=== PATIENT | male | born 1935 | race Caucasian/White ===

== ENCOUNTER → 2018-06-02 12:47 | Outpatient (CLI) | payer MEDICARE, OTHER, SELFPAY ==
[2018-06-02 17:42] LABS: Blood Urea Nitrogen 18 mg/dL (9-20); Calcium 9.1 mg/dL (8.4-10.2); Carbon Dioxide 24 mmol/L (22-32); Chloride 103 mmol/L (98-107); Estimated Glomerular Filt Rate > 60.0 mL/min (>60); Glucose 247 mg/dL (80-110); HEMOLYSIS 16 (0-50); Potassium 4.3 mmol/L (3.4-5.1); Sodium 139 mmol/L (137-145)
== END ==
PROVIDERS: Family Provider Family Medicine; PCP Family Medicine; Visit Provider Internal Medicine Cardiovascular Disease
DX: Z51.81 Encounter for therapeutic drug level monitoring (principal); Z79.899 Other long term (current) drug therapy
CPT/HCPCS: 36415; 80048

== ENCOUNTER → 2018-09-01 12:51 | Outpatient (CLI) | payer MEDICARE, OTHER, SELFPAY ==
[2018-09-01 15:45] LABS: Blood Urea Nitrogen 18 mg/dL (9-20); Calcium 8.8 mg/dL (8.4-10.2); Carbon Dioxide 28 mmol/L (22-32); Chloride 104 mmol/L (98-107); Estimated Glomerular Filt Rate > 60.0 mL/min (>60); Glucose 126 mg/dL (80-110); HEMOLYSIS < 15 (0-50); Potassium 3.9 mmol/L (3.4-5.1); Sodium 145 mmol/L (137-145)
== END ==
PROVIDERS: PCP Family Medicine; Visit Provider Internal Medicine Cardiovascular Disease
DX: Z51.81 Encounter for therapeutic drug level monitoring (principal); Z79.899 Other long term (current) drug therapy; R97.20 Elevated prostate specific antigen [PSA]
CPT/HCPCS: 36415; 80048; 84153

== ENCOUNTER 2018-09-24 12:54 | Observation (INO) | payer MEDICARE, OTHER, SELFPAY ==
[2018-09-24] VITALS (8 sets, daily range): BP systolic 113–137; BP diastolic 64–81; PULSE 57–67; RESP 15–20; TEMP 36.6–36.8; O2SAT 93–99; BMI 29.8
--- NOTE | 2018-09-24 13:10 | DI.RAD.S_ITS ---
PROCEDURE: XR CHEST 1V INDICATIONS: chest pain TECHNIQUE: One view of the chest was acquired. COMPARISON: [facility], CHEST 1 VIEW, 09/24/2014, 17:40. [facility], CHEST 1 VIEW, 09/24/2014, 18:46. FINDINGS: Surgical changes and devices: None. Lungs and pleura: Prominent perihilar lung markings are identified which are similar to the prior exam. No lobar consolidation is identified. However, there may be developing airspace disease within the bilateral lung bases (right greater than left). No effusion or pneumothorax is identified. Mediastinum: Mediastinal contours appear normal. Heart size is normal. Bones and chest wall: No suspicious bony lesions. There are degenerative changes of the spine and shoulders. Overlying soft tissues appear unremarkable. IMPRESSION: Prominent perihilar lung markings are slightly more pronounced within the infrahilar regions. This likely represents vascular crowding from shallow inspiration. Please correlate clinically to exclude atypical pneumonia. Dictated by: Robe Koch M.D. on 09/24/2018 at 12:25 Approved by: Robe Koch M.D. on 09/24/2018 at 12:26
[2018-09-24 13:17] LABS: Add Manual Diff / Slide Review NO; Basophils Percent Auto 0.7 % (0-2); Eosinophils Percent Auto 2.1 % (2-4); Hematocrit 40.1 % (41-53); Hemoglobin 13.2 g/dL (13.5-17.5); Lymphocytes Percent Auto 34.1 % (25-40); Mean Corpuscular Hemoglobin 27.7 PG (26-34); Mean Corpuscular Volume 83.9 fL (80-100); Monocytes Percent Auto 8.2 % (3-14); Neutrophils Absolute Auto 3500 /uL (3000-5900); Neutrophils Percent Auto 54.9 % (50-75); Platelet Count 169 X10^3/uL (150-400); Red Blood Cell Count 4.78 X10^6/uL (4.5-5.9); White Blood Cell Count 6.4 X10^3/uL (4.5-11.0)
[2018-09-24 13:18] LABS: INR 1.1 (0.9-1.3); Prothrombin Time 12.4 SECONDS (10.1-12.7)
[2018-09-24 13:21] LABS: PTT Partial Thromboplastin Tim 44 SECONDS (26.4-36.2)
[2018-09-24 13:27] LABS: Alanine Aminotransferase 27 IU/L (21-72); Albumin 4.3 g/dL (3.5-5.0); Albumin Globulin Ratio 1.5 (1.0-2.8); Alkaline Phosphatase 54 U/L (38-126); Aspartate Aminotransferase 23 IU/L (17-59); Bilirubin Total 0.5 mg/dL (0.2-1.3); Blood Urea Nitrogen 17 mg/dL (9-20); Calcium 9.2 mg/dL (8.4-10.2); Carbon Dioxide 28 mmol/L (22-32); Chloride 102 mmol/L (98-107); Creatine Kinase 61 U/L (55-170); Estimated Glomerular Filt Rate > 60.0 mL/min (>60); Globulin 2.8 g/dL (1.7-4.1); Glucose 178 mg/dL (80-110); HEMOLYSIS < 15 (0-50); Lipase 65 U/L (23-300); Potassium 4.7 mmol/L (3.4-5.1); Sodium 142 mmol/L (137-145); Total Protein 7.1 g/dL (6.3-8.2)
[2018-09-24 13:41] LABS: Troponin I < 0.012 ng/mL (0.01-0.034)
--- NOTE | 2018-09-24 13:44 | ED.CHESTPAIN ---
HPI - Chest Pain General Chief Complaint: Chest Pain Stated Complaint: Chest pain Time Seen by Provider: 09/24/18 13:02 Source: patient and EMS Mode of arrival: EMS Limitations: no limitations History of Present Illness HPI narrative: 82-year-old male, nonsmoker with a history of diabetes, hypertension and hyperlipidemia presents with sudden onset retrosternal chest pressure that feels squeezing in nature that started about 45 min prior to his arrival while at rest. He denies any radiation or provocation of his pain but does state that the nitro given by EMS made his pain go from a 7/10 to a 0/10. He denies associated symptoms such as dizziness, weakness or lightheadedness. He has had no nausea, vomiting or diaphoresis. Been quite sometime since his last stress test and he denies any history of myocardial infarction. He does have a history of paroxysmal atrial fibrillation for which he takes Pradaxa. His neuropsychology director is Dr. Becerra from [facility] MD complaint: chest pain Onset (ago): minute(s) Duration: improved Onset: during rest Pain location: substernal Severity: moderate Severity scale (1-10): 7 Quality: tightness Pain radiation: none Relieving factors: nitroglycerin Exacerbating factors: nothing Treatments prior to arrival chest pain: aspirin and nitroglycerin Related Data Home Medications Medication Instructions Recorded Confirmed metformin [Glucophage XR] 500 mg PO BID #0 10/14/12 09/24/18 cholecalciferol (vitamin D3) 5,000 unit PO DAILY #0 08/18/16 09/24/18 [Vitamin D3] dabigatran etexilate [Pradaxa] 150 mg PO BID 09/24/18 09/24/18 dofetilide 250 mg PO BID 09/24/18 09/24/18 glipizide 10 mg PO QAM 09/24/18 09/24/18 ibuprofen [Advil] 200 mg PO PRN PRN 09/24/18 09/24/18 loperamide 2 mg PO PRN PRN 09/24/18 09/24/18 metoprolol succinate [Toprol XL] 50 mg PO DAILY 09/24/18 09/24/18 omega-3 acid ethyl esters [Lovaza] 2 g PO BID 09/24/18 09/24/18 omeprazole 20 mg PO BID 09/24/18 09/24/18 ranitidine HCl 150 mg PO DAILY 09/24/18 09/24/18 saxagliptin-metformin [Kombiglyze 1 tab PO QPM 09/24/18 09/24/18 XR] simethicone [Gas-X Extra Strength] 1 cap PO PRN PRN 09/24/18 09/24/18 Allergies Allergy/AdvReac Type Severity Reaction Status Date / Time No Known Allergies Allergy Uncoded 02/24/18 11:50 Review of Systems Review of Systems All systems reviewed & are unremarkable except as noted in HPI and below Constitutional Denies chills, Denies fever(s), Denies lethargy and Denies weakness Eyes Denies change in vision, Denies eye discharge, Denies irritation and Denies loss of vision ENT Ears, Nose, Mouth, and Throat: Denies change in voice, Denies neck pain and Denies sore throat Cardiovascular Reports chest pain, Reports chest pain at rest, Denies irregular heart rhythm, Denies lightheadedness, Denies palpitations, Denies dyspnea, Denies dyspnea on exertion and Denies orthopnea Respiratory Denies cough, Denies dyspnea, Denies dyspnea on exertion and Denies wheezing Gastrointestinal Gastrointestinal: Denies abdominal pain, Denies change in bowel habits, Denies diarrhea, Denies nausea and Denies vomiting Genitourinary Denies hematuria, Denies flank pain, Denies urinary incontinence and Denies urinary urgency Musculoskeletal Denies neck pain Integumentary/Breasts Denies pruritus, Denies erythema, Denies rash and Denies wounds Neurologic Denies confusion, Denies loss of vision and Denies weakness Psychiatric Denies anxiety, Denies confusion, Denies depression, Denies homicidal ideation and Denies suicidal ideation Endocrine Denies palpitations Hematologic/Lymphatic Denies easy bruising Allergic/Immunologic Denies wheezing Exam Narrative Exam Narrative: GENERAL: Pleasant 82-year-old male resting comfortably, no obvious distress HEAD: Atraumatic. Normocephalic. No temporal or scalp tenderness. EYES: Pupils equal round and reactive. Extraocular motions intact. No scleral icterus. No injection or drainage. ENT: Nose without bleeding, purulent drainage or septal hematoma. Throat without erythema, tonsillar hypertrophy or exudate. Uvula midline. Airway patent. NECK: Trachea midline. No JVD or lymphadenopathy. Supple, nontender, no meningeal signs. CARDIOVASCULAR: Regular rate and rhythm without murmurs, gallops, or rubs. RESPIRATORY: Clear to auscultation. Breath sounds equal bilaterally. No wheezes, rales, or rhonchi. GASTROINTESTINAL: Abdomen soft, non-tender, nondistended. No hepato-splenomegaly, or palpable masses. No guarding. EXTREMITIES: No clubbing, cyanosis, or edema. No joint tenderness, effusion, or edema noted. BACK: Nontender without deformity or crepitance. No flank tenderness. NEURO: AOx3. SKIN: No rash or erythema. Initial Vital Signs Initial Vital Signs: Vital Signs Temperature 98.0 F 09/24/18 13:02 Pulse Rate 67 09/24/18 13:02 Respiratory Rate 15 09/24/18 13:02 Blood Pressure 113/81 09/24/18 13:02 Pulse Oximetry 93 09/24/18 13:02 Course Orders Ordered: ED Orders 09/24/18 13:01 EKG-12 Lead Stat 09/24/18 13:04 Complete Blood Count AUTO DIFF Stat Comprehensive Metabolic Panel Stat Lipase Stat Partial Thromboplastin Time Stat Prothrombin Time INR Stat Troponin & CK Cardiac Panel Stat 09/24/18 13:10 XR chest 1V Stat 09/24/18 13:49 EKG-12 Lead Stat 09/24/18 15:13 Education, smoking cessation ONGOING 09/24/18 20:00 Troponin I Routine Acetaminophen (Tylenol) 650 mg PO Q6HR PRN PRN Reason: As Needed for Fever/Mild Pain Glipizide (Glucotrol Xl) 10 mg PO DAILY [facility] Metformin HCl (Glucophage Xr) 500 mg PO BID [facility] Metoprolol Succinate (Toprol Xl) 50 mg PO DAILY [facility] Non-Formulary Medication (Dabigatran Etexilate [Dabigatran Etexilate]) 150 mg PO BID [facility] Non-Formulary Medication (Saxagliptin-Metformin [Saxagliptin-Metformin]) 1 tab PO QPM [facility] Non-Formulary Medication (Dofetilide [Dofetilide]) 250 mg PO BID [facility] Ondansetron HCl (Zofran) 4 mg IV Q8HR PRN PRN Reason: Nausea And Vomiting Ranitidine HCl (Zantac) 150 mg PO DAILY [facility] Reevaluation(s) Reevaluation #1: patient remains pain free Consultations Consultation #1: call to Dr. John ([facility]) whom is in agreement with observation for chest pain rule out. We do NOT have radionucleotide for stress test until thursday but he is comfortable with trending enzymes/echo and stress test within 1 week Time: 14:41 Consultation #2: Dr. Maldonado happy to place patient in OBS Time: 14:41 Vital Signs - 8 hr 09/24/18 13:02 09/24/18 13:30 Temperature 98.0 F Pulse Rate 67 60 Respiratory Rate 15 15 Blood Pressure 113/81 Blood Pressure [Left Arm] 120/64 Pulse Oximetry 93 97 MDM - Chest Pain Differential Diagnosis Likely stable angina, unstable angina pectoris, atypical chest pain, st elevation myocardial infarction, costochondritis, chest pain and biliary colic Medical Records Data Attestation: I reviewed the patient's medical records. Lab Data Attestation: I reviewed the patient's lab results. Result diagrams: 09/24/18 13:04 09/24/18 13:04 Lab Results 09/24/18 09/24/18 09/24/18 Range/Units 13:04 13:04 13:04 WBC 6.4 (4.5-11.0) X10^3/uL RBC 4.78 (4.5-5.9) X10^6/uL Hgb 13.2 L (13.5-17.5) g/dL Hct 40.1 L (41-53) % MCV 83.9 (80-100) fL MCH 27.7 (26-34) PG MCHC 33.0 (30-36) % RDW 16.0 H (11.6-14.8) % Plt Count 169 (150-400) X10^3/uL Neut % (Auto) 54.9 (50-75) % Lymph % (Auto) 34.1 (25-40) % [place] % (Auto) 8.2 (3-14) % Eos % (Auto) 2.1 (2-4) % Baso % (Auto) 0.7 (0-2) % Neut # (Auto) 3500 (9509-1734) /uL PT 12.4 (10.1-12.7) SECONDS INR 1.1 (0.9-1.3) APTT 44 H (26.4-36.2) SECONDS Sodium 142 (137-145) mmol/L Potassium 4.7 (3.4-5.1) mmol/L Chloride 102 (98-107) mmol/L Carbon Dioxide 28 (22-32) mmol/L BUN 17 (9-20) mg/dL Creatinine 1.00 (0.66-1.25) mg/dL Estimated GFR > 60.0 (>60) mL/min BUN/Creatinine Ratio 17.0 (6-22) Glucose 178 H (80-110) mg/dL Calcium 9.2 (8.4-10.2) mg/dL Total Bilirubin 0.5 (0.2-1.3) mg/dL AST 23 (17-59) IU/L ALT 27 (21-72) IU/L Alkaline Phosphatase 54 (38-126) U/L Total Creatine Kinase 61 (55-170) U/L CK-MB (CK-2) TNP CK-MB (CK-2) Rel Index TNP Troponin I < 0.012 (0.01-0.034) ng/mL Total Protein 7.1 (6.3-8.2) g/dL Albumin 4.3 (3.5-5.0) g/dL Globulin 2.8 (1.7-4.1) g/dL Albumin/Globulin Ratio 1.5 (1.0-2.8) Lipase 65 (23-300) U/L Imaging Data Chest x-ray: Radiologist's impression: [address] [address] XRay Report Signed Patient: Oscar Schwab CMR#: [id number] : [id number]:[id number] Age/Sex: 82 / MDate of Service: 09/24/18 Loc: ED Accession Number: [id number] Procedure: XR chest 1V Ordering Provider: Raymundo Blake D.O. PROCEDURE: XR CHEST 1V INDICATIONS: chest pain TECHNIQUE: One view of the chest was acquired. COMPARISON: [facility], CHEST 1 VIEW, 09/24/2014, 17:40. [facility], CHEST 1 VIEW, 09/24/2014, 18:46. FINDINGS: Surgical changes and devices: None. Lungs and pleura: Prominent perihilar lung markings are identified which are similar to the prior exam. No lobar consolidation is identified. However, there may be developing airspace disease within the bilateral lung bases (right greater than left). No effusion or pneumothorax is identified. Mediastinum: Mediastinal contours appear normal. Heart size is normal. Bones and chest wall: No suspicious bony lesions. There are degenerative changes of the spine and shoulders. Overlying soft tissues appear unremarkable. IMPRESSION: Prominent perihilar lung markings are slightly more pronounced within the infrahilar regions. This likely represents vascular crowding from shallow inspiration. Please correlate clinically to exclude atypical pneumonia. Dictated by: Robe Koch M.D. on 09/24/2018 at 12:25 Approved by: Robe Koch M.D. on 09/24/2018 at 12:26 ECG Data Attestation: I personally reviewed and interpreted this ECG as follows: Prior ECG tracings: available for review Interpretation: Normal sinus rhythm, [address] elevation or depression. EKG 2: unchanged Discharge Plan Departure Patient Disposition: Admitted as Observation Clinical Impression: Chest pain Discharge Date/Time: 09/24/18 14:57 Admit Date/Time: 09/24/18 14:56 Admit Provider: Joshua Maldonado
--- NOTE | 2018-09-24 14:09 | ED_ITS ---
HPI - Chest Pain General Chief Complaint: Chest Pain Stated Complaint: Chest pain Time Seen by Provider: 09/24/18 13:02 Source: patient and EMS Mode of arrival: EMS Limitations: no limitations History of Present Illness HPI narrative: 82-year-old male, nonsmoker with a history of diabetes, hypertension and hyperlipidemia presents with sudden onset retrosternal chest pressure that feels squeezing in nature that started about 45 min prior to his arrival while at rest. He denies any radiation or provocation of his pain but does state that the nitro given by EMS made his pain go from a 7/10 to a 0/10. He denies associated symptoms such as dizziness, weakness or lightheadedness. He has had no nausea, vomiting or diaphoresis. Been quite sometime since his last stress test and he denies any history of myocardial infarction. He does have a history of paroxysmal atrial fibrillation for which he takes Pradaxa. His hardboard panel printer is Dr. Becerra from [facility] MD complaint: chest pain Onset (ago): minute(s) Duration: improved Onset: during rest Pain location: substernal Severity: moderate Severity scale (1-10): 7 Quality: tightness Pain radiation: none Relieving factors: nitroglycerin Exacerbating factors: nothing Treatments prior to arrival chest pain: aspirin and nitroglycerin Related Data Home Medications Medication Instructions Recorded Confirmed metformin [Glucophage XR] 500 mg PO BID #0 10/14/12 09/24/18 cholecalciferol (vitamin D3) 5,000 unit PO DAILY #0 08/18/16 09/24/18 [Vitamin D3] dabigatran etexilate [Pradaxa] 150 mg PO BID 09/24/18 09/24/18 dofetilide 250 mg PO BID 09/24/18 09/24/18 glipizide 10 mg PO QAM 09/24/18 09/24/18 ibuprofen [Advil] 200 mg PO PRN PRN 09/24/18 09/24/18 loperamide 2 mg PO PRN PRN 09/24/18 09/24/18 metoprolol succinate [Toprol XL] 50 mg PO DAILY 09/24/18 09/24/18 omega-3 acid ethyl esters [Lovaza] 2 g PO BID 09/24/18 09/24/18 omeprazole 20 mg PO BID 09/24/18 09/24/18 ranitidine HCl 150 mg PO DAILY 09/24/18 09/24/18 saxagliptin-metformin [Kombiglyze 1 tab PO QPM 09/24/18 09/24/18 XR] simethicone [Gas-X Extra Strength] 1 cap PO PRN PRN 09/24/18 09/24/18 Allergies Allergy/AdvReac Type Severity Reaction Status Date / Time No Known Allergies Allergy Uncoded 02/24/18 11:50 Review of Systems Review of Systems All systems reviewed & are unremarkable except as noted in HPI and below Constitutional Denies chills, Denies fever(s), Denies lethargy and Denies weakness Eyes Denies change in vision, Denies eye discharge, Denies irritation and Denies loss of vision ENT Ears, Nose, Mouth, and Throat: Denies change in voice, Denies neck pain and Denies sore throat Cardiovascular Reports chest pain, Reports chest pain at rest, Denies irregular heart rhythm, Denies lightheadedness, Denies palpitations, Denies dyspnea, Denies dyspnea on exertion and Denies orthopnea Respiratory Denies cough, Denies dyspnea, Denies dyspnea on exertion and Denies wheezing Gastrointestinal Gastrointestinal: Denies abdominal pain, Denies change in bowel habits, Denies diarrhea, Denies nausea and Denies vomiting Genitourinary Denies hematuria, Denies flank pain, Denies urinary incontinence and Denies urinary urgency Musculoskeletal Denies neck pain Integumentary/Breasts Denies pruritus, Denies erythema, Denies rash and Denies wounds Neurologic Denies confusion, Denies loss of vision and Denies weakness Psychiatric Denies anxiety, Denies confusion, Denies depression, Denies homicidal ideation and Denies suicidal ideation Endocrine Denies palpitations Hematologic/Lymphatic Denies easy bruising Allergic/Immunologic Denies wheezing Exam Narrative Exam Narrative: GENERAL: Pleasant 82-year-old male resting comfortably, no obvious distress HEAD: Atraumatic. Normocephalic. No temporal or scalp tenderness. EYES: Pupils equal round and reactive. Extraocular motions intact. No scleral icterus. No injection or drainage. ENT: Nose without bleeding, purulent drainage or septal hematoma. Throat without erythema, tonsillar hypertrophy or exudate. Uvula midline. Airway patent. NECK: Trachea midline. No JVD or lymphadenopathy. Supple, nontender, no meningeal signs. CARDIOVASCULAR: Regular rate and rhythm without murmurs, gallops, or rubs. RESPIRATORY: Clear to auscultation. Breath sounds equal bilaterally. No wheezes , rales, or rhonchi. GASTROINTESTINAL: Abdomen soft, non-tender, nondistended. No hepato-splenomegaly , or palpable masses. No guarding. EXTREMITIES: No clubbing, cyanosis, or edema. No joint tenderness, effusion, or edema noted. BACK: Nontender without deformity or crepitance. No flank tenderness. NEURO: AOx3. SKIN: No rash or erythema. Initial Vital Signs Initial Vital Signs: Vital Signs Temperature 98.0 F 09/24/18 13:02 Pulse Rate 67 09/24/18 13:02 Respiratory Rate 15 09/24/18 13:02 Blood Pressure 113/81 09/24/18 13:02 Pulse Oximetry 93 09/24/18 13:02 Course Orders Ordered: ED Orders 09/24/18 13:01 EKG-12 Lead Stat 09/24/18 13:04 Complete Blood Count AUTO DIFF Stat Comprehensive Metabolic Panel Stat Lipase Stat Partial Thromboplastin Time Stat Prothrombin Time INR Stat Troponin & CK Cardiac Panel Stat 09/24/18 13:10 XR chest 1V Stat 09/24/18 13:49 EKG-12 Lead Stat 09/24/18 15:13 Education, smoking cessation ONGOING 09/24/18 20:00 Troponin I Routine Acetaminophen (Tylenol) 650 mg PO Q6HR PRN PRN Reason: As Needed for Fever/Mild Pain Glipizide (Glucotrol Xl) 10 mg PO DAILY [facility] Metformin HCl (Glucophage Xr) 500 mg PO BID [facility] Metoprolol Succinate (Toprol Xl) 50 mg PO DAILY [facility] Non-Formulary Medication (Dabigatran Etexilate [Dabigatran Etexilate]) 150 mg PO BID [facility] Non-Formulary Medication (Saxagliptin-Metformin [Saxagliptin-Metformin]) 1 tab PO QPM [facility] Non-Formulary Medication (Dofetilide [Dofetilide]) 250 mg PO BID [facility] Ondansetron HCl (Zofran) 4 mg IV Q8HR PRN PRN Reason: Nausea And Vomiting Ranitidine HCl (Zantac) 150 mg PO DAILY [facility] Reevaluation(s) Reevaluation #1: patient remains pain free Consultations Consultation #1: call to Dr. John ([facility]) whom is in agreement with observation for chest pain rule out. We do NOT have radionucleotide for stress test until thursday but he is comfortable with trending enzymes/echo and stress test within 1 week Time: 14:41 Consultation #2: Dr. Maldonado happy to place patient in OBS Time: 14:41 Vital Signs - 8 hr 09/24/18 13:02 09/24/18 13:30 Temperature 98.0 F Pulse Rate 67 60 Respiratory Rate 15 15 Blood Pressure 113/81 Blood Pressure [Left Arm] 120/64 Pulse Oximetry 93 97 MDM - Chest Pain Differential Diagnosis Likely stable angina, unstable angina pectoris, atypical chest pain, st elevation myocardial infarction, costochondritis, chest pain and biliary colic Medical Records Data Attestation: I reviewed the patient's medical records. Lab Data Attestation: I reviewed the patient's lab results. Result diagrams: 09/24/18 13:04 09/24/18 13:04 Lab Results 09/24/18 09/24/18 09/24/18 Range/Units 13:04 13:04 13:04 WBC 6.4 (4.5-11.0) X10^3/uL RBC 4.78 (4.5-5.9) X10^6/uL Hgb 13.2 L (13.5-17.5) g/dL Hct 40.1 L (41-53) % MCV 83.9 (80-100) fL MCH 27.7 (26-34) PG MCHC 33.0 (30-36) % RDW 16.0 H (11.6-14.8) % Plt Count 169 (150-400) X10^3/uL Neut % (Auto) 54.9 (50-75) % Lymph % (Auto) 34.1 (25-40) % [place] % (Auto) 8.2 (3-14) % Eos % (Auto) 2.1 (2-4) % Baso % (Auto) 0.7 (0-2) % Neut # (Auto) 3500 (8746-8689) /uL PT 12.4 (10.1-12.7) SECONDS INR 1.1 (0.9-1.3) APTT 44 H (26.4-36.2) SECONDS Sodium 142 (137-145) mmol/L Potassium 4.7 (3.4-5.1) mmol/L Chloride 102 (98-107) mmol/L Carbon Dioxide 28 (22-32) mmol/L BUN 17 (9-20) mg/dL Creatinine 1.00 (0.66-1.25) mg/dL Estimated GFR > 60.0 (>60) mL/min BUN/Creatinine Ratio 17.0 (6-22) Glucose 178 H (80-110) mg/dL Calcium 9.2 (8.4-10.2) mg/dL Total Bilirubin 0.5 (0.2-1.3) mg/dL AST 23 (17-59) IU/L ALT 27 (21-72) IU/L Alkaline Phosphatase 54 (38-126) U/L Total Creatine Kinase 61 (55-170) U/L CK-MB (CK-2) TNP CK-MB (CK-2) Rel Index TNP Troponin I < 0.012 (0.01-0.034) ng/mL Total Protein 7.1 (6.3-8.2) g/dL Albumin 4.3 (3.5-5.0) g/dL Globulin 2.8 (1.7-4.1) g/dL Albumin/Globulin Ratio 1.5 (1.0-2.8) Lipase 65 (23-300) U/L Imaging Data Chest x-ray: Radiologist's impression: [address] [address] XRay Report Signed Patient: Oscar Schwab CMR#: [id number] : [id number]:[id number] Age/Sex: 82 / MDate of Service: 09/24/18 Loc: ED Accession Number: [id number] Procedure: XR chest 1V Ordering Provider: Raymundo Blake D.O. PROCEDURE: XR CHEST 1V INDICATIONS: chest pain TECHNIQUE: One view of the chest was acquired. COMPARISON: [facility], CHEST 1 VIEW, 09/24/2014, 17:40. [facility], CHEST 1 VIEW, 09/24/2014, 18:46. FINDINGS: Surgical changes and devices: None. Lungs and pleura: Prominent perihilar lung markings are identified which are similar to the prior exam. No lobar consolidation is identified. However, there may be developing airspace disease within the bilateral lung bases (right greater than left). No effusion or pneumothorax is identified. Mediastinum: Mediastinal contours appear normal. Heart size is normal. Bones and chest wall: No suspicious bony lesions. There are degenerative changes of the spine and shoulders. Overlying soft tissues appear unremarkable. IMPRESSION: Prominent perihilar lung markings are slightly more pronounced within the infrahilar regions. This likely represents vascular crowding from shallow inspiration. Please correlate clinically to exclude atypical pneumonia. Dictated by: Robe Koch M.D. on 09/24/2018 at 12:25 Approved by: Robe Koch M.D. on 09/24/2018 at 12:26 ECG Data Attestation: I personally reviewed and interpreted this ECG as follows: Prior ECG tracings: available for review Interpretation: Normal sinus rhythm, [address] elevation or depression. EKG 2: unchanged Discharge Plan Departure Patient Disposition: Admitted as Observation Clinical Impression: Chest pain Discharge Date/Time: 09/24/18 14:57 Admit Date/Time: 09/24/18 14:56 Admit Provider: Joshua Maldonado
--- NOTE | 2018-09-24 18:33 | PC.ADMIT ---
Admission Note: Pt arrived to floor at 1825 vis stretcher and [employer] COORDINATOR from ED. Pt ambulated to bed. voided in BR. ambulates steady gait. blood sugar checked and pt ate dinner. vss. denies chest pain. SOB, dizziness/[id number]/diaphoresis. Pt good historian. compliant with hospital procedures. pt updated. will continue to monitor pt for safety.
--- NOTE | 2018-09-24 19:14 | PM.HP.1 ---
History of Present Illness Date Patient Seen: 09/24/18 Time Patient Seen: 19:14 Chief complaint: Chest pain Narrative: 82-year-old male with history of AFib presents with acute onset chest pain. He was sitting doing a jigsaw puzzle home when he had this severe acute pressure pain in the midchest and lasted for about an hour came to the ER was pretty much gone by the time he got here but then totally gone when he got some nitroglycerin. No prior history of [place] or stents. Patient History Medical History Atrial fibrillation, transient (Acute) GERD (gastroesophageal reflux disease) (Acute) Hyperlipidemia (Acute) Hypertension (Acute) Osteoarthritis (arthritis due to wear and tear of joints) (Acute) Type 2 diabetes mellitus with diabetic neuropathy (Acute) Family & Social History Family History: Reviewed 09/24/18 by Joshua Maldonado MD Social History: household members spouse Prior Living Arrangements House Safety & Behavioral: Feels Safe in Current Yes Environment Been Physically Hurt or No Threatened By a Person Suicidal Ideation Description None Suicide Plan Description No Plan Tobacco & Substance use: Smoking Status Never smoker alcohol intake former Substance Use Type does not use Meds Home Medications Medication Instructions Recorded Confirmed Type metformin [Glucophage XR] 500 mg PO BID #0 10/14/12 09/24/18 History cholecalciferol (vitamin D3) 5,000 unit PO DAILY #0 08/18/16 09/24/18 History [Vitamin D3] dabigatran etexilate [Pradaxa] 150 mg PO BID 09/24/18 09/24/18 History dofetilide 250 mg PO BID 09/24/18 09/24/18 History glipizide 10 mg PO QAM 09/24/18 09/24/18 History ibuprofen [Advil] 200 mg PO PRN PRN 09/24/18 09/24/18 History loperamide 2 mg PO PRN PRN 09/24/18 09/24/18 History metoprolol succinate [Toprol XL] 50 mg PO DAILY 09/24/18 09/24/18 History omega-3 acid ethyl esters [Lovaza] 2 g PO BID 09/24/18 09/24/18 History omeprazole 20 mg PO BID 09/24/18 09/24/18 History ranitidine HCl 150 mg PO DAILY 09/24/18 09/24/18 History saxagliptin-metformin [Kombiglyze 1 tab PO QPM 09/24/18 09/24/18 History XR] simethicone [Gas-X Extra Strength] 1 cap PO PRN PRN 09/24/18 09/24/18 History Allergies Allergy/AdvReac Type Severity Reaction Status Date / Time No Known Allergies Allergy Uncoded 02/24/18 11:50 Review of Systems Constitutional Constitutional: Reports system reviewed and no additional complaints, except as documented Eyes Eyes: Reports system reviewed; no additional complaints, except as documented ENT Ears, Nose, Mouth, and Throat: Yes system reviewed; no additional complaints, except as documented Cardiovascular Cardiovascular: Reports chest pain and Denies shortness of breath with activity Respiratory Respiratory: Denies pain on inspiration, Denies pain with cough, Denies dyspnea on exertion and Denies wheezing Gastrointestinal Gastrointestinal: Denies abdominal pain and Denies heartburn Musculoskeletal Musculoskeletal: Reports system reviewed; no additional complaints, except as documented Neurologic Neurologic: Reports system reviewed and no additional complaints, except as documented Psychiatric Psychiatric: Reports system reviewed and no additional complaints, except as documented Endocrine Endocrine: Reports system reviewed and no additional complaints, except as documented Hematologic/Lymphatic Hematologic/Lymphatic: Reports system reviewed and no additional complaints, except as documented Allergic/Immunologic Allergic/Immunologic: Reports system reviewed and no additional complaints, except as documented and Denies wheezing Exam Vital Signs (past 8 hours): - 09/24/18 13:02 09/24/18 13:30 09/24/18 15:31 Temperature 98.0 F Pulse Rate 67 60 63 Respiratory Rate 15 15 18 Blood Pressure 113/81 Blood Pressure [Left Arm] 120/64 128/68 Pulse Oximetry 93 97 97 09/24/18 16:12 09/24/18 16:20 09/24/18 16:25 Temperature 98.2 F 97.8 F Pulse Rate 64 64 Respiratory Rate 16 18 Blood Pressure 128/68 137/69 Blood Pressure [Left Arm] Pulse Oximetry 99 99 99 Oxygen Delivery Method Room Air Narrative Exam Narrative: Pleasant elderly male no acute distress sitting up in a chair HEENT exam oropharynx clear wearing hearing aids Neck is supple no bruits no JVD Lungs clear Heart irregular Abdomen soft nontender Lower extremities no edema Skin warm and dry Neuro exam awake alert oriented no focal deficits speech is normal Objective Labs Result Diagrams: 09/24/18 13:04 09/24/18 13:04 Labs: Laboratory Results - last 24 hr 09/24/18 09/24/18 09/24/18 13:04 13:04 13:04 WBC 6.4 RBC 4.78 Hgb 13.2 L Hct 40.1 L MCV 83.9 MCH 27.7 MCHC 33.0 RDW 16.0 H Plt Count 169 Neut % (Auto) 54.9 Lymph % (Auto) 34.1 [place] % (Auto) 8.2 Eos % (Auto) 2.1 Baso % (Auto) 0.7 Neut # (Auto) 3500 PT 12.4 INR 1.1 APTT 44 H Sodium 142 Potassium 4.7 Chloride 102 Carbon Dioxide 28 BUN 17 Creatinine 1.00 Estimated GFR > 60.0 BUN/Creatinine Ratio 17.0 Glucose 178 H Calcium 9.2 Total Bilirubin 0.5 AST 23 ALT 27 Alkaline Phosphatase 54 Total Creatine Kinase 61 CK-MB (CK-2) TNP CK-MB (CK-2) Rel Index TNP Troponin I < 0.012 Total Protein 7.1 Albumin 4.3 Globulin 2.8 Albumin/Globulin Ratio 1.5 Lipase 65 Assessment & Plan Plan: Assessment/Plan Narrative: One. Chest pain initial troponin was normal and EKG nor she initially without any acute ST T wave changes. Telemetry to be monitored on nitro as needed aspirin once a day continue beta-elizabeth as at home 2. Persistent AFib plan to continue current medications rate controlled on anticoagulation 3. Hypertensions plan to continue current medications well controlled 4. Diabetes type 2 continue with the oral medications this has been well controlled 5. GERD continue with ranitidine 6. Code status full code per patient's wishes 7. Disposition observation status Quality VTE Deep Vein Thrombosis/Pulmonary Embolism Present on Admission: No
[2018-09-24] MEDS: DOFETILIDE 0.25 EACH PO (20:30)
[2018-09-24] MEDS: METFORMIN XR 500 MG TABLET PO (20:31)
[2018-09-24] MEDS: SODIUM CHLORIDE 0.9% FLUSH 10 ML IV (20:31)
[2018-09-24] MEDS: DABIGATRAN 75 MG CAPSULE 150 MG PO (20:31)
[2018-09-24 20:55] LABS: Troponin I < 0.012 ng/mL (0.01-0.034)
[2018-09-24] MEDS: ACETAMINOPHEN 325 MG TABLET 650 MG PO (23:34)
[2018-09-25 00:11] VITALS: O2SAT 97
--- NOTE | 2018-09-25 04:41 | PC.NURSE ---
Pt is A and O x 4, VSS, princess high 50's most of this shift. S1, S2. Denies pain and nausea, denies chest pain. + BTs, voiding clear yellow, qs. CBG at 2330 09/24/18 was 59, given an ice cream and recheck was 120. Pt able to sleep.
[2018-09-25 05:45] VITALS: BP 116/67; PULSE 54; RESP 18; TEMP 36.6; O2SAT 96
[2018-09-25 07:50] VITALS: BP 126/74; PULSE 61; RESP 16; TEMP 36.4; O2SAT 94
[2018-09-25 08:30] VITALS: O2SAT 96
[2018-09-25] MEDS: DOFETILIDE 0.25 EACH PO (09:00)
[2018-09-25] MEDS: glipiZIDE XL 5 MG TAB 10 MG PO (09:01)
[2018-09-25] MEDS: DABIGATRAN 75 MG CAPSULE 150 MG PO (09:01)
[2018-09-25] MEDS: METFORMIN XR 500 MG TABLET PO (09:01)
[2018-09-25] MEDS: SODIUM CHLORIDE 0.9% FLUSH 10 ML IV (09:02)
[2018-09-25] MEDS: METOPROLOL ER 50 MG TABLET PO (09:31)
--- NOTE | 2018-09-25 10:19 | CM.DANOTE ---
DCP: Case received, EMR reviewed and met with patient. Introduced self and role. DCP template completed with information currently available. Patient is an 82 year old male who admitted yesterday afternoon to the care of the hospitalist team. PCP: Dr. Agosto. Payer: confirmed: Medicare/[employer]. Patient came to hospital via ambulance secondary to chest pain. Has history of a-fib as well. Met with patient in room. Alert and oriented. Patient lives in [place] with his spouse. Stated that he does have a cane and walker at home, but does not always use. P: Home when stable and tests are concluded. Luz Maria Cruz RN/[employer]
--- NOTE | 2018-09-25 11:27 | PC.NURSE ---
Addendum entered by Judy Hodge R.N. 09/25/18 13:32: dc - pt own medication returned from pharmacy and given to spouse. Original Note: Addendum entered by Judy Hodge R.N. 09/25/18 13:30: DC - Dr. Maldonado in and pt discharged home, hep lock and tele dc'd, reviewed dc instructions, no new scripts, pt has belongings, clothing, watch, jim hearing aids, tsf to and escorted to family car. Original Note: AM NOTE - alert, sitting chair this am, jim hearing aids in, no complaint chest pain, reports subsided after nitro, no sob or nausea, cbg this am 99 and pt states he usually runs in 90's in am, hr reg 60, 02 96% ra.
[2018-09-25 11:32] VITALS: BP 123/75; PULSE 55; RESP 16; TEMP 36.4; O2SAT 95
--- NOTE | 2018-09-25 12:10 | P.DS_ITS ---
History of Present Illness Date Patient Seen: 09/25/18 Time Patient Seen: 12:08 Chief complaint: Chest pain Narrative: 82-year-old male with history of AFib presents with acute onset chest pain. He was sitting doing a jigsaw puzzle home when he had this severe acute pressure pain in the midchest and lasted for about an hour came to the ER was pretty much gone by the time he got here but then totally gone when he got some nitroglycerin. No prior history of [place] or stents. Discharge Providers Date of admission: 09/24/18 14:56 Primary care physician: aTn Agosto MD Discharge provider: Joshua Maldonado MD Discharge Date: 09/25/18 Summary Discharge Diagnosis: One. Chest pain myocardial infarction ruled out 2. Persistent atrial fibrillation 3. Diabetes type 2 4. Hypertension 5. GERD Hospital Course: Patient mid to the hospital with chest pains nonspecific EKG changes. Pain is resolved and troponins negative x2. Patient is scheduled to see Cardiology this week he will follow up with them. He is on medication for AFib anticoagulation and rate control. Also diabetes and hypertension which are relatively well controlled. Status at Discharge Cognitive/behavioral status at discharge: Baseline Functional status at discharge: independent ambulation Overall status at discharge: patient is back to baseline Time Spent with Patient Greater than 30 minutes Exam Vital Signs (past 8 hours): - 09/25/18 05:45 09/25/18 07:50 09/25/18 08:30 Temperature 97.8 F 97.6 F Pulse Rate 54 L 61 Respiratory Rate 18 16 Blood Pressure 116/67 126/74 Pulse Oximetry 96 94 96 Oxygen Delivery Method Room Air Oxygen Flow Rate 0 Narrative Exam Narrative: Sitting up in a chair conversant no acute distress Lungs clear Heart regular rhythm Objective Labs Result Diagrams: 09/24/18 13:04 09/24/18 13:04 Labs: Laboratory Results - last 24 hr 09/24/18 09/24/18 09/24/18 13:04 13:04 13:04 WBC 6.4 RBC 4.78 Hgb 13.2 L Hct 40.1 L MCV 83.9 MCH 27.7 MCHC 33.0 RDW 16.0 H Plt Count 169 Neut % (Auto) 54.9 Lymph % (Auto) 34.1 [place] % (Auto) 8.2 Eos % (Auto) 2.1 Baso % (Auto) 0.7 Neut # (Auto) 3500 PT 12.4 INR 1.1 APTT 44 H Sodium 142 Potassium 4.7 Chloride 102 Carbon Dioxide 28 BUN 17 Creatinine 1.00 Estimated GFR > 60.0 BUN/Creatinine Ratio 17.0 Glucose 178 H Calcium 9.2 Total Bilirubin 0.5 AST 23 ALT 27 Alkaline Phosphatase 54 Total Creatine Kinase 61 CK-MB (CK-2) TNP CK-MB (CK-2) Rel Index TNP Troponin I < 0.012 Total Protein 7.1 Albumin 4.3 Globulin 2.8 Albumin/Globulin Ratio 1.5 Lipase 65 09/24/18 20:01 WBC RBC Hgb Hct MCV MCH MCHC RDW Plt Count Neut % (Auto) Lymph % (Auto) [place] % (Auto) Eos % (Auto) Baso % (Auto) Neut # (Auto) PT INR APTT Sodium Potassium Chloride Carbon Dioxide BUN Creatinine Estimated GFR BUN/Creatinine Ratio Glucose Calcium Total Bilirubin AST ALT Alkaline Phosphatase Total Creatine Kinase CK-MB (CK-2) CK-MB (CK-2) Rel Index Troponin I < 0.012 Total Protein Albumin Globulin Albumin/Globulin Ratio Lipase Discharge Plan Discharge Plan Patient Disposition: Home Discharge comment: Follow-up with Cardiology as scheduled on Thursday Discharge Med Rec/Prescriptions Prescriptions: Continue metformin [Glucophage XR] 500 MG tablet extended release 24 hr 500 mg PO BID Qty: 0 RF: 0 cholecalciferol (vitamin D3) [Vitamin D3] 5,000 unit Tablet 5,000 unit PO DAILY Qty: 0 RF: 0 metoprolol succinate 50 mg tablet extended release 24 hr 50 mg PO DAILY RF: 0 glipizide 10 mg tablet extended release 24hr 10 mg PO QAM RF: 0 loperamide 2 mg Tablet 2 mg PO PRN PRN (Reason: Diarrhea) RF: 0 dofetilide 250 mcg capsule 250 mg PO BID RF: 0 simethicone [Gas-X Extra Strength] 125 mg Capsule 1 cap PO PRN PRN (Reason: gas) RF: 0 ranitidine HCl 150 mg tablet 150 mg PO DAILY RF: 0 ibuprofen [Advil] 200 mg Tablet 200 mg PO PRN PRN (Reason: pain) RF: 0 omeprazole 20 mg capsule,delayed release(DR/EC) 20 mg PO BID RF: 0 omega-3 acid ethyl esters [Lovaza] 1 gram Capsule 2 g PO BID RF: 0 dabigatran etexilate 150 mg capsule 150 mg PO BID RF: 0 saxagliptin-metformin 5-1,000 mg tablet, ER multiphase 24 hr 1 tab PO QPM RF: 0 Follow up/Referrals: Tan Agosto MD [Primary Care Provider] - 3-5 Days (Follow-up on chest pain) Discharge Data Primary Care Provider: Tan Agosto Attending Provider: Joshua Maldonado Admit Date/Time: 09/24/18 14:56 Quality VTE Deep Vein Thrombosis/Pulmonary Embolism Present on Admission: No
== END 2018-09-25 13:35 | disposition home or self-care (01) ==
LOC: ED 14:39 → AC 14:56
PROVIDERS: Admitting Provider Internal Medicine; Emergency Provider Emergency Medicine; Family Provider Family Medicine; PCP Family Medicine; Visit Provider Internal Medicine
DX: R07.9 Chest pain, unspecified (principal); I48.0 Paroxysmal atrial fibrillation; E11.9 Type 2 diabetes mellitus without complications; I10 Essential (primary) hypertension; K21.9 Gastro-esophageal reflux disease without esophagitis; E78.5 Hyperlipidemia, unspecified; Z79.84 Long term (current) use of oral hypoglycemic drugs
CPT/HCPCS: 36415; 71045; 80053; 82550; 82962; 83690; 84484; 85025; 85610; 85730; 93005; 99283; 99285; G0378

== ENCOUNTER → 2019-01-18 10:34 | Outpatient (CLI) | payer MEDICARE, OTHER, SELFPAY ==
[2018-09-24 16:31] VITALS: BMI 29.8
[2019-01-18 12:08] LABS: Blood Urea Nitrogen 22 mg/dL (9-20); Calcium 9.2 mg/dL (8.4-10.2); Carbon Dioxide 26 mmol/L (22-32); Chloride 99 mmol/L (98-107); Estimated Glomerular Filt Rate > 60.0 mL/min (>60); Glucose 199 mg/dL (80-110); HEMOLYSIS < 15 (0-50); Potassium 4.5 mmol/L (3.4-5.1); Sodium 137 mmol/L (137-145)
== END ==
PROVIDERS: Family Provider Family Medicine; PCP Family Medicine; Visit Provider Internal Medicine Cardiovascular Disease
DX: Z51.81 Encounter for therapeutic drug level monitoring (principal); Z79.899 Other long term (current) drug therapy
CPT/HCPCS: 36415; 80048

== ENCOUNTER → 2019-03-11 11:34 | Outpatient (CLI) | payer MEDICARE, OTHER, SELFPAY ==
[2018-09-24 16:31] VITALS: BMI 29.8
--- NOTE | 2019-03-11 | DI.MRI.S_ITS ---
PROCEDURE: MR HEAD/BRAIN WO CON INDICATIONS: Syncope and collapse TECHNIQUE: Non-contrast axial T1 spin echo, axial T2 fast spin echo, sagittal and axial FLAIR, coronal T2 fast spin echo, axial gradient echo, axial diffusion and ADC through the brain. COMPARISON: [facility], , STROKE PROTOCOL, 01/28/2016, 8:03. FINDINGS: Image quality: Excellent. CSF spaces: Ventricles appear symmetric in size and shape. Basal cisterns are patent. No extra-axial fluid collections. Brain: No intracranial bleeds or mass effects. There is cerebral volume loss for age. There are periventricular and deep white matter chronic small vessel ischemic changes. Brainstem appears normal. Diffusion-weighted images show no acute ischemic insults. No chronic ischemic insults. Normal intravascular flow voids are present. Skull and face: Calvarial bone marrow is normal in signal. Orbits are normal. Sinuses: Extensive left maxillary sinus disease. Remaining paranasal sinuses and mastoid air cells clear except for trace left mastoid air cell fluid. IMPRESSION: No evidence of acute ischemia. Severe left maxillary sinus disease. Dictated by: Chang Jim M.D. on 03/11/2019 at 12:34 Approved by: Chang Jim M.D. on 03/11/2019 at 12:37
--- NOTE | 2019-03-11 | DI.US.S_ITS ---
PROCEDURE: US CAROTID DOPPLER BI INDICATIONS: SYNCOPE AND COLLAPSE TECHNIQUE: Color and pulse Doppler interrogation was performed of both carotid systems, with image documentation and velocity measurements. COMPARISON: [facility], , CAROTID ARTERY DOPPLER BILAT, 08/13/2009, 13:54. FINDINGS: Stenosis calculations are based on SRU (Society of Radiologists in Ultrasound) criteria. Right side: Brachial blood pressure: 115/66 mm Hg. Common carotid artery peak systolic velocity: 45 cm/sec. Internal carotid artery peak systolic velocity: 49 cm/sec. Internal carotid artery end diastolic velocity: 20 cm/sec. External carotid artery peak systolic velocity: 81 cm/sec. ICA/CCA peak systolic ratio: 1.09. Rosenthal scale imaging description: No significant atherosclerotic plaques are noted in right carotid artery. Percent internal carotid artery stenosis: No hemodynamically significant stenosis.. Vertebral artery: Flow direction is antegrade. Left side: Brachial blood pressure: 105/68 mm Hg. Common carotid artery peak systolic velocity: 50 cm/sec. Internal carotid artery peak systolic velocity: 64 cm/sec. Internal carotid artery end diastolic velocity: 28 cm/sec. External carotid artery peak systolic velocity: 74 cm/sec. ICA/CCA peak systolic ratio: 1.3. Rosenthal scale imaging description: Focal hypoechoic plaque is noted in distal left common carotid artery extending into proximal left internal carotid artery. Percent internal carotid artery stenosis: No hemodynamically significant stenosis. Vertebral artery: Flow direction is antegrade. IMPRESSION: No hemodynamically significant stenosis is seen in bilateral carotid arteries. Dictated by: Tito Mayen M.D. on 03/11/2019 at 15:15 Approved by: Tito Mayen M.D. on 03/11/2019 at 15:20
== END ==
PROVIDERS: Family Provider Family Medicine; PCP Family Medicine; Visit Provider Family Medicine
DX: R55 Syncope and collapse (principal); J32.0 Chronic maxillary sinusitis; E03.9 Hypothyroidism, unspecified; R42 Dizziness and giddiness
CPT/HCPCS: 70551; 93880

== ENCOUNTER → 2019-04-26 13:11 | Outpatient (CLI) | payer MEDICARE, OTHER, SELFPAY ==
[2018-09-24 16:31] VITALS: BMI 29.8
[2019-04-26 14:19] LABS: BUN Creatinine Ratio 19.2 (6-22); Blood Urea Nitrogen 23 mg/dL (9-20); Calcium 9.4 mg/dL (8.4-10.2); Carbon Dioxide 24 mmol/L (22-32); Chloride 104 mmol/L (98-107); Estimated Glomerular Filt Rate 58.1 mL/min (>60); Glucose 179 mg/dL (80-110); HEMOLYSIS < 15 (0-50); Potassium 4.5 mmol/L (3.4-5.1); Sodium 139 mmol/L (137-145)
== END ==
PROVIDERS: PCP Family Medicine; Visit Provider Internal Medicine Cardiovascular Disease
DX: Z51.81 Encounter for therapeutic drug level monitoring (principal); Z79.899 Other long term (current) drug therapy
CPT/HCPCS: 36415; 80048

== ENCOUNTER → 2019-05-31 13:33 | Outpatient (CLI) | payer MEDICARE, OTHER, SELFPAY ==
[2018-09-24 16:31] VITALS: BMI 29.8
== END ==
PROVIDERS: PCP Family Medicine; Visit Provider Family Medicine
DX: S31.829A Unspecified open wound of left buttock, initial encounter (principal); L08.1 Erythrasma; E11.622 Type 2 diabetes mellitus with other skin ulcer
CPT/HCPCS: 11042; 99212; 99214

== ENCOUNTER → 2019-06-07 13:16 | Outpatient (CLI) | payer MEDICARE, OTHER, SELFPAY ==
[2018-09-24 16:31] VITALS: BMI 29.8
== END ==
PROVIDERS: PCP Family Medicine; Visit Provider Family Medicine
DX: S31.829A Unspecified open wound of left buttock, initial encounter (principal); L08.1 Erythrasma; E11.622 Type 2 diabetes mellitus with other skin ulcer
CPT/HCPCS: 97597

== ENCOUNTER → 2019-06-14 13:09 | Outpatient (CLI) | payer MEDICARE, OTHER, SELFPAY ==
[2018-09-24 16:31] VITALS: BMI 29.8
== END ==
PROVIDERS: PCP Family Medicine; Visit Provider Family Medicine
DX: S31.829A Unspecified open wound of left buttock, initial encounter (principal); L08.1 Erythrasma; E11.622 Type 2 diabetes mellitus with other skin ulcer
CPT/HCPCS: 97597

== ENCOUNTER → 2019-06-14 14:19 | Outpatient (CLI) | payer MEDICARE, OTHER, SELFPAY ==
[2018-09-24 16:31] VITALS: BMI 29.8
[2019-06-14 16:45] LABS: Prostate Specific Antigen 12.9 ng/mL (0.10-4.00)
== END ==
PROVIDERS: Family Provider Family Medicine; PCP Family Medicine; Visit Provider Urology
DX: R97.20 Elevated prostate specific antigen [PSA] (principal)
CPT/HCPCS: 36415; 84153

== ENCOUNTER → 2019-06-21 13:18 | Outpatient (CLI) | payer MEDICARE, OTHER, SELFPAY ==
[2018-09-24 16:31] VITALS: BMI 29.8
== END ==
PROVIDERS: Family Provider Family Medicine; PCP Family Medicine; Visit Provider Family Medicine
DX: S31.829A Unspecified open wound of left buttock, initial encounter (principal); L08.1 Erythrasma; E11.622 Type 2 diabetes mellitus with other skin ulcer
CPT/HCPCS: 99212; 99213

== ENCOUNTER → 2019-07-20 10:55 | Outpatient (CLI) | payer MEDICARE, OTHER, SELFPAY ==
[2018-09-24 16:31] VITALS: BMI 29.8
[2019-07-20 12:21] LABS: HEMOLYSIS 20 (0-50); Potassium 4.2 mmol/L (3.4-5.1)
[2019-07-20 12:23] LABS: BUN Creatinine Ratio 17.8 (6-22); Blood Urea Nitrogen 16 mg/dL (9-20); Carbon Dioxide 26 mmol/L (22-32); Chloride 100 mmol/L (98-107); Estimated Glomerular Filt Rate > 60.0 mL/min (>60); Glucose 223 mg/dL (80-110); Sodium 139 mmol/L (137-145)
== END ==
PROVIDERS: Family Provider Family Medicine; PCP Family Medicine; Visit Provider Internal Medicine Cardiovascular Disease
DX: I48.91 Unspecified atrial fibrillation (principal)
CPT/HCPCS: 36415; 80048

== ENCOUNTER → 2019-09-13 12:04 | Outpatient (CLI) | payer MEDICARE, OTHER, SELFPAY ==
[2018-09-24 16:31] VITALS: BMI 29.8
[2019-09-13 13:37] LABS: Prostate Specific Antigen 11.8 ng/mL (0.10-4.00)
== END ==
PROVIDERS: Family Provider Family Medicine; PCP Family Medicine; Visit Provider Urology
DX: R97.20 Elevated prostate specific antigen [PSA] (principal)
CPT/HCPCS: 36415; 84153

== ENCOUNTER → 2019-12-14 09:08 | Outpatient (CLI) | payer MEDICARE, OTHER, SELFPAY ==
[2018-09-24 16:31] VITALS: BMI 29.8
[2019-12-14 10:42] LABS: BUN Creatinine Ratio 24.6 (6-22); Blood Urea Nitrogen 32 mg/dL (9-20); Calcium 9.2 mg/dL (8.4-10.2); Carbon Dioxide 22 mmol/L (22-32); Chloride 101 mmol/L (98-107); Estimated Glomerular Filt Rate 52.9 mL/min (>60); Glucose 231 mg/dL (80-110); HEMOLYSIS < 15 (0-50); Potassium 4.2 mmol/L (3.4-5.1); Sodium 138 mmol/L (137-145)
[2019-12-14 11:13] LABS: Prostate Specific Antigen 13.7 ng/mL (0.10-4.00)
== END ==
PROVIDERS: Family Provider Internal Medicine Cardiovascular Disease; PCP Family Medicine; Visit Provider Urology
DX: I48.91 Unspecified atrial fibrillation (principal); R97.20 Elevated prostate specific antigen [PSA]
CPT/HCPCS: 36415; 80048; 84153

== ENCOUNTER → 2020-03-15 10:07 | Outpatient (CLI) | payer MEDICARE, OTHER, SELFPAY ==
[2018-09-24 16:31] VITALS: BMI 29.8
[2020-03-15 11:35] LABS: BUN Creatinine Ratio 17.4 (6-22); Blood Urea Nitrogen 19 mg/dL (9-20); Calcium 9.7 mg/dL (8.4-10.2); Carbon Dioxide 21 mmol/L (22-32); Chloride 103 mmol/L (98-107); Estimated Glomerular Filt Rate > 60.0 mL/min (>60); Glucose 310 mg/dL (80-110); HEMOLYSIS < 15 (0-50); Potassium 4.5 mmol/L (3.4-5.1); Sodium 137 mmol/L (137-145)
[2020-03-15 12:05] LABS: Prostate Specific Antigen 14.4 ng/mL (0.10-4.00)
== END ==
PROVIDERS: Family Provider Internal Medicine Cardiovascular Disease; PCP Family Medicine; Referring Provider Nurse Practitioner Family; Visit Provider Urology
DX: Z51.81 Encounter for therapeutic drug level monitoring (principal); R97.20 Elevated prostate specific antigen [PSA]; Z79.899 Other long term (current) drug therapy
CPT/HCPCS: 36415; 80048; 84153

== ENCOUNTER → 2020-06-14 09:54 | Outpatient (CLI) | payer MEDICARE, OTHER, SELFPAY ==
[2018-09-24 16:31] VITALS: BMI 29.8
[2020-06-14 11:50] LABS: Blood Urea Nitrogen 19 mg/dL (9-20); Calcium 9.1 mg/dL (8.4-10.2); Carbon Dioxide 23 mmol/L (22-32); Chloride 103 mmol/L (98-107); Estimated Glomerular Filt Rate > 60.0 mL/min (>60); Glucose 163 mg/dL (80-110); HEMOLYSIS < 15 (0-50); Potassium 4.3 mmol/L (3.4-5.1); Sodium 138 mmol/L (137-145)
== END ==
PROVIDERS: Family Provider Internal Medicine Cardiovascular Disease; PCP Family Medicine; Referring Provider Nurse Practitioner Family; Visit Provider Nurse Practitioner Family
DX: Z51.81 Encounter for therapeutic drug level monitoring (principal); Z79.899 Other long term (current) drug therapy
CPT/HCPCS: 36415; 80048

== ENCOUNTER 2020-07-18 15:36 | Observation (INO) | payer MEDICARE, OTHER, SELFPAY ==
[2018-09-24 16:31] VITALS: BMI 29.8
[2020-07-18] VITALS (13 sets, daily range): BP systolic 86–130; BP diastolic 60–79; PULSE 68–118; RESP 17–21; TEMP 36.2–36.9; O2SAT 94–98; BMI 30.9
--- NOTE | 2020-07-18 15:41 | DI.RAD.S_ITS ---
PROCEDURE: XR CHEST 1V INDICATIONS: Possible stroke TECHNIQUE: One view of the chest was acquired. COMPARISON: [facility], , XR CHEST 1V, 09/24/2018, 13:14. FINDINGS: Surgical changes and devices: Left chest wall pacemaker leads are seen in the region of right atrium and right ventricle. Lungs and pleura: Lungs are clear. No pleural effusions or pneumothorax. Mediastinum: Mediastinal contours appear normal. Heart size is normal. Bones and chest wall: No suspicious bony lesions. Overlying soft tissues appear unremarkable. IMPRESSION: No acute cardiopulmonary pathology. Dictated by: Tito Mayen M.D. on 07/18/2020 at 16:25 Approved by: Tito Mayen M.D. on 07/18/2020 at 16:30
--- NOTE | 2020-07-18 15:41 | DI.CT.S_ITS ---
PROCEDURE: CT STROKE INDICATIONS: stroke symptoms TECHNIQUE: Noncontrast 4.5 mm thick angled axial sections acquired from the foramen magnum to the vertex, with coronal reformats. For radiation dose reduction, the following was used: automated exposure control, adjustment of mA and/or kV according to patient size. COMPARISON: None. FINDINGS: Image quality: Excellent. CSF spaces: Basal cisterns are patent. No extra-axial fluid collections. The ventricles are symmetric in size and shape. Brain: No intracranial bleeds or masses. There is cerebral volume loss for age, with resultant ventricular and sulcal prominence. There are periventricular and deep white matter chronic small vessel ischemic changes. There is intracranial internal carotid artery atherosclerosis. Skull and face: Calvarium and visualized facial bones appear intact, without suspicious lesions. Sinuses: Visualized sinuses and mastoids are clear. IMPRESSION: No evidence of acute stroke, hemorrhage, or mass. Comment: Findings were discussed with Dr. Marks at the time of study dictation on 07/18/20 at 1554 hours. This study fulfills neurological imaging criteria for inclusion or exclusion of acute stroke therapies based on available published neurological guidelines. Dictated by: Shwan Dejesus M.D. on 07/18/2020 at 15:53 Approved by: Shawn Dejesus M.D. on 07/18/2020 at 15:55
[2020-07-18 15:56] LABS: Add Manual Diff / Slide Review NO; Basophils Absolute Auto 0 /uL (0-100); Basophils Percent Auto 0.5 % (0-2); Eosinophils Absolute Auto 100 /uL (0-450); Eosinophils Percent Auto 1.2 % (2-4); Hematocrit 43.4 % (41-53); Hemoglobin 14.2 g/dL (13.5-17.5); Lymphocytes Absolute Auto 3900 /uL (1100-4500); Lymphocytes Percent Auto 42.3 % (25-40); Mean Corpuscular HGB Conc 32.7 % (30-36); Mean Corpuscular Hemoglobin 27.6 PG (26-34); Mean Corpuscular Volume 84.6 fL (80-100); Monocytes Absolute Auto 800 /uL (0-900); Monocytes Percent Auto 8.9 % (3-14); Neutrophils Absolute Auto 4300 /uL (1500-7000); Neutrophils Percent Auto 47.1 % (50-75); Platelet Count 177 X10^3/uL (150-400); Red Blood Cell Count 5.13 X10^6/uL (4.5-5.9); Red Cell Distribution Width 15.5 % (11.6-14.8); White Blood Cell Count 9.1 X10^3/uL (4.5-11.0)
--- NOTE | 2020-07-18 16:00 | ED.NEUROSD ---
HPI - Neuro Symptoms/Deficit General Chief Complaint: Neuro Symptoms/Deficit Stated Complaint: Stroke Time Seen by Provider: 07/18/20 15:41 Source: EMS Mode of arrival: EMS Limitations: no limitations History of Present Illness HPI Narrative: Patient is a 84-year-old male with history of atrial fibrillation on Pradaxa and TIAs presenting as a code stroke with left arm weakness. He says it started 10 minutes ago he had sharp is sudden lightening bolt pain down his left arm and it became weak and he was unable to lift it. His symptoms lasted for approximately 10 minutes and have now resolved in the emergency department. Previous TIAs have been related to vision. His he denies any chest pain or heart palpitations. On Anticoagulants: Yes (Pradaxa) Related Data Home Medications Medication Instructions Recorded Confirmed metformin [Glucophage XR] 500 mg PO BID #0 10/14/12 09/24/18 cholecalciferol (vitamin D3) 1,000 unit PO DAILY #0 08/18/16 07/18/20 [Vitamin D3] dofetilide 0.25 mg PO BID 09/24/18 07/18/20 glipizide 10 mg PO QAM 09/24/18 09/24/18 ibuprofen [Advil] 200 mg PO PRN PRN 09/24/18 09/24/18 loperamide 2 mg PO PRN PRN 09/24/18 09/24/18 metoprolol succinate 100 mg PO BID 09/24/18 07/18/20 omega-3 acid ethyl esters [Lovaza] 2 g PO BID 09/24/18 09/24/18 omeprazole 20 mg PO BID 09/24/18 09/24/18 ranitidine HCl 150 mg PO DAILY 09/24/18 09/24/18 simethicone [Gas-X Extra Strength] 1 cap PO PRN PRN 09/24/18 09/24/18 dabigatran etexilate [Pradaxa] 150 mg PO DAILY 07/18/20 07/18/20 Allergies Allergy/AdvReac Type Severity Reaction Status Date / Time No Known Drug Allergies Allergy Verified 07/18/20 18:28 Review of Systems Review of Systems ROS Unobtainable: All systems reviewed & are unremarkable except as noted in HPI and below Constitutional Constitutional: Denies chills, Denies fever(s), Denies lethargy and Denies weakness Cardiovascular Cardiovascular: Denies chest pain, Reports irregular heart rhythm, Denies lightheadedness, Denies palpitations, Denies dyspnea, Denies dyspnea on exertion and Denies orthopnea Respiratory Respiratory: Denies cough, Denies dyspnea, Denies dyspnea on exertion and Denies wheezing Gastrointestinal Gastrointestinal: Denies abdominal pain, Denies change in bowel habits, Denies diarrhea, Denies nausea and Denies vomiting Integumentary/Breasts Skin/Breast: Denies pruritus, Denies erythema, Denies rash and Denies wounds Neurologic Neurologic: Reports as per HPI and Denies weakness Endocrine Endocrine: Denies palpitations Allergic/Immunologic Allergic/Immunologic: Denies wheezing Patient History Medical History (Updated 07/18/20 @ 16:54 by Radha Marks DO) Atrial fibrillation, transient (Acute) GERD (gastroesophageal reflux disease) (Acute) Hyperlipidemia (Acute) Hypertension (Acute) Osteoarthritis (arthritis due to wear and tear of joints) (Acute) TIA (transient ischemic attack) (Acute) 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 HEENT: Head atraumatic,EOMI, pupils reactive, face symmetric, moist mucous membranes CARDIOVASCULAR: Regular rate and rhythm without murmurs, rubs or gallops. RESPIRATORY: Breath sounds equal bilaterally, no wheezes rales or rhonchi. ABDOMEN: Soft, nontender. Normoactive bowel sounds all 4 quadrants. No guarding or rebound. EXTREMITIES: Normal range of motion, no clubbing or edema. Neurovascularly intact NEUROLOGICAL: Alert and oriented x4.Normal gait and speech. Cranial nerves II through XII grossly intact. Good [id number], good [id number], strength equal bilaterally, no dysarthria or aphasia, sensation in tact to soft touch bilaterally, no visual changes, no facial droop SKIN: Warm, dry, no laceration, no petechiae, no rashes or lesions. Scores NIH Stroke Scale Level of Conciousness: Alert, keenly responsive Ask month/age: Answers both questions correctly. Open/close eyes, close hand: Performs both tasks correctly Best gaze horizontal: Normal Visual parks: No visual loss Facial palsy: Normal symetrical movement Left arm drift: No drift for full 10 sec Right arm drift: No drift for full 10 sec Left leg drift: No drift for full 10 sec Right leg drift: No drift for full 10 sec Limb ataxia: Absent Sensory on face/arms/legs: Normal, no sensory loss Best language: No aphasia, normal Dysarthria: Normal Extinction or inattention: No abnormality Total NIH Stroke scale score: 0 Course Orders Ordered: ED Orders 07/18/20 15:38 Complete Blood Count AUTO DIFF Stat Comprehensive Metabolic Panel Stat Partial Thromboplastin Time Stat Prothrombin Time INR Stat Troponin & CK Cardiac Panel Stat 07/18/20 15:41 CT Stroke Stat XR chest 1V Stat EKG-12 Lead Stat 07/18/20 15:43 Urine Drug Screen, Rapid Stat Acetaminophen (Tylenol) 650 mg PO Q6HR PRN PRN Reason: Fever/Mild Pain (1-3) Dabigatran (Pradaxa) 150 mg PO BID [facility] Dextrose (D50w) 25 gm IV PRN PRN PRN Reason: Hypoglycemia Dofetilide (Dofetilide) 250 mcg PO BID [facility] Insulin Aspart (Novolog Flexpen) 0 unit SUBCUT ACHS [facility]; Protocol Metoprolol Succinate (Toprol Xl) 100 mg PO BID [facility] Ondansetron HCl (Zofran) 4 mg IV Q8HR PRN PRN Reason: Nausea And Vomiting Discontinued Medications Sodium Chloride (Normal Saline 0.9%) 1,000 mls @ 150 mls/hr IV CONT ILEANA Stop: 07/18/20 18:24 Last Admin: 07/18/20 16:06 Dose: 150 mls/hr Documented by: NITHIN Vital Signs Vital signs: Vital Signs - 8 hr 07/18/20 15:46 07/18/20 15:51 07/18/20 16:00 Temperature 98.4 F Pulse Rate 110 H 115 H 116 H Respiratory Rate 18 17 19 Blood Pressure 95/63 Pulse Oximetry 96 96 96 07/18/20 16:30 07/18/20 16:50 07/18/20 16:53 Temperature 98.0 F Pulse Rate 118 H 115 H 118 H Respiratory Rate 18 19 21 Blood Pressure 86/60 L 127/79 Pulse Oximetry 95 94 96 07/18/20 16:57 07/18/20 16:58 07/18/20 17:02 Temperature Pulse Rate 77 68 99 H Respiratory Rate Blood Pressure 130/65 109/71 Pulse Oximetry 97 96 96 MDM - Neuro Symptoms/Deficit Lab Data Attestation: I reviewed the patient's lab results. Result diagrams: 07/18/20 15:38 07/18/20 15:38 Labs: Lab Results 07/18/20 07/18/20 07/18/20 Range/Units 15:38 15:38 15:38 WBC 9.1 (4.5-11.0) X10^3/uL RBC 5.13 (4.5-5.9) X10^6/uL Hgb 14.2 (13.5-17.5) g/dL Hct 43.4 (41-53) % MCV 84.6 (80-100) fL MCH 27.6 (26-34) PG MCHC 32.7 (30-36) % RDW 15.5 H (11.6-14.8) % Plt Count 177 (150-400) X10^3/uL Neut % (Auto) 47.1 L (50-75) % Lymph % (Auto) 42.3 H (25-40) % [place] % (Auto) 8.9 (3-14) % Eos % (Auto) 1.2 L (2-4) % Baso % (Auto) 0.5 (0-2) % Neut # (Auto) 4300 (5186-7366) /uL Lymph # (Auto) 3900 (1785-4568) /uL [place] # (Auto) 800 (0-900) /uL Eos # (Auto) 100 (0-450) /uL Baso # (Auto) 0 (0-100) /uL PT 13.7 H (10.1-12.7) SECONDS INR 1.2 (0.9-1.3) APTT 41 H D (26.4-36.2) SECONDS Sodium 139 (137-145) mmol/L Potassium 4.3 (3.4-5.1) mmol/L Chloride 106 (98-107) mmol/L Carbon Dioxide 21 L (22-32) mmol/L BUN 21 H (9-20) mg/dL Creatinine 1.34 H (0.66-1.25) mg/dL Estimated GFR 51.0 L (>60) mL/min BUN/Creatinine Ratio 15.7 (6-22) Glucose 157 H (80-110) mg/dL Calcium 8.8 (8.4-10.2) mg/dL Total Bilirubin 0.6 (0.2-1.3) mg/dL AST 19 (17-59) IU/L ALT 14 (<50) IU/L Alkaline Phosphatase 58 (38-126) U/L Total Creatine Kinase 103 (55-170) U/L CK-MB (CK-2) 1.68 (<2.37) ng/mL CK-MB (CK-2) Rel Index 1.6 (1.5-5.0) % Troponin I < 0.012 (0.01-0.034) ng/mL Total Protein 7.7 (6.3-8.2) g/dL Albumin 4.5 (3.5-5.0) g/dL Globulin 3.2 (1.7-4.1) g/dL Albumin/Globulin Ratio 1.4 (1.0-2.8) Point of Care Testing Glucose POC [address] scan - head: Radiologist's Impression: PROCEDURE: CT STROKE INDICATIONS: stroke symptoms TECHNIQUE: Noncontrast 4.5 mm thick angled axial sections acquired from the foramen magnum to the vertex, with coronal reformats. For radiation dose reduction, the following was used: automated exposure control, adjustment of mA and/or kV according to patient size. COMPARISON: None. FINDINGS: Image quality: Excellent. CSF spaces: Basal cisterns are patent. No extra-axial fluid collections. The ventricles are symmetric in size and shape. Brain: No intracranial bleeds or masses. There is cerebral volume loss for age, with resultant ventricular and sulcal prominence. There are periventricular and deep white matter chronic small vessel ischemic changes. There is intracranial internal carotid artery atherosclerosis. Skull and face: Calvarium and visualized facial bones appear intact, without suspicious lesions. Sinuses: Visualized sinuses and mastoids are clear. IMPRESSION: No evidence of acute stroke, hemorrhage, or mass. Comment: Findings were discussed with Dr. Marks at the time of study dictation on 07/18/20 at 1554 hours. This study fulfills neurological imaging criteria for inclusion or exclusion of acute stroke therapies based on available published neurological guidelines. Dictated by: Shawn Dejesus M.D. on 07/18/2020 at 15:53 Approved by: Shawn Dejesus M.D. on 07/18/2020 at 15:55 ECG Data Attestation: I personally reviewed and interpreted this ECG as follows: Prior ECG tracings: available for review Interpretation: Atrial fibrillation rate [address] changes MDM Narrative Medical decision making narrative: Patient has previous TIA currently in atrial fibrillation on Pradaxa. Signs and symptoms consistent with TIA. Patient is admitted to Dr. rosas Discharge Plan Departure Patient Disposition: Admitted as Observation Clinical Impression: Brain TIA Discharge Date/Time: 07/18/20 17:33 Referrals: Tan Agosto MD [Primary Care Provider] - Admit Date/Time: 07/18/20 17:19 Admit Provider: Mihai Rosas
[2020-07-18 16:03] LABS: INR 1.2 (0.9-1.3); Prothrombin Time 13.7 SECONDS (10.1-12.7)
[2020-07-18 16:06] LABS: PTT Partial Thromboplastin Tim 41 SECONDS (26.4-36.2)
[2020-07-18] MEDS: SODIUM CHLORIDE 0.9% 1,000 ML 150 ML IV (16:06)
[2020-07-18 16:07] LABS: Alanine Aminotransferase 14 IU/L (<50); Albumin 4.5 g/dL (3.5-5.0); Albumin Globulin Ratio 1.4 (1.0-2.8); Alkaline Phosphatase 58 U/L (38-126); Aspartate Aminotransferase 19 IU/L (17-59); BUN Creatinine Ratio 15.7 (6-22); Bilirubin Total 0.6 mg/dL (0.2-1.3); Blood Urea Nitrogen 21 mg/dL (9-20); Calcium 8.8 mg/dL (8.4-10.2); Carbon Dioxide 21 mmol/L (22-32); Chloride 106 mmol/L (98-107); Creatine Kinase 103 U/L (55-170); Globulin 3.2 g/dL (1.7-4.1); Glucose 157 mg/dL (80-110); HEMOLYSIS < 15 (0-50); Potassium 4.3 mmol/L (3.4-5.1); Sodium 139 mmol/L (137-145); Total Protein 7.7 g/dL (6.3-8.2)
[2020-07-18 16:19] LABS: Troponin I < 0.012 ng/mL (0.01-0.034)
[2020-07-18 16:23] LABS: CKMB % Relative Index 1.6 % (1.5-5.0); Creatine Kinase MB 1.68 ng/mL (<2.37)
--- NOTE | 2020-07-18 18:16 | PC.NURSE ---
DANIEL shift. pt arrived to room from ER at 1735. AO, receptive to care, and [place]. ER report NIH 0. pt has a history of Afib and on Pradaxa so no Aspirin administered in ER. pt currently on ISO for COVID rule out. Specimen currently being collected. Skin intact other than small abrasion to right forearm. pt asking nurse to call for home medications list. 1PA with transfer from stretcher to bed. Wallet and loose change requested to remain in patient's pants which were placed in patient belonging bag and in room's closet. RA at 96%, denying pain and reporting improvement from left arm weakness. Speech clear and intact. No upper extremity drifting and smile symmetrical.
--- NOTE | 2020-07-18 18:21 | PM.HP.1 ---
History of Present Illness History of Present Illness Date Patient Seen: 07/18/20 Time Patient Seen: 18:21 Chief complaint: Stroke Narrative: Oscar Schwab is an 84 year old male with PMH of afib s/p PPM placement, HTN, HLD, DM with peripheral neuropathy, prior TIA who was brought to the emergency room via EMS for left arm weakness. Patient [place], and when driving back home he was pulling out of the parking lot when he felt slightly lightheaded and had a sharp shooting sensation travel down his left arm, and subsequently he was hardly able to move it at all. He was able to sample puller to the side of the road and notify some police officers that he saw near the road who called EMS. He was then transported to the emergency room. He denies any trouble speaking, slurred speech, word-finding difficulty, back pain. He denied any palpitations, shortness of breath, chest pain, fever, chills, lower extremity edema, diaphoresis, nausea, vomiting, abdominal pain. In the emergency room, his symptoms had resolved. He was mildly hypotensive, mildly tachycardic in atrial fibrillation. He was not hypoxic on room air. Initial CBC was unremarkable. Chemistries revealed a creatinine of 1.34, up slightly from 1.1 earlier this year. His glucose was 157. Troponin was negative. COVID-19 testing is pending. He had a negative head CT in the emergency room. Chest x-ray did not show any acute pathology. EKG was performed which showed atrial fibrillation with a rate of 107. There was no evidence of active ischemia. Patient History Medical History (Updated 07/18/20 @ 16:54 by Radha Marks DO) Atrial fibrillation, transient (Acute) GERD (gastroesophageal reflux disease) (Acute) Hyperlipidemia (Acute) Hypertension (Acute) Osteoarthritis (arthritis due to wear and tear of joints) (Acute) TIA (transient ischemic attack) (Acute) Type 2 diabetes mellitus with diabetic neuropathy (Acute) Family & Social History Social History: household members spouse Prior Living Arrangements Mobile home Safety & Behavioral: Feels Safe in Current Yes Environment Been Physically Hurt or No Threatened By a Person Suicidal Ideation Description None Suicide Plan Description No Plan Tobacco & Substance use: Smoking Status Never smoker alcohol intake former Substance Use Type does not use Meds Home Medications and Allergies Home Medications Medication Instructions Recorded Confirmed Type metformin [Glucophage XR] 500 mg PO BID #0 10/14/12 09/24/18 History cholecalciferol (vitamin D3) 5,000 unit PO DAILY #0 08/18/16 09/24/18 History [Vitamin D3] dofetilide 250 mg PO BID 09/24/18 09/24/18 History glipizide 10 mg PO QAM 09/24/18 09/24/18 History ibuprofen [Advil] 200 mg PO PRN PRN 09/24/18 09/24/18 History loperamide 2 mg PO PRN PRN 09/24/18 09/24/18 History metoprolol succinate 100 mg PO BID 09/24/18 07/18/20 History omega-3 acid ethyl esters [Lovaza] 2 g PO BID 09/24/18 09/24/18 History omeprazole 20 mg PO BID 09/24/18 09/24/18 History ranitidine HCl 150 mg PO DAILY 09/24/18 09/24/18 History simethicone [Gas-X Extra Strength] 1 cap PO PRN PRN 09/24/18 09/24/18 History dabigatran etexilate [Pradaxa] mg PO 07/18/20 History Allergies Allergy/AdvReac Type Severity Reaction Status Date / Time No Known Drug Allergies Allergy Verified 07/18/20 18:28 Review of Systems Review of Systems Narrative: All other systems reviewed with the patient and are negative unless otherwise stated. Exam Vital Signs (past 8 hours): - 07/18/20 15:46 07/18/20 15:51 07/18/20 16:00 Temperature 98.4 F Pulse Rate 110 H 115 H 116 H Respiratory Rate 18 17 19 Blood Pressure 95/63 Pulse Oximetry 96 96 96 07/18/20 16:30 07/18/20 16:50 07/18/20 16:53 Temperature 98.0 F Pulse Rate 118 H 115 H 118 H Respiratory Rate 18 19 21 Blood Pressure 86/60 L 127/79 Pulse Oximetry 95 94 96 07/18/20 16:57 07/18/20 16:58 07/18/20 17:02 Temperature Pulse Rate 77 68 99 H Respiratory Rate Blood Pressure 130/65 109/71 Pulse Oximetry 97 96 96 Oxygen Delivery Method Room Air Narrative Exam Narrative: GENERAL APPEARANCE: Well developed, well nourished, elderly male in no acute distress. SKIN: Inspection of the skin reveals no rashes, ulcerations or petechiae. HEENT: Normocephalic atraumatic, extraocular muscles are intact, oropharynx is clear and mucous membranes are moist, neck is supple without adenopathy NECK: Supple and symmetric. There was no thyroid enlargement, and no tenderness, or masses were felt. CHEST: Normal AP diameter and normal contour without any kyphoscoliosis. LUNGS: Auscultation of the lungs revealed no wheezes, rhonchi, or rales. CARDIOVASCULAR: There was a regular rate and rhythm without any murmurs, gallops, rubs. Peripheral pulses were 2+ and symmetric. ABDOMEN: Soft and nontender with normal bowel sounds. No ascites was noted. MUSCULOSKELETAL: There was no tenderness or effusions noted. Bilateral knee well-healed surgical scars. Muscle strength and tone were normal. EXTREMITIES: No cyanosis, clubbing or edema. NEUROLOGIC: Alert and oriented x 3. Normal affect. Hearing aids in place bilaterally. Stroke Scales documented below. He has chronic bilateral decreased sensation in his lower extremity due to neuropathy to the level of the ankles. Objective Labs Result Diagrams: 07/18/20 15:38 07/18/20 15:38 Labs: Laboratory Results - last 24 hr 07/18/20 07/18/20 07/18/20 15:38 15:38 15:38 WBC 9.1 RBC 5.13 Hgb 14.2 Hct 43.4 MCV 84.6 MCH 27.6 MCHC 32.7 RDW 15.5 H Plt Count 177 Neut % (Auto) 47.1 L Lymph % (Auto) 42.3 H [place] % (Auto) 8.9 Eos % (Auto) 1.2 L Baso % (Auto) 0.5 Neut # (Auto) 4300 Lymph # (Auto) 3900 [place] # (Auto) 800 Eos # (Auto) 100 Baso # (Auto) 0 PT 13.7 H INR 1.2 APTT 41 H D Sodium 139 Potassium 4.3 Chloride 106 Carbon Dioxide 21 L BUN 21 H Creatinine 1.34 H Estimated GFR 51.0 L BUN/Creatinine Ratio 15.7 Glucose 157 H Calcium 8.8 Total Bilirubin 0.6 AST 19 ALT 14 Alkaline Phosphatase 58 Total Creatine Kinase 103 CK-MB (CK-2) 1.68 CK-MB (CK-2) Rel Index 1.6 Troponin I < 0.012 Total Protein 7.7 Albumin 4.5 Globulin 3.2 Albumin/Globulin Ratio 1.4 Assessment & Plan Assessment & Plan narrative: Oscar Schwab is an 84 year old male with PMH of afib s/p PPM placement, HTN, DM with peripheral neuropathy, prior TIA who was brought to the emergency room via EMS for left arm weakness which resolved after about 10 minutes. He also complained of left arm numbness that lasted a little bit longer but resolved before he came to the emergency room. He has a pacemaker and we are currently unable to perform an MRI. 1. TIA, resolved on admission -patient presented with approximately 10 minutes of left arm weakness and left arm numbness that lasted for a bit longer. Differential does include cervical or other musculoskeletal pathology, however there is no evidence of this on exam and his symptoms have now resolved. He will be monitored overnight for possible progression of his symptoms. Given his history of atrial fibrillation and presentation in AFib this is the most likely etiology. He is already on anticoagulation with Pradaxa. -continue Pradaxa -check a TSH, A1c, and fasting lipid panel. Consider initiating statin medication based on lipid profile. -CT head was negative on admission. unable to perform MRI given pacemaker placement. -patient reports 1 prior TIA. He had a negative carotid doppler and MRI in february of 2019. 2. Chronic Afib s/p PPM palcement - continue telemetry, continue home medications - rate is borderline, will monitor after resumption of home medications. He may need additional rate control. - PPM placement just under a year ago. Follows with [facility] cardiology. - continue pradaxa, dofetilide and metoprolol at home doses. 3. type 2 DM with neuropathy - check A1c as noted above. Continue FS ACHS and sliding scale coverage. Glucose of 157 on admission labs. 4. HTN, chronic - continue home medications Code: [place] as discussed with the patient. Surrogate decision maker is the patient's DVT: on pradaxa Dispo: admitted under observation status as his stay is not expected to exceed two midnights COVID-19 COVID-19 status: Result pending Scores NIHSS Level of Conciousness: Alert, keenly responsive Ask month/age: Answers both questions correctly. Open/close eyes, close hand: Performs both tasks correctly Best gaze horizontal: Normal Visual parks: No visual loss Facial palsy: Normal symetrical movement Left arm drift: No drift for full 10 sec Right arm drift: No drift for full 10 sec Left leg drift: No drift for full 5 sec Right leg drift: No drift for full 5 sec Limb ataxia: Absent Sensory on face/arms/legs: Normal, no sensory loss Best language: No aphasia, normal Dysarthria: Normal Extinction or inattention: No abnormality Total NIH Stroke scale score: 0
[2020-07-18 19:23] LABS: COVID19 -Nasal RAPID Negative (Negative)
[2020-07-18 20:41] LABS: Ur Creatinine Normal (Normal); Ur Specific Gravity Normal (Normal); Urine pH Normal (Normal)
[2020-07-18 20:42] LABS: UR Morphine/Opiate cutoff 300 Negative (Negative); Urine Amphetamines Negative (Negative); Urine Barbiturates Negative (Negative); Urine Benzodiazepines Negative (Negative); Urine Cocaine Negative (Negative); Urine MDMA Negative (Negative); Urine Methadone Negative (Negative); Urine Methamphetamines Negative (Negative); Urine Oxycodone Negative (Negative); Urine Phencyclidine Negative (Negative); Urine Tetrahydrocannabinol Negative (Negative); Urine Tricyclic Antidepressant Negative (Negative)
[2020-07-18] MEDS: DOFETILIDE 1 EACH PO (21:42)
[2020-07-18] MEDS: DABIGATRAN 75 MG CAPSULE 150 MG PO (21:42)
[2020-07-18] MEDS: METOPROLOL ER 50 MG TABLET 100 MG PO (21:42)
[2020-07-19 00:05] VITALS: O2SAT 97
--- NOTE | 2020-07-19 02:51 | PC.NURSE ---
SPINNERET PERSON reported HR up to 120 A-fib RVR. Checked pt. he was sound asleep, but roused easily. Denies any Dyspnea, no SOB noted & no C/O chest pain. Rechecked B/P 116/70 & HR 110, SPO2 in RA 97%. SYD Jim notified, will monitor.
[2020-07-19 02:55] VITALS: BP 116/70; PULSE 110; O2SAT 97
[2020-07-19 05:36] VITALS: BP 117/71; PULSE 88; RESP 18; TEMP 36.2; O2SAT 99
[2020-07-19 05:45] VITALS: O2SAT 99
[2020-07-19 06:28] LABS: Hematocrit 42.2 % (41-53); Mean Corpuscular HGB Conc 33.1 % (30-36); Mean Corpuscular Hemoglobin 28.1 PG (26-34); Mean Corpuscular Volume 84.8 fL (80-100); Platelet Count 146 X10^3/uL (150-400); Red Blood Cell Count 4.98 X10^6/uL (4.5-5.9); Red Cell Distribution Width 16.3 % (11.6-14.8); White Blood Cell Count 8.5 X10^3/uL (4.5-11.0)
[2020-07-19 06:30] LABS: Alanine Aminotransferase 11 IU/L (<50); Albumin 4.1 g/dL (3.5-5.0); Albumin Globulin Ratio 1.4 (1.0-2.8); Alkaline Phosphatase 56 U/L (38-126); Aspartate Aminotransferase 17 IU/L (17-59); BUN Creatinine Ratio 17.4 (6-22); Bilirubin Total 0.7 mg/dL (0.2-1.3); Bilirubin Unconjugated 0.6 mg/dL (0.0-1.1); Blood Urea Nitrogen 21 mg/dL (9-20); Carbon Dioxide 26 mmol/L (22-32); Chloride 105 mmol/L (98-107); Estimated Glomerular Filt Rate 57.4 mL/min (>60); Glucose 139 mg/dL (80-110); HEMOLYSIS < 15 (0-50); Magnesium 1.2 mg/dL (1.6-2.3); Potassium 4.6 mmol/L (3.4-5.1); Sodium 140 mmol/L (137-145); Total Protein 7.1 g/dL (6.3-8.2)
[2020-07-19 06:33] LABS: Hemoglobin A1C% w Est Avg Glu 7.6 % (4.0-6.0)
[2020-07-19 06:34] LABS: Add Manual Diff / Slide Review YES
[2020-07-19 06:54] LABS: Anisocytosis 1+; Neutrophils Absolute Manual 3400 /uL (3000-5900); Total Cells Counted 100
[2020-07-19 06:57] LABS: TSH w/ Reflex to FT4 3.68 uIU/mL (0.47-4.68)
[2020-07-19] MEDS: MAGNESIUM SULFATE 2 GM/50 ML PIGGYBACK IV (06:57)
[2020-07-19] MEDS: SODIUM CHLORIDE 0.9% FLUSH 10 ML IV (06:58)
[2020-07-19 08:00] VITALS: BP 110/76; PULSE 87; RESP 15; TEMP 36.3; O2SAT 98
[2020-07-19 09:02] VITALS: BP 100/76
[2020-07-19] MEDS: METOPROLOL ER 50 MG TABLET 100 MG PO (09:02)
[2020-07-19] MEDS: DABIGATRAN 75 MG CAPSULE 150 MG PO (09:02)
--- NOTE | 2020-07-19 09:45 | P.DS_ITS ---
History of Present Illness History of Present Illness Date Patient Seen: 07/19/20 Time Patient Seen: 09:45 Chief complaint: Stroke Narrative: Oscar Schwab is an 84 year old male with PMH of afib s/p PPM placement, HTN, HLD, DM with peripheral neuropathy, prior TIA who was brought to the emergency room via EMS for left arm weakness. Patient [place], and when driving back home he was pulling out of the parking lot when he felt slightly lightheaded and had a sharp shooting sensation travel down his left arm, and subsequently he was hardly able to move it at all. He was able to machine puller and laster to the side of the road and notify some police officers that he saw near the road who called EMS. He was then transported to the emergency room. He denies any trouble speaking, slurred speech, word- finding difficulty, back pain. He denied any palpitations, shortness of breath, chest pain, fever, chills, lower extremity edema, diaphoresis, nausea, vomiting, abdominal pain. In the emergency room, his symptoms had resolved. He was mildly hypotensive, mildly tachycardic in atrial fibrillation. He was not hypoxic on room air. Initial CBC was unremarkable. Chemistries revealed a creatinine of 1.34, up slightly from 1.1 earlier this year. His glucose was 157. Troponin was negative. COVID-19 testing is pending. He had a negative head CT in the emergency room. Chest x-ray did not show any acute pathology. EKG was perfo rmed which showed atrial fibrillation with a rate of 107. There was no evidence of active ischemia. Discharge Providers Provider Date of admission: 07/18/20 17:19 Primary care physician: Tan Agosto MD Consults: 07/18/20 18:26 Consult to Physical Therapy Evaluate & Treat Comment: Physician Instructions: Evaluate and Treat Discharge provider: Mihai Rosas, Exam Vital Signs (past 8 hours): - 07/19/20 02:55 07/19/20 05:36 07/19/20 05:45 Temperature 97.2 F L Pulse Rate 110 H 88 Respiratory Rate 18 Blood Pressure 116/70 117/71 Pulse Oximetry 97 99 99 07/19/20 08:00 07/19/20 09:02 Temperature 97.3 F L Pulse Rate 87 Respiratory Rate 15 Blood Pressure 110/76 100/76 Pulse Oximetry 98 Oxygen Delivery Method Room Air Oxygen Flow Rate 0 Objective Labs Result Diagrams: 07/19/20 04:45 07/19/20 04:45 Labs: Laboratory Results - last 24 hr 07/18/20 07/18/20 07/18/20 15:38 15:38 15:38 WBC 9.1 RBC 5.13 Hgb 14.2 Hct 43.4 MCV 84.6 MCH 27.6 MCHC 32.7 RDW 15.5 H Plt Count 177 Neut % (Auto) 47.1 L Lymph % (Auto) 42.3 H [place] % (Auto) 8.9 Eos % (Auto) 1.2 L Baso % (Auto) 0.5 Neut # (Auto) 4300 Lymph # (Auto) 3900 [place] # (Auto) 800 Eos # (Auto) 100 Baso # (Auto) 0 Total Counted Seg Neutrophils % Band Neutrophils % Lymphocytes % (Manual) Atypical Lymphs % Monocytes % (Manual) Eosinophils % (Manual) Neutrophils # (Manual) RBC Morphology Anisocytosis PT 13.7 H INR 1.2 APTT 41 H D Sodium 139 Potassium 4.3 Chloride 106 Carbon Dioxide 21 L BUN 21 H Creatinine 1.34 H Estimated GFR 51.0 L BUN/Creatinine Ratio 15.7 Glucose 157 H Hemoglobin A1c Calcium 8.8 Magnesium Total Bilirubin 0.6 Conjugated Bilirubin Unconjugated Bilirubin AST 19 ALT 14 Alkaline Phosphatase 58 Total Creatine Kinase 103 CK-MB (CK-2) 1.68 CK-MB (CK-2) Rel Index 1.6 Troponin I < 0.012 Total Protein 7.7 Albumin 4.5 Globulin 3.2 Albumin/Globulin Ratio 1.4 TSH U Opiates 300ng/mL cut Ur Oxycodone Screen Urine Methadone Screen Ur Barbiturates Screen U Tricyclic Antidepress Ur Phencyclidine Scrn Ur Amphetamines Screen U Methamphetamines Scrn Ur MDMA Scrn (Ecstasy) U Benzodiazepines Scrn Urine Cocaine Screen U Marijuana (THC) Screen COVID-19 PCR 07/18/20 07/18/20 07/19/20 18:26 20:25 04:45 WBC 8.5 RBC 4.98 Hgb 14.0 Hct 42.2 MCV 84.8 MCH 28.1 MCHC 33.1 RDW 16.3 H Plt Count 146 L Neut % (Auto) Not Reportable Lymph % (Auto) Not Reportable [place] % (Auto) Not Reportable Eos % (Auto) Not Reportable Baso % (Auto) Not Reportable Neut # (Auto) Lymph # (Auto) Not Reportable [place] # (Auto) Not Reportable Eos # (Auto) Baso # (Auto) Not Reportable Total Counted 100 Seg Neutrophils % 39.0 Band Neutrophils % 1.0 L Lymphocytes % (Manual) 46.0 H Atypical Lymphs % 4.0 H Monocytes % (Manual) 8.0 Eosinophils % (Manual) 2.0 Neutrophils # (Manual) 3400 RBC Morphology Not Reportable Anisocytosis 1+ H PT INR APTT Sodium Potassium Chloride Carbon Dioxide BUN Creatinine Estimated GFR BUN/Creatinine Ratio Glucose Hemoglobin A1c Calcium Magnesium Total Bilirubin Conjugated Bilirubin Unconjugated Bilirubin AST ALT Alkaline Phosphatase Total Creatine Kinase CK-MB (CK-2) CK-MB (CK-2) Rel Index Troponin I Total Protein Albumin Globulin Albumin/Globulin Ratio TSH U Opiates 300ng/mL cut Negative Ur Oxycodone Screen Negative Urine Methadone Screen Negative Ur Barbiturates Screen Negative U Tricyclic Antidepress Negative Ur Phencyclidine Scrn Negative Ur Amphetamines Screen Negative U Methamphetamines Scrn Negative Ur MDMA Scrn (Ecstasy) Negative U Benzodiazepines Scrn Negative Urine Cocaine Screen Negative U Marijuana (THC) Screen Negative COVID-19 PCR Negative 07/19/20 07/19/20 07/19/20 04:45 04:45 04:45 WBC RBC Hgb Hct MCV MCH MCHC RDW Plt Count Neut % (Auto) Lymph % (Auto) [place] % (Auto) Eos % (Auto) Baso % (Auto) Neut # (Auto) Lymph # (Auto) [place] # (Auto) Eos # (Auto) Baso # (Auto) Total Counted Seg Neutrophils % Band Neutrophils % Lymphocytes % (Manual) Atypical Lymphs % Monocytes % (Manual) Eosinophils % (Manual) Neutrophils # (Manual) RBC Morphology Anisocytosis PT INR APTT Sodium 140 Potassium 4.6 Chloride 105 Carbon Dioxide 26 BUN 21 H Creatinine 1.21 Estimated GFR 57.4 L BUN/Creatinine Ratio 17.4 Glucose 139 H Hemoglobin A1c 7.6 H Calcium 9.0 Magnesium 1.2 L Total Bilirubin 0.7 Conjugated Bilirubin 0.0 Unconjugated Bilirubin 0.6 AST 17 ALT 11 Alkaline Phosphatase 56 Total Creatine Kinase CK-MB (CK-2) CK-MB (CK-2) Rel Index Troponin I Total Protein 7.1 Albumin 4.1 Globulin 3.0 Albumin/Globulin Ratio 1.4 TSH 3.68 U Opiates 300ng/mL cut Ur Oxycodone Screen Urine Methadone Screen Ur Barbiturates Screen U Tricyclic Antidepress Ur Phencyclidine Scrn Ur Amphetamines Screen U Methamphetamines Scrn Ur MDMA Scrn (Ecstasy) U Benzodiazepines Scrn Urine Cocaine Screen U Marijuana (THC) Screen COVID-19 PCR Discharge Plan Discharge Plan Patient Disposition: Home Discharge comment: You were admitted to the hospital with a TIA. You are unable to get an MRI due to your pacemaker. Please follow up with your primary care provider in the next one to two weeks for a check up. Discharge orders & Medications Prescriptions: Continued metformin [Glucophage XR] 500 MG tablet extended release 24 hr 1,000 mg PO BID Qty: 0 RF: 0 cholecalciferol (vitamin D3) [Vitamin D3] 5,000 unit Tablet 1,000 unit PO DAILY Qty: 0 RF: 0 Pradaxa 75 mg Capsule 150 mg PO BID RF: 0 B12 1,000 mcg PO DAILY RF: 0 metoprolol succinate 100 mg Tablet Extended Release 24 Hr 100 mg PO BID RF: 0 glipizide 10 mg tablet extended release 24hr 5 mg PO QAM RF: 0 loperamide 2 mg Tablet 2 mg PO PRN PRN (Reason: Diarrhea) RF: 0 dofetilide 250 mcg capsule 0.25 mg PO BID RF: 0 ibuprofen [Advil] 200 mg Tablet 200 mg PO PRN PRN (Reason: pain) RF: 0 omeprazole 20 mg capsule,delayed release(DR/EC) 20 mg PO BID RF: 0 Follow up/Referrals: Tan Agosto MD [Primary Care Provider] - Diet/Activity/Treatments Diet: Diet as Tolerated Activity: As tolerated Discharge Data Primary Care Provider: Tan Agosto Attending Provider: Mihai Rosas Admit Date/Time: 07/18/20 17:19 Quality VTE Deep Vein Thrombosis/Pulmonary Embolism Present on Admission: No
--- NOTE | 2020-07-19 11:20 | PC.NURSE ---
Pt is dressed and ready for discharge home with Spouse. Tele and IV removed. Went over d/c instruction with Pt, discussed d/c meds, time of last dose, reviewed stroke education and follow up. Pt denies further questions and was taken out to POV with Spouse and all belongings.
--- NOTE | 2020-07-19 11:24 | PT.IIE ---
Medical History (Last Updated 07/18/20 @ 16:05 by Radha Marks DO) Atrial fibrillation, transient (Acute) GERD (gastroesophageal reflux disease) (Acute) Hyperlipidemia (Acute) Hypertension (Acute) Osteoarthritis (arthritis due to wear and tear of joints) (Acute) TIA (transient ischemic attack) (Acute) Type 2 diabetes mellitus with diabetic neuropathy (Acute) Physical Therapy Inpatient Evaluation/Re-Eval M1 PT/OT-IP Prior Functional Status Start: 07/19/20 08:50 Freq: NEEDED Status: Active Protocol: Document 07/19/20 11:15 AW (Rec: 07/19/20 11:24 AW [id number]) Medical Review Prior Functional Status Medical History Reviewed Yes Communication WNL. Pt is an effective verbal communicator. He is [place] and uses bilateral hearing aids. He has history of prior TIA with symptoms of slurred speech but that fully resolved within 24 hours. Mobility and Gait Pt sometimes uses a SPC when out in public for distances greater than 1 block. He does not use an AD at home. He states he used to fall with some frequency but has had no falls since pacemaker placement 3-4 years ago. Activities of Daily Living and IADL's Independent with all ADL's. 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 Social History Household Members spouse Living Arrangements Mobile home Number of Floors (Floors) One Floor Number of Stairs To Enter/Railing? Home entry has ramp. Home Environment High Toilet,Tub/Shower,Ramp Home Equipment Four Wheel Walker,Straight Cane,Grab Bars In Shower Employment Status Retired Additional Social History Comment Pt is retired from the [employer] . He lives with his , Ele. His grandson and granddaughter both live within one block of the pt's home in [place]. M2 PT-IP Current Condition Start: 07/19/20 08:50 Freq: NEEDED Status: Active Protocol: Document 07/19/20 11:15 AW (Rec: 07/19/20 11:24 AW [id number]) Physical Therapy Current Condition Current Condition Evaluation Date 07/19/20 Treatment Diagnosis possible TIA; difficulty in walking Onset Date 07/18/20 M3 PT-IP Subjective Start: 07/19/20 08:50 Freq: NEEDED Status: Active Protocol: Document 07/19/20 11:15 AW (Rec: 07/19/20 11:24 AW [id number]) Subjective Physical Therapy Visit Type Type Initial Evaluation Visit Start Time 09:45 Visit Stop Time 10:09 Total Visit Minutes 24 Physical Therapy Visit Comments Patient Comments Pt is willing to participate with PT Therapy Pain Assessment Pain When Pain Assessed At Rest Pain Present Pain Present Denied Pain M4 PT-IP Mobility and Gait Start: 07/19/20 08:50 Freq: NEEDED Status: Active Protocol: Document 07/19/20 11:15 AW (Rec: 07/19/20 11:24 AW [id number]) PT-Bed Mobility Assessment Supine to Sit Supine to Sit Independent Scooting Scooting to Edge of Bed Independent PT-Transfer Assessment Sit to and From Stand Sit to and from Stand Independent Equipment Transfer Assistive Device Gait Belt Orthotic/Prosthetic Devices or Brace: No Transfers Transfer Destination Chair Transfer Technique pt ambulated without AD Transfer Ability Level of Assist Independent Comments Mobility Comments Pt was lying in the bed when PT arrived. With HOB flat, he was able to complete all bed mobility independently. He sat EOB with and without UE support during strength and coordination assessment before standing at EOB. He stepped away from the bed for static balance assessment and then ambulated in the halls 120 feet without AD SBA without any observed LOB. He returned to the room and transferred safely to the chair. He was positioned on the chair with call light and all needs in reach. Pt agreed to use the call light for all mobility needs. Gait Assessment Gait Gait Assistance Required: Standby Assistance Distance (Feet) 120 Assistive Devices Assistive Device Gait Belt Gait Deviations General Gait Pattern Decreased Stride Length, Decreased Feet Clearance, Flexed Trunk,Wide Based Gait Factors Limiting Gait Function Factors Limiting Gait Function Decreased Sensation,Poor Balance Comments Gait Comments See mobility comments for details. Stair Climbing Assessment Comments Stair Climbing Comments Not assessed. Pt has ramped home entry. PT-Balance Assessment Sitting Balance and Reactions Static Sitting Balance Ability Normal Dynamic Sitting Balance Ability Normal Standing Balance and Reactions Static Standing Balance Ability Good Dynamic Standing Balance Ability Good Device Used none Balance Tests Romberg WNL EO and EC Tandem Standing assist required for positioning M5 PT-IP Objective Assessments Start: 07/19/20 08:50 Freq: NEEDED Status: Active Protocol: Document 07/19/20 11:15 AW (Rec: 07/19/20 11:24 AW [id number]) Orientation Orientation/Cognition Level of Alertness Alert Orientation Name,Day of Week,Place, Situation Language Function Ability Hard of Hearing Safety Awareness Understands Safety Issues Memory Description No Deficits Noted Gross Range of Motion Upper Extremity ROM Assessment Within Functional Limits Lower Extremity ROM Assessment Within Functional Limits Strength Upper Extremity Strength Assessment Within Functional Limits Lower Extremity Strength Assessment Within Functional Limits Comments Strength Comments No unilateral strength deficits on exam. Coordination Assessment Gross Coordination Gross Coordination WNL Assessment Finger to Nose Test Normal Performance Pronation/Supination Test Normal Performance Sensation Assessment Sensation Gross Sensation Right LE Impaired,Left LE Impaired Light Touch Impaired Proprioception (Position) Impaired Sensation Description Numbness Comments Sensation Comments Dull sensation in bilateral feet up to supramalleolar region which is consistent with pt's baseline peripheral neuropathy. Muscle Tone Muscle Tone WNL Yes Comments Muscle Tone Comments Negative clonus at bilateral ankles. Other Assessments Other Other Assessments Occulomotor exam is grossly normal. No resting or gaze- evoked nystagmus. M6 PT-IP Treatment Start: 07/19/20 08:50 Freq: NEEDED Status: Active Protocol: Document 07/19/20 11:15 AW (Rec: 07/19/20 11:24 AW [id number]) Physical Therapy Treatment Education Education Provided Safety Other Treatments Other Treatment Performed Reviewed signs and symptoms of stroke with pt verbalizing understanding and need for immediate treatmement. M7 PT-IP Assessment and Plan Start: 07/19/20 08:50 Freq: NEEDED Status: Active Protocol: Document 07/19/20 11:15 AW (Rec: 07/19/20 11:24 AW [id number]) PT Summary Assessment and Plan Potential Status of Condition at Evaluation Stable Summary Assessment Summary Harrison is an 84 yo man seen for PT evaluation after being admitted with TIA-like symptoms. He has a pacemaker so will not undergo MRI. Left arm weakness and numbness are resolved on evaluation and speech is clear. At baseline, pt is modified indpedent for community ambulation with SPC; he does not use an AD at home . Pt required only SBA for ambulation without SPC and was otherwise independent on exam . No acute PT needs are identified. Pt will be safe to discharge home with family assist as needed once medically cleared. Frequency of Treatment Frequency Of Treatment Discharge Recommendations To Nursing Amount of Assist Needed Standby Assistance Discharge Recommendations PT Discharge Recommendations Home with Assistance Transportation Needs at Discharge Private Vehicle
--- NOTE | 2020-07-19 13:40 | CM.DPNOTE ---
DCP Note Patient is an 84 yo male, resident of [place]. Patient here w/TIA PCP: Tan Agosto Payer: [employer] Met w/patient this morning during multidisciplinary rounds and he felt confident about return home w/spouse, no needs identified for this [place] [employer], both by patient or by staff. Cleared by PT for home DC JW
--- NOTE | 2020-07-25 19:04 | PC.NURSE ---
Late Entry; Magnesium infusion initiated 07/19 at 06:57, complete 08:58.
== END 2020-07-19 11:22 | disposition home or self-care (01) ==
LOC: ED 17:11 → AC 17:20
PROVIDERS: Admitting Provider Internal Medicine; Emergency Provider Emergency Medicine; Family Provider Internal Medicine Cardiovascular Disease; PCP Family Medicine; Referring Provider Emergency Medicine; Visit Provider Internal Medicine
DX: G45.9 Transient cerebral ischemic attack, unspecified (principal); K21.9 Gastro-esophageal reflux disease without esophagitis; E78.5 Hyperlipidemia, unspecified; I10 Essential (primary) hypertension; E11.40 Type 2 diabetes mellitus with diabetic neuropathy, unspecified; I48.20 Chronic atrial fibrillation, unspecified; Z95.0 Presence of cardiac pacemaker; Z11.59 Encounter for screening for other viral diseases
CPT/HCPCS: 36415; 70450; 71045; 80048; 80053; 80076; 80305; 82550; 82553; 82962; 83036; 83735; 84443; 84484; 85025; 85610; 85730; 87635; 93005; 96360; 96361; 97161; 99285; G0378

== ENCOUNTER → 2020-07-31 09:36 | Outpatient (CLI) | payer MEDICARE, OTHER, SELFPAY ==
[2020-07-18 17:40] VITALS: BMI 30.9
--- NOTE | 2020-07-31 | DI.US.S_ITS ---
PROCEDURE: US CAROTID DOPPLER BI INDICATIONS: TIA TECHNIQUE: Color and pulse Doppler interrogation was performed of both carotid systems, with image documentation and velocity measurements. COMPARISON: [facility], , STROKE PROTOCOL, 01/28/2016, 8:03. [facility], US CAROTID DOPPLER BI, 03/11/2019, 12:28. [facility], CAROTID ARTERY DOPPLER BILAT, 08/13/2009, 13:54. FINDINGS: Stenosis calculations are based on SRU (Society of Radiologists in Ultrasound) criteria. The flow velocities and the arterial waveforms are normal within both carotid arterial systems. Atherosclerotic plaque is seen on both sides. The estimated degree of internal carotid artery stenosis is less than 50%. Antegrade flow is confirmed within both vertebral arteries. The right brachial blood pressure is 93/60. The left brachial blood pressure is 92/61. IMPRESSION: No hemodynamically significant stenosis is seen. No significant change from the prior. Atherosclerotic plaque is noted bilaterally. Low brachial blood pressures measured at the time of this study. Dictated by: Torsten De Guzman M.D. on 07/31/2020 at 13:54 Approved by: Torsten De Guzman M.D. on 07/31/2020 at 13:56
== END ==
PROVIDERS: Family Provider Internal Medicine Cardiovascular Disease; PCP Family Medicine; Referring Provider Family Medicine; Visit Provider Family Medicine
DX: G45.9 Transient cerebral ischemic attack, unspecified (principal)
CPT/HCPCS: 93880

== ENCOUNTER → 2020-09-06 10:04 | Outpatient (CLI) | payer MEDICARE, OTHER, SELFPAY ==
[2020-07-18 17:40] VITALS: BMI 30.9
[2020-09-06 11:18] LABS: BUN Creatinine Ratio 16.8 (6-22); Blood Urea Nitrogen 20 mg/dL (9-20); Calcium 8.5 mg/dL (8.4-10.2); Carbon Dioxide 27 mmol/L (22-32); Chloride 104 mmol/L (98-107); Estimated Glomerular Filt Rate 58.5 mL/min (>60); Glucose 196 mg/dL (80-110); HEMOLYSIS < 15 (0-50); Potassium 4.5 mmol/L (3.4-5.1); Sodium 137 mmol/L (137-145)
== END ==
PROVIDERS: Family Provider Internal Medicine Cardiovascular Disease; PCP Family Medicine; Referring Provider Family Medicine; Visit Provider Nurse Practitioner Family
DX: Z51.81 Encounter for therapeutic drug level monitoring (principal); Z79.899 Other long term (current) drug therapy
CPT/HCPCS: 36415; 80048

== ENCOUNTER → 2020-09-28 08:53 | Outpatient (CLI) | payer MEDICARE, OTHER, SELFPAY ==
[2020-07-18 17:40] VITALS: BMI 30.9
[2020-09-28 10:56] LABS: COVID19 -Nasal RAPID Negative (Negative)
== END ==
PROVIDERS: Family Provider Internal Medicine Cardiovascular Disease; PCP Family Medicine; Referring Provider Internal Medicine; Visit Provider Internal Medicine
DX: Z11.59 Encounter for screening for other viral diseases (principal)
CPT/HCPCS: 87635; C9803

== ENCOUNTER → 2020-09-28 08:57 | Outpatient (CLI) | payer MEDICARE, OTHER, SELFPAY ==
[2020-07-18 17:40] VITALS: BMI 30.9
--- NOTE | 2020-10-02 08:18 | PM.PFT.1 ---
Pulmonary Function Test Referral & Results Date Patient Seen: 09/28/20 Requesting provider: Damon Goel Results: The spirometry demonstrates an FVC of 3.52 L which is 82% of predicted. The FEV1 was measured at 2.66 L which is 87% of predicted. The FEV1/FVC ratio was 76 which is 106% of predicted. Following the administration of bronchodilator there was a 49% improvement in FEF 25-75%. Lung volumes show an SVC of 3.40 L which is 72% of predicted. The diffusing capacity was measured at 27.08 which is 77% of predicted. No hemoglobin value was provided, so no correction for potential anemia could be made, if appropriate. The maximum voluntary ventilation was normal Interpretation: Minimal reduction FEV1 with evidence of some change and improvement following bronchodilator. This combined with shape a flow volume loop which is somewhat concave suggest very mild obstructive lung disease There is also reduction SVC suggesting mild restrictive lung disease There is also mild reduction in diffusing capacity, suggesting element of disease at the capillary alveolar level Clinical correlation suggested
== END ==
PROVIDERS: Family Provider Internal Medicine Cardiovascular Disease; PCP Family Medicine; Referring Provider Nurse Practitioner; Visit Provider Nurse Practitioner
DX: R06.00 Dyspnea, unspecified (principal); Z51.81 Encounter for therapeutic drug level monitoring; Z79.899 Other long term (current) drug therapy; J98.8 Other specified respiratory disorders; Z11.59 Encounter for screening for other viral diseases
CPT/HCPCS: 87635; 94060; 94726; 94729; C9803

== ENCOUNTER → 2020-10-10 11:25 | Outpatient (CLI) | payer MEDICARE, OTHER, SELFPAY ==
[2020-07-18 17:40] VITALS: BMI 30.9
[2020-10-10 13:37] LABS: Prostate Specific Antigen 19.2 ng/mL (0.10-4.00)
== END ==
PROVIDERS: Family Provider Internal Medicine Cardiovascular Disease; PCP Family Medicine; Referring Provider Urology; Visit Provider Urology
DX: R97.20 Elevated prostate specific antigen [PSA] (principal)
CPT/HCPCS: 36415; 84153

== ENCOUNTER → 2020-11-21 09:32 | Outpatient (CLI) | payer MEDICARE, OTHER, SELFPAY ==
[2020-07-18 17:40] VITALS: BMI 30.9
--- NOTE | 2020-11-21 09:35 | DI.CT.S_ITS ---
PROCEDURE: CT CHEST ABD PEL W CON INDICATIONS: Malignant neoplasm of prostate TECHNIQUE: After the administration of oral and intravenous contrast, 5 mm thick sections acquired from the lung apices to the symphysis. 5 mm coronal and sagittal reformats were performed, with additional 7 mm coronal MIP reformats through the lungs. For radiation dose reduction, the following was used: automated exposure control, adjustment of mA and/or kV according to patient size. COMPARISON: [facility], CT, CT ABD PELVIS W CON, 04/07/2017, 12:27. FINDINGS: Image quality: Excellent. CHEST: Lungs and pleura: A small nodular density in the extreme dark scar left lung base on image 209/7 was present previously, and is a benign nodular density. There is a fissural nodule in the minor fissure of the right lung on image on image 63 measuring approximately 3 mm, likely representing a benign a lymph node. A 2 mm fissural nodule is present on image 212/7 in the major fissure of the right lung likely representing a benign lymph node is well. No suspicious pulmonary nodules. No acute airspace opacities. No pleural effusions or pneumothorax. Central and peripheral airways appear patent and normal in caliber. Mediastinum: Heart size is normal. No pericardial effusion. Pacemaker. Advanced coronary artery calcifications. No mediastinal or hilar adenopathy by size criteria. Thoracic aorta and central pulmonary arteries are normal in size. Esophagus is normal in caliber. No hiatal hernia. Chest wall: No axillary or supraclavicular adenopathy by size criteria. Thyroid gland is unremarkable as visualized. ABDOMEN: Solid organs: Liver is normal in size and enhancement. Gallbladder is surgically absent. Biliary system is non dilated. Pancreas enhances normally. Spleen is normal in size and enhancement. Unchanged 2.3 cm left adrenal nodule, consistent with a benign adenoma. Kidneys demonstrate normal size and enhancement, without hydronephrosis. Peritoneum and bowel: Bowel loops demonstrate normal wall thickness and caliber. No free fluid or air. Nodes and vessels: No retroperitoneal or mesenteric adenopathy by size criteria. Aorta and inferior vena cava are normal in size. Miscellaneous: No ventral hernias. PELVIS: Genitourinary: Mild bladder wall thickening. Tiny bladder calcifications. Prostate is enlarged. Miscellaneous: Bilateral fat containing inguinal hernias. No inguinal adenopathy. Bones: No suspicious bony lesions. No vertebral body compression fractures. IMPRESSION: 1. No evidence of metastatic disease in the chest, abdomen, and pelvis. 2. Benign-appearing small pulmonary nodules. 3. Coronary artery disease. 4. Stable left adrenal adenoma. 5. Tiny bladder stones. 6. Enlarged prostate. 7. Fat containing inguinal hernias. Dictated by: Shawn Dejesus M.D. on 11/21/2020 at 12:15 Approved by: Shawn Dejesus M.D. on 11/21/2020 at 12:24
--- NOTE | 2020-11-21 09:35 | DI.NM.S_ITS ---
PROCEDURE: NM BONE SCAN WHOLE BODY RADIOPHARMACEUTICAL: 21.9 mCi Tc-99m MDP IV. INDICATIONS: Malignant neoplasm of prostate TECHNIQUE: Delayed whole-body scintigrams were obtained approximately 3-4 hours after intravenous injection of radiotracer. Anterior and posterior views were acquired from vertex to feet. Additional left and right oblique views of the thoracic cage and pelvis were obtained. COMPARISON: [facility], MR, L-SPINE WITHOUT CONTRAST, 07/23/2016, 15:01. [facility], CT, CT CHEST ABD PEL W CON, 11/21/2020, 10:31. FINDINGS: There are foci of increased activity in lower thoracic spine (T8-T9) and lower lumbar spine (L3-L4), correlating with CT finding of severe degenerative disc and facet disease. Increased uptake in the left C7-T1 facet joint area is also likely degenerative in nature. No lesions are identified in skull, sternum, clavicles, scapulae, ribs, bony pelvis, and visualized shafts of the long bones. There are foci of increased periarticular activity involving shoulders, sternoclavicular joints, wrists, hands, hips and feet, compatible with degenerative/arthritic changes. Note is made of bilateral knee arthroplasties. IMPRESSION: 1. Foci of increased activity in lower thoracic and lumbar spine correlate with degenerative changes seen on the comparison CT. Early metastatic disease could be obscured by degenerative changes. Please correlate with serum PSA. 2. Degenerative and arthritic changes in multiple peripheral joints. Dictated by: Haylee Ortega M.D. on 11/21/2020 at 17:13 Approved by: Haylee Ortega M.D. on 11/21/2020 at 17:57
== END ==
PROVIDERS: Family Provider Internal Medicine Cardiovascular Disease; PCP Family Medicine; Referring Provider Urology; Visit Provider Urology
DX: C61 Malignant neoplasm of prostate (principal); D35.02 Benign neoplasm of left adrenal gland; R91.8 Other nonspecific abnormal finding of lung field; N40.0 Benign prostatic hyperplasia without lower urinary tract symptoms; I25.10 Atherosclerotic heart disease of native coronary artery without angina pectoris; K40.20 Bilateral inguinal hernia, without obstruction or gangrene, not specified as recurrent; M47.816 Spondylosis without myelopathy or radiculopathy, lumbar region; M47.815 Spondylosis without myelopathy or radiculopathy, thoracolumbar region; Z90.49 Acquired absence of other specified parts of digestive tract; Z95.0 Presence of cardiac pacemaker
CPT/HCPCS: 71260; 74177; 78306; A9503

== ENCOUNTER → 2020-12-12 11:17 | Outpatient (CLI) | payer MEDICARE, OTHER, SELFPAY ==
[2020-07-18 17:40] VITALS: BMI 30.9
[2020-12-12 13:17] LABS: Thyroid Stimulating Hormone 6.99 uIU/mL (0.47-4.68)
[2020-12-12 13:20] LABS: Alanine Aminotransferase 24 IU/L (<50); Albumin 4.1 g/dL (3.5-5.0); Albumin Globulin Ratio 1.6 (1.0-2.8); Alkaline Phosphatase 59 U/L (38-126); Aspartate Aminotransferase 22 IU/L (17-59); BUN Creatinine Ratio 16.7 (6-22); Bilirubin Total 0.4 mg/dL (0.2-1.3); Blood Urea Nitrogen 19 mg/dL (9-20); Calcium 8.7 mg/dL (8.4-10.2); Carbon Dioxide 26 mmol/L (22-32); Chloride 103 mmol/L (98-107); Estimated Glomerular Filt Rate > 60.0 mL/min (>60); Globulin 2.6 g/dL (1.7-4.1); Glucose 202 mg/dL (80-110); HEMOLYSIS < 15 (0-50); Potassium 4.4 mmol/L (3.4-5.1); Sodium 137 mmol/L (137-145); Total Protein 6.7 g/dL (6.3-8.2)
== END ==
PROVIDERS: Family Provider Internal Medicine Cardiovascular Disease; PCP Family Medicine; Referring Provider Nurse Practitioner Family; Visit Provider Nurse Practitioner Family
DX: Z79.899 Other long term (current) drug therapy (principal); Z51.81 Encounter for therapeutic drug level monitoring
CPT/HCPCS: 36415; 80053; 84443

== ENCOUNTER → 2021-03-06 12:50 | Outpatient (CLI) | payer MEDICARE, OTHER, SELFPAY ==
[2020-07-18 17:40] VITALS: BMI 30.9
--- NOTE | 2021-03-06 | DI.RAD.S_ITS ---
PROCEDURE: XR CHEST 2V INDICATIONS: Other forms of acute ischemic heart disease TECHNIQUE: 2 views of the chest were acquired. COMPARISON: [facility], CR, XR CHEST 1V, 07/18/2020, 16:10. [facility], CR, XR CHEST 1V, 09/24/2018, 13:14. FINDINGS: Surgical changes and devices: Pacemaking device and dual chamber leads normal, previously present Lungs and pleura: Lungs are mildly abnormal, with only a slight degree of interstitial prominence. CHF is not suspected. This may reflect prior smoking history.. No pleural effusions or pneumothorax. Mediastinum: Mediastinal contours are normal. Heart size is normal. Bones and chest wall: No suspicious bony abnormalities. Soft tissues appear unremarkable. IMPRESSION: Cardiomegaly or CHF. Pacemaking device and dual chamber leads normal. Dictated by: Rick Dobbs M.D. on 03/06/2021 at 15:55 Approved by: Rick Dobbs M.D. on 03/06/2021 at 15:56
== END ==
PROVIDERS: Family Provider Internal Medicine Cardiovascular Disease; PCP Family Medicine; Referring Provider Family Medicine; Visit Provider Family Medicine
DX: I24.8 Other forms of acute ischemic heart disease (principal); Z95.0 Presence of cardiac pacemaker
CPT/HCPCS: 71046

== ENCOUNTER 2021-03-11 11:40 | Emergency (ER) | payer MEDICARE, OTHER, SELFPAY ==
[2020-07-18 17:40] VITALS: BMI 30.9
[2021-03-11] VITALS (9 sets, daily range): BP systolic 104–113; BP diastolic 68–78; PULSE 83–89; RESP 12–19; TEMP 36.4; O2SAT 97–100; BMI 31.8
--- NOTE | 2021-03-11 12:16 | DI.RAD.S_ITS ---
PROCEDURE: XR CHEST 1V INDICATIONS: chest pain TECHNIQUE: One view of the chest was acquired. COMPARISON: [facility], CR, XR CHEST 2V, 03/06/2021, 12:54. FINDINGS: Surgical changes and devices: Pacemaker. Lungs and pleura: Persistent appearance right basilar opacity, questionably minimally progressive. In addition, slightly more prominent appearance of streaky retrocardiac opacities. Mediastinum: Mediastinal contours appear normal. Heart size is enlarged. Bones and chest wall: No suspicious bony lesions. Overlying soft tissues appear unremarkable. IMPRESSION: Bibasilar/retrocardiac opacities, slightly more prominent when compared to prior exam. While this could represent dependent edema, developing areas of pneumonia and/or atelectasis should be considered. Dictated by: Debbie Garcia M.D. on 03/11/2021 at 11:58 Approved by: Debbie Garcia M.D. on 03/11/2021 at 12:00
--- NOTE | 2021-03-11 12:27 | PC.NURSE ---
blood in urine on pradaxa, short of breathe for two weeks, has pace maker says works sometimes, history of afib and cath procedure two weeks ago and has worsening shortness of breathe after that. Also has tenderness in right upper quadrant.
[2021-03-11 12:48] LABS: Add Manual Diff / Slide Review NO; Basophils Absolute Auto 100 /uL (0-100); Basophils Percent Auto 0.8 % (0-2); Eosinophils Absolute Auto 100 /uL (0-450); Eosinophils Percent Auto 1.2 % (2-4); Hematocrit 38.3 % (41-53); Hemoglobin 12.1 g/dL (13.5-17.5); Lymphocytes Absolute Auto 1500 /uL (1100-4500); Lymphocytes Percent Auto 20.2 % (25-40); Mean Corpuscular HGB Conc 31.6 % (30-36); Mean Corpuscular Hemoglobin 28.2 PG (26-34); Mean Corpuscular Volume 89.1 fL (80-100); Monocytes Absolute Auto 600 /uL (0-900); Monocytes Percent Auto 8.3 % (3-14); Neutrophils Absolute Auto 5100 /uL (1500-7000); Neutrophils Percent Auto 69.5 % (50-75); Platelet Count 177 X10^3/uL (150-400); Red Blood Cell Count 4.29 X10^6/uL (4.5-5.9); White Blood Cell Count 7.3 X10^3/uL (4.5-11.0)
[2021-03-11 12:51] LABS: INR 1.3 (0.9-1.3); Prothrombin Time 15.1 SECONDS (10.1-12.7)
[2021-03-11 12:53] LABS: PTT Partial Thromboplastin Tim 41 SECONDS (26.4-36.2)
[2021-03-11 12:54] LABS: Alanine Aminotransferase 22 IU/L (<50); Albumin 4.2 g/dL (3.5-5.0); Albumin Globulin Ratio 1.4 (1.0-2.8); Alkaline Phosphatase 64 U/L (38-126); Aspartate Aminotransferase 27 IU/L (17-59); BUN Creatinine Ratio 16.2 (6-22); Bilirubin Total 0.7 mg/dL (0.2-1.3); Blood Urea Nitrogen 19 mg/dL (9-20); Calcium 8.8 mg/dL (8.4-10.2); Carbon Dioxide 22 mmol/L (22-32); Chloride 105 mmol/L (98-107); Creatine Kinase 62 U/L (55-170); Estimated Glomerular Filt Rate 59.5 mL/min (>60); Globulin 3.1 g/dL (1.7-4.1); Glucose 161 mg/dL (80-110); HEMOLYSIS < 15 (0-50); Lipase 43 U/L (23-300); Magnesium 1.3 mg/dL (1.6-2.3); Potassium 4.9 mmol/L (3.4-5.1); Sodium 138 mmol/L (137-145); Total Protein 7.3 g/dL (6.3-8.2)
[2021-03-11 13:05] LABS: Troponin I < 0.012 ng/mL (0.01-0.034)
[2021-03-11 13:26] LABS: Bacteria Urine Few (2-10); RBC Urine 30-100/HPF (0-5/HPF); Squamous Epithelial Cell Urine 1-5 /HPF (0-5/HPF); WBC Urine 1-5/HPF (0-5/HPF)
[2021-03-11 13:27] LABS: Culture Indicated Urine Specimen Cultured; Hyaline Casts Urine 5-10/LPF
--- NOTE | 2021-03-11 13:34 | ED_ITS ---
HPI - General Adult General Chief complaint: Urogenital-Male Stated complaint: kidney stone Time Seen by Provider: 03/11/21 12:55 Source: patient Mode of arrival: Ambulatory Limitations: no limitations History of Present Illness HPI narrative: 85-year-old male who is sent from his primary doctor's office for concerns of a kidney stone. He states that this morning after breakfast he started having pain in his abdomen specifically on the right side. He went to his primary doctor's office. Had a urinalysis performed which showed blood in his urine so he was sent to the emergency department. He has never had a kidney stone before he states that at the time of my evaluation is symptoms have improved immensely from the onset. He is not having any fevers. No shortness of breath. Related Data Home Medications Medication Instructions Recorded Confirmed metformin [Glucophage XR] 1,000 mg PO BID #0 10/14/12 07/18/20 cholecalciferol (vitamin D3) 1,000 unit PO DAILY #0 08/18/16 07/18/20 [Vitamin D3] dofetilide 0.25 mg PO BID 09/24/18 07/18/20 glipizide 5 mg PO QAM 09/24/18 07/18/20 ibuprofen [Advil] 200 mg PO PRN PRN 09/24/18 07/18/20 loperamide 2 mg PO PRN PRN 09/24/18 07/18/20 omeprazole 20 mg PO BID 09/24/18 07/18/20 B12 1,000 mcg PO DAILY 07/18/20 07/18/20 Pradaxa 150 mg PO BID 07/18/20 07/18/20 metoprolol succinate 100 mg PO BID 07/18/20 07/18/20 Allergies Allergy/AdvReac Type Severity Reaction Status Date / Time No Known Drug Allergies Allergy Verified 07/18/20 18:28 Review of Systems Constitutional Constitutional: Denies fatigue, Denies fever(s) and Denies headache(s) Eyes Eyes: Denies change in vision ENT Ears, Nose, Mouth, and Throat: Denies vertigo, Denies headache(s) and Denies sore throat Cardiovascular Cardiovascular: Denies chest pain and Reports dyspnea (Not new for him) Respiratory Respiratory: Reports dyspnea (Not new for him) Gastrointestinal Gastrointestinal: Reports abdominal pain, Denies nausea and Denies vomiting Genitourinary Genitourinary: Denies dysuria Genitourinary: Denies dysuria Musculoskeletal Musculoskeletal: Denies arthralgias and Denies myalgias Integumentary/Breasts Skin/Breast: Denies lesions and Denies rash Neurologic Neurologic: Denies behavioral changes, Denies confusion, Denies vertigo and Denies headache(s) Psychiatric Psychiatric: Denies behavioral changes and Denies confusion Endocrine Endocrine: Denies fatigue Hematologic/Lymphatic On Anticoagulants: Yes Allergic/Immunologic Allergic/Immunologic: Denies urticaria Patient History Medical History Atrial fibrillation, transient GERD (gastroesophageal reflux disease) Hyperlipidemia Hypertension Osteoarthritis (arthritis due to wear and tear of joints) TIA (transient ischemic attack) Type 2 diabetes mellitus with diabetic neuropathy Social History household members: spouse Smoking Status: Never smoker alcohol intake: former Smoking Status: Never smoker Substance Use Type: does not use Exam Initial Vital Signs Initial Vital Signs: Vital Signs Temperature 97.5 F L 03/11/21 12:10 Pulse Rate 89 03/11/21 12:10 Respiratory Rate 18 03/11/21 12:10 Blood Pressure 105/74 03/11/21 12:10 Pulse Oximetry 99 03/11/21 12:10 Const General: cooperative, comfortable and well developed Limitations: mental status not altered HENMT Head: normal to inspection and normocephalic Resp Effort & Inspection: normal respiratory effort Auscultation: clear to auscultation bilaterally Cardio Rate: regular rate Rhythm: regular rhythm GI Inspection: non-distended Palpation: soft, No firm and tender (Tender right flank) Back/Spine/Pelvis Back: No CVA tenderness Skin Lesions: no lesions Rashes: no rashes Neuro General: patient alert and patient awake Cognition: normal cognition Speech: speech normal Extrem General: normal to inspection and capillary refill normal Psych Appearance: grossly normal and well kempt Course Orders Ordered: ED Orders 03/11/21 12:16 XR chest 1V Stat EKG-12 Lead Stat 03/11/21 12:35 Complete Blood Count AUTO DIFF Stat Comprehensive Metabolic Panel Stat Lipase Stat Magnesium Stat Partial Thromboplastin Time Stat Prothrombin Time INR Stat Troponin & CK Cardiac Panel Stat 03/11/21 12:58 COVID19 - ADMIT (CARPENTER ASSISTANT INSTALLER swab/PCR) Stat 03/11/21 12:59 Urine Culture Stat Urine Microscopic Stat 03/11/21 13:41 CT kidney ureter bladder (KUB) Stat Vital Signs Vital signs: Vital Signs - 8 hr 03/11/21 12:10 03/11/21 12:18 03/11/21 12:30 Temperature 97.5 F L Pulse Rate 89 84 83 Respiratory Rate 18 18 19 Blood Pressure 105/74 109/78 Pulse Oximetry 99 98 97 03/11/21 12:59 03/11/21 13:00 03/11/21 13:30 Temperature Pulse Rate 83 83 83 Respiratory Rate 15 13 18 Blood Pressure 111/68 109/70 113/76 Pulse Oximetry 99 99 100 03/11/21 14:00 03/11/21 14:30 03/11/21 15:04 Temperature Pulse Rate 83 83 83 Respiratory Rate 18 12 12 Blood Pressure 104/68 Pulse Oximetry 97 98 97 Medical Decision Making Lab Data Lab results reviewed: Yes I reviewed the patient's lab results. Result diagrams: 03/11/21 12:35 03/11/21 12:35 Labs: Lab Results 03/11/21 03/11/21 03/11/21 Range/Units 12:35 12:35 12:35 WBC 7.3 (4.5-11.0) X10^3/uL RBC 4.29 L (4.5-5.9) X10^6/uL Hgb 12.1 L (13.5-17.5) g/dL Hct 38.3 L (41-53) % MCV 89.1 (80-100) fL MCH 28.2 (26-34) PG MCHC 31.6 (30-36) % RDW 16.0 H (11.6-14.8) % Plt Count 177 (150-400) X10^3/uL Neut % (Auto) 69.5 (50-75) % Lymph % (Auto) 20.2 L (25-40) % [place] % (Auto) 8.3 (3-14) % Eos % (Auto) 1.2 L (2-4) % Baso % (Auto) 0.8 (0-2) % Neut # (Auto) 5100 (0206-4112) /uL Lymph # (Auto) 1500 (6604-6180) /uL [place] # (Auto) 600 (0-900) /uL Eos # (Auto) 100 (0-450) /uL Baso # (Auto) 100 (0-100) /uL PT 15.1 H (10.1-12.7) SECONDS INR 1.3 (0.9-1.3) APTT 41 H (26.4-36.2) SECONDS Sodium 138 (137-145) mmol/L Potassium 4.9 (3.4-5.1) mmol/L Chloride 105 (98-107) mmol/L Carbon Dioxide 22 (22-32) mmol/L BUN 19 (9-20) mg/dL Creatinine 1.17 (0.66-1.25) mg/dL Estimated GFR 59.5 L (>60) mL/min BUN/Creatinine Ratio 16.2 (6-22) Glucose 161 H (80-110) mg/dL Calcium 8.8 (8.4-10.2) mg/dL Magnesium 1.3 L (1.6-2.3) mg/dL Total Bilirubin 0.7 (0.2-1.3) mg/dL AST 27 (17-59) IU/L ALT 22 (<50) IU/L Alkaline Phosphatase 64 (38-126) U/L Total Creatine Kinase 62 (55-170) U/L CK-MB (CK-2) TNP CK-MB (CK-2) Rel Index TNP Troponin I < 0.012 (0.01-0.034) ng/mL Total Protein 7.3 (6.3-8.2) g/dL Albumin 4.2 (3.5-5.0) g/dL Globulin 3.1 (1.7-4.1) g/dL Albumin/Globulin Ratio 1.4 (1.0-2.8) Lipase 43 (23-300) U/L Urine RBC (0-5/HPF) Urine WBC (0-5/HPF) Ur Squamous Epith Cells (0-5/HPF) Urine Bacteria (None) Hyaline Casts (None) Ur Culture Indicated? SARS-CoV-2 (PCR) (Negative) 03/11/21 03/11/21 Range/Units 12:58 12:59 WBC (4.5-11.0) X10^3/uL RBC (4.5-5.9) X10^6/uL Hgb (13.5-17.5) g/dL Hct (41-53) % MCV (80-100) fL MCH (26-34) PG MCHC (30-36) % RDW (11.6-14.8) % Plt Count (150-400) X10^3/uL Neut % (Auto) (50-75) % Lymph % (Auto) (25-40) % [place] % (Auto) (3-14) % Eos % (Auto) (2-4) % Baso % (Auto) (0-2) % Neut # (Auto) (3770-5976) /uL Lymph # (Auto) (5170-1315) /uL [place] # (Auto) (0-900) /uL Eos # (Auto) (0-450) /uL Baso # (Auto) (0-100) /uL PT (10.1-12.7) SECONDS INR (0.9-1.3) APTT (26.4-36.2) SECONDS Sodium (137-145) mmol/L Potassium (3.4-5.1) mmol/L Chloride (98-107) mmol/L Carbon Dioxide (22-32) mmol/L BUN (9-20) mg/dL Creatinine (0.66-1.25) mg/dL Estimated GFR (>60) mL/min BUN/Creatinine Ratio (6-22) Glucose (80-110) mg/dL Calcium (8.4-10.2) mg/dL Magnesium (1.6-2.3) mg/dL Total Bilirubin (0.2-1.3) mg/dL AST (17-59) IU/L ALT (<50) IU/L Alkaline Phosphatase (38-126) U/L Total Creatine Kinase (55-170) U/L CK-MB (CK-2) CK-MB (CK-2) Rel Index Troponin I (0.01-0.034) ng/mL Total Protein (6.3-8.2) g/dL Albumin (3.5-5.0) g/dL Globulin (1.7-4.1) g/dL Albumin/Globulin Ratio (1.0-2.8) Lipase (23-300) U/L Urine RBC 30-100/hpf H (0-5/HPF) Urine WBC 1-5/hpf (0-5/HPF) Ur Squamous Epith Cells 1-5 /hpf (0-5/HPF) Urine Bacteria Few (2-10) H (None) Hyaline Casts 5-10/lpf (None) Ur Culture Indicated? Specimen cultured SARS-CoV-2 (PCR) Negative (Negative) Urine Dip Bedside Urine Glucose Negative Bedside Urine Bilirubin + 1 Bedside Urine Ketone - Negative Urine Specific [place] 1.030 Bedside Urine Occult Blood +++ Bedside Urine pH 6.0 Bedside Urine Protein + 30 Bedside Urine Urobilinogen - Negative Bedside Urine Nitrite - Negative Bedside Urine Leukocytes - Negative Esterase Point of care testing: Urine Dip Bedside Urine Glucose Negative Bedside Urine Bilirubin + 1 Bedside Urine Ketone - Negative Urine Specific [place] 1.030 Bedside Urine Occult Blood +++ Bedside Urine pH 6.0 Bedside Urine Protein + 30 Bedside Urine Urobilinogen - Negative Bedside Urine Nitrite - Negative Bedside Urine Leukocytes - Negative Esterase Imaging Data Chest x-ray: Radiologist's Impression: [address] [id number] ReportSigned Patient: Oscar Schwab CMR#: [id number]: [id number]:[id number]/Sex: 85 / MDate of Service: 03/11/21Loc: EDAccession Number: [id number] Procedure: XR chest 1V Ordering Provider: Camilo Bolanos D.O. PROCEDURE: XR CHEST 1V INDICATIONS: chest pain TECHNIQUE: One view of the chest was acquired. COMPARISON: [facility], , XR CHEST 2V, 03/06/2021, 12:54. FINDINGS: Surgical changes and devices: Pacemaker. Lungs and pleura: Persistent appearance right basilar opacity, questionably minimally progressive. In addition, slightly more prominent appearance of streaky retrocardiac opacities. Mediastinum: Mediastinal contours appear normal. Heart size is enlarged. Bones and chest wall: No suspicious bony lesions. Overlying soft tissues appear unremarkable. IMPRESSION: Bibasilar/retrocardiac opacities, slightly more prominent when compared to prior exam. While this could represent dependent edema, developing areas of pneumonia and/or atelectasis should be considered. Dictated by: Debbie Garcia M.D. on 03/11/2021 at 11:58 Approved by: Debbie Garcia M.D. on 03/11/2021 at 12:00 CT scan - abdomen/pelvis: Radiologist's Impression: [address] [id number] Scan ReportSigned Patient: Oscar Schwab CMR#: [id number]: 7Acct:[id number]/Sex: 85 / MDate of Service: 03/11/21Loc: EDAccession Number: [id number] Procedure: CT kidney ureter bladder (KUB) Ordering Provider: Camilo Bolanos D.O. PROCEDURE: CT KIDNEY URETER BLADDER (KUB) INDICATIONS: Eval for right-sided stone TECHNIQUE: Noncontrast 5 mm thick sections acquired from the diaphragms to the symphysis. 5 mm thick coronal and sagittal reformats were then performed. For radiation dose reduction, the following was used: automated exposure control, adjustment of mA and/or kV according to patient size. COMPARISON: [facility], CT, CT ABD PELVIS W CON, 04/07/2017, 12:27. [facility], CT, CT CHEST ABD PEL W CON, 11/21/2020, 10:31. FINDINGS: Image quality: Excellent. Lung bases: There is dependent atelectasis and scarring in the lung bases. There is mild septal thickening with indistinct ground glass opacities in the lungs suggestive of pulmonary edema. Heart size is enlarged. A pacemaker lead is partially visualized in the right ventricle. There is a small hiatal hernia. Urinary system: No kidney stones or hydronephrosis. There is nonspecific perinephric stranding bilaterally. Both ureters appear non-dilated throughout their expected courses. The bladder is partially distended with mild concentric wall thickening. Numerous dependent calcified stones are present in the bladder measuring up to 0.6 cm. Other solid organs: Noncontrast evaluation of the liver demonstrates no focal hepatic lesions. Gallbladder is surgically absent. Pancreas demonstrates peripancreatic fat stranding or fluid collections. No pancreatic duct dilatation. There is moderate fatty atrophy of the pancreas. Spleen is normal in size. There are bilateral adrenal nodules measuring up to 2.4 cm on the left and 1.3 cm on the right which appear similar in size to the prior studies. These demonstrate attenuation values compatible with lipid rich adenomas. Peritoneum and bowel: Unenhanced bowel loops demonstrate normal wall thickness and caliber. There is colonic diverticulosis. No free fluid or air. Nodes and vessels: No retroperitoneal or mesenteric adenopathy by size criteria. Aorta and inferior vena cava are normal in caliber. Abdominal wall: No ventral hernias. Pelvis: No free pelvic fluid. There are small bilateral fat-containing inguinal hernias. No inguinal adenopathy. Bones: No suspicious bony lesions. No vertebral body compression fractures. IMPRESSION: 1. No hydronephrosis. 2. Multiple dependent calcified stones in the urinary bladder. 3. Colonic diverticulosis. 4. Septal thickening in the lung bases with ground-glass opacities suggestive of pulmonary edema. Dictated by: Raghav Love M.D. on 03/11/2021 at 13:53 Approved by: Raghav Love M.D. on 03/11/2021 at 14:38 ECG Data Attestation: I personally reviewed and interpreted this ECG as follows: Prior ECG tracings: not available for review Interpretation: Ventricularly paced Rate 84 MDM Narrative Medical decision making narrative: Patient does have stones in his bladder on the CT scan and I do suspect that this is the cause of his right-sided flank mayra n in the blood in his urine. There is no other signs of infection. He denies any chest pain. Upon arriving to the room nursing thought that he was significantly short of breath that is why the chest x-ray another cardiac workup was done however upon further talking with the patient he denies any chest pain. Denies any changes in his respiratory status. He states that he has been coming somewhat short of breath over the past several weeks. He has talk with his primary doctor about this. He is currently under the workup for. I feel that we can hold on further workup. We did discuss kidney stones and blood in his urine. Was instructed to contact his primary provider for follow-up. He will return to the emergency department for any new or worsening symptoms. Discharge Plan Departure Patient Disposition: Home Clinical Impression: Bladder calculi, Hematuria Instructions: DI for Kidney Stones, DI for Hematuria Activity Restrictions/Additional Instructions: Recommend you continue all of your medications as directed. Contact your primary provider for a follow-up. Return to the emergency department for any new or worsening symptoms Prescriptions: No Action metformin [Glucophage XR] 500 MG tablet extended release 24 hr 1,000 mg PO BID Qty: 0 RF: 0 cholecalciferol (vitamin D3) [Vitamin D3] 5,000 unit Tablet 1,000 unit PO DAILY Qty: 0 RF: 0 Pradaxa 75 mg Capsule 150 mg PO BID RF: 0 B12 1,000 mcg PO DAILY RF: 0 metoprolol succinate 100 mg Tablet Extended Release 24 Hr 100 mg PO BID RF: 0 glipizide 10 mg tablet extended release 24hr 5 mg PO QAM RF: 0 loperamide 2 mg Tablet 2 mg PO PRN PRN (Reason: Diarrhea) RF: 0 dofetilide 250 mcg capsule 0.25 mg PO BID RF: 0 ibuprofen [Advil] 200 mg Tablet 200 mg PO PRN PRN (Reason: pain) RF: 0 omeprazole 20 mg capsule,delayed release(DR/EC) 20 mg PO BID RF: 0 Referrals: Tan Agosto MD [Primary Care Provider] -
--- NOTE | 2021-03-11 13:41 | DI.CT.S_ITS ---
PROCEDURE: CT KIDNEY URETER BLADDER (KUB) INDICATIONS: Eval for right-sided stone TECHNIQUE: Noncontrast 5 mm thick sections acquired from the diaphragms to the symphysis. 5 mm thick coronal and sagittal reformats were then performed. For radiation dose reduction, the following was used: automated exposure control, adjustment of mA and/or kV according to patient size. COMPARISON: [facility], CT, CT ABD PELVIS W CON, 04/07/2017, 12:27. [facility], CT, CT CHEST ABD PEL W CON, 11/21/2020, 10:31. FINDINGS: Image quality: Excellent. Lung bases: There is dependent atelectasis and scarring in the lung bases. There is mild septal thickening with indistinct ground glass opacities in the lungs suggestive of pulmonary edema. Heart size is enlarged. A pacemaker lead is partially visualized in the right ventricle. There is a small hiatal hernia. Urinary system: No kidney stones or hydronephrosis. There is nonspecific perinephric stranding bilaterally. Both ureters appear non-dilated throughout their expected courses. The bladder is partially distended with mild concentric wall thickening. Numerous dependent calcified stones are present in the bladder measuring up to 0.6 cm. Other solid organs: Noncontrast evaluation of the liver demonstrates no focal hepatic lesions. Gallbladder is surgically absent. Pancreas demonstrates peripancreatic fat stranding or fluid collections. No pancreatic duct dilatation. There is moderate fatty atrophy of the pancreas. Spleen is normal in size. There are bilateral adrenal nodules measuring up to 2.4 cm on the left and 1.3 cm on the right which appear similar in size to the prior studies. These demonstrate attenuation values compatible with lipid rich adenomas. Peritoneum and bowel: Unenhanced bowel loops demonstrate normal wall thickness and caliber. There is colonic diverticulosis. No free fluid or air. Nodes and vessels: No retroperitoneal or mesenteric adenopathy by size criteria. Aorta and inferior vena cava are normal in caliber. Abdominal wall: No ventral hernias. Pelvis: No free pelvic fluid. There are small bilateral fat-containing inguinal hernias. No inguinal adenopathy. Bones: No suspicious bony lesions. No vertebral body compression fractures. IMPRESSION: 1. No hydronephrosis. 2. Multiple dependent calcified stones in the urinary bladder. 3. Colonic diverticulosis. 4. Septal thickening in the lung bases with ground-glass opacities suggestive of pulmonary edema. Dictated by: Raghav Love M.D. on 03/11/2021 at 13:53 Approved by: Raghav Love M.D. on 03/11/2021 at 14:38
--- NOTE | 2021-03-11 13:43 | PC.NURSE ---
says patient currently has prostate cancer that they aren't doing anything about
[2021-03-11 13:49] LABS: COVID19 - ADMIT (NP swab/PCR) Negative (Negative)
== END 2021-03-11 15:08 | disposition home or self-care (01) ==
PROVIDERS: Emergency Provider Emergency Medicine; Family Provider Internal Medicine Cardiovascular Disease; PCP Family Medicine
DX: N21.0 Calculus in bladder (principal); R31.9 Hematuria, unspecified; R07.9 Chest pain, unspecified
CPT/HCPCS: 36415; 71045; 74176; 80053; 81003; 81015; 82550; 83690; 83735; 84484; 85025; 85610; 85730; 87086; 87635; 93005; 99284; C9803

== ENCOUNTER → 2021-04-03 13:46 | Outpatient (CLI) | payer MEDICARE, OTHER, SELFPAY ==
[2020-07-18 17:40] VITALS: BMI 30.9
[2021-04-03 15:25] LABS: Add Manual Diff / Slide Review NO; Basophils Absolute Auto 0 /uL (0-100); Basophils Percent Auto 0.5 % (0-2); Eosinophils Absolute Auto 100 /uL (0-450); Eosinophils Percent Auto 1.8 % (2-4); Hematocrit 38.4 % (41-53); Hemoglobin 11.9 g/dL (13.5-17.5); Lymphocytes Absolute Auto 1600 /uL (1100-4500); Lymphocytes Percent Auto 26.3 % (25-40); Mean Corpuscular Hemoglobin 26.8 PG (26-34); Mean Corpuscular Volume 86.7 fL (80-100); Monocytes Absolute Auto 600 /uL (0-900); Monocytes Percent Auto 9.3 % (3-14); Neutrophils Absolute Auto 3800 /uL (1500-7000); Neutrophils Percent Auto 62.1 % (50-75); Platelet Count 150 X10^3/uL (150-400); Red Blood Cell Count 4.43 X10^6/uL (4.5-5.9); Red Cell Distribution Width 15.9 % (11.6-14.8); White Blood Cell Count 6.2 X10^3/uL (4.5-11.0)
[2021-04-03 15:44] LABS: Alanine Aminotransferase 15 IU/L (<50); Albumin 4.1 g/dL (3.5-5.0); Albumin Globulin Ratio 1.4 (1.0-2.8); Alkaline Phosphatase 53 U/L (38-126); Aspartate Aminotransferase 21 IU/L (17-59); BUN Creatinine Ratio 15.5 (6-22); Bilirubin Total 0.7 mg/dL (0.2-1.3); Blood Urea Nitrogen 18 mg/dL (9-20); Calcium 8.6 mg/dL (8.4-10.2); Carbon Dioxide 21 mmol/L (22-32); Chloride 105 mmol/L (98-107); Estimated Glomerular Filt Rate > 60.0 mL/min (>60); Globulin 2.9 g/dL (1.7-4.1); Glucose 190 mg/dL (80-110); HEMOLYSIS < 15 (0-50); Potassium 5.1 mmol/L (3.4-5.1); Sodium 137 mmol/L (137-145)
[2021-04-03 15:57] LABS: Free T4, Direct Thyroxine 1.33 ng/dL (0.78-2.19)
[2021-04-03 16:11] LABS: Thyroid Stimulating Hormone 5.59 uIU/mL (0.47-4.68)
== END ==
PROVIDERS: Family Provider Internal Medicine Cardiovascular Disease; PCP Family Medicine; Referring Provider Family Medicine; Visit Provider Family Medicine
DX: I10 Essential (primary) hypertension (principal); E11.65 Type 2 diabetes mellitus with hyperglycemia; Z79.899 Other long term (current) drug therapy; E03.9 Hypothyroidism, unspecified; I50.9 Heart failure, unspecified; D50.9 Iron deficiency anemia, unspecified
CPT/HCPCS: 36415; 80053; 84439; 84443; 85025

== ENCOUNTER 2021-05-13 22:05 | Emergency (ER) | payer MEDICARE, OTHER, SELFPAY ==
[2020-07-18 17:40] VITALS: BMI 30.9
[2021-05-13 22:13] VITALS: BP 107/55; PULSE 61; RESP 16; O2SAT 93
--- NOTE | 2021-05-13 22:17 | DI.RAD.S_ITS ---
PROCEDURE: XR RIBS LT MIN 3V W CXR1V INDICATIONS: fall Left sided rib pain TECHNIQUE: 2 views of the left ribs were acquired, along with a single view chest. COMPARISON: [facility], CR, XR CHEST 1V, 03/11/2021, 12:32. [facility], CR, XR CHEST 2V, 03/06/2021, 12:54. FINDINGS: Surgical changes and devices: There is a cardiac pacemaker with leads in stable position. Bones and chest wall: Possible nondisplaced left anterior 6th, rib fracture. No suspicious bony lesions. Overlying soft tissues appear unremarkable. Lungs and pleura: Increased pulmonary vascularity but no confluent pulmonary edema. No pleural effusions or pneumothorax. Lungs appear clear. Mediastinum: Heart size is moderately increased. Mediastinal contours appear normal. IMPRESSION: 1. Possible nondisplaced left anterior 6thrib fracture. 2. Mild cardiomegaly. Increased pulmonary vascularity but no confluent pulmonary edema. No significant discrepancy with the cradle placer radiology preliminary report. Please note possible nondisplaced right rib fracture was not mentioned in the preliminary interpretation. Dictated by: Haylee Ortega M.D. on 05/14/2021 at 9:12 Approved by: Haylee Ortega M.D. on 05/14/2021 at 9:19
--- NOTE | 2021-05-13 22:17 | DI.CT.S_ITS ---
PROCEDURE: CT CERVICAL SPINE WO CON INDICATIONS: fall on thinners TECHNIQUE: Noncontrast 3 mm thick sections acquired from the skull base to the T4 level. Sagittal and coronal reformats were then constructed. For radiation dose reduction, the following was used: automated exposure control, adjustment of mA and/or kV according to patient size. COMPARISON: None. FINDINGS: Image quality: Excellent. Bones: No fractures or dislocations. 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 There is moderate central canal stenosis at C5 and C5-C6 secondary to longitudinal ligament calcification. Bilateral facet arthropathy, most pronounced at C2-C3, C3-C4 and C4-C5 on the right. Severe atlantoaxial joint degeneration. Visualized superior ribs are intact. Soft tissues: Prevertebral soft tissues are normal in thickness. No paravertebral hematomas. No apical pneumothoraces. IMPRESSION: 1. No cervical spine fracture. 2. Degenerative changes as described. No significant discrepancy with the security shift supervisor radiology preliminary report. Dictated by: Haylee Ortega M.D. on 05/14/2021 at 7:30 Approved by: Haylee Ortega M.D. on 05/14/2021 at 7:32
--- NOTE | 2021-05-13 22:17 | DI.CT.S_ITS ---
PROCEDURE: CT HEAD/BRAIN WO CON INDICATIONS: fall on thinners TECHNIQUE: Noncontrast 4.5 mm thick angled axial sections acquired from the foramen magnum to the vertex, with coronal and sagittal reformats. For radiation dose reduction, the following was used: automated exposure control, adjustment of mA and/or kV according to patient size. COMPARISON: MR, STROKE PROTOCOL, 01/28/2016, 8:03. [facility], CT, HEAD WITHOUT CONTRAST, 10/27/2017, 18:16. FINDINGS: Image quality: Excellent. CSF spaces: Basal cisterns are patent. No extra-axial fluid collections. The ventricles are symmetric in size and shape. Brain: No intracranial bleeds or masses. There is cerebral volume loss for age, with resultant ventricular and sulcal prominence. There are periventricular and deep white matter chronic small vessel ischemic changes. There is intracranial internal carotid artery atherosclerosis. Skull and face: Calvarium and visualized facial bones appear intact, without suspicious lesions. Sinuses: Visualized sinuses and mastoids are clear. IMPRESSION: 1. No acute intracranial abnormalities. 2. Cerebral volume loss and chronic microvascular ischemic changes. No significant discrepancy with the shift mechanic radiology preliminary report. Dictated by: Haylee Ortega M.D. on 05/14/2021 at 7:26 Approved by: Haylee Ortega M.D. on 05/14/2021 at 7:27
--- NOTE | 2021-05-13 22:17 | DI.CT.S_ITS ---
PROCEDURE: CT FACIAL BONES WO CON INDICATIONS: fall on thinners TECHNIQUE: Noncontrast 2.5 mm thick axial images acquired from the mandible through the frontal sinuses, with coronal and sagittal reformatting. For radiation dose reduction, the following was used: automated exposure control, adjustment of mA and/or kV according to patient size. COMPARISON: [facility], CT, CT HEAD/BRAIN WO CON, 05/13/2021, 22:28. [facility], CT, CT CERVICAL SPINE WO CON, 05/13/2021, 22:28. FINDINGS: Image quality: Excellent. Bones and teeth: Orbital cartagena are intact. Sinus cartagena show no fracture or deformity. Nasal bones and septum are intact. Visualized portions of the mandible demonstrate no fractures or subluxation. Zygomatic arches are intact. Pterygoid plates are intact. Visualized portions of the skull base and auditory canals are intact. Sinuses: There is mucosal thickening in ethmoid sinuses bilaterally. Mastoid air cells are aerated. Soft tissues: No edema, masses, or fluid collections. No enlarged lymph nodes. No soft tissue lacerations or debris. Vascular: Visualized vascular structures appear normal in the absence of contrast. Bony vascular foramina and canals are intact. IMPRESSION: 1. No facial bone fractures. 2. Mucosal thickening in ethmoid sinuses bilaterally. No significant discrepancy with the police shift commander radiology preliminary report. Dictated by: Haylee Ortega M.D. on 05/14/2021 at 7:46 Approved by: Haylee Ortega M.D. on 05/14/2021 at 7:49
--- NOTE | 2021-05-13 22:17 | ED.GENADULT ---
HPI - General Adult General Chief complaint: Trauma Stated complaint: Syncope/ Hit face Time Seen by Provider: 05/13/21 22:13 History of Present Illness HPI narrative: Patient is a 85-year-old male who is brought in by EMS for evaluation of was reported as a syncopal episode and falling forward hitting his face. He is on anticoagulation. Patient states that he was at his normal state health and he was outside looking at a flower pot when he states that although sign he was falling over. He states that he does remember seeing the ground coming up at him just prior to hitting his face. He states he was not trying to brace himself. He states that afterwards he was somewhat confused but there was no real loss of consciousness. A neighbor came over to check on him and he was brought in by EMS in a cervical collar and on a backboard. He reports no other injuries from the event other than nose pain. Related Data Home Medications Medication Instructions Recorded Confirmed metformin 500 mg tablet,extended 1,000 mg PO BID #0 10/14/12 07/18/20 release 24 hr (Glucophage XR) cholecalciferol (vitamin D3) 125 1,000 unit PO DAILY #0 08/18/16 07/18/20 mcg (5,000 unit) tablet (Vitamin D3) dofetilide 250 mcg capsule 0.25 mg PO BID 09/24/18 07/18/20 glipizide 10 mg tablet, extended 5 mg PO QAM 09/24/18 07/18/20 release 24 hr ibuprofen 200 mg tablet (Advil) 200 mg PO PRN PRN 09/24/18 07/18/20 loperamide 2 mg tablet 2 mg PO PRN PRN 09/24/18 07/18/20 omeprazole 20 mg capsule,delayed 20 mg PO BID 09/24/18 07/18/20 release B12 1,000 mcg PO DAILY 07/18/20 07/18/20 dabigatran etexilate 75 mg capsule 150 mg PO BID 07/18/20 07/18/20 (Pradaxa) metoprolol succinate 100 mg 100 mg PO BID 07/18/20 07/18/20 tablet,extended release 24 hr Allergies Allergy/AdvReac Type Severity Reaction Status Date / Time No Known Drug Allergies Allergy Verified 07/18/20 18:28 Review of Systems Constitutional Constitutional: Denies headache(s) Eyes Eyes: Denies change in vision ENT Ears, Nose, Mouth, and Throat: Denies headache(s) Comments: No loose teeth, missing teeth, does have nose pain, has trouble breathing out of his right nostril Cardiovascular Cardiovascular: Denies chest pain, Denies rapid heart rate and Denies dyspnea Respiratory Respiratory: Denies dyspnea Gastrointestinal Gastrointestinal: Denies abdominal pain Genitourinary Genitourinary: Reports system reviewed and no additional complaints, except as documented Musculoskeletal Musculoskeletal: Reports system reviewed and no additional complaints, except as documented Integumentary/Breasts Comments: Cut over his nose Neurologic Neurologic: Denies headache(s) Psychiatric Psychiatric: Reports system reviewed and no additional complaints, except as documented Endocrine Endocrine: Reports system reviewed and no additional complaints, except as documented Hematologic/Lymphatic On Anticoagulants: Yes Allergic/Immunologic Allergic/Immunologic: Reports system reviewed and no additional complaints, except as documented Patient History Medical History Atrial fibrillation, transient GERD (gastroesophageal reflux disease) Hyperlipidemia Hypertension Osteoarthritis (arthritis due to wear and tear of joints) TIA (transient ischemic attack) Type 2 diabetes mellitus with diabetic neuropathy Social History household members: spouse Smoking Status: Never smoker alcohol intake: former Smoking Status: Never smoker Substance Use Type: does not use Exam Initial Vital Signs Initial Vital Signs: Vital Signs Pulse Rate 61 05/13/21 22:13 Respiratory Rate 16 05/13/21 22:13 Blood Pressure 107/55 L 05/13/21 22:13 Pulse Oximetry 93 05/13/21 22:13 Const General: cooperative, healthy appearing, comfortable and well developed [facility] Head: normal to inspection and normocephalic Ears: hearing grossly normal bilaterally Nose: No epistaxis and other (Small abrasion over bridge of nose) Face and sinus: normal facial exam Mouth: oral mucosae normal Teeth and gingiva: dentition normal Eyes General: appearance normal, both eyes and all related structures Pupils: PERRL Chest Chest: No crepitus and tenderness (Does have tenderness along the left lateral ribs) Resp Effort & Inspection: normal respiratory effort Auscultation: clear to auscultation bilaterally Cardio Rate: regular rate Rhythm: regular rhythm GI Inspection: normal to inspection Palpation: soft and No tender Back/Spine/Pelvis Cervical Spine: collar present Thoracic/Lumbar Spine: thoracic and lumbar spine normal to inspection and No thoracic spinal tenderness Skin Other: Small abrasion over bridge of nose, small abrasion over left elbow Neuro General: patient alert, patient awake and patient oriented x3 Extrem General: normal to inspection and capillary refill normal Other: Moves all 4 extremities, pelvis is stable, hips knees ankles elbows shoulders wrists all unremarkable. Psych Appearance: grossly normal and well kempt Scores [facility] [place] coma scale eye opening: Spontaneous [place] coma scale verbal response: Orientated [place] coma scale motor response: Obey commands [place] coma scale total score: 15 Course Orders Ordered: ED Orders 05/13/21 22:17 CT cervical spine wo con Stat CT facial bones wo con Stat CT head/brain wo con Stat XR ribs LT min 3V w CXR1V Stat 05/13/21 22:20 Basic Metabolic Panel Stat Complete Blood Count AUTO DIFF Stat Magnesium Stat Vital Signs Vital signs: Vital Signs - 8 hr 05/13/21 22:13 05/13/21 22:21 05/13/21 22:45 Pulse Rate 61 64 Respiratory Rate 16 17 Blood Pressure 107/55 L Pulse Oximetry 93 92 82 L 05/13/21 23:00 05/13/21 23:30 05/13/21 23:55 Pulse Rate 60 60 60 Respiratory Rate 14 16 19 Blood Pressure 106/55 L Pulse Oximetry 97 96 96 05/14/21 00:00 05/14/21 00:30 Pulse Rate 60 60 Respiratory Rate 13 17 Blood Pressure 100/54 L 105/59 L Pulse Oximetry 97 97 Medical Decision Making Medical Records Medical records reviewed: Yes I reviewed the patient's medical records. Lab Data Lab results reviewed: Yes I reviewed the patient's lab results. Result diagrams: 05/13/21 22:20 05/13/21 22:20 Labs: Lab Results 05/13/21 05/13/21 Range/Units 22:20 22:20 WBC 5.6 (4.5-11.0) X10^3/uL RBC 4.23 L (4.5-5.9) X10^6/uL Hgb 10.8 L (13.5-17.5) g/dL Hct 34.7 L (41-53) % MCV 82.1 (80-100) fL MCH 25.6 L (26-34) PG MCHC 31.2 (30-36) % RDW 16.6 H (11.6-14.8) % Plt Count 136 L (150-400) X10^3/uL Neut % (Auto) 56.4 (50-75) % Lymph % (Auto) 32.9 (25-40) % [place] % (Auto) 8.6 (3-14) % Eos % (Auto) 1.7 L (2-4) % Baso % (Auto) 0.4 (0-2) % Neut # (Auto) 3200 (6522-0743) /uL Lymph # (Auto) 1800 (4077-1625) /uL [place] # (Auto) 500 (0-900) /uL Eos # (Auto) 100 (0-450) /uL Baso # (Auto) 0 (0-100) /uL Sodium 138 (137-145) mmol/L Potassium 3.9 (3.4-5.1) mmol/L Chloride 106 (98-107) mmol/L Carbon Dioxide 21 L (22-32) mmol/L BUN 18 (9-20) mg/dL Creatinine 1.17 (0.66-1.25) mg/dL Estimated GFR 59.5 L (>60) mL/min BUN/Creatinine Ratio 15.4 (6-22) Glucose 227 H (80-110) mg/dL Calcium 8.0 L (8.4-10.2) mg/dL Magnesium 1.2 L (1.6-2.3) mg/dL Imaging Data CT scan - head: Radiologist's Impression: No acute intracranial findings CT maxillofacial: Radiologist's Impression: No acute fracture dislocation CT - cervical spine: Radiologist's Impression: No acute findings X-ray ribs: Radiologist's Impression: Cardiomegaly without acute findings ECG Data Interpretation: Ventricular paced Rate is 64 No other acute findings MDM Narrative Medical decision making narrative: Patient's CT scans are unremarkable. His exam is relatively unremarkable. We were able to interrogate his pacemaker and there were no cardiac events at the time of his syncopal episode. His blood pressure here is unremarkable. Labs are unremarkable. Low suspicion for seizure. Low suspicion for CVA. He could potentially have tripped but again not 100% say this for certain. Patient was not hypoglycemic. The abrasion over his nose needs no intervention here in the ER. Informed her that he should continue to take all of his medications. The rest of his musculoskeletal exam is unremarkable I feel that we can hold on further radiologic studies for now. I did have discussion with him and his family at bedside. He was given strict return precautions and instructed to contact his primary doctor for follow-up. He expressed understanding and agreement. Critical Care Time Critical Care Time Critical Care Time: Yes Total Critical Care Time: 35 Attestation: The high probability of a clinically significant, sudden or life threatening deterioration of the neurologic, cardiovascular system(s) required my full and direct attention, intervention and personal management. The aggregate critical care time was 40 minutes. This time is in addition to time spent performing reported procedures but includes the following: [X] Data Review and interpretation [X] Patient assessment and monitoring of vital signs [X] Documentation [X] Medication orders and management Discharge Plan Departure Patient Disposition: Home Clinical Impression: Syncope, Abrasion of nose Instructions: Fainting Activity Restrictions/Additional Instructions: Recommend you continue all of your medications as directed. Contact your primary provider for a follow-up. Return to the emergency department for any new or worsening symptoms Prescriptions: No Action metformin [Glucophage XR] 500 MG tablet extended release 24 hr 1,000 mg PO BID Qty: 0 RF: 0 cholecalciferol (vitamin D3) [Vitamin D3] 5,000 unit Tablet 1,000 unit PO DAILY Qty: 0 RF: 0 Pradaxa 75 mg Capsule 150 mg PO BID RF: 0 B12 1,000 mcg PO DAILY RF: 0 metoprolol succinate 100 mg Tablet Extended Release 24 Hr 100 mg PO BID RF: 0 glipizide 10 mg tablet extended release 24hr 5 mg PO QAM RF: 0 loperamide 2 mg Tablet 2 mg PO PRN PRN (Reason: Diarrhea) RF: 0 dofetilide 250 mcg capsule 0.25 mg PO BID RF: 0 ibuprofen [Advil] 200 mg Tablet 200 mg PO PRN PRN (Reason: pain) RF: 0 omeprazole 20 mg capsule,delayed release(DR/EC) 20 mg PO BID RF: 0 Referrals: Tan Agosto MD [Primary Care Provider] -
[2021-05-13 22:21] VITALS: PULSE 64; RESP 17; O2SAT 92
[2021-05-13 22:45] VITALS: O2SAT 82
[2021-05-13 23:00] VITALS: PULSE 60; RESP 14; O2SAT 97
[2021-05-13 23:30] VITALS: PULSE 60; RESP 16; O2SAT 96
[2021-05-13 23:49] LABS: Add Manual Diff / Slide Review NO; Basophils Absolute Auto 0 /uL (0-100); Basophils Percent Auto 0.4 % (0-2); Eosinophils Absolute Auto 100 /uL (0-450); Eosinophils Percent Auto 1.7 % (2-4); Hematocrit 34.7 % (41-53); Hemoglobin 10.8 g/dL (13.5-17.5); Lymphocytes Absolute Auto 1800 /uL (1100-4500); Lymphocytes Percent Auto 32.9 % (25-40); Mean Corpuscular HGB Conc 31.2 % (30-36); Mean Corpuscular Hemoglobin 25.6 PG (26-34); Mean Corpuscular Volume 82.1 fL (80-100); Monocytes Absolute Auto 500 /uL (0-900); Monocytes Percent Auto 8.6 % (3-14); Neutrophils Absolute Auto 3200 /uL (1500-7000); Neutrophils Percent Auto 56.4 % (50-75); Platelet Count 136 X10^3/uL (150-400); Red Blood Cell Count 4.23 X10^6/uL (4.5-5.9); Red Cell Distribution Width 16.6 % (11.6-14.8); White Blood Cell Count 5.6 X10^3/uL (4.5-11.0)
[2021-05-13 23:53] LABS: BUN Creatinine Ratio 15.4 (6-22); Blood Urea Nitrogen 18 mg/dL (9-20); Carbon Dioxide 21 mmol/L (22-32); Chloride 106 mmol/L (98-107); Estimated Glomerular Filt Rate 59.5 mL/min (>60); Glucose 227 mg/dL (80-110); HEMOLYSIS < 15 (0-50); Magnesium 1.2 mg/dL (1.6-2.3); Potassium 3.9 mmol/L (3.4-5.1); Sodium 138 mmol/L (137-145)
[2021-05-13 23:55] VITALS: BP 106/55; PULSE 60; RESP 19; O2SAT 96
[2021-05-14] VITALS: BP 100/54; PULSE 60; RESP 13; O2SAT 97
--- NOTE | 2021-05-14 | PC.NURSE ---
patient pacemaker interrogated with [employer] device. provider aware.
[2021-05-14 00:30] VITALS: BP 105/59; PULSE 60; RESP 17; O2SAT 97
== END 2021-05-14 01:00 | disposition home or self-care (01) ==
PROVIDERS: Emergency Provider Emergency Medicine; Family Provider Internal Medicine Cardiovascular Disease; PCP Family Medicine
DX: R55 Syncope and collapse (principal); S00.31XA Abrasion of nose, initial encounter; R41.0 Disorientation, unspecified; R07.81 Pleurodynia; W19.XXXA Unspecified fall, initial encounter; Z79.01 Long term (current) use of anticoagulants
CPT/HCPCS: 36415; 70450; 70486; 71101; 72125; 80048; 83735; 85025; 93005; 99285; 99291; G0390

== ENCOUNTER → 2021-05-22 12:36 | Outpatient (CLI) | payer MEDICARE, OTHER, SELFPAY ==
[2020-07-18 17:40] VITALS: BMI 30.9
[2021-05-22 14:46] LABS: Prostate Specific Antigen 17.8 ng/mL (0.10-4.00)
== END ==
PROVIDERS: Family Provider Internal Medicine Cardiovascular Disease; PCP Family Medicine; Referring Provider Urology; Visit Provider Urology
DX: R97.20 Elevated prostate specific antigen [PSA] (principal)
CPT/HCPCS: 36415; 84153

== ENCOUNTER → 2021-05-29 13:04 | Outpatient (CLI) | payer MEDICARE, OTHER, SELFPAY ==
[2020-07-18 17:40] VITALS: BMI 30.9
--- NOTE | 2021-05-29 | DI.RAD.S_ITS ---
PROCEDURE: XR CHEST 2V INDICATIONS: Chest pain on breathing TECHNIQUE: 2 views of the chest were acquired. COMPARISON: [facility], CR, XR CHEST 1V, 03/11/2021, 12:32. FINDINGS: Surgical changes and devices: Left -sided cardiac pacer device is in place. Surgical clips in right upper quadrant compatible with prior cholecystectomy. Lungs and pleura: Minimal linear opacity near the left costophrenic angle likely representing subsegmental atelectasis or scarring. No focal consolidation. No pleural effusions or pneumothorax. Mediastinum: Mediastinal contours are normal. Heart size is normal. Bones and chest wall: No suspicious bony abnormalities. Soft tissues appear unremarkable. IMPRESSION: Cardiomegaly without evidence for pulmonary edema or acute cardiopulmonary abnormalities. Minimal left costophrenic angle atelectasis and/or scarring. Dictated by: B[place]zy [place] M.D. on 05/29/2021 at 15:56 Approved by: Breezy [place] M.D. on 05/29/2021 at 15:59
== END ==
PROVIDERS: Family Provider Internal Medicine Cardiovascular Disease; PCP Family Medicine; Referring Provider Family Medicine; Visit Provider Family Medicine
DX: R07.1 Chest pain on breathing (principal); I51.7 Cardiomegaly
CPT/HCPCS: 71046

== ENCOUNTER → 2021-12-17 09:04 | Outpatient (CLI) | payer MEDICARE, OTHER, SELFPAY ==
[2021-12-11 10:13] VITALS: BMI 30.9
--- NOTE | 2021-12-17 09:05 | DI.NM.S_ITS ---
PROCEDURE: OR BONE SCAN WHOLE BODY RADIOPHARMACEUTICAL: 19.9 mCi Tc-99m MDP IV. INDICATIONS: Prostate Cancer TECHNIQUE: Delayed whole-body scintigrams were obtained approximately 3-4 hours after intravenous injection of radiotracer. Anterior and posterior views were acquired from vertex to feet. Additional left and right oblique views of the pelvis were obtained. COMPARISON: Merged With [facility], CT, CT KIDNEY URETER BLADDER (KUB), 03/11/2021, 13:41. Merged With [facility], CT, CT CERVICAL SPINE WO CON, 05/13/2021, 22:28. Merged With [facility], NM, NM BONE SCAN WHOLE BODY, 11/21/2020, 13:03. FINDINGS: No lesions are identified in skull, sternum, clavicles, scapulae, ribs, bony pelvis, and visualized shafts of the long bones. Again noted are foci of increased uptake in cervical, thoracic and lumbar spine. Differential diagnoses include degenerative disc and facet disease versus metastasis to spine. There are foci of increased periarticular activity involving shoulders, sternoclavicular joints, elbows, wrists, hands, hips, SI joints, ankles and feet, compatible with degenerative/arthritic changes. Bilateral knee arthroplasties. IMPRESSION: 1. Stable bone scan. Increased uptake in spine may be degenerative but metastatic disease could have a similar scintigraphic appearance. Please correlate with tumor markers. Dictated by: Haylee Ortega M.D. on 12/17/2021 at 15:27 Approved by: Haylee Ortega M.D. on 12/17/2021 at 15:32
== END ==
PROVIDERS: Family Provider Internal Medicine Cardiovascular Disease; PCP Family Medicine; Referring Provider Specialist; Visit Provider Specialist
DX: C61 Malignant neoplasm of prostate (principal); R97.20 Elevated prostate specific antigen [PSA]
CPT/HCPCS: 36415; 78306; 84153; A9503

== ENCOUNTER → 2022-01-09 11:04 | Outpatient (CLI) | payer MEDICARE, OTHER, SELFPAY ==
[2021-12-31 14:01] VITALS: BMI 30.9
[2022-01-09 12:30] LABS: BUN Creatinine Ratio 17.2 (6-22); Blood Urea Nitrogen 20 mg/dL (9-20); Calcium 8.5 mg/dL (8.4-10.2); Carbon Dioxide 29 mmol/L (22-32); Chloride 103 mmol/L (98-107); Glucose 206 mg/dL (80-110); HEMOLYSIS < 15 (0-50); Sodium 141 mmol/L (137-145)
== END ==
PROVIDERS: Family Provider Internal Medicine Cardiovascular Disease; PCP Family Medicine; Referring Provider Nurse Practitioner; Visit Provider Nurse Practitioner
DX: I48.19 Other persistent atrial fibrillation (principal); I34.0 Nonrheumatic mitral (valve) insufficiency
CPT/HCPCS: 36415; 80048

== ENCOUNTER 2022-02-24 20:04 | Emergency (ER) | payer MEDICARE, OTHER, SELFPAY ==
[2021-12-31 14:01] VITALS: BMI 30.9
[2022-02-24] VITALS (11 sets, daily range): BP systolic 108–140; BP diastolic 58–80; PULSE 60–75; RESP 15–26; TEMP 36.6; O2SAT 99–100; BMI 30.4
--- NOTE | 2022-02-24 20:15 | DI.RAD.S_ITS ---
PROCEDURE: XR CHEST 1V INDICATIONS: chest pain TECHNIQUE: One view of the chest was acquired. COMPARISON: [facility], CR, XR RIBS LT MIN 3V W CXR1V, 05/13/2021, 22:28. [facility], CR, XR CHEST 2V, 05/29/2021, 13:12. FINDINGS: Surgical changes and devices: Left-sided cardiac pacer device is in place. Lungs and pleura: Lungs are clear. No pleural effusions or pneumothorax. Mediastinum: Mediastinal contours appear normal. Heart size is normal. Bones and chest wall: No suspicious bony lesions. Overlying soft tissues appear unremarkable. IMPRESSION: Chest without acute cardiopulmonary abnormalities. Dictated by: Breezy Bay M.D. on 02/24/2022 at 21:16 Approved by: B[place]zy [place] M.D. on 02/24/2022 at 21:17
[2022-02-24 20:39] LABS: Add Manual Diff / Slide Review NO; Basophils Absolute Auto 0 /uL (0-100); Basophils Percent Auto 0.7 % (0-2); Eosinophils Absolute Auto 100 /uL (0-450); Eosinophils Percent Auto 2.1 % (2-4); Hematocrit 34.4 % (41-53); Hemoglobin 11.3 g/dL (13.5-17.5); Lymphocytes Absolute Auto 2500 /uL (1100-4500); Lymphocytes Percent Auto 42.4 % (25-40); Mean Corpuscular HGB Conc 32.8 % (30-36); Mean Corpuscular Volume 82.2 fL (80-100); Monocytes Absolute Auto 500 /uL (0-900); Neutrophils Absolute Auto 2800 /uL (1500-7000); Neutrophils Percent Auto 46.8 % (50-75); Platelet Count 142 X10^3/uL (150-400); Red Blood Cell Count 4.18 X10^6/uL (4.5-5.9); Red Cell Distribution Width 22.4 % (11.6-14.8)
[2022-02-24 20:54] LABS: Alanine Aminotransferase 13 IU/L (<50); Albumin Globulin Ratio 1.3 (1.0-2.8); Alkaline Phosphatase 53 U/L (38-126); Aspartate Aminotransferase 21 IU/L (17-59); BUN Creatinine Ratio 20.4 (6-22); Bilirubin Total 0.5 mg/dL (0.2-1.3); Blood Urea Nitrogen 20 mg/dL (9-20); Calcium 7.9 mg/dL (8.4-10.2); Carbon Dioxide 24 mmol/L (22-32); Chloride 105 mmol/L (98-107); Creatine Kinase 55 U/L (55-170); Estimated Glomerular Filt Rate > 60.0 mL/min (>60); Globulin 3.2 g/dL (1.7-4.1); Glucose 208 mg/dL (80-110); HEMOLYSIS < 15 (0-50); Lipase 73 U/L (23-300); Magnesium 1.5 mg/dL (1.6-2.3); Potassium 4.1 mmol/L (3.4-5.1); Sodium 139 mmol/L (137-145); Total Protein 7.2 g/dL (6.3-8.2)
--- NOTE | 2022-02-24 20:54 | PC.NURSE ---
[employer] pacemaker evaluated, per [employer] report looks normal and no events to note.
[2022-02-24 21:03] LABS: Anisocytosis 2+
[2022-02-24 21:05] LABS: Troponin I < 0.012 ng/mL (0.01-0.034)
[2022-02-24 22:15] LABS: COVID19 -Nasal RAPID Negative (Negative)
--- NOTE | 2022-02-24 22:45 | ED.GENADULT ---
HPI - General Adult General Chief complaint: Syncope Stated complaint: syncope Time Seen by Provider: 02/24/22 21:28 Source: patient and EMS Mode of arrival: EMS History of Present Illness HPI narrative: 86-year-old gentleman with a history of atrial fibrillation with pacemaker, hypertension, hyperlipidemia, diabetes with peripheral neuropathy and prior TIA presents with a syncopal episode today. He describes sitting working on the computer in 1 room standing up taking a couple steps toward another room feeling lightheaded then slid toward the floor and passed out. He stated he was quite weak all over while he was lying on the ground and this past in 20-30 minutes and then he and his were able to get him back up. He does not complain of headache. It was not any focal or localizing weakness. Not associated with fever, cough, urinary symptoms, abdominal pain, headache. He describes no dyspnea, orthopnea, chest pain or palpitations associated with this. He describes no injury or trauma related to the fall. He states he has had multiple episodes similar to this many of which remained unexplained. Initially had been due to rhythm abnormalities and he currently has a pacemaker. Pacemaker has been interrogated and shows no abnormalities with today's of that. Related Data Home Medications Medication Instructions Recorded Confirmed metformin 500 mg tablet,extended 1,000 mg PO BID #0 10/14/12 12/31/21 release 24 hr (Glucophage XR) cholecalciferol (vitamin D3) 125 1,000 unit PO DAILY #0 08/18/16 12/31/21 mcg (5,000 unit) tablet (Vitamin D3) dofetilide 250 mcg capsule 0.25 mg PO BID 09/24/18 12/31/21 glipizide 10 mg tablet, extended 5 mg PO QAM 09/24/18 12/31/21 release 24 hr ibuprofen 200 mg tablet (Advil) 200 mg PO PRN PRN 09/24/18 12/31/21 loperamide 2 mg tablet 2 mg PO PRN PRN 09/24/18 12/31/21 omeprazole 20 mg capsule,delayed 20 mg PO BID 09/24/18 12/31/21 release B12 1,000 mcg PO DAILY 07/18/20 12/31/21 dabigatran etexilate 75 mg capsule 150 mg PO BID 07/18/20 12/31/21 (Pradaxa) metoprolol succinate 100 mg 100 mg PO BID 07/18/20 12/31/21 tablet,extended release 24 hr furosemide 20 mg tablet (Lasix) 20 mg PO DAILY 12/11/21 12/31/21 levothyroxine 25 mcg tablet 25 mcg PO DAILY 12/11/21 12/31/21 (Synthroid) magnesium 400 mg PO 12/11/21 12/31/21 Previous Rx's Medication Instructions Recorded alfuzosin 10 mg tablet,extended 10 mg PO DAILY #90 tab 12/31/21 release 24 hr (Uroxatral) bicalutamide 50 mg tablet (Casodex) 50 mg PO DAILY #30 tab 01/01/22 Allergies Allergy/AdvReac Type Severity Reaction Status Date / Time No Known Drug Allergies Allergy Verified 12/31/21 13:06 Review of Systems Review of Systems Narrative: General: Chronically ill-appearing but in no acute distress. Able to give a complete and coherent history. HEENT: Moist mucous membranes, normal sclera with reactive pupils, Neck: No JVD, supple Respiratory: Lungs are clear to auscultation, no wheezing no rales no rhonchi. Full and symmetrical air movement Cardiac: Regular rate and rhythm no murmurs no bruits. He is not orthostatic by blood pressures Abdomen: Soft, nontender, good bowel tones, no flank pain Skin: Warm and dry, no rashes Neurologic: Globally slowed but Grossly neurologically intact with no obvious asymmetries or abnormalities Extremities: No trauma, well perfused, mild chronic venous stasis changes with 1+ bilateral lower extremity edema. Psych: Cooperative, appropriate insight and affect Patient History Medical History (Updated 02/24/22 @ 23:20 by Alma Roman MD) Asthma Atrial fibrillation, transient Bladder calculi Cancer Diabetes GERD (gastroesophageal reflux disease) Hyperlipidemia Hypertension Incomplete bladder emptying Lower urinary tract symptoms (LUTS) Osteoarthritis (arthritis due to wear and tear of joints) Pacemaker Prostate cancer TIA (transient ischemic attack) Type 2 diabetes mellitus with diabetic neuropathy Surgical History H/O vasectomy History of appendectomy Previous back surgery Total knee replacement status Family History Family/Other Blood disease BPH (benign prostatic hyperplasia) Cancer Diabetes mellitus Hearing loss Hyperlipidemia Hypertension Social History marital status: number of children: 3 household members: spouse Smoking Status: Never smoker alcohol intake: former Type(s) of exercise: walking frequency: daily Smoking Status: Never smoker alcohol intake frequency: 0-2 drinks per day Substance Use Type: does not use Exam Initial Vital Signs Initial Vital Signs: Vital Signs Temperature 97.8 F 02/24/22 20:11 Pulse Rate 75 02/24/22 20:11 Respiratory Rate 18 02/24/22 20:11 Blood Pressure 138/80 02/24/22 20:11 Pulse Oximetry 100 02/24/22 20:11 Course Orders Ordered: ED Orders 02/24/22 20:15 XR chest 1V Stat EKG-12 Lead Stat 02/24/22 20:30 Complete Blood Count AUTO DIFF Stat Comprehensive Metabolic Panel Stat Lipase Stat Magnesium Stat Troponin & CK Cardiac Panel Stat 02/24/22 20:45 COVID19 -Nasal RAPID/Pre-Proc Stat Vital Signs Vital signs: Vital Signs - 8 hr 02/24/22 20:11 02/24/22 20:15 02/24/22 20:30 Temperature 97.8 F Pulse Rate 75 67 60 Respiratory Rate 18 15 16 Blood Pressure 138/80 Pulse Oximetry 100 100 100 02/24/22 20:48 02/24/22 21:00 02/24/22 21:30 Temperature Pulse Rate 60 60 60 Respiratory Rate 15 15 15 Blood Pressure 114/62 108/58 L 117/62 Pulse Oximetry 100 99 100 02/24/22 22:00 02/24/22 22:30 02/24/22 22:53 Temperature Pulse Rate 60 60 60 Respiratory Rate 15 15 19 Blood Pressure 123/61 140/66 131/71 Pulse Oximetry 100 100 100 02/24/22 22:55 02/24/22 23:00 Temperature Pulse Rate 62 65 Respiratory Rate 19 26 H Blood Pressure 130/63 138/64 Pulse Oximetry 100 100 Medical Decision Making Lab Data Result diagrams: 02/24/22 20:30 02/24/22 20:30 Labs: Lab Results 02/24/22 02/24/22 02/24/22 Range/Units 20:30 20:30 20:45 WBC 6.0 (4.5-11.0) X10^3/uL RBC 4.18 L (4.5-5.9) X10^6/uL Hgb 11.3 L (13.5-17.5) g/dL Hct 34.4 L (41-53) % MCV 82.2 (80-100) fL MCH 27.0 (26-34) PG MCHC 32.8 (30-36) % RDW 22.4 H (11.6-14.8) % Plt Count 142 L (150-400) X10^3/uL Neut % (Auto) 46.8 L (50-75) % Lymph % (Auto) 42.4 H (25-40) % [place] % (Auto) 8.0 (3-14) % Eos % (Auto) 2.1 (2-4) % Baso % (Auto) 0.7 (0-2) % Neut # (Auto) 2800 (2556-0064) /uL Lymph # (Auto) 2500 (5311-2237) /uL [place] # (Auto) 500 (0-900) /uL Eos # (Auto) 100 (0-450) /uL Baso # (Auto) 0 (0-100) /uL RBC Morphology See below Anisocytosis 2+ H Sodium 139 (137-145) mmol/L Potassium 4.1 (3.4-5.1) mmol/L Chloride 105 (98-107) mmol/L Carbon Dioxide 24 (22-32) mmol/L BUN 20 (9-20) mg/dL Creatinine 0.98 (0.66-1.25) mg/dL Estimated GFR > 60.0 (>60) mL/min BUN/Creatinine Ratio 20.4 (6-22) Glucose 208 H (80-110) mg/dL Calcium 7.9 L (8.4-10.2) mg/dL Magnesium 1.5 L (1.6-2.3) mg/dL Total Bilirubin 0.5 (0.2-1.3) mg/dL AST 21 (17-59) IU/L ALT 13 (<50) IU/L Alkaline Phosphatase 53 (38-126) U/L Total Creatine Kinase 55 (55-170) U/L CK-MB (CK-2) TNP CK-MB (CK-2) Rel Index TNP Troponin I < 0.012 (0.01-0.034) ng/mL Total Protein 7.2 (6.3-8.2) g/dL Albumin 4.0 (3.5-5.0) g/dL Globulin 3.2 (1.7-4.1) g/dL Albumin/Globulin Ratio 1.3 (1.0-2.8) Lipase 73 (23-300) U/L SARS-CoV-2 (PCR) Negative (Negative) Imaging Data Chest x-ray: Radiologist's Impression: FINDINGS:? ? Surgical changes and devices:? Left-sided cardiac pacer device is in place.? ? Lungs and pleura:? Lungs are clear.? No pleural effusions or pneumothorax.? ? Mediastinum:? Mediastinal contours appear normal.? Heart size is normal.? ? Bones and chest wall:? No suspicious bony lesions.? Overlying soft tissues appear unremarkable.? ? IMPRESSION:? Chest without acute cardiopulmonary abnormalities. ? ? Dictated by: [place] M.D. on 02/24/2022 at 21:16? ?? ECG Data Interpretation: Ventricular paced at 69 Pacemaker function: normal pacer function (No rhythm abnormalities) MDM Narrative Medical decision making narrative: 86-year-old gentleman with a syncopal episode today with no obvious explanation. No signs of stroke or TIA, cardiac abnormality, rhythm abnormality as indicated by pacemaker interrogation, no infection, sepsis no evidence of dehydration he is not orthostatic. With shared decision making, between the patient myself in his we opted to not do a CT scan of his head. He does have a history of prostate cancer but did have a CT scan 10 months ago that showed no significant abnormalities. At this time he is completely asymptomatic, is back to his baseline and would prefer to be discharged home. 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 Encouraged him to keep this. Suggested that he continue all his medications as he currently is taking them and should he have new or worsening symptoms needs to return to the emergency department. He is safe for home discharge Discharge Plan Departure Patient Disposition: Home Clinical Impression: Syncope Instructions: DI for Syncope in Adults (Fainting) Activity Restrictions/Additional Instructions: Thank you for coming in today I did not find an explanation for why you had this episode of passing out today. I am glad that you did not hurt yourself with the episode. Specifically, there is no evidence of stroke, heart attack or heart attack like syndrome, overwhelming infection, dehydration, kidney or liver dysfunction, electrolyte abnormalities or other life threatening diagnoses that would require further workup for hospitalization. If you have new or worsening symptoms you do need to return to the emergency department and I am happy to relook and rethink. Please do keep your scheduled cardiology follow-up in the next couple of days. Prescriptions: No Action metformin [Glucophage XR] 500 MG tablet extended release 24 hr 1,000 mg PO BID Qty: 0 0RF Label Comments: am and noon cholecalciferol (vitamin D3) [Vitamin D3] 5,000 unit Tablet 1,000 unit PO DAILY Qty: 0 0RF bicalutamide [Casodex] 50 mg tablet 50 mg PO DAILY Qty: 30 0RF Pradaxa 75 mg Capsule 150 mg PO BID 0RF Rx Instructions: Unknown dose B12 1,000 mcg PO DAILY 0RF metoprolol succinate 100 mg Tablet Extended Release 24 Hr 100 mg PO BID 0RF glipizide 10 mg tablet extended release 24hr 5 mg PO QAM 0RF loperamide 2 mg Tablet 2 mg PO PRN PRN (Reason: Diarrhea) 0RF Label Comments: spouse states takes often dofetilide 250 mcg capsule 0.25 mg PO BID 0RF ibuprofen [Advil] 200 mg Tablet 200 mg PO PRN PRN (Reason: pain) 0RF omeprazole 20 mg capsule,delayed release(DR/EC) 20 mg PO BID 0RF alfuzosin [Uroxatral] 10 mg tablet extended release 24 hr 10 mg PO DAILY Qty: 90 3RF Rx Instructions: administer after the same meal each day levothyroxine [Synthroid] 25 mcg tablet 25 mcg PO DAILY 0RF furosemide [Lasix] 20 mg tablet 20 mg PO DAILY 0RF magnesium 400 mg PO 0RF Referrals: Tan Agosto MD [Primary Care Provider] -
== END 2022-02-24 23:30 | disposition home or self-care (01) ==
PROVIDERS: Emergency Provider Emergency Medicine; Family Provider Internal Medicine Cardiovascular Disease; PCP Family Medicine
DX: R55 Syncope and collapse (principal); Z95.0 Presence of cardiac pacemaker; Z20.822 Contact with and (suspected) exposure to COVID-19
CPT/HCPCS: 71045; 80053; 82550; 83690; 83735; 84484; 85025; 87635; 93005; 93010; 99282; 99284; C9803

== ENCOUNTER → 2022-03-12 09:27 | Outpatient (CLI) | payer MEDICARE, OTHER, SELFPAY ==
[2021-12-31 14:01] VITALS: BMI 30.9
== END ==
PROVIDERS: Family Provider Internal Medicine Cardiovascular Disease; PCP Family Medicine; Referring Provider Specialist; Visit Provider Specialist
DX: M81.8 Other osteoporosis without current pathological fracture (principal)
CPT/HCPCS: 77080

== ENCOUNTER → 2022-03-25 10:10 | Outpatient (CLI) | payer MEDICARE, OTHER, SELFPAY ==
[2021-12-31 14:01] VITALS: BMI 30.9
[2022-03-25 13:46] LABS: Prostate Specific Antigen 0.595 ng/mL (0.10-4.00)
== END ==
PROVIDERS: Family Provider Internal Medicine Cardiovascular Disease; PCP Family Medicine; Referring Provider Specialist; Visit Provider Specialist
DX: C61 Malignant neoplasm of prostate (principal)
CPT/HCPCS: 84153

== ENCOUNTER → 2022-07-01 10:54 | Outpatient (CLI) | payer MEDICARE, OTHER, SELFPAY ==
[2021-12-31 14:01] VITALS: BMI 30.9
[2022-07-01 13:22] LABS: Prostate Specific Antigen 0.432 ng/mL (0.10-4.00)
== END ==
PROVIDERS: Family Provider Internal Medicine Cardiovascular Disease; PCP Family Medicine; Referring Provider Specialist; Visit Provider Specialist
DX: N40.0 Benign prostatic hyperplasia without lower urinary tract symptoms (principal)
CPT/HCPCS: 36415; 84153

== ENCOUNTER 2022-10-27 16:50 | Emergency (ER) | payer MEDICARE, OTHER, SELFPAY ==
[2021-12-31 14:01] VITALS: BMI 30.9
[2022-10-27] VITALS (15 sets, daily range): BP systolic 122–156; BP diastolic 58–70; PULSE 59–78; RESP 12–22; TEMP 36.7; O2SAT 95–99; BMI 33.3
--- NOTE | 2022-10-27 17:01 | DI.RAD.S_ITS ---
PROCEDURE: XR CHEST 1V INDICATIONS: chest pain TECHNIQUE: One view of the chest was acquired. COMPARISON: [facility], CR, XR CHEST 1V, 02/24/2022, 20:27. FINDINGS: Surgical changes and devices: Left-sided pacer. Lungs and pleura: Lungs are clear. No pleural effusions or pneumothorax. Mediastinum: Mediastinal contours appear normal. Heart size is normal. Bones and chest wall: No suspicious bony lesions. Overlying soft tissues appear unremarkable. IMPRESSION: No acute process. Dictated by: Vel Taylor M.D. on 10/27/2022 at 16:36 Approved by: Vel Taylor M.D. on 10/27/2022 at 16:36
--- NOTE | 2022-10-27 19:09 | DI.CT.S_ITS ---
PROCEDURE: CT ANGIO CHEST PE PROTOCOL INDICATIONS: Left side pain TECHNIQUE: After the administration of intravenous contrast, 2 mm thick sections acquired from the pulmonary apices to the posterior costophrenic angles. 3-dimensional maximum intensity projection (MIP) coronal and sagittal reformats were then acquired through the thorax. For radiation dose reduction, the following was used: automated exposure control, adjustment of mA and/or kV according to patient size. COMPARISON: [facility], CT, CT ABD PELVIS W CON, 04/07/2017, 12:27. CT, CT CHEST ABD PEL W CON, 11/21/2020, 10:31. [facility], CR, XR CHEST 1V, 10/27/2022, 17:13. FINDINGS: Image quality: There is mild motion artifact. Pulmonary arteries: Pulmonary arteries demonstrate no intraluminal filling defects to suggest central pulmonary embolism. There is enlargement of the pulmonary arteries, with the main pulmonary artery measuring up to 4.3 cm suggestive of pulmonary arterial hypertension. Lower Neck: No lymphadenopathy by size criteria. Thyroid: Visualized thyroid demonstrates no discrete nodules. Axillae: No lymphadenopathy by size criteria. Chest Wall: Unremarkable. Bones: Visualized osseous structures demonstrate no suspicious lesions. Lungs and Airways: There is confluent consolidation in the left lower lobe with adjacent ground-glass opacities likely secondary to pneumonia. The trachea and central airways are patent. Pleura: No pneumothorax. There is a small left pleural effusion. Heart: Heart size is enlarged. No pericardial effusion. There is a left chest wall pacemaker with leads extending into the right atrium and right ventricle. Thoracic Vessels: The thoracic aorta is normal in size. Mediastinum and [place]: No lymphadenopathy by size criteria. Esophagus: No wall thickening. There is a small hiatal hernia. Abdomen: Visualized upper abdomen demonstrates moderate fatty atrophy of the visualized pancreas. No pancreatic duct dilatation or discrete mass visualized. There is a left adrenal nodule measuring up to 2.5 cm which appears similar in size compared to the prior studies dating back to 04/07/2017. IMPRESSION: 1. No evidence of pulmonary embolism. 2. Enlargement of the pulmonary arteries suggestive of pulmonary arterial hypertension. 3. Left lower lobe consolidation most likely secondary to pneumonia. 4. Small left pleural effusion. 5. Left adrenal nodule measuring up to 2.5 cm is indeterminate but appears similar in size compared to prior studies dating back to 04/07/2017. Dictated by: Raghav Love M.D. on 10/27/2022 at 20:04 Approved by: Raghav Love M.D. on 10/27/2022 at 20:15
--- NOTE | 2022-10-27 19:10 | ED_ITS ---
HPI - Chest Pain General Chief Complaint: Chest Pain Stated Complaint: scapular pain. + cardiac history Time Seen by Provider: 10/27/22 17:11 Source: patient and EMS Mode of arrival: EMS Limitations: no limitations History of Present Illness HPI narrative: Patient brought in by ambulance from home. and granddaughter are at bedside. Patient complains of reproducible left scapular area pain since 1:00 p.m. this afternoon. Denies any injury. No new stressors. Denies denies any chest pain or dyspnea. No abdominal pain. No numbness tingling or weakness. No syncope. Patient denies any blood clots in legs or lungs in the past. Patient does have history of atrial fibrillation and a pacemaker and has medication/Pradaxa. Dr. Becerra is his electroplater. Patient just saw his family doctor this morning before the pain started and was a regular routine wellness check. No new issues. Patient was driving his car when he felt his pain. He went home and ate lunch and it was still there. Working on the computer was still there. Patient received nitro and aspirin by EMS. Did not really change his discomfort. Never had chest pain. Denies any history stents or bypass surgery. Denies any recent illness cough cold crutches fever or chills. Related Data Home Medications Medication Instructions Recorded Confirmed metformin 500 mg tablet,extended 1,000 mg PO BID ##0 10/14/12 04/01/22 release 24 hr (Glucophage XR) cholecalciferol (vitamin D3) 125 1,000 unit PO DAILY ##0 08/18/16 04/01/22 mcg (5,000 unit) tablet (Vitamin D3) dofetilide 250 mcg capsule 0.25 mg PO BID 09/24/18 04/01/22 glipizide 10 mg tablet, extended 5 mg PO QAM 09/24/18 04/01/22 release 24 hr ibuprofen 200 mg tablet (Advil) 200 mg PO PRN PRN pain 09/24/18 04/01/22 loperamide 2 mg tablet 2 mg PO PRN PRN Diarrhea 09/24/18 04/01/22 omeprazole 20 mg capsule,delayed 20 mg PO BID 09/24/18 04/01/22 release B12 1,000 mcg PO DAILY 07/18/20 04/01/22 dabigatran etexilate 75 mg capsule 150 mg PO BID 07/18/20 04/01/22 (Pradaxa) furosemide 20 mg tablet (Lasix) 20 mg PO DAILY 12/11/21 04/01/22 levothyroxine 25 mcg tablet 25 mcg PO DAILY 12/11/21 04/01/22 (Synthroid) magnesium 400 mg PO 12/11/21 04/01/22 metoprolol succinate 100 mg 50 mg PO BID 04/01/22 04/01/22 tablet,extended release 24 hr Previous Rx's Medication Instructions Recorded alfuzosin 10 mg tablet,extended 10 mg PO DAILY #90 tabs 12/31/21 release 24 hr (Uroxatral) bicalutamide 50 mg tablet (Casodex) 50 mg PO DAILY #30 tabs 01/01/22 amoxicillin 875 mg-potassium 1 tab PO BID #14 tabs 10/27/22 clavulanate 125 mg tablet doxycycline monohydrate 100 mg 100 mg PO BID #14 caps 10/27/22 capsule Allergies Allergy/AdvReac Type Severity Reaction Status Date / Time No Known Drug Allergies Allergy Verified 04/01/22 10:28 Review of Systems Review of Systems Narrative: GENERAL: negative chills, fatigue, malaise, fever, sweats. HEENT: negative sinus pain, ear pain, sore throat RESPIRATORY: negative dyspnea, cough CARDIOVASCULAR: negative chest pain, palpitations GASTROINTESTINAL: negative nausea, vomiting, abdominal pain : negative dysuria, frequency, hematuria MUSCULOSKELETAL: negative muscle or bony pain, positive back pain SKIN: negative rash, skin lesions NEUROLOGIC: negative weakness, numbness ROS Unobtainable: All systems reviewed & are unremarkable except as noted in HPI and below Patient History Medical History Asthma Atrial fibrillation, transient Bladder calculi Cancer Diabetes GERD (gastroesophageal reflux disease) Hyperlipidemia Hypertension Incomplete bladder emptying Lower urinary tract symptoms (LUTS) Osteoarthritis (arthritis due to wear and tear of joints) Pacemaker Prostate cancer TIA (transient ischemic attack) Type 2 diabetes mellitus with diabetic neuropathy Surgical History H/O vasectomy History of appendectomy Previous back surgery Total knee replacement status Family History Family/Other Blood disease BPH (benign prostatic hyperplasia) Cancer Diabetes mellitus Hearing loss Hyperlipidemia Hypertension Social History marital status: number of children: 3 household members: spouse Smoking Status: Never smoker alcohol intake: former Type(s) of exercise: walking frequency: daily Smoking Status: Never smoker alcohol intake frequency: 0-2 drinks per day Substance Use Type: does not use Exam Narrative Exam Narrative: GENERAL: in no distress, not toxic not dyspneic HEAD: Normocephalic. EYES: Pupils equal round No scleral icterus. ENT: Mucous membranes moist. NECK: Trachea midline. CARDIOVASCULAR: Regular rate and rhythm without murmurs RESPIRATORY: Speaking full sentences. There is diminished lung sounds on the left base. Increased pain with deep breath and coughing. Slightly coarse lung sounds on the left base on auscultation posteriorly. Remaining lung exam clear lung sounds GASTROINTESTINAL: Abdomen soft, non-tender EXTREMITIES: No gross deformities. BACK: No flank tenderness. There is reproducible left infra scapular pain with deep breath. Pain with deep cough as well. Otherwise no CVA tenderness. NEURO: AOx4. SKIN: Warm and dry PSYCH: Not anxious, is cooperative Initial Vital Signs Initial Vital Signs: Vital Signs Temperature 98.1 F 10/27/22 16:51 Pulse Rate 78 10/27/22 16:51 Respiratory Rate 16 10/27/22 16:51 Blood Pressure 136/65 10/27/22 16:51 Pulse Oximetry 99 10/27/22 16:51 Oxygen Delivery Method 10/27/22 16:51 Course Course Course Narrative: No new issues during course of stay Orders Ordered: Discontinued Medications Amoxicillin/Clavulanate Potassium (Amoxicillin/Clav 875/125 Mg) 1 tab PO NOW ONE Stop: 10/27/22 21:36 Last Admin: 10/27/22 21:47 Dose: 1 tab Documented By: NICHOL Doxycycline Hyclate (Doxycycline Hyclate 100 Mg Tablet) 100 mg PO NOW ONE Stop: 10/27/22 21:36 Last Admin: 10/27/22 21:47 Dose: 100 mg Documented By: NICHOL Sodium Chloride (Normal Saline 0.9%) 500 mls @ 1,000 mls/hr IV BOLUS ONE Stop: 10/27/22 19:38 Last Infusion: 10/27/22 21:02 Dose: 0 mls/hr Documented By: Admin: 10/27/22 20:00 Dose: 1,000 mls/hr Documented By: MACO Reevaluation(s) Reevaluation #1: Reviewed results with patient and family. They do agree for treatment at home for antibiotics. Appropriate for discharge home. They do want to be discharged home. Not toxic at discharge. No dyspnea. Time: 22:00 Vital Signs Vital signs: Vital Signs - 8 hr 10/27/22 16:51 10/27/22 16:52 10/27/22 16:53 Temperature 98.1 F Pulse Rate 78 69 65 Respiratory Rate 16 19 16 Blood Pressure 136/65 Pulse Oximetry 99 98 98 Oxygen Delivery Method Room Air 10/27/22 16:53 10/27/22 17:00 10/27/22 17:00 Temperature Pulse Rate 61 Respiratory Rate 21 Blood Pressure 136/65 134/63 Pulse Oximetry 97 Oxygen Delivery Method 10/27/22 17:30 10/27/22 17:30 10/27/22 18:00 Temperature Pulse Rate 60 Respiratory Rate 20 Blood Pressure 146/66 H 138/63 Pulse Oximetry 96 Oxygen Delivery Method 10/27/22 18:00 10/27/22 18:30 10/27/22 18:30 Temperature Pulse Rate 60 60 Respiratory Rate 22 17 Blood Pressure 141/66 H Pulse Oximetry 95 95 Oxygen Delivery Method 10/27/22 19:00 10/27/22 19:00 10/27/22 19:30 Temperature Pulse Rate 60 Respiratory Rate 16 Blood Pressure 143/66 H 127/62 Pulse Oximetry 95 Oxygen Delivery Method 10/27/22 19:30 10/27/22 20:00 10/27/22 20:02 Temperature Pulse Rate 60 66 63 Respiratory Rate 17 12 19 Blood Pressure Pulse Oximetry 96 96 98 Oxygen Delivery Method 10/27/22 20:02 10/27/22 20:30 10/27/22 20:30 Temperature Pulse Rate 64 Respiratory Rate 18 Blood Pressure 147/65 H 156/70 H Pulse Oximetry 95 Oxygen Delivery Method 10/27/22 21:00 10/27/22 21:01 10/27/22 21:01 Temperature Pulse Rate 60 60 Respiratory Rate 16 20 Blood Pressure 137/62 Pulse Oximetry 96 97 Oxygen Delivery Method Room Air 10/27/22 21:30 10/27/22 21:30 Temperature Pulse Rate 59 L Respiratory Rate 16 Blood Pressure 122/58 L Pulse Oximetry 95 Oxygen Delivery Method MDM - Chest Pain Differential Diagnosis Differential diagnosis: Likely stable angina, unstable angina pectoris, atypical chest pain, st elevation myocardial infarction, costochondritis and other (Pneumonia/PE) Lab Data Result diagrams: 10/27/22 19:10 10/27/22 19:10 Labs: Lab Results 10/27/22 10/27/22 10/27/22 Range/Units 19:10 19:10 19:10 WBC 9.0 (4.5-11.0) X10^3/uL RBC 3.44 L (4.5-5.9) X10^6/uL Hgb 10.9 L (13.5-17.5) g/dL Hct 32.2 L (41-53) % MCV 93.7 (80-100) fL MCH 31.6 (26-34) PG MCHC 33.8 (30-36) % RDW 15.6 H (11.6-14.8) % Plt Count 206 (150-400) X10^3/uL Neut % (Auto) 63.4 (50-75) % Lymph % (Auto) 25.1 (25-40) % Cooke % (Auto) 9.4 (3-14) % Eos % (Auto) 1.2 L (2-4) % Baso % (Auto) 0.9 (0-2) % Neut # (Auto) 5700 (1172-8620) /uL Lymph # (Auto) 2200 (9089-1922) /uL Cooke # (Auto) 800 (0-900) /uL Eos # (Auto) 100 (0-450) /uL Baso # (Auto) 100 (0-100) /uL PT 14.7 H (10.1-12.7) SECONDS INR 1.3 (0.9-1.3) APTT 35 (26-36) SECONDS Sodium 137 (137-145) mmol/L Potassium 3.7 (3.4-5.1) mmol/L Chloride 99 (98-107) mmol/L Carbon Dioxide 26 (22-32) mmol/L BUN 12 (9-20) mg/dL Creatinine 0.87 (0.66-1.25) mg/dL Estimated GFR > 60 (>60) mL/min BUN/Creatinine Ratio 13.8 (6-22) Glucose 184 H (80-110) mg/dL Calcium 8.2 L (8.4-10.2) mg/dL Magnesium 1.2 L (1.6-2.3) mg/dL Total Bilirubin 0.5 (0.2-1.3) mg/dL AST 17 (17-59) IU/L ALT 17 (<50) IU/L Alkaline Phosphatase 63 (38-126) U/L Total Creatine Kinase 71 (55-170) U/L CK-MB (CK-2) TNP CK-MB (CK-2) Rel Index TNP Troponin I < 0.012 (0.01-0.034) ng/mL Total Protein 7.5 (6.3-8.2) g/dL Albumin 3.9 (3.5-5.0) g/dL Globulin 3.6 (1.7-4.1) g/dL Albumin/Globulin Ratio 1.1 (1.0-2.8) Lipase 29 (23-300) U/L Chlamy pneumoniae PCR (Not Detect) Adenovirus (PCR) (Not Detect) B. pertussis DNA (PCR) (Not Detecte) B.parapertussis DNA PCR (Not Detecte) Coronavirus OC43 (PCR) (Not Detect) Coronavirus HKU1 (PCR) (Not Detect) Coronavirus 229E (PCR) (Not Detect) SARS-CoV-2 (PCR) (Not Detecte) Coronavirus NL63 (PCR) (Not Detect) Human Metapneumovir PCR (Not Detect) Influenza Type A (PCR) (Not Detect) Influenza Type B (PCR) (Not Detect) M. pneumoniae (PCR) (Not Detect) Parainfluenza 1 (PCR) (Not Detect) Parainfluenza 2 (PCR) (Not Detect) Parainfluenza 3 (PCR) (Not Detect) Parainfluenza 4 (PCR) (Not Detect) RSV (PCR) (Not Detect) Entero/Rhino (PCR) (Not Detect) 10/27/22 Range/Units 20:00 WBC (4.5-11.0) X10^3/uL RBC (4.5-5.9) X10^6/uL Hgb (13.5-17.5) g/dL Hct (41-53) % MCV (80-100) fL MCH (26-34) PG MCHC (30-36) % RDW (11.6-14.8) % Plt Count (150-400) X10^3/uL Neut % (Auto) (50-75) % Lymph % (Auto) (25-40) % Cooke % (Auto) (3-14) % Eos % (Auto) (2-4) % Baso % (Auto) (0-2) % Neut # (Auto) (0961-8475) /uL Lymph # (Auto) (0223-0572) /uL Cooke # (Auto) (0-900) /uL Eos # (Auto) (0-450) /uL Baso # (Auto) (0-100) /uL PT (10.1-12.7) SECONDS INR (0.9-1.3) APTT (26-36) SECONDS Sodium (137-145) mmol/L Potassium (3.4-5.1) mmol/L Chloride (98-107) mmol/L Carbon Dioxide (22-32) mmol/L BUN (9-20) mg/dL Creatinine (0.66-1.25) mg/dL Estimated GFR (>60) mL/min BUN/Creatinine Ratio (6-22) Glucose (80-110) mg/dL Calcium (8.4-10.2) mg/dL Magnesium (1.6-2.3) mg/dL Total Bilirubin (0.2-1.3) mg/dL AST (17-59) IU/L ALT (<50) IU/L Alkaline Phosphatase (38-126) U/L Total Creatine Kinase (55-170) U/L CK-MB (CK-2) CK-MB (CK-2) Rel Index Troponin I (0.01-0.034) ng/mL Total Protein (6.3-8.2) g/dL Albumin (3.5-5.0) g/dL Globulin (1.7-4.1) g/dL Albumin/Globulin Ratio (1.0-2.8) Lipase (23-300) U/L Chlamy pneumoniae PCR Not detected (Not Detect) Adenovirus (PCR) Not detected (Not Detect) B. pertussis DNA (PCR) Not detected (Not Detecte) B.parapertussis DNA PCR Not detected (Not Detecte) Coronavirus OC43 (PCR) Not detected (Not Detect) Coronavirus HKU1 (PCR) Not detected (Not Detect) Coronavirus 229E (PCR) Not detected (Not Detect) SARS-CoV-2 (PCR) Not detected (Not Detecte) Coronavirus NL63 (PCR) Not detected (Not Detect) Human Metapneumovir PCR Not detected (Not Detect) Influenza Type A (PCR) Not detected (Not Detect) Influenza Type B (PCR) Not detected (Not Detect) M. pneumoniae (PCR) Not detected (Not Detect) Parainfluenza 1 (PCR) Not detected (Not Detect) Parainfluenza 2 (PCR) Not detected (Not Detect) Parainfluenza 3 (PCR) Not detected (Not Detect) Parainfluenza 4 (PCR) Not detected (Not Detect) RSV (PCR) Not detected (Not Detect) Entero/Rhino (PCR) Not detected (Not Detect) Imaging Data Chest x-ray: Radiologist's Impression: [address] [id number] ReportSigned Patient: Oscar Schwab CMR#: [id number]: 7Acct:[id number]/Sex: 86 / MDate of Service: 10/27/22Loc: EDAccession Number: [id number] Procedure: XR chest 1V Ordering Provider: Radha Marks D.O. PROCEDURE: XR CHEST 1V INDICATIONS: chest pain TECHNIQUE: One view of the chest was acquired. COMPARISON: [facility], XR CHEST 1V, 02/24/2022, 20:27. FINDINGS: Surgical changes and devices: Left-sided pacer. Lungs and pleura: Lungs are clear. No pleural effusions or pneumothorax. Mediastinum: Mediastinal contours appear normal. Heart size is normal. Bones and chest wall: No suspicious bony lesions. Overlying soft tissues appear unremarkable. IMPRESSION: No acute process. Dictated by: Vel Taylor M.D. on 10/27/2022 at 16:36 Approved by: Vel Taylor M.D. on 10/27/2022 at 16:36 CT scan - chest: Radiologist's Impression: No evidence of pulmonary embolism. Enlargement of pulmonary artery suggestive of pulmonary artery hypertension. Left lower lobe consolidation most likely secondary to pneumonia. Small left pleural effusion. ECG Data Interpretation: Ventricular paced rhythm rate [address] elevation or depression MDM Narrative Medical decision making narrative: Appropriate for discharge home. Patient requiring supplemental oxygen. Reviewed results with patient and return precautions. Patient at this time hemodynamically stable. No dyspnea. Likely having pleurisy left scapular area pain due to the pneumonia. Antibiotics were started here. Does have primary care to follow up with. Prescription has been sent to pharmacy as well. Patient and family desire discharge home. Discharge Plan Departure Patient Disposition: Home Clinical Impression: Community acquired pneumonia Instructions: DI for Pneumonia -- Adult Activity Restrictions/Additional Instructions: Please see your family doctor this week for re-evaluation. Return immediately if worse if any trouble breathing or short of breath. 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 They have been started tonight. They have been sent to your pharmacy to [facility]. Prescriptions: New doxycycline monohydrate 100 mg capsule 100 mg PO BID Qty: 14 0RF amoxicillin-pot clavulanate 875-125 mg tablet 1 tab PO BID Qty: 14 0RF No Action metformin [Glucophage XR] 500 MG tablet extended release 24 hr 1,000 mg PO BID Qty: 0 Label Comments: am and noon cholecalciferol (vitamin D3) [Vitamin D3] 5,000 unit Tablet 1,000 unit PO DAILY Qty: 0 bicalutamide [Casodex] 50 mg tablet 50 mg PO DAILY Qty: 30 0RF Pradaxa 75 mg Capsule 150 mg PO BID Rx Instructions: Unknown dose B12 1,000 mcg PO DAILY metoprolol succinate 100 mg tablet extended release 24 hr 50 mg PO BID glipizide 10 mg tablet extended release 24hr 5 mg PO QAM loperamide 2 mg Tablet 2 mg PO PRN PRN (Reason: Diarrhea) Label Comments: spouse states takes often dofetilide 250 mcg capsule 0.25 mg PO BID ibuprofen [Advil] 200 mg Tablet 200 mg PO PRN PRN (Reason: pain) omeprazole 20 mg capsule,delayed release(DR/EC) 20 mg PO BID alfuzosin [Uroxatral] 10 mg tablet extended release 24 hr 10 mg PO DAILY Qty: 90 3RF Rx Instructions: administer after the same meal each day levothyroxine [Synthroid] 25 mcg tablet 25 mcg PO DAILY furosemide [Lasix] 20 mg tablet 20 mg PO DAILY magnesium 400 mg PO Referrals: Tan Agosto MD [Primary Care Provider] - Visit Report Forms: Patient Portal/API
[2022-10-27 19:21] LABS: Add Manual Diff / Slide Review NO; Basophils Absolute Auto 100 /uL (0-100); Basophils Percent Auto 0.9 % (0-2); Eosinophils Absolute Auto 100 /uL (0-450); Eosinophils Percent Auto 1.2 % (2-4); Hematocrit 32.2 % (41-53); Hemoglobin 10.9 g/dL (13.5-17.5); Lymphocytes Absolute Auto 2200 /uL (1100-4500); Lymphocytes Percent Auto 25.1 % (25-40); Mean Corpuscular HGB Conc 33.8 % (30-36); Mean Corpuscular Hemoglobin 31.6 PG (26-34); Mean Corpuscular Volume 93.7 fL (80-100); Monocytes Absolute Auto 800 /uL (0-900); Monocytes Percent Auto 9.4 % (3-14); Neutrophils Absolute Auto 5700 /uL (1500-7000); Neutrophils Percent Auto 63.4 % (50-75); Platelet Count 206 X10^3/uL (150-400); Red Blood Cell Count 3.44 X10^6/uL (4.5-5.9); Red Cell Distribution Width 15.6 % (11.6-14.8)
[2022-10-27 19:28] LABS: INR 1.3 (0.9-1.3); Prothrombin Time 14.7 SECONDS (10.1-12.7)
[2022-10-27 19:30] LABS: PTT Partial Thromboplastin Tim 35 SECONDS (26-36)
[2022-10-27 19:32] LABS: Alanine Aminotransferase 17 IU/L (<50); Albumin 3.9 g/dL (3.5-5.0); Albumin Globulin Ratio 1.1 (1.0-2.8); Alkaline Phosphatase 63 U/L (38-126); Aspartate Aminotransferase 17 IU/L (17-59); BUN Creatinine Ratio 13.8 (6-22); Bilirubin Total 0.5 mg/dL (0.2-1.3); Blood Urea Nitrogen 12 mg/dL (9-20); Calcium 8.2 mg/dL (8.4-10.2); Carbon Dioxide 26 mmol/L (22-32); Chloride 99 mmol/L (98-107); Creatine Kinase 71 U/L (55-170); Estimated Glomerular Filt Rate > 60 mL/min (>60); Globulin 3.6 g/dL (1.7-4.1); Glucose 184 mg/dL (80-110); HEMOLYSIS < 15 (0-50); Lipase 29 U/L (23-300); Magnesium 1.2 mg/dL (1.6-2.3); Potassium 3.7 mmol/L (3.4-5.1); Sodium 137 mmol/L (137-145); Total Protein 7.5 g/dL (6.3-8.2)
[2022-10-27 19:43] LABS: Troponin I < 0.012 ng/mL (0.01-0.034)
[2022-10-27] MEDS: SODIUM CHLORIDE 0.9% 500 ML 1000 ML IV (20:00)
[2022-10-27 20:58] LABS: Adenovirus Not Detected (Not Detect); B. parapertussis Not Detected (Not Detecte); Bordetella pertussis Not Detected (Not Detecte); Chlamydophila pneumoniae Not Detected (Not Detect); Coronavirus 229E Not Detected (Not Detect); Coronavirus HKU1 Not Detected (Not Detect); Coronavirus NL 63 Not Detected (Not Detect); Coronavirus OC43 Not Detected (Not Detect); Human Metapneumovirus Not Detected (Not Detect); Human Rhinovirus/Enterovirus Not Detected (Not Detect); Influenza A Not Detected (Not Detect); Influenza B Not Detected (Not Detect); Mycoplasma pneumoniae Not Detected (Not Detect); Parainfluenza Virus 1 Not Detected (Not Detect); Parainfluenza Virus 2 Not Detected (Not Detect); Parainfluenza Virus 3 Not Detected (Not Detect); Parainfluenza Virus 4 Not Detected (Not Detect); Respiratory Syncytial Virus Not Detected (Not Detect); SARS- CoV-2 Not Detected (Not Detecte)
[2022-10-27] MEDS: AMOXICILLIN/CLAV 875/125 MG 1 TAB PO (21:47)
[2022-10-27] MEDS: DOXYCYCLINE HYCLATE 100 MG TABLET PO (21:47)
== END 2022-10-27 22:00 | disposition home or self-care (01) ==
PROVIDERS: Emergency Medicine; Emergency Provider Emergency Medicine; Family Provider Internal Medicine Cardiovascular Disease; PCP Family Medicine
DX: J18.9 Pneumonia, unspecified organism (principal); R07.9 Chest pain, unspecified; Z95.0 Presence of cardiac pacemaker; I48.20 Chronic atrial fibrillation, unspecified; Z79.01 Long term (current) use of anticoagulants; Z79.899 Other long term (current) drug therapy; Z20.822 Contact with and (suspected) exposure to COVID-19
CPT/HCPCS: 36415; 71045; 71275; 80053; 82550; 83690; 83735; 84484; 85025; 85610; 85730; 87633; 93005; 93010; 99284; Q9967

== ENCOUNTER 2022-11-01 14:55 | Inpatient (IN) | payer MEDICARE, OTHER, SELFPAY ==
[2021-12-31 14:01] VITALS: BMI 30.9
[2022-11-01] VITALS (25 sets, daily range): BP systolic 108–153; BP diastolic 54–86; PULSE 60–90; RESP 18–27; TEMP 36.5–37.2; O2SAT 97–100; BMI 32.1
--- NOTE | 2022-11-01 14:57 | DI.RAD.S_ITS ---
PROCEDURE: XR CHEST 1V INDICATIONS: chest pain TECHNIQUE: One view of the chest was acquired. COMPARISON: [facility], CR, XR CHEST 1V, 10/27/2022, 17:13. [facility], CR, XR CHEST 1V, 02/24/2022, 20:27. FINDINGS: Surgical changes and devices: Left chest wall pulse generator with dual-chamber electrode leads in place. Lungs and pleura: Possible small retrocardiac opacity. No pleural effusions. Low lung volumes. Mediastinum: Similar cardiomegaly. Bones and chest wall: No suspicious bony lesions. Overlying soft tissues appear unremarkable. IMPRESSION: Suspected retrocardiac opacity could represent airspace disease versus atelectasis. Consider future imaging surveillance to assess for resolution. Cardiomegaly. Low lung volumes limit evaluation. Dictated by: Pop Kyle M.D. on 11/01/2022 at 15:31 Approved by: Pop Kyle M.D. on 11/01/2022 at 15:32
--- NOTE | 2022-11-01 14:58 | ED.GENADULT ---
HPI - General Adult General Chief complaint: Shortness of Breath/Dyspnea Stated complaint: SOB Time Seen by Provider: 11/01/22 14:56 History of Present Illness HPI narrative: 87-year-old male nonsmoker with history of atrial fibrillation, pacemaker on Pradaxa, TIA, diabetes on 2 L home oxygen presents by EMS from the [facility] with a chief complaint of increasing shortness of breath and sharp and stabbing left-sided chest pain over the course of the day. He states this pain is sharp and stabbing worse with a deep breath, palpation and motion. He denies any obvious palliation. Denies any radiation of this discomfort. He is had no fever or chills and denies coughing up any sputum. He denies recent travel or injury but was recently seen here and diagnosed with community-acquired pneumonia and placed on doxycycline. Related Data Home Medications Medication Instructions Recorded Confirmed metformin 500 mg tablet,extended 1,000 mg PO BID ##0 10/14/12 11/01/22 release 24 hr (Glucophage XR) cholecalciferol (vitamin D3) 125 1,000 unit PO DAILY ##0 08/18/16 11/01/22 mcg (5,000 unit) tablet (Vitamin D3) glipizide 10 mg tablet, extended 5 mg PO QAM 09/24/18 11/01/22 release 24 hr ibuprofen 200 mg tablet (Advil) 200 mg PO PRN PRN pain 09/24/18 11/01/22 loperamide 2 mg tablet 2 mg PO PRN PRN Diarrhea 09/24/18 11/01/22 omeprazole 20 mg capsule,delayed 20 mg PO BID 09/24/18 11/01/22 release B12 1,000 mcg PO DAILY 07/18/20 11/01/22 dabigatran etexilate 75 mg capsule 150 mg PO BID 07/18/20 11/01/22 (Pradaxa) furosemide 20 mg tablet (Lasix) 80 mg PO DAILY 12/11/21 11/01/22 levothyroxine 25 mcg tablet 25 mcg PO DAILY 12/11/21 11/01/22 (Synthroid) magnesium 400 mg PO DAILY 12/11/21 11/01/22 metoprolol succinate 100 mg 50 mg PO BID 04/01/22 11/01/22 tablet,extended release 24 hr Previous Rx's Medication Instructions Recorded alfuzosin 10 mg tablet,extended 10 mg PO DAILY #90 tabs 12/31/21 release 24 hr (Uroxatral) amoxicillin 875 mg-potassium 1 tab PO BID #14 tabs 10/27/22 clavulanate 125 mg tablet doxycycline monohydrate 100 mg 100 mg PO BID #14 caps 10/27/22 capsule Allergies Allergy/AdvReac Type Severity Reaction Status Date / Time No Known Drug Allergies Allergy Verified 11/01/22 15:01 Review of Systems Review of Systems Narrative: GENERAL: See HPI HEENT: Denies sinus pain, ear pain, sore throat, difficulty swallowing, dizziness. RESPIRATORY: See HPI CARDIOVASCULAR: See HPI GASTROINTESTINAL: Denies nausea, vomiting, abdominal pain, diarrhea, constipation, melena. : Denies dysuria, frequency, incontinence, hematuria, urinary retention. MUSCULOSKELETAL: denies weakness, joint pain, or bony pain SKIN: Denies rash, skin lesions, or other NEUROLOGIC: Denies weakness, headache, numbness, change in speech, confusion, seizures, incoordination. PSYCHIATRIC: No concerning psychosocial issues. 12 point review of systems is negative except for those stated above Patient History Medical History (Updated 11/01/22 @ 20:17 by SYD Sheets) Anticoagulated Asthma Atrial fibrillation, transient Bladder calculi Cancer COPD with acute exacerbation Diabetes GERD (gastroesophageal reflux disease) Hyperlipidemia Hypertension Incomplete bladder emptying Lower urinary tract symptoms (LUTS) Osteoarthritis (arthritis due to wear and tear of joints) Pacemaker Prostate cancer TIA (transient ischemic attack) Type 2 diabetes mellitus with diabetic neuropathy Surgical History H/O vasectomy History of appendectomy Previous back surgery Total knee replacement status Family History (Updated 11/01/22 @ 22:38 by SYD Sheets) Family/Other No problems noted. Mother Brain tumor Father Medical history unknown Social History marital status: number of children: 3 household members: spouse Smoking Status: Never smoker alcohol intake: former Type(s) of exercise: walking frequency: daily Smoking Status: Never smoker alcohol intake frequency: 0-2 drinks per day Substance Use Type: does not use Exam Narrative Exam Narrative: GENERAL: [87] year old patient appears stated age. Well-developed patient, in mild distress. HEAD: Atraumatic. Normocephalic. EYES: Pupils equal round and reactive. Extraocular motions intact. No scleral icterus. No injection or drainage. ENT: Nose without bleeding, purulent drainage. Throat without erythema, tonsillar hypertrophy or exudate. Airway patent. NECK: Trachea midline. Non tender CARDIOVASCULAR: Regular rate and rhythm without murmurs, gallops, or rubs. Left anterior chest pain tender to palpation RESPIRATORY: Decreased breath sounds bilaterally with prolonged expiratory phase, crackles in left base GASTROINTESTINAL: Abdomen soft, non-tender, nondistended. EXTREMITIES: No edema or joint tenderness. BACK: Nontender without deformity or crepitance. No flank tenderness. NEURO: AOx3. SKIN: No rash or erythema of visible areas Initial Vital Signs Initial Vital Signs: Vital Signs Pulse Rate 90 11/01/22 14:57 Pulse Oximetry 97 11/01/22 14:57 Course Orders Ordered: Acetaminophen (Acetaminophen 325 Mg Tablet) 650 mg PO Q6H PRN PRN Reason: Fever/Mild Pain (1-3) Last Admin: 11/01/22 23:24 Dose: 650 mg Documented By: JERMAINE Albuterol (Albuterol 2.5 Mg/3 Ml Neb (Adult)) 2.5 mg INH [id number] PRN PRN Reason: Shortness Of Breath Albuterol/Ipratropium (Albuterol/Ipratropium 3 Ml Ampul) 3 ml INH [id number] [facility] Azithromycin (Azithromycin 250 Mg Tablet) 500 mg PO DAILY [facility] Budesonide (Budesonide 0.5 Mg/2 Ml Neb) 0.5 mg INH RTBID [facility] Dabigatran (Dabigatran 75 Mg Capsule) 150 mg PO BID [facility] Last Admin: 11/01/22 21:30 Dose: 150 mg Documented By: KALROS Dextrose (Dextrose 50 % In Water 25 Gm/50 Ml Syringe) 25 gm IV PRN PRN PRN Reason: Hypoglycemia Ceftriaxone Sodium 1,000 mg/ (Sodium Chloride) 100 mls @ 200 mls/hr IV Q24H [facility] Insulin Glargine (Insulin Glargine 100 Unit/Ml 3ml Pen) 5 unit SUBCUT BID [facility] Last Admin: 11/01/22 23:23 Dose: 5 unit Documented By: JERMAINE Co-signed By: KIMANI Insulin Human Lispro (Insulin Lispro 100 Unit/Ml 3ml Vial) 0 unit SUBCUT ACHS [facility]; Protocol Last Admin: 11/01/22 21:28 Dose: 7 unit Documented By: KARLOS Co-signed By: BORIS Levothyroxine Sodium (Levothyroxine 25 Mcg Tablet) 25 mcg PO 0600 [facility] Loperamide HCl (Loperamide 2 Mg Capsule) 2 mg PO PRN PRN PRN Reason: Diarrhea Metoprolol Succinate (Metoprolol Er 50 Mg Tablet) 50 mg PO BID [facility] Last Admin: 11/01/22 21:30 Dose: 50 mg Documented By: HOUSTONK Naloxone HCl (Naloxone 0.4 Mg/Ml Vial) 0.2 mg IV Q2MIN PRN PRN Reason: Opiate Reversal Non-Formulary Medication (Alfuzosin [Uroxatral]) 10 mg PO DAILY [facility] Tramadol HCl (Tramadol 50 Mg Tablet) 50 mg PO TID PRN PRN Reason: Pain, Moderate (4-6) Last Admin: 11/01/22 23:24 Dose: 50 mg Documented By: JERMAINE Discontinued Medications Acetaminophen (Acetaminophen 325 Mg Tablet) 650 mg PO NOW ONE Stop: 11/01/22 15:58 Last Admin: 11/01/22 16:05 Dose: 650 mg Documented By: NR Albuterol (Albuterol 2.5 Mg/3 Ml Neb (Adult)) 2.5 mg INH [id number] [facility] Furosemide (Furosemide 40 Mg/4 Ml Vial) 40 mg IV NOW ONE Stop: 11/01/22 17:25 Last Admin: 11/01/22 17:37 Dose: 40 mg Documented By: NR Sodium Chloride (Normal Saline 0.9%) 1,000 mls @ 1,000 mls/hr IV BOLUS ONE Stop: 11/01/22 18:22 Last Infusion: 11/01/22 18:56 Dose: 0 mls/hr Documented By: Admin: 11/01/22 17:37 Dose: 1,000 mls/hr Documented By: NR Ceftriaxone Sodium 2,000 mg/ (Sodium Chloride) 100 mls @ 200 mls/hr IV NOW ONE Stop: 11/01/22 19:07 Last Infusion: 11/01/22 20:25 Dose: 0 mls/hr Documented By: Admin: 11/01/22 19:42 Dose: 200 mls/hr Documented By: KRANTHI Azithromycin 500 mg/ Dextrose 250 mls @ 250 mls/hr IV NOW ONE Stop: 11/01/22 19:07 Last Admin: 11/01/22 20:27 Dose: 250 mls/hr Documented By: KRANTHI Magnesium Sulfate (Magnesium Sulfate) 2 gm in 50 mls @ 25 mls/hr IV NOW ONE Stop: 11/02/22 00:33 Last Infusion: 11/02/22 01:48 Dose: 0 mls/hr Documented By: JERMAINE Co-signed By: Admin: 11/01/22 23:23 Dose: 25 mls/hr Documented By: JERMAINE Co-signed By: KIMANI Vital Signs Vital signs: Vital Signs - 8 hr 11/01/22 15:01 11/01/22 14:57 11/01/22 14:58 Temperature 97.7 F Pulse Rate 90 Respiratory Rate Blood Pressure 153/86 H Pulse Oximetry 97 Oxygen Delivery Method Oxygen Flow Rate 11/01/22 14:58 11/01/22 15:00 11/01/22 15:00 Temperature Pulse Rate 86 77 Respiratory Rate 27 H Blood Pressure 153/83 H Pulse Oximetry 98 100 Oxygen Delivery Method Oxygen Flow Rate 11/01/22 16:24 11/01/22 15:30 11/01/22 15:31 Temperature Pulse Rate 60 Respiratory Rate 21 21 Blood Pressure 142/65 H Pulse Oximetry 98 98 Oxygen Delivery Method Nasal Cannula Nasal Cannula Oxygen Flow Rate 2 2 11/01/22 15:31 11/01/22 16:00 11/01/22 16:01 Temperature Pulse Rate 60 60 60 Respiratory Rate 22 23 23 Blood Pressure Pulse Oximetry 99 99 99 Oxygen Delivery Method Oxygen Flow Rate 11/01/22 16:01 11/01/22 16:30 11/01/22 16:30 Temperature Pulse Rate 60 Respiratory Rate 23 Blood Pressure 138/63 134/60 Pulse Oximetry 98 Oxygen Delivery Method Oxygen Flow Rate 11/01/22 16:59 11/01/22 16:59 11/01/22 17:00 Temperature Pulse Rate 60 Respiratory Rate 22 Blood Pressure 134/64 134/65 Pulse Oximetry 98 Oxygen Delivery Method Oxygen Flow Rate 11/01/22 17:00 11/01/22 17:30 11/01/22 17:31 Temperature Pulse Rate 60 60 60 Respiratory Rate 22 20 20 Blood Pressure Pulse Oximetry 98 99 99 Oxygen Delivery Method Nasal Cannula Oxygen Flow Rate 2 11/01/22 17:31 11/01/22 18:00 11/01/22 18:00 Temperature Pulse Rate 60 Respiratory Rate 20 Blood Pressure 125/60 144/65 H Pulse Oximetry 99 Oxygen Delivery Method Nasal Cannula Oxygen Flow Rate 2 11/01/22 18:30 11/01/22 18:31 11/01/22 18:31 Temperature Pulse Rate 60 60 Respiratory Rate 19 19 Blood Pressure 134/61 Pulse Oximetry 99 99 Oxygen Delivery Method Oxygen Flow Rate 11/01/22 19:00 11/01/22 19:01 11/01/22 19:01 Temperature Pulse Rate 60 60 Respiratory Rate 19 18 Blood Pressure 117/58 L Pulse Oximetry 98 98 Oxygen Delivery Method Oxygen Flow Rate Medical Decision Making Lab Data Result diagrams: 11/02/22 05:05 11/02/22 05:05 Labs: Lab Results 11/01/22 11/01/22 11/01/22 Range/Units 15:18 15:18 15:18 WBC 8.9 (4.5-11.0) X10^3/uL RBC 3.45 L (4.5-5.9) X10^6/uL Hgb 10.9 L (13.5-17.5) g/dL Hct 32.2 L (41-53) % MCV 93.4 (80-100) fL MCH 31.5 (26-34) PG MCHC 33.7 (30-36) % RDW 15.3 H (11.6-14.8) % Plt Count 235 (150-400) X10^3/uL Neut % (Auto) 73.2 (50-75) % Lymph % (Auto) 17.1 L (25-40) % Tillman % (Auto) 8.2 (3-14) % Eos % (Auto) 0.8 L (2-4) % Baso % (Auto) 0.7 (0-2) % Neut # (Auto) 6500 (3545-9304) /uL Lymph # (Auto) 1500 (9506-5936) /uL Tillman # (Auto) 700 (0-900) /uL Eos # (Auto) 100 (0-450) /uL Baso # (Auto) 100 (0-100) /uL D-Dimer 813 H (<500) ng/ml Sodium (137-145) mmol/L Potassium (3.4-5.1) mmol/L Chloride (98-107) mmol/L Carbon Dioxide (22-32) mmol/L BUN (9-20) mg/dL Creatinine (0.66-1.25) mg/dL Estimated GFR (>60) mL/min BUN/Creatinine Ratio (6-22) Glucose (80-110) mg/dL Lactate (0.7-2.1) mmol/L Calcium (8.4-10.2) mg/dL Magnesium (1.6-2.3) mg/dL Total Bilirubin (0.2-1.3) mg/dL AST (17-59) IU/L ALT (<50) IU/L Alkaline Phosphatase (38-126) U/L Total Creatine Kinase (55-170) U/L CK-MB (CK-2) CK-MB (CK-2) Rel Index Troponin I (0.01-0.034) ng/mL C-Reactive Protein (<1.0) mg/dL NT-Pro-B Natriuret Pep (<450) pg/mL Total Protein (6.3-8.2) g/dL Albumin (3.5-5.0) g/dL Globulin (1.7-4.1) g/dL Albumin/Globulin Ratio (1.0-2.8) Procalcitonin 0.06 (<0.5) ng/mL SARS-CoV-2 (PCR) (Negative) Influenza A (RT-PCR) (NEGATIVE) Influenza B (RT-PCR) (NEGATIVE) RSV (PCR) (Negative) 11/01/22 11/01/22 11/01/22 Range/Units 15:18 15:18 15:21 WBC (4.5-11.0) X10^3/uL RBC (4.5-5.9) X10^6/uL Hgb (13.5-17.5) g/dL Hct (41-53) % MCV (80-100) fL MCH (26-34) PG MCHC (30-36) % RDW (11.6-14.8) % Plt Count (150-400) X10^3/uL Neut % (Auto) (50-75) % Lymph % (Auto) (25-40) % Tillman % (Auto) (3-14) % Eos % (Auto) (2-4) % Baso % (Auto) (0-2) % Neut # (Auto) (5335-7860) /uL Lymph # (Auto) (4628-9980) /uL Tillman # (Auto) (0-900) /uL Eos # (Auto) (0-450) /uL Baso # (Auto) (0-100) /uL D-Dimer (<500) ng/ml Sodium 137 (137-145) mmol/L Potassium 3.6 (3.4-5.1) mmol/L Chloride 98 (98-107) mmol/L Carbon Dioxide 25 (22-32) mmol/L BUN 11 (9-20) mg/dL Creatinine 0.86 (0.66-1.25) mg/dL Estimated GFR > 60 (>60) mL/min BUN/Creatinine Ratio 12.8 (6-22) Glucose 192 H (80-110) mg/dL Lactate 2.9 H (0.7-2.1) mmol/L Calcium 8.0 L (8.4-10.2) mg/dL Magnesium 1.1 L (1.6-2.3) mg/dL Total Bilirubin 0.4 (0.2-1.3) mg/dL AST 24 (17-59) IU/L ALT 22 (<50) IU/L Alkaline Phosphatase 68 (38-126) U/L Total Creatine Kinase 94 (55-170) U/L CK-MB (CK-2) TNP CK-MB (CK-2) Rel Index TNP Troponin I < 0.012 (0.01-0.034) ng/mL C-Reactive Protein 2.7 H (<1.0) mg/dL NT-Pro-B Natriuret Pep 2690 H (<450) pg/mL Total Protein 7.6 (6.3-8.2) g/dL Albumin 3.9 (3.5-5.0) g/dL Globulin 3.7 (1.7-4.1) g/dL Albumin/Globulin Ratio 1.1 (1.0-2.8) Procalcitonin (<0.5) ng/mL SARS-CoV-2 (PCR) Negative (Negative) Influenza A (RT-PCR) Flu a negative (NEGATIVE) Influenza B (RT-PCR) Flu b negative (NEGATIVE) RSV (PCR) Negative (Negative) 11/01/22 Range/Units 18:24 WBC (4.5-11.0) X10^3/uL RBC (4.5-5.9) X10^6/uL Hgb (13.5-17.5) g/dL Hct (41-53) % MCV (80-100) fL MCH (26-34) PG MCHC (30-36) % RDW (11.6-14.8) % Plt Count (150-400) X10^3/uL Neut % (Auto) (50-75) % Lymph % (Auto) (25-40) % Tillman % (Auto) (3-14) % Eos % (Auto) (2-4) % Baso % (Auto) (0-2) % Neut # (Auto) (2589-9837) /uL Lymph # (Auto) (3801-9929) /uL Tillman # (Auto) (0-900) /uL Eos # (Auto) (0-450) /uL Baso # (Auto) (0-100) /uL D-Dimer (<500) ng/ml Sodium (137-145) mmol/L Potassium (3.4-5.1) mmol/L Chloride (98-107) mmol/L Carbon Dioxide (22-32) mmol/L BUN (9-20) mg/dL Creatinine (0.66-1.25) mg/dL Estimated GFR (>60) mL/min BUN/Creatinine Ratio (6-22) Glucose (80-110) mg/dL Lactate 2.4 H (0.7-2.1) mmol/L Calcium (8.4-10.2) mg/dL Magnesium (1.6-2.3) mg/dL Total Bilirubin (0.2-1.3) mg/dL AST (17-59) IU/L ALT (<50) IU/L Alkaline Phosphatase (38-126) U/L Total Creatine Kinase (55-170) U/L CK-MB (CK-2) CK-MB (CK-2) Rel Index Troponin I (0.01-0.034) ng/mL C-Reactive Protein (<1.0) mg/dL NT-Pro-B Natriuret Pep (<450) pg/mL Total Protein (6.3-8.2) g/dL Albumin (3.5-5.0) g/dL Globulin (1.7-4.1) g/dL Albumin/Globulin Ratio (1.0-2.8) Procalcitonin (<0.5) ng/mL SARS-CoV-2 (PCR) (Negative) Influenza A (RT-PCR) (NEGATIVE) Influenza B (RT-PCR) (NEGATIVE) RSV (PCR) (Negative) ECG Data Interpretation: [1522] EKG is paced rhythm at 63, QRS 162, QT 444, no ectopy, no violations of Sgarbossa's criteria MDM Narrative Medical decision making narrative: 87M with known left lower lobe pneumonia, recently seen and treated as an outpatient with doxycycline presents feeling increasingly short of breath and complaining of left-sided chest pain. He routinely uses 2 L of oxygen at home and has had on occurrence increased it but presents on 2 L. he states his pain is worse when he moves and takes a deep breath. He denies any fever but generally feels unwell, winded and weak. Imaging demonstrates persistence of left lower no pneumonia and possibly emergence of right lower lobe pneumonia despite outpatient treatment. Furthermore he has significantly elevated BNP raising the suspicion of acute CHF on top of multifocal pneumonia. Finally, his critical lactate has not cleared after IV fluids. He requires hospitalization for further treatment and stabilization Discharge Plan Departure Patient Disposition: Admitted As Inpatient Clinical Impression: Chest pain, CHF (congestive heart failure), Pneumonia Admit Date/Time: 11/01/22 19:59 Admit Provider: Florecita Jim
--- NOTE | 2022-11-01 15:30 | PC.NURSE ---
pt was here on thursday and diagnosed with pneomonia, states that the cold air makes it harder for him to breathe and today while outside pumping gas at the club he suddenly had pain in his left chest with inspiration and has been short of breath ever since.
[2022-11-01 15:40] LABS: Add Manual Diff / Slide Review NO; Basophils Absolute Auto 100 /uL (0-100); Basophils Percent Auto 0.7 % (0-2); Eosinophils Absolute Auto 100 /uL (0-450); Eosinophils Percent Auto 0.8 % (2-4); Hematocrit 32.2 % (41-53); Hemoglobin 10.9 g/dL (13.5-17.5); Lymphocytes Absolute Auto 1500 /uL (1100-4500); Lymphocytes Percent Auto 17.1 % (25-40); Mean Corpuscular HGB Conc 33.7 % (30-36); Mean Corpuscular Hemoglobin 31.5 PG (26-34); Mean Corpuscular Volume 93.4 fL (80-100); Monocytes Absolute Auto 700 /uL (0-900); Monocytes Percent Auto 8.2 % (3-14); Neutrophils Absolute Auto 6500 /uL (1500-7000); Neutrophils Percent Auto 73.2 % (50-75); Platelet Count 235 X10^3/uL (150-400); Red Blood Cell Count 3.45 X10^6/uL (4.5-5.9); Red Cell Distribution Width 15.3 % (11.6-14.8); White Blood Cell Count 8.9 X10^3/uL (4.5-11.0)
[2022-11-01 15:50] LABS: D Dimer 813 ng/ml (<500)
[2022-11-01 15:57] LABS: Lactate (Lactic Acid) 2.9 mmol/L (0.7-2.1)
[2022-11-01 15:59] LABS: Alanine Aminotransferase 22 IU/L (<50); Albumin 3.9 g/dL (3.5-5.0); Albumin Globulin Ratio 1.1 (1.0-2.8); Alkaline Phosphatase 68 U/L (38-126); Aspartate Aminotransferase 24 IU/L (17-59); BUN Creatinine Ratio 12.8 (6-22); Bilirubin Total 0.4 mg/dL (0.2-1.3); Blood Urea Nitrogen 11 mg/dL (9-20); C-Reactive Protein Quant 2.7 mg/dL (<1.0); Carbon Dioxide 25 mmol/L (22-32); Chloride 98 mmol/L (98-107); Creatine Kinase 94 U/L (55-170); Estimated Glomerular Filt Rate > 60 mL/min (>60); Globulin 3.7 g/dL (1.7-4.1); Glucose 192 mg/dL (80-110); HEMOLYSIS < 15 (0-50); Magnesium 1.1 mg/dL (1.6-2.3); Potassium 3.6 mmol/L (3.4-5.1); Sodium 137 mmol/L (137-145); Total Protein 7.6 g/dL (6.3-8.2)
[2022-11-01] MEDS: ACETAMINOPHEN 325 MG TABLET 650 MG PO ×2 (16:05→23:24)
[2022-11-01 16:07] LABS: NT-proBNP (BNP-Adult 18+) 2690 pg/mL (<450); Troponin I < 0.012 ng/mL (0.01-0.034)
[2022-11-01 16:11] LABS: Procalcitonin 0.06 ng/mL (<0.5)
[2022-11-01 16:26] LABS: Influenza A - CEPHEID Flu A NEGATIVE (NEGATIVE); Influenza B - CEPHEID Flu B NEGATIVE (NEGATIVE); Respiratory Syncytial Virus Negative (Negative)
[2022-11-01 16:28] LABS: COVID-19 CEPHEID 4-PLEX PCR Negative (Negative)
--- NOTE | 2022-11-01 16:44 | DI.CT.S_ITS ---
PROCEDURE: CT CHEST WO CON INDICATIONS: LLL pneumonia, worsening clinical picture TECHNIQUE: Noncontrast 5 mm thick sections acquired from the pulmonary apices to the posterior costophrenic angles. 1 mm lung window, 5 mm thick coronal and sagittal and 7 mm axial MIP reformats were then acquired. For radiation dose reduction, the following was used: automated exposure control, adjustment of mA and/or kV according to patient size. COMPARISON: [facility], CT, CT ANGIO CHEST PE PROTOCOL, 10/27/2022, 19:41. FINDINGS: Image quality: Good, slightly motion degraded Lungs and pleura: Left lower lobe consolidation. Underlying small pleural effusion is slightly increased. Smaller opacity also seen in the right lower lobe. Superimposed suspected scarring/atelectasis. Findings are stable to slightly decreased compared to 10/27/2022 in the left lower lobe Mediastinum, heart, and esophagus: Cardiomegaly. 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 This is not well evaluated on CT. Mildly enlarged precaval lymph node again seen measuring 1.1 cm, indeterminate, attention on follow-up. There are coronary calcifications. Cardiomegaly. Left chest wall pulse generator with electrode leads. Chest wall and thyroid: Unremarkable Upper abdomen: Mildly distended stomach partially seen Bones: No acute or suspicious osseous abnormality. IMPRESSION: Left lower lobe consolidation is stable to slightly decreased. Minimal opacity also seen in the right lower lobe. Superimposed scarring/atelectasis in both lungs. Underlying small pleural effusion is slightly increased. Consider future imaging surveillance to assess for resolution. Other findings as above. Dictated by: Pop Kyle M.D. on 11/01/2022 at 16:20 Approved by: Pop Kyle M.D. on 11/01/2022 at 16:26
[2022-11-01 17:30] LABS: Reflexed Lactate in 2 Hours Y
[2022-11-01] MEDS: FUROSEMIDE 40 MG/4 ML VIAL IV (17:37)
[2022-11-01] MEDS: SODIUM CHLORIDE 0.9% 1,000 ML 1000 ML IV (17:37)
[2022-11-01 18:48] LABS: Lactate 2HR (Lactic Acid Rflx) 2.4 mmol/L (0.7-2.1)
[2022-11-01] MEDS: cefTRIAXone 2,000 MG in SODIUM CHLORIDE 0.9% 100 ML 200 MG IV (19:42)
[2022-11-01] MEDS: AZITHROMYCIN 500 MG in DEXTROSE 5% IN WATER 250 ML 250 MG IV (20:27)
[2022-11-01 20:54] LABS: Hemoglobin A1C% w Est Avg Glu 8.8 % (4.0-6.0)
[2022-11-01] MEDS: INSULIN LISPRO 100 UNIT/ML 3ML VIAL SUBCUT (21:28)
[2022-11-01] MEDS: DABIGATRAN 75 MG CAPSULE 150 MG PO (21:30)
[2022-11-01] MEDS: METOPROLOL ER 50 MG TABLET PO (21:30)
--- NOTE | 2022-11-01 22:10 | P.HP_ITS ---
History of Present Illness History of Present Illness Date Patient Seen: 11/01/22 Time Patient Seen: 21:30 Chief complaint: SOB Narrative: Oscar Schwab is an 87-year-old male nonsmoker with history of atrial fibrillation anticoagulated on Pradaxa, pacemaker, TIA, diabetes type 2 and prostate cancer currently being treated and on 2L home oxygen presents by EMS from the [facility] with a chief complaint of increasing shortness of breath and sharp and stabbing left-sided chest pain over the course of the day.? He states this pain is sharp and stabbing worse with a deep breath, palpation and motion.? He denies fever, sweats or chills and or productive cough.? He denies recent travel or injury but was seen in the ED on 10/27, diagnosed with community- acquired pneumonia and prescibed doxycycline. He had a CTA done on October 27 which ruled out a pulmonary embolism however did identify that there was a left-sided consolidation in the left lower lobe. Repeat of the chest CT did report slight enlargement of the pleural effusion on the left lung though felt to be stable. Also noted that he had mild cardiomegaly. He is afebrile, blood pressure 108/54 heart rate 60 respiratory rate 20 oxygen saturation of 97% on 2 L he weighs 107.5 kg with a BMI of 32.1. CBC is unremarkable but he is slightly anemic with a hemoglobin and hematocrit of 10.9 and 32.2 (this appears to be his baseline0, is a mildly elevated dimer, glucose was 192 A1c is 8.8 lactate 2.4 calcium 8.0 and magnesium 1.1 brain natriuretic peptide is 2690, flu and COVID-19 PCR panel is negative. Patient History Medical History (Updated 11/01/22 @ 20:17 by SYD Sheets) Anticoagulated Asthma Atrial fibrillation, transient Bladder calculi Cancer COPD with acute exacerbation Diabetes GERD (gastroesophageal reflux disease) Hyperlipidemia Hypertension Incomplete bladder emptying Lower urinary tract symptoms (LUTS) Osteoarthritis (arthritis due to wear and tear of joints) Pacemaker Prostate cancer TIA (transient ischemic attack) Type 2 diabetes mellitus with diabetic neuropathy Surgical History H/O vasectomy History of appendectomy Previous back surgery Total knee replacement status Family & Social History Family History (Updated 11/01/22 @ 22:37 by SYD Sheets) Family/Other No problems noted. Mother Brain tumor Father Medical history unknown Social History: household members spouse Prior Living Arrangements House Safety & Behavioral: Feels Safe in Current Yes Environment Been Physically Hurt or No Threatened By a Person Tobacco & Substance use: Smoking Status Never smoker alcohol intake forme quit 1985 alcohol intake frequency Substance Use Type does not use Meds Home Medications and Allergies Home Medications Medication Instructions Recorded Confirmed Type metformin 500 mg tablet,extended 1,000 mg PO BID ##0 10/14/12 11/01/22 History release 24 hr (Glucophage XR) cholecalciferol (vitamin D3) 125 1,000 unit PO DAILY ##0 08/18/16 11/01/22 History mcg (5,000 unit) tablet (Vitamin D3) glipizide 10 mg tablet, extended 5 mg PO QAM 09/24/18 11/01/22 History release 24 hr ibuprofen 200 mg tablet (Advil) 200 mg PO PRN PRN pain 09/24/18 11/01/22 History loperamide 2 mg tablet 2 mg PO PRN PRN Diarrhea 09/24/18 11/01/22 History omeprazole 20 mg capsule,delayed 20 mg PO BID 09/24/18 11/01/22 History release B12 1,000 mcg PO DAILY 07/18/20 11/01/22 History dabigatran etexilate 75 mg capsule 150 mg PO BID 07/18/20 11/01/22 History (Pradaxa) furosemide 20 mg tablet (Lasix) 80 mg PO DAILY 12/11/21 11/01/22 History levothyroxine 25 mcg tablet 25 mcg PO DAILY 12/11/21 11/01/22 History (Synthroid) magnesium 400 mg PO DAILY 12/11/21 11/01/22 History alfuzosin 10 mg tablet,extended 10 mg PO DAILY #90 tabs 12/31/21 11/01/22 Rx release 24 hr (Uroxatral) metoprolol succinate 100 mg 50 mg PO BID 04/01/22 11/01/22 History tablet,extended release 24 hr amoxicillin 875 mg-potassium 1 tab PO BID #14 tabs 10/27/22 11/01/22 Rx clavulanate 125 mg tablet doxycycline monohydrate 100 mg 100 mg PO BID #14 caps 10/27/22 11/01/22 Rx capsule Allergies Allergy/AdvReac Type Severity Reaction Status Date / Time No Known Drug Allergies Allergy Verified 11/01/22 15:01 Review of Systems Review of Systems ROS: Yes All systems reviewed with the patient and are negative except as otherw ise documented Exam Vital Signs (past 8 hours): - 11/01/22 15:01 11/01/22 14:57 11/01/22 14:58 Temperature 97.7 F Pulse Rate 90 Respiratory Rate Blood Pressure 153/86 H Pulse Oximetry 97 Oxygen Delivery Method Oxygen Flow Rate 11/01/22 14:58 11/01/22 15:00 11/01/22 15:00 Temperature Pulse Rate 86 77 Respiratory Rate 27 H Blood Pressure 153/83 H Pulse Oximetry 98 100 Oxygen Delivery Method Oxygen Flow Rate 11/01/22 16:24 11/01/22 15:30 11/01/22 15:31 Temperature Pulse Rate 60 Respiratory Rate 21 21 Blood Pressure 142/65 H Pulse Oximetry 98 98 Oxygen Delivery Method Nasal Cannula Nasal Cannula Oxygen Flow Rate 2 2 11/01/22 15:31 11/01/22 16:00 11/01/22 16:01 Temperature Pulse Rate 60 60 60 Respiratory Rate 22 23 23 Blood Pressure Pulse Oximetry 99 99 99 Oxygen Delivery Method Oxygen Flow Rate 11/01/22 16:01 11/01/22 16:30 11/01/22 16:30 Temperature Pulse Rate 60 Respiratory Rate 23 Blood Pressure 138/63 134/60 Pulse Oximetry 98 Oxygen Delivery Method Oxygen Flow Rate 11/01/22 16:59 11/01/22 16:59 11/01/22 17:00 Temperature Pulse Rate 60 Respiratory Rate 22 Blood Pressure 134/64 134/65 Pulse Oximetry 98 Oxygen Delivery Method Oxygen Flow Rate 11/01/22 17:00 11/01/22 17:30 11/01/22 17:31 Temperature Pulse Rate 60 60 60 Respiratory Rate 22 20 20 Blood Pressure Pulse Oximetry 98 99 99 Oxygen Delivery Method Nasal Cannula Oxygen Flow Rate 2 11/01/22 17:31 11/01/22 18:00 11/01/22 18:00 Temperature Pulse Rate 60 Respiratory Rate 20 Blood Pressure 125/60 144/65 H Pulse Oximetry 99 Oxygen Delivery Method Nasal Cannula Oxygen Flow Rate 2 11/01/22 18:30 11/01/22 18:31 11/01/22 18:31 Temperature Pulse Rate 60 60 Respiratory Rate 19 19 Blood Pressure 134/61 Pulse Oximetry 99 99 Oxygen Delivery Method Oxygen Flow Rate 11/01/22 19:00 11/01/22 19:01 11/01/22 19:01 Temperature Pulse Rate 60 60 Respiratory Rate 19 18 Blood Pressure 117/58 L Pulse Oximetry 98 98 Oxygen Delivery Method Oxygen Flow Rate 11/01/22 19:30 11/01/22 19:30 11/01/22 20:00 Temperature Pulse Rate 60 60 Respiratory Rate 24 21 Blood Pressure 121/59 L Pulse Oximetry 100 98 Oxygen Delivery Method Oxygen Flow Rate 11/01/22 20:01 11/01/22 20:01 11/01/22 20:56 Temperature Pulse Rate 60 68 Respiratory Rate 20 20 Blood Pressure 113/57 L Pulse Oximetry 97 98 Oxygen Delivery Method Nasal Cannula Oxygen Flow Rate 98.4 11/01/22 21:00 Temperature 98.9 F Pulse Rate 60 Respiratory Rate 20 Blood Pressure 108/54 L Pulse Oximetry 97 Oxygen Delivery Method Oxygen Flow Rate 2 Oxygen Delivery Method Nasal Cannula Oxygen Flow Rate 2 Narrative Exam Narrative: Gen: Alert, oriented, well-developed 87 y.o. male, NAD HEENT: normocephalic, atraumatic, conjunctiva clear, sclera non-icteric, oral mucosa pink and moist Neck: supple, full ROM, no JVD, trachea is midline Resp: Lungs w/bilateral wheezes, non-labored breathing, on 2L NC CV: RRR, no murmur or rubs Abd: soft, non-tender, normoactive BTs Skin: very pale, no lesions or rashes, dry and intact Neuro: Alert and oriented X 4 w/no focal deficits. Speech clear and coherent. Extremities: moves all 4 extremities, is ambulatory, negative Caty?s sign Psyche: normal mood and affect. Objective Labs Result Diagrams: 11/01/22 15:18 11/01/22 15:18 Labs: Laboratory Results - last 24 hr 11/01/22 11/01/22 11/01/22 15:18 15:18 15:18 WBC 8.9 RBC 3.45 L Hgb 10.9 L Hct 32.2 L MCV 93.4 MCH 31.5 MCHC 33.7 RDW 15.3 H Plt Count 235 Neut % (Auto) 73.2 Lymph % (Auto) 17.1 L Bee % (Auto) 8.2 Eos % (Auto) 0.8 L Baso % (Auto) 0.7 Neut # (Auto) 6500 Lymph # (Auto) 1500 Bee # (Auto) 700 Eos # (Auto) 100 Baso # (Auto) 100 D-Dimer 813 H Sodium Potassium Chloride Carbon Dioxide BUN Creatinine Estimated GFR BUN/Creatinine Ratio Glucose Hemoglobin A1c Lactate Calcium Magnesium Total Bilirubin AST ALT Alkaline Phosphatase Total Creatine Kinase CK-MB (CK-2) CK-MB (CK-2) Rel Index Troponin I C-Reactive Protein NT-Pro-B Natriuret Pep Total Protein Albumin Globulin Albumin/Globulin Ratio Procalcitonin 0.06 SARS-CoV-2 (PCR) Influenza A (RT-PCR) Influenza B (RT-PCR) RSV (PCR) 11/01/22 11/01/22 11/01/22 15:18 15:18 15:21 WBC RBC Hgb Hct MCV MCH MCHC RDW Plt Count Neut % (Auto) Lymph % (Auto) Bee % (Auto) Eos % (Auto) Baso % (Auto) Neut # (Auto) Lymph # (Auto) Bee # (Auto) Eos # (Auto) Baso # (Auto) D-Dimer Sodium 137 Potassium 3.6 Chloride 98 Carbon Dioxide 25 BUN 11 Creatinine 0.86 Estimated GFR > 60 BUN/Creatinine Ratio 12.8 Glucose 192 H Hemoglobin A1c Lactate 2.9 H Calcium 8.0 L Magnesium 1.1 L Total Bilirubin 0.4 AST 24 ALT 22 Alkaline Phosphatase 68 Total Creatine Kinase 94 CK-MB (CK-2) TNP CK-MB (CK-2) Rel Index TNP Troponin I < 0.012 C-Reactive Protein 2.7 H NT-Pro-B Natriuret Pep 2690 H Total Protein 7.6 Albumin 3.9 Globulin 3.7 Albumin/Globulin Ratio 1.1 Procalcitonin SARS-CoV-2 (PCR) Negative Influenza A (RT-PCR) Flu a negative Influenza B (RT-PCR) Flu b negative RSV (PCR) Negative 11/01/22 11/01/22 18:24 20:20 WBC RBC Hgb Hct MCV MCH MCHC RDW Plt Count Neut % (Auto) Lymph % (Auto) Bee % (Auto) Eos % (Auto) Baso % (Auto) Neut # (Auto) Lymph # (Auto) Bee # (Auto) Eos # (Auto) Baso # (Auto) D-Dimer Sodium Potassium Chloride Carbon Dioxide BUN Creatinine Estimated GFR BUN/Creatinine Ratio Glucose Hemoglobin A1c 8.8 H Lactate 2.4 H Calcium Magnesium Total Bilirubin AST ALT Alkaline Phosphatase Total Creatine Kinase CK-MB (CK-2) CK-MB (CK-2) Rel Index Troponin I C-Reactive Protein NT-Pro-B Natriuret Pep Total Protein Albumin Globulin Albumin/Globulin Ratio Procalcitonin SARS-CoV-2 (PCR) Influenza A (RT-PCR) Influenza B (RT-PCR) RSV (PCR) Assessment & Plan Assessment & Plan narrative: Oscar Schwab is admitted to the inpatient service due to outpatient antibiotic failure for a left sided lower lobe pneumonia. Left lower lobe pneumonia, outpatient failure, present on admission * He was started on IV azithromycin and ceftriaxone and this will be continued. He is okay to start p.o. azithromycin tomorrow. * He will have alternating doses of albuterol and DuoNebs q.3 hours as needed and continue home oxygen * Pulmicort nebulizers twice daily Hypomagnesia * His magnesium was 1.1 and will receive 2 g of magnesium riders. * Daily magnesium level Chronic hypoxia * Continue supplemental oxygen as he uses at home Diabetes type 2 * Diabetes type 2 suboptimally controlled with an A1c of 8.8 * Will start patient on Lantus 5 units b.i.d. * His glucose was excessively high upon presentation to the floor Hypothyroidism * Continue home dose of levothyroxine 25 mcg p.o. daily Prostate cancer * Patient receives q.6 month Lupron treatments and is followed by his oncologist VTE Prophylaxis: Wells risk score 1 X Bilateral SCDs . Patient is currently anticoagulated on dabigatran. Patient is admitted to the inpatient service due to the severity of disease, risks of further disease progression and this stay is expected to exceed 2 midnights. FEN: IV fluids: Saline lock, diet: Carb control no added salt, labs: CBC, C/BMP, liver enzymes, Mag, PT/INR Consultants none Dispo: Admit to inpatient floor, probable discharge home in 1-2 days Code status: Full code as discussed with the patient who identifies his [place] as his vsurrogate and POA. [X] I have utilized all available immediate resources to obtain, update, or review of the patient's current medications VTE Deep Vein Thrombosis/Pulmonary Embolism Present on Admission: No MIPS - Admit I confirm the patient?s Advance Care Plan is present, Code status is documented, Surrogate decision maker is in patient?s record: Yes MIPS - DC The patient has current or prior documentation of left ventricular ejection frac tion (LVEF) less than 40%, or moderate or severely depressed left ventricular systolic function.: No COVID-19 COVID-19 status: Negative Result date/Date tested (Pos, Neg/Pending): 11/01/22 Time Spent With Patient Critical Care time: I spent a total of [] minutes of critical care time on this patient's care today; this time is exclusive of procedural time. Scores Wells' Criteria for PE Clinical signs and symptoms of DVT: No PE is #1 Dx or equally likely: No Heart rate > 100: No Immobilization at least 3 days or surg in previous 4 weeks: No History of PE or DVT: No Hemoptysis: No Malignancy w/Treatment within 6 months or palliative: Yes Wells' PE Score total: 1 Quality VTE Deep Vein Thrombosis/Pulmonary Embolism Present on Admission: No
[2022-11-01] MEDS: INSULIN GLARGINE 100 UNIT/ML 3ML PEN SUBCUT (23:23)
[2022-11-01] MEDS: MAGNESIUM SULFATE 2 GM/50 ML PIGGYBACK IV (23:23)
[2022-11-01] MEDS: TRAMADOL 50 MG TABLET PO (23:24)
[2022-11-02] VITALS (11 sets, daily range): BP systolic 99–125; BP diastolic 54–66; PULSE 56–62; RESP 16–22; TEMP 36.3–37.1; O2SAT 95–98
[2022-11-02 03:03] LABS: Appearance Urine UA CLEAR; Bilirubin Urine UA NEGATIVE (NEGATIVE); Color Urine UA YELLOW; Glucose Urine UA 1+ g/dL (Negative); Ketones Urine UA NEGATIVE (NEGATIVE); Leukocyte Esterase Urine UA NEGATIVE (NEGATIVE); Nitrite Urine UA NEGATIVE (Negative); Occult Blood Urine UA NEGATIVE (Negative); Protein Urine UA NEGATIVE (Negative); Specific Gravity Urine UA 1.015 (1.000-1.035); Urobilinogen Urine UA 0.2 E.U./dL (0.2)
[2022-11-02 03:12] LABS: RBC Urine None Seen (0-5/HPF); WBC Urine None Seen (0-5/HPF)
[2022-11-02 03:13] LABS: Culture Indicated Urine Cult Not Indicated; Hyaline Casts Urine 0-1/LPF
[2022-11-02 03:28] LABS: Bacteria Urine None Seen
[2022-11-02 05:27] LABS: Add Manual Diff / Slide Review NO; Basophils Absolute Auto 0 /uL (0-100); Basophils Percent Auto 0.3 % (0-2); Eosinophils Absolute Auto 0 /uL (0-450); Eosinophils Percent Auto 0.1 % (2-4); Hematocrit 28.6 % (41-53); Hemoglobin 9.9 g/dL (13.5-17.5); Lymphocytes Absolute Auto 1300 /uL (1100-4500); Lymphocytes Percent Auto 13.6 % (25-40); Mean Corpuscular HGB Conc 34.5 % (30-36); Mean Corpuscular Hemoglobin 31.9 PG (26-34); Mean Corpuscular Volume 92.3 fL (80-100); Monocytes Absolute Auto 800 /uL (0-900); Monocytes Percent Auto 8.9 % (3-14); Neutrophils Absolute Auto 7300 /uL (1500-7000); Neutrophils Percent Auto 77.1 % (50-75); Platelet Count 200 X10^3/uL (150-400); Red Cell Distribution Width 15.4 % (11.6-14.8); White Blood Cell Count 9.4 X10^3/uL (4.5-11.0)
[2022-11-02 05:34] LABS: Alanine Aminotransferase 19 IU/L (<50); Albumin 3.4 g/dL (3.5-5.0); Alkaline Phosphatase 58 U/L (38-126); Aspartate Aminotransferase 17 IU/L (17-59); BUN Creatinine Ratio 16.5 (6-22); Bilirubin Total 0.4 mg/dL (0.2-1.3); Blood Urea Nitrogen 16 mg/dL (9-20); Calcium 7.3 mg/dL (8.4-10.2); Carbon Dioxide 24 mmol/L (22-32); Chloride 100 mmol/L (98-107); Estimated Glomerular Filt Rate > 60 mL/min (>60); Globulin 3.4 g/dL (1.7-4.1); Glucose 248 mg/dL (80-110); HEMOLYSIS < 15 (0-50); Magnesium 1.6 mg/dL (1.6-2.3); Potassium 3.4 mmol/L (3.4-5.1); Sodium 135 mmol/L (137-145); Total Protein 6.8 g/dL (6.3-8.2)
[2022-11-02] MEDS: LEVOTHYROXINE 25 MCG TABLET PO (06:30)
[2022-11-02] MEDS: TRAMADOL 50 MG TABLET PO (06:30)
[2022-11-02] MEDS: BUDESONIDE 0.5 MG/2 ML NEB INH ×2 (07:51→20:40)
[2022-11-02] MEDS: ALBUTEROL/IPRATROPIUM 3 ML AMPUL INH (07:51)
[2022-11-02] MEDS: POTASSIUM CHLORIDE 20 MEQ TAB 40 MEQ PO (08:18)
[2022-11-02] MEDS: INSULIN LISPRO 100 UNIT/ML 3ML VIAL SUBCUT ×4 (08:18→20:17)
[2022-11-02] MEDS: MAGNESIUM CHLORIDE 64 MG TABLET 128 MG PO (08:18)
[2022-11-02] MEDS: DABIGATRAN 75 MG CAPSULE 150 MG PO ×2 (09:04→19:44)
[2022-11-02] MEDS: METOPROLOL ER 50 MG TABLET PO ×2 (09:04→19:45)
[2022-11-02] MEDS: ACETAMINOPHEN 325 MG TABLET 650 MG PO (09:04)
[2022-11-02] MEDS: INSULIN GLARGINE 100 UNIT/ML 3ML PEN SUBCUT ×2 (09:05→20:16)
--- NOTE | 2022-11-02 10:46 | DI.ECHO.S_ITS ---
[place] +---------+ [facility] +---------+ : : [address] : : : : [id number] : : : : Phone: [phone]+ Echocardiogram Report + + :Name: COLLETTE ANDUJAR Study Date: 11/03/2022 Height: 72 in : :[facility] ReadingLocation: Weight: 237 lb : : Gender: Male BSA: 2.3 m2 : :: 1935 Age: 87 yrs BP: 108/54 mmHg: :Reason For Study: SOB : : Performed By: Edil Araiza : :Referring: HOLLY GRIGSBY : + + Interpretation Summary Left ventricular systolic function is borderline reduced. The ejection fraction is estimated to be 45-50%. LVEF has mildly reduced since prior study. There is a moderate dyssynchronous contraction pattern due to the paced rhythm. The right ventricle grossly appears normal in size with probable normal systolic function. There is a pacemaker lead in the right ventricle. The right ventricular systolic pressure is estimated to be at least 44 mmHg based on an estimated right atrial pressure of 8 mm Hg. Both atria are severely dilated. There is moderate mitral regurgitation. There is mild to moderate tricuspid regurgitation. There is moderate pulmonic regurgitation. The ascending aorta is mildly enlarged. There is a moderate left-sided pleural effusion. Procedure: A two-dimensional transthoracic echocardiogram with color flow and Doppler was performed. The study quality was technically adequate. Comparison is made with the echocardiogram of 09/11/14. A contrast injection of Definity was performed to improve assessment of LV function. The patient was in normal sinus rhythm during the exam. The patient had frequent PVCs during the exam. Left Ventricle: The left ventricle is normal in size. There is normal left ventricular wall thickness. Left ventricular systolic function is borderline reduced. The ejection fraction is estimated to be 45-50%. There is a moderate dyssynchronous contraction pattern due to the paced rhythm. Right Ventricle: The right ventricle grossly appears normal in size with probable normal systolic function. There is a pacemaker lead in the right ventricle. Atria: Both atria are severely dilated. There is no Doppler evidence for an atrial septal defect. Mitral Valve: There is mild mitral annular calcification. There is moderate mitral regurgitation. Aortic Valve: The aortic valve is trileaflet. The aortic valve opens well. No aortic regurgitation is present. Tricuspid Valve: The tricuspid valve is normal in structure and function. There is mild to moderate tricuspid regurgitation. The right ventricular systolic pressure is estimated to be at least 44 mmHg based on an estimated right atrial pressure of 8 mm Hg. Pulmonic Valve: The pulmonic valve is not well seen, but is grossly normal. There is moderate pulmonic regurgitation. Great Vessels: The aortic root is normal size. The ascending aorta is mildly enlarged. The pulmonary artery is normal size. The IVC is dilated (diameter is greater than 2.1 cm) yet it collapses greater than 50% with a sniff. This suggests a right atrial pressure of 8 mm Hg. Pericardium/ Pleura There is no pericardial effusion. There is a moderate left-sided pleural effusion. MMode/2D Measurements & Calculations LVIDd: 5.1 cm LVOT diam: 2.6 cm LVIDs: 3.5 cm Ao root diam: 3.8 cm FS: 31.2 % asc Aorta Diam: 3.9 cm EPSS: 1.4 cm Ao Arch Diam (Prox Trans): 3.5 cm IVSd: 1.0 cm LVPWd: 1.0 cm LV . diameter/BSA (cm/m^2): 2.2 LV sys. diameter/BSA (cm/m^2): 1.5 LA A2 area: 34.1 cm2 RA long axis: 7.7 cm LA A4 area: 34.4 cm2 RA area: 36.4 cm2 LA length (vol): 7.5 cm RA vol: 146.3 ml LA vol: 133.2 ml RA : 63.9 ml/m2 LA vol index: 58.2 ml/m2 IVC diam: 2.8 cm TAPSE: 1.8 cm Doppler Measurements & Calculations Ao V2 max: 114.4 cm/sec LVOT Max Magdy: 72.5 cm/sec Ao V2 mean: 87.1 cm/sec LV V1 max P.1 mmHg Ao max P.2 mmHg LV V1 VTI: 15.0 cm Ao mean P.2 mmHg NATY(I,D): 3.4 cm2 Ao V2 VTI: 23.2 cm NATY(V,D): 3.3 cm2 sev ratio: 0.65 NATY indexed to BSA (cm^2/m^2): 1.5 MV E max magdy: 100.6 cm/sec TR max magdy: 301.8 cm/sec MV A max magdy: 2.1 cm/sec TR max P.4 mmHg MV E/A: 49.0 PA V2 max: 86.6 cm/sec Med Peak E' Magdy: 6.6 cm/sec PA V2 mean: 65.5 cm/sec E/E' med: 15.3 PA mean P.8 mmHg Lat Peak E' Magdy: 10.3 cm/sec PA pr(Accel): 39.6 mmHg E/E' lat: 9.8 E/e' average: 12.6 MV dec time: 0.15 sec SV(LVOT): 78.1 ml Reading Physician:04:40 PM
--- NOTE | 2022-11-02 12:28 | P.PN_ITS ---
Subjective Subjective Date Patient Seen: 11/02/22 Interval history: 87 year old male, admitted for shortness of breath, pleural effusion and chest pain. All improved today but he remains weak, has not ambulated Exam Vital Signs (past 8 hours): - 11/02/22 07:59 11/02/22 07:51 11/02/22 07:58 Temperature 97.7 F Pulse Rate 60 60 62 Respiratory Rate 16 18 18 Blood Pressure 121/66 Pulse Oximetry 97 95 98 Oxygen Delivery Method Nasal Cannula Oxygen Flow Rate 1 0.5 11/02/22 09:04 Temperature Pulse Rate 60 Respiratory Rate Blood Pressure 121/66 Pulse Oximetry Oxygen Delivery Method Oxygen Flow Rate Fraction of Inspired Oxygen 28 SaO2/FiO2 Ratio 350 Oxygen Delivery Method Nasal Cannula Oxygen Flow Rate 1 Narrative Exam Narrative: Gen: Alert, oriented, well-developed 87 y.o. male, NAD HEENT: normocephalic, atraumatic, conjunctiva clear, sclera non-icteric, oral mucosa pink and moist Neck: supple, full ROM, no JVD, trachea is midline Resp: CTA b/l no wheezes rhonchi or rales, slightly diminished breath sounds LLL. CV: RRR, no murmur or rubs Abd: soft, non-tender, normoactive BTs Skin: very pale, no lesions or rashes, dry and intact Neuro: Alert and oriented X 4 w/no focal deficits. Speech clear and coherent. Extremities: R > L peripheral edema, pitting 1+. No joint effusions. Psyche: normal mood and affect. Objective Labs Result Diagrams: 11/02/22 05:05 11/02/22 05:05 Labs: Laboratory Results - last 24 hr 11/01/22 11/01/22 11/01/22 15:18 15:18 15:18 WBC 8.9 RBC 3.45 L Hgb 10.9 L Hct 32.2 L MCV 93.4 MCH 31.5 MCHC 33.7 RDW 15.3 H Plt Count 235 Neut % (Auto) 73.2 Lymph % (Auto) 17.1 L [place] % (Auto) 8.2 Eos % (Auto) 0.8 L Baso % (Auto) 0.7 Neut # (Auto) 6500 Lymph # (Auto) 1500 [place] # (Auto) 700 Eos # (Auto) 100 Baso # (Auto) 100 D-Dimer 813 H Sodium Potassium Chloride Carbon Dioxide BUN Creatinine Estimated GFR BUN/Creatinine Ratio Glucose Hemoglobin A1c Lactate Calcium Magnesium Total Bilirubin AST ALT Alkaline Phosphatase Total Creatine Kinase CK-MB (CK-2) CK-MB (CK-2) Rel Index Troponin I C-Reactive Protein NT-Pro-B Natriuret Pep Total Protein Albumin Globulin Albumin/Globulin Ratio Procalcitonin 0.06 Urine Color Urine Appearance Urine pH Ur Specific [place] Urine Protein Urine Glucose (UA) Urine Ketones Urine Occult Blood Urine Nitrate Urine Bilirubin Urine Urobilinogen Ur Leukocyte Esterase Urine RBC Urine WBC Urine Bacteria Hyaline Casts Ur Culture Indicated? SARS-CoV-2 (PCR) Influenza A (RT-PCR) Influenza B (RT-PCR) RSV (PCR) 11/01/22 11/01/22 11/01/22 15:18 15:18 15:21 WBC RBC Hgb Hct MCV MCH MCHC RDW Plt Count Neut % (Auto) Lymph % (Auto) [place] % (Auto) Eos % (Auto) Baso % (Auto) Neut # (Auto) Lymph # (Auto) [place] # (Auto) Eos # (Auto) Baso # (Auto) D-Dimer Sodium 137 Potassium 3.6 Chloride 98 Carbon Dioxide 25 BUN 11 Creatinine 0.86 Estimated GFR > 60 BUN/Creatinine Ratio 12.8 Glucose 192 H Hemoglobin A1c Lactate 2.9 H Calcium 8.0 L Magnesium 1.1 L Total Bilirubin 0.4 AST 24 ALT 22 Alkaline Phosphatase 68 Total Creatine Kinase 94 CK-MB (CK-2) TNP CK-MB (CK-2) Rel Index TNP Troponin I < 0.012 C-Reactive Protein 2.7 H NT-Pro-B Natriuret Pep 2690 H Total Protein 7.6 Albumin 3.9 Globulin 3.7 Albumin/Globulin Ratio 1.1 Procalcitonin Urine Color Urine Appearance Urine pH Ur Specific [place] Urine Protein Urine Glucose (UA) Urine Ketones Urine Occult Blood Urine Nitrate Urine Bilirubin Urine Urobilinogen Ur Leukocyte Esterase Urine RBC Urine WBC Urine Bacteria Hyaline Casts Ur Culture Indicated? SARS-CoV-2 (PCR) Negative Influenza A (RT-PCR) Flu a negative Influenza B (RT-PCR) Flu b negative RSV (PCR) Negative 11/01/22 11/01/22 11/02/22 18:24 20:20 03:00 WBC RBC Hgb Hct MCV MCH MCHC RDW Plt Count Neut % (Auto) Lymph % (Auto) [place] % (Auto) Eos % (Auto) Baso % (Auto) Neut # (Auto) Lymph # (Auto) [place] # (Auto) Eos # (Auto) Baso # (Auto) D-Dimer Sodium Potassium Chloride Carbon Dioxide BUN Creatinine Estimated GFR BUN/Creatinine Ratio Glucose Hemoglobin A1c 8.8 H Lactate 2.4 H Calcium Magnesium Total Bilirubin AST ALT Alkaline Phosphatase Total Creatine Kinase CK-MB (CK-2) CK-MB (CK-2) Rel Index Troponin I C-Reactive Protein NT-Pro-B Natriuret Pep Total Protein Albumin Globulin Albumin/Globulin Ratio Procalcitonin Urine Color Yellow Urine Appearance Clear Urine pH 5.0 Ur Specific [place] 1.015 Urine Protein Negative Urine Glucose (UA) 1+ H Urine Ketones Negative Urine Occult Blood Negative Urine Nitrate Negative Urine Bilirubin Negative Urine Urobilinogen 0.2 Ur Leukocyte Esterase Negative Urine RBC None seen Urine WBC None seen Urine Bacteria None seen Hyaline Casts 0-1/lpf Ur Culture Indicated? Cult not indicated SARS-CoV-2 (PCR) Influenza A (RT-PCR) Influenza B (RT-PCR) RSV (PCR) 11/02/22 11/02/22 05:05 05:05 WBC 9.4 RBC 3.10 L Hgb 9.9 L Hct 28.6 L MCV 92.3 MCH 31.9 MCHC 34.5 RDW 15.4 H Plt Count 200 Neut % (Auto) 77.1 H Lymph % (Auto) 13.6 L [place] % (Auto) 8.9 Eos % (Auto) 0.1 L Baso % (Auto) 0.3 Neut # (Auto) 7300 H Lymph # (Auto) 1300 [place] # (Auto) 800 Eos # (Auto) 0 Baso # (Auto) 0 D-Dimer Sodium 135 L Potassium 3.4 Chloride 100 Carbon Dioxide 24 BUN 16 Creatinine 0.97 Estimated GFR > 60 BUN/Creatinine Ratio 16.5 Glucose 248 H Hemoglobin A1c Lactate Calcium 7.3 L Magnesium 1.6 Total Bilirubin 0.4 AST 17 ALT 19 Alkaline Phosphatase 58 Total Creatine Kinase CK-MB (CK-2) CK-MB (CK-2) Rel Index Troponin I C-Reactive Protein NT-Pro-B Natriuret Pep Total Protein 6.8 Albumin 3.4 L Globulin 3.4 Albumin/Globulin Ratio 1.0 Procalcitonin Urine Color Urine Appearance Urine pH Ur Specific [place] Urine Protein Urine Glucose (UA) Urine Ketones Urine Occult Blood Urine Nitrate Urine Bilirubin Urine Urobilinogen Ur Leukocyte Esterase Urine RBC Urine WBC Urine Bacteria Hyaline Casts Ur Culture Indicated? SARS-CoV-2 (PCR) Influenza A (RT-PCR) Influenza B (RT-PCR) RSV (PCR) [facility] Medical History (Updated 11/01/22 @ 20:17 by SYD Sheets) Anticoagulated Asthma Atrial fibrillation, transient Bladder calculi Cancer COPD with acute exacerbation Diabetes GERD (gastroesophageal reflux disease) Hyperlipidemia Hypertension Incomplete bladder emptying Lower urinary tract symptoms (LUTS) Osteoarthritis (arthritis due to wear and tear of joints) Pacemaker Prostate cancer TIA (transient ischemic attack) Type 2 diabetes mellitus with diabetic neuropathy Surgical History H/O vasectomy History of appendectomy Previous back surgery Total knee replacement status Family History (Updated 11/01/22 @ 22:38 by SYD Sheets) Family/Other No problems noted. Mother Brain tumor Father Medical history unknown Social History marital status: number of children: 3 household members: spouse Smoking Status: Never smoker alcohol intake: former Type(s) of exercise: walking frequency: daily Assessment & Plan Assessment & Plan narrative: Oscar Schwab remains admitted for shortness of breath due to left pneumonia with pleural effusion, possible new diagnosis of congestive heart failure. Shortness of breath, Left lower lobe pneumonia, outpatient failure, present on admission, possible new heart failure. * He was started on IV azithromycin and ceftriaxone and this will be continued. * He will have alternating doses of albuterol and DuoNebs q.3 hours as needed and continue home oxygen * Pulmicort nebulizers twice daily * Left pleural effusion slightly increased, along with elevated proBNP may be new heart failure, TTE ordered. Pleural effusion may be related to heart failure or parapneumonic. Hypomagnesia, acute * His magnesium was 1.1 and received 2 g of magnesium riders, improved to 1.6 today. * Daily magnesium level Chronic hypoxic respiratory failure * Continue supplemental oxygen as he uses at home, goal O2 90-96% while on supplemental therapy. Diabetes type 2 * Diabetes type 2 suboptimally controlled with an A1c of 8.8 * Started patient on Lantus 5 units b.i.d. * His glucose was excessively high upon presentation to the floor Hypothyroidism * Continue home dose of levothyroxine 25 mcg p.o. daily Prostate cancer * Patient receives q.6 month Lupron treatments and is followed by his oncologist Patient is admitted to the inpatient service due to the severity of disease, risks of further disease progression and this stay is expected to exceed 2 midnights. FEN: IV fluids: Saline lock, diet: Carb control no added salt, labs: CBC, C/B MP, liver enzymes, Mag, PT/INR Consultants none Dispo: probable discharge to home in 1-2 days. Code status: Full code as discussed with the patient who identifies his Peyton as his vsurrogate and POA. COVID-19 COVID-19 status: Negative Result date/Date tested (Pos, Neg/Pending): 11/01/22 Time Spent With Patient Critical Care time: I spent a total of [] minutes of critical care time on this patient's care today; this time is exclusive of procedural time. Quality VTE Deep Vein Thrombosis/Pulmonary Embolism Present on Admission: No
--- NOTE | 2022-11-02 16:01 | CM.DANOTE ---
Addendum entered by Bhumi Davila 11/03/22 14:28: DCP/continued: Met with patient explained CM/SW role. Patient alert and oriented sitting in recliner at time of FIRST AID OFFICER visit. Patient reports that he resides with his spouse/Ele on [address] Patient uses both cane and walker for ambulation. Patient also drives on occasion. At this time there are no anticipated d/c planning needs. Patient does not anticipate that he will need to see therapy during this hospitalization. CM team to follow closely if that changes. Patient reports that spouse will provide transport when patient discharged. Patient hopeful he will be able to d/c tomorrow 12-20. Patient uses home 02 at baseline. P: Home when stable CM team to continue to follow up if needs arise. KJS Original Note: DCP/Brief: Reviewed chart. Patient is a 87yr old male admitted to .. with SOB, PE, pneumonia, with possible new dx of CHF.PCP is Dr. Agosto. Primary payor is 1)Medicare 2)[employer]. Patient currently receiving treatment for conditions listed above. Patient is currently inpatient status. FIRST AID OFFICER anticipate that provider will order therapy evaluations when patient becomes more medically stable. CM team to continue to follow closely. P: Pending. KJS Discharge Planning/Care Management CM Discharge Assessment Start: 11/02/22 15:56 Freq: Status: Active Protocol: Document 11/02/22 15:56 [facility] (Rec: 11/02/22 16:01 [place] [id number]) Discharge Planning Assessment Assigned Patient Support Assistant JOLENE Keyes Contact Information Ele Schwab # [phone] Advance Directives? Yes Advance Directives on File Yes History Provided By Medical Record Prior Living Arrangements House Household Members spouse Type of transporation used prior to Relies on Others admit Independent with ADL's Not recently ambulated. Is patient alert and oriented? Yes DME Already Rented / Owned Oxygen Barriers to Discharge No Comment Pending plan of care and recovery. Discharge Plan Home Transportation Arrangement Spouse Review Status In Process Next Review Type Continued Stay Review
[2022-11-02] MEDS: FUROSEMIDE 40 MG/4 ML VIAL IV (17:13)
[2022-11-02] MEDS: cefTRIAXone 1,000 MG in SODIUM CHLORIDE 0.9% 100 ML 200 MG IV (19:44)
[2022-11-02] MEDS: AZITHROMYCIN 250 MG TABLET 500 MG PO (19:45)
[2022-11-03] VITALS (10 sets, daily range): BP systolic 108–132; BP diastolic 57–72; PULSE 58–62; RESP 16–30; TEMP 36.5–37.3; O2SAT 92–98
[2022-11-03] MEDS: LEVOTHYROXINE 25 MCG TABLET PO (05:57)
[2022-11-03 06:02] LABS: Add Manual Diff / Slide Review NO; Basophils Absolute Auto 200 /uL (0-100); Basophils Percent Auto 1.5 % (0-2); Eosinophils Absolute Auto 0 /uL (0-450); Eosinophils Percent Auto 0.2 % (2-4); Hematocrit 32.9 % (41-53); Lymphocytes Absolute Auto 2300 /uL (1100-4500); Lymphocytes Percent Auto 19.5 % (25-40); Mean Corpuscular HGB Conc 33.3 % (30-36); Mean Corpuscular Hemoglobin 31.2 PG (26-34); Mean Corpuscular Volume 93.7 fL (80-100); Monocytes Absolute Auto 1000 /uL (0-900); Monocytes Percent Auto 8.3 % (3-14); Neutrophils Absolute Auto 8300 /uL (1500-7000); Neutrophils Percent Auto 70.5 % (50-75); Platelet Count 234 X10^3/uL (150-400); Red Blood Cell Count 3.51 X10^6/uL (4.5-5.9); Red Cell Distribution Width 15.6 % (11.6-14.8); White Blood Cell Count 11.8 X10^3/uL (4.5-11.0)
[2022-11-03 06:26] LABS: Alanine Aminotransferase 20 IU/L (<50); Albumin 3.7 g/dL (3.5-5.0); Alkaline Phosphatase 61 U/L (38-126); Aspartate Aminotransferase 19 IU/L (17-59); BUN Creatinine Ratio 16.3 (6-22); Bilirubin Total 0.7 mg/dL (0.2-1.3); Blood Urea Nitrogen 16 mg/dL (9-20); Calcium 7.5 mg/dL (8.4-10.2); Carbon Dioxide 26 mmol/L (22-32); Chloride 97 mmol/L (98-107); Estimated Glomerular Filt Rate > 60 mL/min (>60); Globulin 3.7 g/dL (1.7-4.1); Glucose 187 mg/dL (80-110); HEMOLYSIS < 15 (0-50); Magnesium 1.8 mg/dL (1.6-2.3); Potassium 4.1 mmol/L (3.4-5.1); Sodium 135 mmol/L (137-145); Total Protein 7.4 g/dL (6.3-8.2)
[2022-11-03] MEDS: INSULIN LISPRO 100 UNIT/ML 3ML VIAL SUBCUT ×4 (08:03→20:36)
[2022-11-03] MEDS: FUROSEMIDE 40 MG/4 ML VIAL IV (08:14)
[2022-11-03] MEDS: INSULIN GLARGINE 100 UNIT/ML 3ML PEN SUBCUT ×2 (08:59→20:37)
[2022-11-03] MEDS: BUDESONIDE 0.5 MG/2 ML NEB INH ×2 (08:59→19:34)
[2022-11-03] MEDS: METOPROLOL ER 50 MG TABLET PO ×2 (09:00→20:26)
[2022-11-03] MEDS: DABIGATRAN 75 MG CAPSULE 150 MG PO ×2 (09:00→20:25)
[2022-11-03] MEDS: ALFUZOSIN 10 MG 10 EACH PO (09:01)
--- NOTE | 2022-11-03 10:21 | PC.NURSE ---
Late entry Pt states, sick to stomach and stomach pain. Upon assessment abdomen is firm and distended. Bowel tones auscultated and active in all 4 abdominal quadrants. Pt states last bowel movement, maybe 4 days ago. Pt has been NPO due to nausea. Spoke to Dr. Rosas in person to notify and he states, will order abdominal CT.
[2022-11-03] MEDS: ACETAMINOPHEN 325 MG TABLET 650 MG PO (12:29)
--- NOTE | 2022-11-03 13:49 | P.PN_ITS ---
Subjective Subjective Date Patient Seen: 11/03/22 Interval history: Continues to have L sided chest pain, worse when laying on left. Not pleuritic today. Remains short of breath with minimal exertion, even just to bathroom in his hospital room. No other chest pain, his is more lateral near his PPM site, no nausea or emesis. Exam Vital Signs (past 8 hours): - 11/03/22 08:52 11/03/22 09:00 11/03/22 09:32 Temperature 99.1 F Pulse Rate 61 61 58 L Respiratory Rate 18 Blood Pressure 126/72 126/72 122/70 Pulse Oximetry 98 Oxygen Flow Rate 2 Fraction of Inspired Oxygen 28 SaO2/FiO2 Ratio 350 Oxygen Delivery Method Nasal Cannula Oxygen Flow Rate 2 Narrative Exam Narrative: Gen: Alert, oriented, well-developed 87 y.o. male, NAD HEENT: normocephalic, atraumatic, conjunctiva clear, sclera non-icteric, oral mucosa pink and moist Neck: supple, full ROM, no JVD, trachea is midline Resp: CTA b/l no wheezes rhonchi or rales, slightly diminished breath sounds LLL. CHEST: L PPM scar well healed, no erythema, induration or warmth, slightly ten ramya around area. CV: RRR, no murmur or rubs Abd: soft, non-tender, normoactive BTs Skin: very pale, no lesions or rashes, dry and intact Neuro: Alert and oriented X 4 w/no focal deficits. Speech clear and coherent. Extremities: R > L peripheral edema, pitting 1+. No joint effusions. Psyche: normal mood and affect. Objective Labs Result Diagrams: 11/03/22 05:44 11/03/22 05:44 Labs: Laboratory Results - last 24 hr 11/03/22 11/03/22 05:44 05:44 WBC 11.8 H RBC 3.51 L Hgb 11.0 L Hct 32.9 L MCV 93.7 MCH 31.2 MCHC 33.3 RDW 15.6 H Plt Count 234 Neut % (Auto) 70.5 Lymph % (Auto) 19.5 L [place] % (Auto) 8.3 Eos % (Auto) 0.2 L Baso % (Auto) 1.5 Neut # (Auto) 8300 H Lymph # (Auto) 2300 [place] # (Auto) 1000 H Eos # (Auto) 0 Baso # (Auto) 200 H Sodium 135 L Potassium 4.1 Chloride 97 L Carbon Dioxide 26 BUN 16 Creatinine 0.98 Estimated GFR > 60 BUN/Creatinine Ratio 16.3 Glucose 187 H Calcium 7.5 L Magnesium 1.8 Total Bilirubin 0.7 AST 19 ALT 20 Alkaline Phosphatase 61 Total Protein 7.4 Albumin 3.7 Globulin 3.7 Albumin/Globulin Ratio 1.0 PFSH Medical History (Updated 11/01/22 @ 20:17 by SYD Sheets) Anticoagulated Asthma Atrial fibrillation, transient Bladder calculi Cancer COPD with acute exacerbation Diabetes GERD (gastroesophageal reflux disease) Hyperlipidemia Hypertension Incomplete bladder emptying Lower urinary tract symptoms (LUTS) Osteoarthritis (arthritis due to wear and tear of joints) Pacemaker Prostate cancer TIA (transient ischemic attack) Type 2 diabetes mellitus with diabetic neuropathy Surgical History H/O vasectomy History of appendectomy Previous back surgery Total knee replacement status Family History (Updated 11/01/22 @ 22:38 by SYD Sheets) Family/Other No problems noted. Mother Brain tumor Father Medical history unknown Social History marital status: number of children: 3 household members: spouse Smoking Status: Never smoker alcohol intake: former Type(s) of exercise: walking frequency: daily Assessment & Plan Assessment & Plan narrative: Oscar Schwab remains admitted for shortness of breath due to left pneumonia with pleural effusion, possible new diagnosis of congestive heart failure. Shortness of breath, Left lower lobe bacterial pneumonia with outpatient failure, present on admission, possible new heart failure. * He was started on IV azithromycin and ceftriaxone and this will be continued for outpatient failure * He will have alternating doses of albuterol and DuoNebs q.3 hours as needed and continue home oxygen * Pulmicort nebulizers twice daily * Left pleural effusion slightly increased, along with elevated proBNP may be new heart failure, TTE pending from today. Pleural effusion may be related to heart failure or parapneumonic. * net negative only 750 today, will increase diuresis to see if any improvement from 40 to 60 mg IV BID, continues to have significant weakness and dyspnea on exertion. Hypomagnesia, acute * His magnesium was 1.1 and received 2 g of magnesium riders, improved to 1.8 today. * Daily magnesium level Chronic hypoxic respiratory failure * Continue supplemental oxygen as he uses at home, goal O2 90-96% while on supplemental therapy. Diabetes type 2 * Diabetes type 2 suboptimally controlled with an A1c of 8.8 * Started patient on Lantus BID continue to adjust as needed. Hypothyroidism * Continue home dose of levothyroxine 25 mcg p.o. daily Prostate cancer * Patient receives q.6 month Lupron treatments and is followed by his oncologist Patient is admitted to the inpatient service due to the severity of disease, risks of further disease progression and this stay is expected to exceed 2 midnights. FEN: IV fluids: Saline lock, diet: Carb control no added salt, labs: CBC, C/BMP, liver enzymes, Mag, PT/INR Consultants none Dispo: probable discharge to home in 1-2 days. Code status: Full code as discussed with the patient who identifies his Peyton as his vsurrogate and POA. COVID-19 COVID-19 status: Negative Result date/Date tested (Pos, Neg/Pending): 11/01/22 Time Spent With Patient Critical Care time: I spent a total of [] minutes of critical care time on this patient's care today ; this time is exclusive of procedural time. Quality VTE Deep Vein Thrombosis/Pulmonary Embolism Present on Admission: No
[2022-11-03] MEDS: LIDOCAINE PATCH 1 EACH ADH..PATCH TOP (13:55)
[2022-11-03] MEDS: FUROSEMIDE 60 MG in SODIUM CHLORIDE 0.9% 50 ML 112 MG IV (17:31)
[2022-11-03] MEDS: cefTRIAXone 1,000 MG in SODIUM CHLORIDE 0.9% 100 ML 200 MG IV (18:39)
[2022-11-03] MEDS: AZITHROMYCIN 250 MG TABLET 500 MG PO (20:10)
[2022-11-03] MEDS: TRAMADOL 50 MG TABLET PO (20:26)
[2022-11-04] VITALS (7 sets, daily range): BP systolic 117–141; BP diastolic 54–63; PULSE 59–62; RESP 16–17; TEMP 36.2–36.8; O2SAT 91–99
[2022-11-04 06:23] LABS: Add Manual Diff / Slide Review NO; Basophils Absolute Auto 100 /uL (0-100); Basophils Percent Auto 1.2 % (0-2); Eosinophils Absolute Auto 0 /uL (0-450); Eosinophils Percent Auto 0.2 % (2-4); Hematocrit 31.4 % (41-53); Hemoglobin 10.7 g/dL (13.5-17.5); Lymphocytes Absolute Auto 1600 /uL (1100-4500); Lymphocytes Percent Auto 15.5 % (25-40); Mean Corpuscular Hemoglobin 31.6 PG (26-34); Mean Corpuscular Volume 92.7 fL (80-100); Monocytes Absolute Auto 1000 /uL (0-900); Monocytes Percent Auto 9.7 % (3-14); Neutrophils Absolute Auto 7500 /uL (1500-7000); Neutrophils Percent Auto 73.4 % (50-75); Platelet Count 219 X10^3/uL (150-400); Red Blood Cell Count 3.39 X10^6/uL (4.5-5.9); Red Cell Distribution Width 15.9 % (11.6-14.8); White Blood Cell Count 10.2 X10^3/uL (4.5-11.0)
[2022-11-04 06:38] LABS: Alanine Aminotransferase 24 IU/L (<50); Albumin 3.3 g/dL (3.5-5.0); Albumin Globulin Ratio 0.9 (1.0-2.8); Alkaline Phosphatase 63 U/L (38-126); Aspartate Aminotransferase 28 IU/L (17-59); BUN Creatinine Ratio 21.4 (6-22); Bilirubin Total 0.7 mg/dL (0.2-1.3); Blood Urea Nitrogen 21 mg/dL (9-20); Calcium 7.3 mg/dL (8.4-10.2); Carbon Dioxide 23 mmol/L (22-32); Chloride 97 mmol/L (98-107); Estimated Glomerular Filt Rate > 60 mL/min (>60); Globulin 3.5 g/dL (1.7-4.1); Glucose 224 mg/dL (80-110); HEMOLYSIS < 15 (0-50); Magnesium 1.6 mg/dL (1.6-2.3); Potassium 3.6 mmol/L (3.4-5.1); Sodium 131 mmol/L (137-145); Total Protein 6.8 g/dL (6.3-8.2)
[2022-11-04] MEDS: LEVOTHYROXINE 25 MCG TABLET PO (06:38)
--- NOTE | 2022-11-04 07:02 | PC.NURSE ---
Patient had a large, soft/loose dark brown BM with moderate amount of bright, red blood x1. Patient's rectum with bulges, bright red blood present. SYD Wayne notified. Orders received to guaiac stool when get a better specimen. Patient states he does not have any rectal pain, just hemorrhoids that bleed sometimes.
[2022-11-04] MEDS: DABIGATRAN 75 MG CAPSULE 150 MG PO ×2 (08:28→21:03)
[2022-11-04] MEDS: LIDOCAINE PATCH 1 EACH ADH..PATCH TOP (08:28)
[2022-11-04] MEDS: METOPROLOL ER 50 MG TABLET PO ×2 (08:28→21:03)
[2022-11-04] MEDS: INSULIN GLARGINE 100 UNIT/ML 3ML PEN SUBCUT ×2 (08:30→21:13)
[2022-11-04] MEDS: INSULIN LISPRO 100 UNIT/ML 3ML VIAL SUBCUT ×4 (08:31→21:13)
[2022-11-04] MEDS: ALFUZOSIN 10 MG 10 EACH PO (08:45)
[2022-11-04] MEDS: MAGNESIUM CHLORIDE 64 MG TABLET 128 MG PO (08:45)
--- NOTE | 2022-11-04 15:38 | P.PN_ITS ---
Subjective Subjective Date Patient Seen: 11/04/22 Interval history: Remains short of breath with minimal exertion, even just to bathroom in his hospital room. no nausea or emesis. Exam Vital Signs (past 8 hours): - 11/04/22 08:28 11/04/22 07:45 11/04/22 08:00 Temperature 97.2 F L 97.2 F L Pulse Rate 60 60 Respiratory Rate 16 16 Blood Pressure 121/62 121/62 121/62 Pulse Oximetry 92 92 Oxygen Flow Rate 0 0 11/04/22 12:00 Temperature 97.7 F Pulse Rate 59 L Respiratory Rate 16 Blood Pressure 117/54 L Pulse Oximetry 91 Oxygen Flow Rate 0 Fraction of Inspired Oxygen 21 SaO2/FiO2 Ratio 442 Oxygen Delivery Method Room Air Oxygen Flow Rate 0 Narrative Exam Narrative: Gen: Alert, oriented, well-developed 87 y.o. male, NAD HEENT: normocephalic, atraumatic, conjunctiva clear, sclera non-icteric, oral mucosa pink and moist Neck: supple, full ROM, no JVD, trachea is midline Resp: CTA b/l no wheezes rhonchi or rales, slightly diminished breath sounds LLL. CHEST: L PPM scar well healed, no erythema, induration or warmth, slightly tender around area. CV: RRR, no murmur or rubs Abd: soft, non-tender, normoactive BTs Skin: very pale, no lesions or rashes, dry and intact Neuro: Alert and oriented X 4 w/no focal deficits. Speech clear and coherent. Extremities: R > L peripheral edema, pitting 1+. No joint effusions. Psyche: normal mood and affect. Objective Labs Result Diagrams: 11/04/22 06:12 11/04/22 06:12 Labs: Laboratory Results - last 24 hr 11/04/22 11/04/22 06:12 06:12 WBC 10.2 RBC 3.39 L Hgb 10.7 L Hct 31.4 L MCV 92.7 MCH 31.6 MCHC 34.0 RDW 15.9 H Plt Count 219 Neut % (Auto) 73.4 Lymph % (Auto) 15.5 L [place] % (Auto) 9.7 Eos % (Auto) 0.2 L Baso % (Auto) 1.2 Neut # (Auto) 7500 H Lymph # (Auto) 1600 [place] # (Auto) 1000 H Eos # (Auto) 0 Baso # (Auto) 100 Sodium 131 L Potassium 3.6 Chloride 97 L Carbon Dioxide 23 BUN 21 H Creatinine 0.98 Estimated GFR > 60 BUN/Creatinine Ratio 21.4 Glucose 224 H Calcium 7.3 L Magnesium 1.6 Total Bilirubin 0.7 AST 28 ALT 24 Alkaline Phosphatase 63 Total Protein 6.8 Albumin 3.3 L Globulin 3.5 Albumin/Globulin Ratio 0.9 L PFSH Medical History (Updated 11/01/22 @ 20:17 by SYD Sheets) Anticoagulated Asthma Atrial fibrillation, transient Bladder calculi Cancer COPD with acute exacerbation Diabetes GERD (gastroesophageal reflux disease) Hyperlipidemia Hypertension Incomplete bladder emptying Lower urinary tract symptoms (LUTS) Osteoarthritis (arthritis due to wear and tear of joints) Pacemaker Prostate cancer TIA (transient ischemic attack) Type 2 diabetes mellitus with diabetic neuropathy Surgical History H/O vasectomy History of appendectomy Previous back surgery Total knee replacement status Family History (Updated 11/01/22 @ 22:38 by SYD Sheets) Family/Other No problems noted. Mother Brain tumor Father Medical history unknown Social History marital status: number of children: 3 household members: spouse Smoking Status: Never smoker alcohol intake: former Type(s) of exercise: walking frequency: daily Assessment & Plan Assessment & Plan narrative: Oscar Schwab remains admitted for shortness of breath due to left pneumonia with pleural effusion, possible new diagnosis of congestive heart failure. Shortness of breath, Left lower lobe bacterial pneumonia with outpatient failur e, present on admission, possible new heart failure. * He was started on IV azithromycin and ceftriaxone and this will be continued for outpatient failure * Continue alternating doses of albuterol and DuoNebs q.3 hours as needed. * Pulmicort nebulizers twice daily * Left pleural effusion slightly increased, along with elevated proBNP may be new heart failure, TTE pending from today. Pleural effusion may be related to heart failure or parapneumonic. * increased diuresis yesterday with still minimal improvement. EF borderline at 45-50%. Will continue diuresis today. If no significant improvement repeat CXR tomorrow and consider thoracentesis depending on size of effusion if still present. Hypomagnesia, acute * His magnesium was 1.1 and received 2 g of magnesium riders, improved to 1.8 now 1.6. * Daily magnesium level Chronic hypoxic respiratory failure * Continue supplemental oxygen as he uses at home, goal O2 90-96% while on supplemental therapy. Diabetes type 2 * Diabetes type 2 suboptimally controlled with an A1c of 8.8 * Started patient on Lantus BID continue to adjust as needed. Hypothyroidism * Continue home dose of levothyroxine 25 mcg p.o. daily Prostate cancer * Patient receives q.6 month Lupron treatments and is followed by his oncologist Patient is admitted to the inpatient service due to the severity of disease, risks of further disease progression and this stay is expected to exceed 2 midnights. FEN: IV fluids: Saline lock, diet: Carb control no added salt, labs: CBC, C/BMP, liver enzymes, Mag, PT/INR Consultants none Dispo: probable discharge to home in 1-2 days. Code status: Full code as discussed with the patient who identifies his Peyton as his vsurrogate and POA. COVID-19 COVID-19 status: Negative Result date/Date tested (Pos, Neg/Pending): 11/01/22 Time Spent With Patient Critical Care time: I spent a total of [] minutes of critical care time on this patient's care today; this time is exclusive of procedural time. Quality VTE Deep Vein Thrombosis/Pulmonary Embolism Present on Admission: No
[2022-11-04] MEDS: cefTRIAXone 1,000 MG in SODIUM CHLORIDE 0.9% 100 ML 200 MG IV (18:11)
[2022-11-05 00:13] VITALS: BP 134/60; PULSE 60; RESP 18; TEMP 36.4; O2SAT 92
[2022-11-05 06:38] LABS: BUN Creatinine Ratio 22.9 (6-22); Blood Urea Nitrogen 22 mg/dL (9-20); Calcium 7.4 mg/dL (8.4-10.2); Carbon Dioxide 25 mmol/L (22-32); Chloride 95 mmol/L (98-107); Estimated Glomerular Filt Rate > 60 mL/min (>60); Glucose 299 mg/dL (80-110); HEMOLYSIS < 15 (0-50); Magnesium 1.8 mg/dL (1.6-2.3); Potassium 3.6 mmol/L (3.4-5.1); Sodium 130 mmol/L (137-145)
[2022-11-05] MEDS: LEVOTHYROXINE 25 MCG TABLET PO (06:45)
[2022-11-05 08:34] VITALS: BP 134/66; PULSE 61; RESP 16; TEMP 37.1; O2SAT 94
[2022-11-05 08:38] VITALS: BP 134/66
[2022-11-05] MEDS: METOPROLOL ER 50 MG TABLET PO (08:38)
[2022-11-05] MEDS: DABIGATRAN 75 MG CAPSULE 150 MG PO (08:38)
[2022-11-05] MEDS: INSULIN GLARGINE 100 UNIT/ML 3ML PEN SUBCUT (08:38)
[2022-11-05] MEDS: ALFUZOSIN 10 MG 10 EACH PO (08:38)
[2022-11-05] MEDS: INSULIN LISPRO 100 UNIT/ML 3ML VIAL SUBCUT ×2 (08:39→11:55)
[2022-11-05] MEDS: LIDOCAINE PATCH 1 EACH ADH..PATCH TOP (08:39)
--- NOTE | 2022-11-05 09:42 | P.DS_ITS ---
History of Present Illness History of Present Illness Date Patient Seen: 11/05/22 Time Patient Seen: 09:42 Chief complaint: SOB Narrative: Per admitting provider, Oscar Schwab is an 87-year-old male nonsmoker with history of atrial fibrillation anticoagulated on Pradaxa, pacemaker, TIA, diabetes type 2 and prostate cancer currently being treated and on 2L home oxygen presents by EMS from the [facility] with a chief complaint of increasing shortness of breath and sharp and stabbing left-sided chest pain over the course of the day.? He states this pain is sharp and stabbing worse with a deep breath, palpation and motion.? He denies fever, sweats or chills and or productive cough.? He denies recent travel or injury but was seen in the ED on 10/27, diagnosed with community- acquired pneumonia and prescibed doxycycline. He had a CTA done on October 27 which ruled out a pulmonary embolism however did identify that there was a left-sided consolidation in the left lower lobe. Repeat of the chest CT did report slight enlargement of the pleural effusion on the left lung though felt to be stable. Also noted that he had mild cardiomegaly. He is afebrile, blood pressure 108/54 heart rate 60 respiratory rate 20 oxygen saturation of 97% on 2 L he weighs 107.5 kg with a BMI of 32.1. CBC is unremarkable but he is slightly anemic with a hemoglobin and hematocrit of 10.9 and 32.2 (this appears to be his baseline0, is a mildly elevated dimer, glucose was 192 A1c is 8.8 lactate 2.4 calcium 8.0 and magnesium 1.1 brain natriuretic peptide is 2690, flu and COVID-19 PCR panel is negative. Discharge Providers Provider Date of admission: 11/01/22 19:59 Discharge Date: 11/05/22 Primary care physician: Tan Agosto MD Discharge provider: Mihai Rosas DO Summary Hospital Course Discharge Diagnosis: Left lower lobe bacterial pneumonia with outpatient failure, present on admission Acute diastolic (borderline EF 45-50%) heart failure, new diagnosis Hypomagnesia, acute Chronic hypoxic respiratory failure Diabetes type 2 Hypothyroidism Prostate cancer Hospital Course: Oscar Schwab is an 87-year-old male with a past medical history chronic hypoxic respiratory failure, admitted with shortness of breath due to left pneumonia with pleural effusion, possible new diagnosis of congestive heart failure. His oxygen requirements were at baseline at the time of admission, but his oxygen requirements did improve at the time of discharge and he was no longer requiring supplemental therapy. Initial imaging showed a left-sided pleural effusion, with recent pneumonia and outpatient failure of antibiotics he was started on ceftriaxone and azithromycin with improvement. His magnesium was also low and was repleted on admission with improvement in laboratory evaluation as well as somewhat is weakness. He was started on diuretic therapy with IV Lasix, ultimately echocardiogram showed a borderline EF at 45 to 50% and he did have much improvement with diuretic therapy as far as his symptoms. Discharged on 80 mg of oral lasix BID, and recommend PCP follow up in the next 1-2 weeks for likely adjustment to lower dosing once more euvolemic as he still has some peripheral edema and pleural effusion based on lung exam at the time of dis charge. He was continued on his augmentin for possible pneumonia at the time of discharge, with recommendation to stop in another 5 days as he had more than this remaining with his prescription. No other changes are recommended to home medications at the time of discharge. Time Spent with Patient Time spent: Greater than 30 minutes Exam Vital Signs (past 8 hours): - 11/05/22 08:34 11/05/22 08:38 Temperature 98.7 F Pulse Rate 61 Respiratory Rate 16 Blood Pressure 134/66 134/66 Pulse Oximetry 94 Oxygen Flow Rate 0 Fraction of Inspired Oxygen 21 SaO2/FiO2 Ratio 442 Oxygen Delivery Method Room Air Oxygen Flow Rate 0 Narrative Exam Narrative: Gen: Alert, oriented, well-developed 87 y.o. male, NAD HEENT: normocephalic, atraumatic, conjunctiva clear, sclera non-icteric, oral mucosa pink and moist Neck: supple, full ROM, no JVD, trachea is midline Resp: CTA b/l no wheezes rhonchi or rales, slightly diminished breath sounds LLL improved from prior. CHEST: L PPM scar well healed, no erythema, induration or warmth, slightly tender around area. CV: RRR, no murmur or rubs Abd: soft, non-tender, normoactive BTs Skin: very pale, no lesions or rashes, dry and intact Neuro: Alert and oriented X 4 w/no focal deficits. Speech clear and coherent. Extremities: R > L peripheral edema, but improved today. No joint effusions. Psyche: normal mood and affect. Objective Labs Result Diagrams: 11/04/22 06:12 11/05/22 06:03 Labs: Laboratory Results - last 24 hr 11/05/22 06:03 Sodium 130 L Potassium 3.6 Chloride 95 L Carbon Dioxide 25 BUN 22 H Creatinine 0.96 Estimated GFR > 60 BUN/Creatinine Ratio 22.9 H Glucose 299 H Calcium 7.4 L Magnesium 1.8 PFSH Medical History (Updated 11/01/22 @ 20:17 by SYD Sheets) Anticoagulated Asthma Atrial fibrillation, transient Bladder calculi Cancer COPD with acute exacerbation Diabetes GERD (gastroesophageal reflux disease) Hyperlipidemia Hypertension Incomplete bladder emptying Lower urinary tract symptoms (LUTS) Osteoarthritis (arthritis due to wear and tear of joints) Pacemaker Prostate cancer TIA (transient ischemic attack) Type 2 diabetes mellitus with diabetic neuropathy Surgical History H/O vasectomy History of appendectomy Previous back surgery Total knee replacement status Family History (Updated 11/01/22 @ 22:38 by SYD Sheets) Family/Other No problems noted. Mother Brain tumor Father Medical history unknown Social History marital status: number of children: 3 household members: spouse Smoking Status: Never smoker alcohol intake: former Type(s) of exercise: walking frequency: daily Discharge Plan Discharge Plan Patient Disposition: Home Provider Discharge Comment: You were admitted to the hospital with shortness of breath and fatigue, possibly due to pneumonia or your heart not pumping very well. Your heart function was slightly decreased from prior imaging studies, and your home lasix will be increased at discharge. You should follow up with your PCP in the next 1-2 weeks to continue to guide medication adjustments with your heart. Complete another 5 days of the antibiotics you were already taking at home to complete therapy for possible pneumonia. Discharge orders & Medications Prescriptions: New furosemide 80 mg tablet 80 mg PO BID 30 Days Qty: 60 0RF Continued metformin [Glucophage XR] 500 MG tablet extended release 24 hr 1,000 mg PO BID Qty: 0 Label Comments: am and noon cholecalciferol (vitamin D3) [Vitamin D3] 5,000 unit Tablet 1,000 unit PO DAILY Qty: 0 dabigatran etexilate [Pradaxa] 75 mg Capsule 150 mg PO BID Rx Instructions: Unknown dose B12 1,000 mcg PO DAILY metoprolol succinate 100 mg tablet extended release 24 hr 50 mg PO BID glipizide 10 mg tablet extended release 24hr 5 mg PO QAM loperamide 2 mg Tablet 2 mg PO PRN PRN (Reason: Diarrhea) Label Comments: spouse states takes often ibuprofen [Advil] 200 mg Tablet 200 mg PO PRN PRN (Reason: pain) omeprazole 20 mg capsule,delayed release(DR/EC) 20 mg PO BID amoxicillin-pot clavulanate 875-125 mg tablet 1 tab PO BID Qty: 14 0RF alfuzosin [Uroxatral] 10 mg tablet extended release 24 hr 10 mg PO DAILY Qty: 90 3RF Rx Instructions: administer after the same meal each day levothyroxine [Synthroid] 25 mcg tablet 25 mcg PO DAILY magnesium 400 mg PO DAILY Discontinued doxycycline monohydrate 100 mg capsule 100 mg PO BID Qty: 14 0RF furosemide [Lasix] 20 mg tablet 80 mg PO DAILY Follow up/Referrals: Tan Agosto MD [Primary Care Provider] - Diet/Activity/Treatments Diet: Diet as Tolerated Activity: As tolerated Visit Report/Discharge Packet Instructions: DI for Heart Failure, DI for Chronic Obstructive Pulmonary Disease, DI for Pneumonia -- Adult, Furosemide Discharge Data Primary Care Provider: Tan Agosto Quality VTE Deep Vein Thrombosis/Pulmonary Embolism Present on Admission: No MIPS - DC The patient has a history of heart transplant or Left Ventricular Assist Device (LVAD). If yes, STOP here.: No The patient has current or prior documentation of left ventricular ejection fraction (LVEF) less than or equal to 40%, or moderate or severely depressed left ventricular systolic function.: No
--- NOTE | 2022-11-05 11:13 | PC.NURSE ---
Pt home meds returned to Pt.
--- NOTE | 2022-11-05 11:29 | PC.NURSE ---
Pt is dressed and packed up ready to go home with friend Namrata. IV has been removed. She has been cleared by PT. Went over d/c instructions with Pt-discussed d/c meds, time of last dose, reviewed stroke education, s/s of infection, no driving while on narcotics, drink plenty of fluids to prevent constipation or dehydration, showering and follow up appointment. Pt denies further questions and is ready to be taken out when friend arrives to drive her.
--- NOTE | 2022-11-05 13:01 | PC.NURSE ---
Pt is dressed and ready to discharge home with Granddaughter. IV has been removed. Went over CHF guidelines sheet. reviewed stroke education. Went over d/c instructions with Pt-discussed d/c meds, time of last dose, reviewed stroke education, daily weights, low sodium diet, when to call MD and follow up appointment in 1-2 weeks with PCP. Pt and Granddaughter denied further questions and Pt was taken out via w/c by [employer] with Granddaughter and all belongings.
== END 2022-11-05 13:06 | disposition home or self-care (01) | DRG 193 ==
LOC: ED 19:49 → AC 19:59
PROVIDERS: Admitting Provider Nurse Practitioner Family; Emergency Provider Emergency Medicine; Family Provider Internal Medicine Cardiovascular Disease; PCP Family Medicine; Referring Provider Emergency Medicine; Visit Provider Nurse Practitioner Family
DX: J18.9 Pneumonia, unspecified organism (principal); I50.31 Acute diastolic (congestive) heart failure; J96.11 Chronic respiratory failure with hypoxia; E83.42 Hypomagnesemia; E03.9 Hypothyroidism, unspecified; C61 Malignant neoplasm of prostate; E11.65 Type 2 diabetes mellitus with hyperglycemia; I11.0 Hypertensive heart disease with heart failure; K21.9 Gastro-esophageal reflux disease without esophagitis; Z99.81 Dependence on supplemental oxygen; Z79.84 Long term (current) use of oral hypoglycemic drugs; Z20.822 Contact with and (suspected) exposure to COVID-19; Z95.0 Presence of cardiac pacemaker
CPT/HCPCS: 0241U; 36415; 71045; 71250; 80048; 80053; 81001; 82550; 82962; 83036; 83605; 83735; 83880; 84145; 84484; 85025; 85379; 86140; 87040; 93005; 93010; 93306; 94640; 94760; 94762; 96365; 96375; 99285; J0696; J1815; J1940; J3475

== ENCOUNTER 2022-11-20 12:10 | Inpatient (IN) | payer MEDICARE, OTHER, SELFPAY ==
[2022-11-01 21:10] VITALS: BMI 32.1
[2022-11-20] VITALS (16 sets, daily range): BP systolic 102–137; BP diastolic 56–68; PULSE 60–78; RESP 13–31; TEMP 36–36.4; O2SAT 94–96; BMI 28.8
--- NOTE | 2022-11-20 12:15 | DI.RAD.S_ITS ---
PROCEDURE: XR CHEST 1V INDICATIONS: weak, fatigued TECHNIQUE: One view of the chest was acquired. COMPARISON: [facility], CT, CT CHEST WO CON, 11/01/2022, 16:49. [facility], CR, XR CHEST 1V, 11/01/2022, 15:29. [facility], CR, XR CHEST 1V, 10/27/2022, 17:13. FINDINGS: Surgical changes and devices: Left pacemaker with right atrial and right ventricular leads. Lungs and pleura: Opacity at the left lower lobe. Left pleural effusion. No pneumothorax. Mediastinum: Mediastinal contours appear normal. Heart size is prominent. Bones and chest wall: No suspicious bony lesions. Overlying soft tissues appear unremarkable. IMPRESSION: Small to moderate left pleural effusion. Left lower lobe opacity which could represent compressive atelectasis or pneumonia. Dictated by: Kwabena Damon M.D. on 11/20/2022 at 13:54 Approved by: Kwabena Damon M.D. on 11/20/2022 at 13:55
[2022-11-20 12:35] LABS: Add Manual Diff / Slide Review NO; Basophils Absolute Auto 0 /uL (0-100); Basophils Percent Auto 0.4 % (0-2); Eosinophils Absolute Auto 0 /uL (0-450); Eosinophils Percent Auto 0.5 % (2-4); Hemoglobin 10.4 g/dL (13.5-17.5); Lymphocytes Absolute Auto 1800 /uL (1100-4500); Lymphocytes Percent Auto 22.1 % (25-40); Mean Corpuscular HGB Conc 32.4 % (30-36); Mean Corpuscular Hemoglobin 29.5 PG (26-34); Mean Corpuscular Volume 91.2 fL (80-100); Monocytes Absolute Auto 700 /uL (0-900); Monocytes Percent Auto 8.2 % (3-14); Neutrophils Absolute Auto 5700 /uL (1500-7000); Neutrophils Percent Auto 68.8 % (50-75); Platelet Count 303 X10^3/uL (150-400); Red Blood Cell Count 3.51 X10^6/uL (4.5-5.9); Red Cell Distribution Width 16.7 % (11.6-14.8); White Blood Cell Count 8.3 X10^3/uL (4.5-11.0)
[2022-11-20 12:51] LABS: INR 1.4 (0.9-1.3); Prothrombin Time 16.1 SECONDS (10.1-12.7)
[2022-11-20 12:54] LABS: PTT Partial Thromboplastin Tim 34 SECONDS (26-36)
[2022-11-20 12:55] LABS: pH VBG 7.49 (7.33-7.43)
[2022-11-20 12:56] LABS: HCO3 VBG 33 mmol/L (23-28); Oxygen Saturation VBG 79 % (70-75); PCO2 VBG 43.5 mmHg (45-50); PO2 VBG 41 mmHg (35-45); Total CO2 VBG 34 mmol/L (24-29)
[2022-11-20 13:02] LABS: Creatine Kinase 21 U/L (55-170); Lipase 78 U/L (23-300); Magnesium 1.3 mg/dL (1.6-2.3)
[2022-11-20 13:03] LABS: Lactate (Lactic Acid) 3.6 mmol/L (0.7-2.1)
[2022-11-20 13:05] LABS: Alanine Aminotransferase 40 IU/L (<50); Albumin 3.5 g/dL (3.5-5.0); Albumin Globulin Ratio 0.9 (1.0-2.8); Alkaline Phosphatase 92 U/L (38-126); Aspartate Aminotransferase 37 IU/L (17-59); BUN Creatinine Ratio 38.5 (6-22); Bilirubin Total 0.5 mg/dL (0.2-1.3); Blood Urea Nitrogen 37 mg/dL (9-20); Calcium 8.5 mg/dL (8.4-10.2); Carbon Dioxide 29 mmol/L (22-32); Chloride 88 mmol/L (98-107); Estimated Glomerular Filt Rate > 60 mL/min (>60); Globulin 3.9 g/dL (1.7-4.1); Glucose 454 mg/dL (80-110); HEMOLYSIS < 15 (0-50); Ketones (Beta-Hydroxybutyrate) 0.09 mmol/L (<0.27); Potassium 3.7 mmol/L (3.4-5.1); Sodium 133 mmol/L (137-145); Total Protein 7.4 g/dL (6.3-8.2)
[2022-11-20 13:13] LABS: NT-proBNP (BNP-Adult 18+) 1050 pg/mL (<450); Troponin I < 0.012 ng/mL (0.01-0.034)
--- NOTE | 2022-11-20 13:18 | ED_ITS ---
HPI - SOB/Dyspnea General Chief Complaint: Shortness of Breath/Dyspnea Stated Complaint: SOB/Weakness Time Seen by Provider: 11/20/22 12:10 Source: EMS Mode of arrival: EMS Limitations: language barrier History of Present Illness HPI Narrative: 87-year-old male nonsmoker with history of atrial fibrillation, pacemaker on Pradaxa, TIA, diabetes on 2 L home oxygen presents by EMS for evaluation of gradual decline over at least the past few days. He had been seen and evaluated by myself a few weeks ago was admitted for combination of respiratory failure due to CHF, COPD and pneumonia. He was admitted for 4 days and discharged home with diagnoses of left lower lobe pneumonia, outpatient failure, diastolic heart failure, type 2 diabetes. He has been increasingly weak and fatigued over at least the past few days with some confusion reported by family. He is had no falls, traumas or injuries. Related Data Home Medications Medication Instructions Recorded Confirmed metformin 500 mg tablet,extended 1,000 mg PO BID ##0 10/14/12 11/20/22 release 24 hr (Glucophage XR) cholecalciferol (vitamin D3) 125 1,000 unit PO DAILY ##0 08/18/16 11/20/22 mcg (5,000 unit) tablet (Vitamin D3) glipizide 10 mg tablet, extended 5 mg PO QAM 09/24/18 11/20/22 release 24 hr omeprazole 20 mg capsule,delayed 20 mg PO BID 09/24/18 11/20/22 release B12 1,000 mcg PO DAILY 07/18/20 11/20/22 dabigatran etexilate 75 mg capsule 150 mg PO BID 07/18/20 11/20/22 (Pradaxa) levothyroxine 25 mcg tablet 25 mcg PO DAILY 12/11/21 11/20/22 (Synthroid) magnesium 400 mg PO DAILY 12/11/21 11/20/22 metoprolol succinate 100 mg 50 mg PO BID 04/01/22 11/20/22 tablet,extended release 24 hr Previous Rx's Medication Instructions Recorded alfuzosin 10 mg tablet,extended 10 mg PO DAILY #90 tabs 12/31/21 release 24 hr (Uroxatral) furosemide 80 mg tablet 80 mg PO BID 30 days #60 tabs 11/05/22 Allergies Allergy/AdvReac Type Severity Reaction Status Date / Time No Known Drug Allergies Allergy Verified 11/20/22 12:20 Review of Systems Review of Systems Narrative: GENERAL: See HPI HEENT: Denies sinus pain, ear pain, sore throat, difficulty swallowing, dizz iness. RESPIRATORY: See HPI CARDIOVASCULAR: Denies chest pain, palpitations, orthopnea, edema, GASTROINTESTINAL: Denies nausea, vomiting, abdominal pain, diarrhea, constipation, melena. : Denies dysuria, frequency, incontinence, hematuria, urinary retention. MUSCULOSKELETAL: denies weakness, joint pain, or bony pain SKIN: Denies rash, skin lesions, or other NEUROLOGIC: Denies weakness, headache, numbness, change in speech, confusion, seizures, incoordination. PSYCHIATRIC: No concerning psychosocial issues. 12 point review of systems is negative except for those stated above Patient History Medical History Anticoagulated Asthma Atrial fibrillation, transient Bladder calculi Cancer COPD with acute exacerbation Diabetes GERD (gastroesophageal reflux disease) Hyperlipidemia Hypertension Incomplete bladder emptying Lower urinary tract symptoms (LUTS) Osteoarthritis (arthritis due to wear and tear of joints) Pacemaker Prostate cancer TIA (transient ischemic attack) Type 2 diabetes mellitus with diabetic neuropathy Surgical History H/O vasectomy History of appendectomy Previous back surgery Total knee replacement status Family History Family/Other No problems noted. Mother Brain tumor Father Medical history unknown Social History marital status: number of children: 3 household members: spouse Smoking Status: Never smoker alcohol intake: former Type(s) of exercise: walking frequency: daily Smoking Status: Never smoker alcohol intake frequency: 0-2 drinks per day Substance Use Type: does not use Exam Narrative Exam Narrative: GENERAL: [87] year old patient appears stated age. Well-developed patient, in mild distress. GCS 14 (confusion) HEAD: Atraumatic. Normocephalic. EYES: Pupils equal round and reactive. Extraocular motions intact. No scleral icterus. No injection or drainage. ENT: Nose without bleeding, purulent drainage. Throat without erythema, tonsillar hypertrophy or exudate. Airway patent. NECK: Trachea midline. Non tender CARDIOVASCULAR: Regular rate and rhythm without murmurs, gallops, or rubs. RESPIRATORY: Clear to auscultation. Breath sounds equal bilaterally. No wheezes, rales, or rhonchi. GASTROINTESTINAL: Abdomen soft, non-tender, nondistended. EXTREMITIES: No edema or joint tenderness. BACK: Nontender without deformity or crepitance. No flank tenderness. NEURO: AOx3. SKIN: No rash or erythema of visible areas Initial Vital Signs Initial Vital Signs: Vital Signs Pulse Rate 78 11/20/22 12:16 Respiratory Rate 22 11/20/22 12:16 Blood Pressure 122/68 11/20/22 12:16 Pulse Oximetry 95 11/20/22 12:16 Course Orders Ordered: Acetaminophen (Acetaminophen 325 Mg Tablet) 650 mg PO Q6H PRN PRN Reason: Fever/Mild Pain (1-3) Citalopram Hydrobromide (Citalopram 10 Mg Tablet) 10 mg PO DAILY COUNT INCLUDES THE [facility] Dabigatran (Dabigatran 75 Mg Capsule) 150 mg PO BID COUNT INCLUDES THE [facility] Last Admin: 11/21/22 09:09 Dose: 150 mg Documented By: Admin: 11/20/22 21:22 Dose: 150 mg Documented By: JÚNIOR Dextrose (Dextrose 50 % In Water 25 Gm/50 Ml Syringe) 25 gm IV PRN PRN PRN Reason: Hypoglycemia Sodium Chloride (Normal Saline 0.9%) 1,000 mls @ 75 mls/hr IV CONT COUNT INCLUDES THE [facility] Last Admin: 11/21/22 06:03 Dose: 75 mls/hr Documented By: Infusion: 11/21/22 06:03 Dose: 75 mls/hr Documented By: Admin: 11/20/22 17:39 Dose: 75 mls/hr Documented By: EDMUND Insulin Glargine (Insulin Glargine 100 Unit/Ml 3ml Pen) 10 unit SUBCUT 2100 COUNT INCLUDES THE [facility] Last Admin: 11/20/22 21:24 Dose: 10 unit Documented By: JÚNIOR Co-signed By: KIMANI Insulin Human Lispro (Insulin Lispro 100 Unit/Ml 3ml Vial) 0 unit SUBCUT ACHS COUNT INCLUDES THE [facility]; Protocol Last Admin: 11/21/22 09:02 Dose: 1 unit Documented By: KORY Co-signed By: INGRID Admin: 11/20/22 21:22 Dose: 2 unit Documented By: JÚNIOR Co-signed By: KIMANI Admin: 11/20/22 17:45 Dose: 5 unit Documented By: EDMUND Co-signed By: MALLY Metoprolol Succinate (Metoprolol Er 50 Mg Tablet) 50 mg PO BID COUNT INCLUDES THE [facility] Last Admin: 11/21/22 09:09 Dose: 50 mg Documented By: Admin: 11/20/22 21:22 Dose: 50 mg Documented By: JÚNIOR Naloxone HCl (Naloxone 0.4 Mg/Ml Vial) 0.2 mg IV Q2MIN PRN PRN Reason: Opiate Reversal Nf - Alfuzosin ( Uroxatral) 10 Mg Er Tablet 1 mg PO DAILY COUNT INCLUDES THE [facility] Last Admin: 11/21/22 09:07 Dose: 1 mg Documented By: KORY Ondansetron HCl (Ondansetron 4 Mg Odt) 4 mg PO Q8HR PRN PRN Reason: Nausea And Vomiting Potassium Chloride (Potassium Chloride 20 Meq Tab) 40 meq PO Q6H COUNT INCLUDES THE [facility] Stop: 11/21/22 14:08 Last Admin: 11/21/22 09:03 Dose: 40 meq Documented By: KORY Sennosides (Sennosides 8.6 Mg Tablet) 17.2 mg PO BEDTIME COUNT INCLUDES THE [facility] Last Admin: 11/20/22 21:22 Dose: 17.2 mg Documented By: JÚNIOR Discontinued Medications Aspirin (Aspirin 325 Mg Tablet) 325 mg PO NOW ONE Stop: 11/21/22 05:25 Last Admin: 11/21/22 05:48 Dose: 325 mg Documented By: DARRYL Dabigatran (Dabigatran 75 Mg Capsule) 150 mg PO BID COUNT INCLUDES THE [facility] Furosemide (Furosemide 40 Mg/4 Ml Vial) 40 mg IV NOW ONE Stop: 11/20/22 13:22 Last Admin: 11/20/22 14:09 Dose: 40 mg Documented By: JANI Sodium Chloride (Normal Saline 0.9%) 2,895 mls @ 965 mls/hr 30 ml/kg infuse over 3 hr (2895 ml) IV NOW ONE Stop: 11/20/22 16:20 Last Admin: 11/20/22 14:04 Dose: 965 mls/hr Documented By: JANI Piperacillin Sod/Tazobactam (Sod 4.5 gm/ Sodium Chloride) 100 mls @ 200 mls/hr IV NOW ONE Stop: 11/20/22 13:22 Last Infusion: 11/20/22 14:59 Dose: 0 mls/hr Documented By: Admin: 11/20/22 14:06 Dose: 200 mls/hr Documented By: JANI Magnesium Sulfate (Magnesium Sulfate) 2 gm in 50 mls @ 25 mls/hr IV NOW ONE Stop: 11/20/22 19:08 Last Admin: 11/20/22 17:58 Dose: 25 mls/hr Documented By: EDMUND Co-signed By: MALLY Magnesium Sulfate (Magnesium Sulfate) 2 gm in 50 mls @ 25 mls/hr IV NOW ONE Stop: 11/21/22 10:07 Last Admin: 11/21/22 09:05 Dose: 25 mls/hr Documented By: KORY Co-signed By: INGRID Insulin Human Regular (Insulin Regular 100 Unit/Ml 3 Ml Vial) 5 unit SUBCUT NOW ONE Stop: 11/20/22 13:22 Last Admin: 11/20/22 14:06 Dose: 5 unit Documented By: JANI Co-signed By: ANN Metoprolol Succinate (Metoprolol Er 50 Mg Tablet) 50 mg PO BID ILEANA Alfuzosin [Uroxatral ] 10 Mg Tablet Extended Release 24 Hr 10 mg PO DAILY ILEANA Vital Signs Vital signs: Vital Signs - 8 hr 11/20/22 12:20 11/20/22 12:16 11/20/22 12:16 Temperature 96.8 F L Pulse Rate 78 78 Respiratory Rate 22 22 Blood Pressure 122/68 122/68 Pulse Oximetry 95 95 Oxygen Delivery Method Room Air 11/20/22 12:30 11/20/22 12:30 11/20/22 12:37 Temperature Pulse Rate 63 Respiratory Rate 13 14 Blood Pressure 118/64 Pulse Oximetry 95 96 Oxygen Delivery Method Room Air MDM - SOB/Dyspnea Lab Data Result diagrams: 11/21/22 05:25 11/21/22 05:25 Labs: Lab Results 11/20/22 11/20/22 11/20/22 Range/Units 12:14 12:30 12:30 WBC 8.3 (4.5-11.0) X10^3/uL RBC 3.51 L (4.5-5.9) X10^6/uL Hgb 10.4 L (13.5-17.5) g/dL Hct 32.0 L (41-53) % MCV 91.2 (80-100) fL MCH 29.5 (26-34) PG MCHC 32.4 (30-36) % RDW 16.7 H (11.6-14.8) % Plt Count 303 (150-400) X10^3/uL Neut % (Auto) 68.8 (50-75) % Lymph % (Auto) 22.1 L (25-40) % Ness % (Auto) 8.2 (3-14) % Eos % (Auto) 0.5 L (2-4) % Baso % (Auto) 0.4 (0-2) % Neut # (Auto) 5700 (2575-3346) /uL Lymph # (Auto) 1800 (4766-4029) /uL Ness # (Auto) 700 (0-900) /uL Eos # (Auto) 0 (0-450) /uL Baso # (Auto) 0 (0-100) /uL PT (10.1-12.7) SECONDS INR (0.9-1.3) APTT (26-36) SECONDS VBG pH (7.33-7.43) VBG pCO2 (45-50) mmHg VBG pO2 (35-45) mmHg VBG HCO3 (23-28) mmol/L VBG Total CO2 (24-29) mmol/L VBG O2 Saturation (70-75) % VBG Base Excess (0-4) mmol/L Sodium 133 L (137-145) mmol/L Potassium 3.7 (3.4-5.1) mmol/L Chloride 88 L (98-107) mmol/L Carbon Dioxide 29 (22-32) mmol/L BUN 37 H (9-20) mg/dL Creatinine 0.96 (0.66-1.25) mg/dL Estimated GFR > 60 (>60) mL/min BUN/Creatinine Ratio 38.5 H (6-22) Glucose 454 H (80-110) mg/dL Lactate (0.7-2.1) mmol/L Calcium 8.5 (8.4-10.2) mg/dL Magnesium (1.6-2.3) mg/dL Total Bilirubin 0.5 (0.2-1.3) mg/dL AST 37 (17-59) IU/L ALT 40 (<50) IU/L Alkaline Phosphatase 92 (38-126) U/L Total Creatine Kinase (55-170) U/L CK-MB (CK-2) CK-MB (CK-2) Rel Index Troponin I (0.01-0.034) ng/mL C-Reactive Protein 4.0 H (<1.0) mg/dL NT-Pro-B Natriuret Pep (<450) pg/mL Total Protein 7.4 (6.3-8.2) g/dL Albumin 3.5 (3.5-5.0) g/dL Globulin 3.9 (1.7-4.1) g/dL Albumin/Globulin Ratio 0.9 L (1.0-2.8) Lipase (23-300) U/L Procalcitonin (<0.5) ng/mL Urine Color Urine Appearance Urine pH (4.5-8.0) Ur Specific [place] (1.000-1.035) Urine Protein (Negative) Urine Glucose (UA) (Negative) g/dL Urine Ketones (NEGATIVE) Urine Occult Blood (Negative) Urine Nitrate (Negative) Urine Bilirubin (NEGATIVE) Urine Urobilinogen (0.2) E.U./dL Ur Leukocyte Esterase (NEGATIVE) Urine RBC (0-5/HPF) Urine WBC (0-5/HPF) Ur Squamous Epith Cells (0-5/HPF) Urine Bacteria (None) Urine Yeast (None) Ur Culture Indicated? Ketones 0.09 (<0.27) mmol/L SARS-CoV-2 (PCR) (Negative) Influenza A (RT-PCR) (NEGATIVE) Influenza B (RT-PCR) (NEGATIVE) RSV (PCR) (Negative) 11/20/22 11/20/22 11/20/22 Range/Units 12:30 12:30 12:30 WBC (4.5-11.0) X10^3/uL RBC (4.5-5.9) X10^6/uL Hgb (13.5-17.5) g/dL Hct (41-53) % MCV (80-100) fL MCH (26-34) PG MCHC (30-36) % RDW (11.6-14.8) % Plt Count (150-400) X10^3/uL Neut % (Auto) (50-75) % Lymph % (Auto) (25-40) % Ness % (Auto) (3-14) % Eos % (Auto) (2-4) % Baso % (Auto) (0-2) % Neut # (Auto) (0132-8100) /uL Lymph # (Auto) (4918-2039) /uL Ness # (Auto) (0-900) /uL Eos # (Auto) (0-450) /uL Baso # (Auto) (0-100) /uL PT 16.1 H (10.1-12.7) SECONDS INR 1.4 H (0.9-1.3) APTT 34 (26-36) SECONDS VBG pH (7.33-7.43) VBG pCO2 (45-50) mmHg VBG pO2 (35-45) mmHg VBG HCO3 (23-28) mmol/L VBG Total CO2 (24-29) mmol/L VBG O2 Saturation (70-75) % VBG Base Excess (0-4) mmol/L Sodium (137-145) mmol/L Potassium (3.4-5.1) mmol/L Chloride (98-107) mmol/L Carbon Dioxide (22-32) mmol/L BUN (9-20) mg/dL Creatinine (0.66-1.25) mg/dL Estimated GFR (>60) mL/min BUN/Creatinine Ratio (6-22) Glucose (80-110) mg/dL Lactate 3.6 H (0.7-2.1) mmol/L Calcium (8.4-10.2) mg/dL Magnesium 1.3 L (1.6-2.3) mg/dL Total Bilirubin (0.2-1.3) mg/dL AST (17-59) IU/L ALT (<50) IU/L Alkaline Phosphatase (38-126) U/L Total Creatine Kinase 21 L (55-170) U/L CK-MB (CK-2) TNP CK-MB (CK-2) Rel Index TNP Troponin I < 0.012 (0.01-0.034) ng/mL C-Reactive Protein (<1.0) mg/dL NT-Pro-B Natriuret Pep 1050 H (<450) pg/mL Total Protein (6.3-8.2) g/dL Albumin (3.5-5.0) g/dL Globulin (1.7-4.1) g/dL Albumin/Globulin Ratio (1.0-2.8) Lipase 78 (23-300) U/L Procalcitonin (<0.5) ng/mL Urine Color Urine Appearance Urine pH (4.5-8.0) Ur Specific [place] (1.000-1.035) Urine Protein (Negative) Urine Glucose (UA) (Negative) g/dL Urine Ketones (NEGATIVE) Urine Occult Blood (Negative) Urine Nitrate (Negative) Urine Bilirubin (NEGATIVE) Urine Urobilinogen (0.2) E.U./dL Ur Leukocyte Esterase (NEGATIVE) Urine RBC (0-5/HPF) Urine WBC (0-5/HPF) Ur Squamous Epith Cells (0-5/HPF) Urine Bacteria (None) Urine Yeast (None) Ur Culture Indicated? Ketones (<0.27) mmol/L SARS-CoV-2 (PCR) (Negative) Influenza A (RT-PCR) (NEGATIVE) Influenza B (RT-PCR) (NEGATIVE) RSV (PCR) (Negative) 11/20/22 11/20/22 11/20/22 Range/Units 12:30 12:32 12:35 WBC (4.5-11.0) X10^3/uL RBC (4.5-5.9) X10^6/uL Hgb (13.5-17.5) g/dL Hct (41-53) % MCV (80-100) fL MCH (26-34) PG MCHC (30-36) % RDW (11.6-14.8) % Plt Count (150-400) X10^3/uL Neut % (Auto) (50-75) % Lymph % (Auto) (25-40) % Ness % (Auto) (3-14) % Eos % (Auto) (2-4) % Baso % (Auto) (0-2) % Neut # (Auto) (9633-5942) /uL Lymph # (Auto) (8209-1591) /uL Ness # (Auto) (0-900) /uL Eos # (Auto) (0-450) /uL Baso # (Auto) (0-100) /uL PT (10.1-12.7) SECONDS INR (0.9-1.3) APTT (26-36) SECONDS VBG pH 7.49 H (7.33-7.43) VBG pCO2 43.5 L (45-50) mmHg VBG pO2 41 (35-45) mmHg VBG HCO3 33 H (23-28) mmol/L VBG Total CO2 34 H (24-29) mmol/L VBG O2 Saturation 79 H (70-75) % VBG Base Excess 33.0 H (0-4) mmol/L Sodium (137-145) mmol/L Potassium (3.4-5.1) mmol/L Chloride (98-107) mmol/L Carbon Dioxide (22-32) mmol/L BUN (9-20) mg/dL Creatinine (0.66-1.25) mg/dL Estimated GFR (>60) mL/min BUN/Creatinine Ratio (6-22) Glucose (80-110) mg/dL Lactate (0.7-2.1) mmol/L Calcium (8.4-10.2) mg/dL Magnesium (1.6-2.3) mg/dL Total Bilirubin (0.2-1.3) mg/dL AST (17-59) IU/L ALT (<50) IU/L Alkaline Phosphatase (38-126) U/L Total Creatine Kinase (55-170) U/L CK-MB (CK-2) CK-MB (CK-2) Rel Index Troponin I (0.01-0.034) ng/mL C-Reactive Protein (<1.0) mg/dL NT-Pro-B Natriuret Pep (<450) pg/mL Total Protein (6.3-8.2) g/dL Albumin (3.5-5.0) g/dL Globulin (1.7-4.1) g/dL Albumin/Globulin Ratio (1.0-2.8) Lipase (23-300) U/L Procalcitonin 0.10 (<0.5) ng/mL Urine Color Urine Appearance Urine pH (4.5-8.0) Ur Specific [place] (1.000-1.035) Urine Protein (Negative) Urine Glucose (UA) (Negative) g/dL Urine Ketones (NEGATIVE) Urine Occult Blood (Negative) Urine Nitrate (Negative) Urine Bilirubin (NEGATIVE) Urine Urobilinogen (0.2) E.U./dL Ur Leukocyte Esterase (NEGATIVE) Urine RBC (0-5/HPF) Urine WBC (0-5/HPF) Ur Squamous Epith Cells (0-5/HPF) Urine Bacteria (None) Urine Yeast (None) Ur Culture Indicated? Ketones (<0.27) mmol/L SARS-CoV-2 (PCR) Negative (Negative) Influenza A (RT-PCR) Flu a negative (NEGATIVE) Influenza B (RT-PCR) Flu b negative (NEGATIVE) RSV (PCR) Negative (Negative) 11/20/22 11/20/22 Range/Units 13:27 15:30 WBC (4.5-11.0) X10^3/uL RBC (4.5-5.9) X10^6/uL Hgb (13.5-17.5) g/dL Hct (41-53) % MCV (80-100) fL MCH (26-34) PG MCHC (30-36) % RDW (11.6-14.8) % Plt Count (150-400) X10^3/uL Neut % (Auto) (50-75) % Lymph % (Auto) (25-40) % Ness % (Auto) (3-14) % Eos % (Auto) (2-4) % Baso % (Auto) (0-2) % Neut # (Auto) (4815-0963) /uL Lymph # (Auto) (3721-7103) /uL Ness # (Auto) (0-900) /uL Eos # (Auto) (0-450) /uL Baso # (Auto) (0-100) /uL PT (10.1-12.7) SECONDS INR (0.9-1.3) APTT (26-36) SECONDS VBG pH (7.33-7.43) VBG pCO2 (45-50) mmHg VBG pO2 (35-45) mmHg VBG HCO3 (23-28) mmol/L VBG Total CO2 (24-29) mmol/L VBG O2 Saturation (70-75) % VBG Base Excess (0-4) mmol/L Sodium (137-145) mmol/L Potassium (3.4-5.1) mmol/L Chloride (98-107) mmol/L Carbon Dioxide (22-32) mmol/L BUN (9-20) mg/dL Creatinine (0.66-1.25) mg/dL Estimated GFR (>60) mL/min BUN/Creatinine Ratio (6-22) Glucose (80-110) mg/dL Lactate 3.4 H (0.7-2.1) mmol/L Calcium (8.4-10.2) mg/dL Magnesium (1.6-2.3) mg/dL Total Bilirubin (0.2-1.3) mg/dL AST (17-59) IU/L ALT (<50) IU/L Alkaline Phosphatase (38-126) U/L Total Creatine Kinase (55-170) U/L CK-MB (CK-2) CK-MB (CK-2) Rel Index Troponin I (0.01-0.034) ng/mL C-Reactive Protein (<1.0) mg/dL NT-Pro-B Natriuret Pep (<450) pg/mL Total Protein (6.3-8.2) g/dL Albumin (3.5-5.0) g/dL Globulin (1.7-4.1) g/dL Albumin/Globulin Ratio (1.0-2.8) Lipase (23-300) U/L Procalcitonin (<0.5) ng/mL Urine Color Yellow Urine Appearance Clear Urine pH 6.0 (4.5-8.0) Ur Specific [place] <=1.005 (1.000-1.035) Urine Protein Negative (Negative) Urine Glucose (UA) 2+ H (Negative) g/dL Urine Ketones Negative (NEGATIVE) Urine Occult Blood Negative (Negative) Urine Nitrate Negative (Negative) Urine Bilirubin Negative (NEGATIVE) Urine Urobilinogen 0.2 (0.2) E.U./dL Ur Leukocyte Esterase Negative (NEGATIVE) Urine RBC 0-1/hpf (0-5/HPF) Urine WBC 1-5/hpf (0-5/HPF) Ur Squamous Epith Cells 0-1 /hpf (0-5/HPF) Urine Bacteria Occasional (0-1) (None) Urine Yeast 5-10/hpf H (None) Ur Culture Indicated? Cult not indicated Ketones (<0.27) mmol/L SARS-CoV-2 (PCR) (Negative) Influenza A (RT-PCR) (NEGATIVE) Influenza B (RT-PCR) (NEGATIVE) RSV (PCR) (Negative) Point of Care Testing Glucose POC 498 Urine Dip Bedside Urine Glucose 1000 mg/dl Bedside Urine Bilirubin - Negative Bedside Urine Ketone - Negative Urine Specific [place] 1.010 Bedside Urine Occult Blood - Negative Bedside Urine pH 6.0 Bedside Urine Protein - Negative Bedside Urine Urobilinogen - Negative Bedside Urine Nitrite - Negative Bedside Urine Leukocytes - Negative Esterase Imaging Data Chest x-ray: Radiologist's Impression: Oscar Schwab??87??M??1935 ? Allergy/Adv: No Known Drug Allergies Close Chest X-Ray (Signed) Kwabena Damon - 11/20/22 Echocardiogram Ultrasound (Signed) Wade Browning - 11/02/[address] (Signed) Pop Kyle - 11/01/22 Chest X-Ray (Signed) Pop Kyle - 11/01/22 Chest CTA (Signed) Raghav Love - 10/27/22 Chest X-Ray (Signed) Vel Taylor - 10/27/22 DEXA Result 03/12/22 DEXA Result 03/12/22 Bone Densitometry 03/12/22 Chest X-Ray (Signed) [place] - 02/24/22 Telemetry Strips 02/24/22 Bone Scan Nuclear Medicine (Signed) Mary Ortegarobertkaila - 12/17/21 Chest X-Ray (Signed) [place] - 05/29/21 Ribs X-Ray (Signed) ShannonMaryeyu - 05/13/[address] (Signed) Mary Ortegarobertu - 05/13/[address] (Signed) Shannon,Maryeyu - 05/13/[address] (Signed) Shannon,Maryeyu - 05/13/21 Abdomen/Pelvis CT (Signed) Raghav Love - 03/11/21 Chest X-Ray (Signed) Debbie Garcia - 03/11/21 Chest X-Ray (Signed) Rick Dobbs - 03/06/21 Chest/Abdomen/Pelvis CT (Signed) Shawn Dejesus - 11/21/20 Bone Scan Nuclear Medicine (Signed) Yessi Ortega - 11/21/20 PFT Result 09/28/20 Carotid Doppler Study (Signed) Torsten De Guzman - 07/31/20 Telemetry Strips 07/18/20 Chest X-Ray (Signed) Tito Mayen - 07/18/[address] (Signed) Shawn Dejesus - 07/18/20 Carotid Doppler Study (Signed) Tito Mayen - 03/11/19 Brain MRI (Signed) HernánChang - 03/11/19 Telemetry Strips 09/24/18 Chest X-Ray (Signed) Robe Koch - 09/24/18 Launch?Image [address] [address] XRay Report Signed Patient: Oscar Schwab MR#: [id number] : 1935 Acct:[id number] Age/Sex: 87 / M Date of Service: 11/20/22 Loc: ED Accession Number: [id number] ?? Procedure: XR chest 1V Ordering Provider: Raymundo Blake D.O. PROCEDURE:? XR CHEST 1V ? INDICATIONS:? weak, fatigued ? TECHNIQUE:? One view of the chest was acquired.? ? COMPARISON:? [facility], CT, CT CHEST WO CON, 11/01/2022, 16:49.? [facility], CR, XR CHEST 1V, 11/01/2022, 15:29.? [facility], CR, XR CHEST 1V, 10/27/2022, 17:13. ? FINDINGS:? ? Surgical changes and devices:? Left pacemaker with right atrial and right ventricular leads. ? Lungs and pleura:? Opacity at the left lower lobe.? Left pleural effusion.? No pneumothorax.? ? Mediastinum:? Mediastinal contours appear normal.? Heart size is prominent.? ? Bones and chest wall:? No suspicious bony lesions.? Overlying soft tissues appear unremarkable.? ? IMPRESSION:? Small to moderate left pleural effusion.? Left lower lobe opacity which could represent compressive atelectasis or pneumonia. ? ? Dictated by: Kwabena Damon M.D. on 11/20/2022 at 13:54 ? ? Approved by: Kwabena Damon M.D. on 11/20/2022 at 13:55 ? ECG Data Interpretation: Ventricular paced rhythm at 62, no significant abnormalities and ST segments, no violations of Sgarbossa's criteria MDM Narrative Medical decision making narrative: [87-year-old male with history of CHF, COPD and recent hospitalization for the above plus pneumonia] Multiple etiologies for patient's symptoms considered including, but not limited to: [Diabetic emergency, dehydration, UTI, pneumonia, CHF, COPD versus other] Prior Charts reviewed: Including recent emergency department visits and discharge notes from hospitalization Labs reviewed and interpreted by myself: No significant abnormalities on CBC, notably no elevation in white blood count or significant anemia, VBG obtained and no significant acidosis noted. Chemistries notable for slightly decreased potassium at 3.2, initial lactate at 3.4 has cleared by the time of his repeat and thought likely to be related to diabetes as opposed to significant underlying infection Imaging reviewed: Infiltrate redemonstrated raising the question of infiltrate versus compressive atelectasis versus other Consultations: Discussed with hospitalist who agree with hospitalization for stabilization of condition Findings and admission diagnosis discussed with patient/family followed by verbalization of understanding Discharge Plan Departure Patient Disposition: Admitted as Observation Clinical Impression: Acute hyperglycemia, Acute dehydration, Adult failure to thrive Admit Date/Time: 11/20/22 16:17 Admit Provider: Mihai Rosas
[2022-11-20 13:20] LABS: Influenza A - CEPHEID Flu A NEGATIVE (NEGATIVE); Influenza B - CEPHEID Flu B NEGATIVE (NEGATIVE); Respiratory Syncytial Virus Negative (Negative)
[2022-11-20 13:43] LABS: Appearance Urine UA CLEAR; Bilirubin Urine UA NEGATIVE (NEGATIVE); Color Urine UA YELLOW; Glucose Urine UA 2+ g/dL (Negative); Ketones Urine UA NEGATIVE (NEGATIVE); Leukocyte Esterase Urine UA NEGATIVE (NEGATIVE); Nitrite Urine UA NEGATIVE (Negative); Occult Blood Urine UA NEGATIVE (Negative); Protein Urine UA NEGATIVE (Negative); Specific Gravity Urine UA <=1.005 (1.000-1.035); Urobilinogen Urine UA 0.2 E.U./dL (0.2)
--- NOTE | 2022-11-20 13:44 | RT ---
Pt previously used oxygen at home, the reasons for which are unclear to . He hasn't been using oxygen in a while. He has no previous respiratory hx and no respiratory medications at home. Pt is + for snoring with sleep, but no hx of sleep study.
[2022-11-20 13:51] LABS: COVID-19 CEPHEID 4-PLEX PCR Negative (Negative)
[2022-11-20 13:57] LABS: Bacteria Urine Occasional (0-1); RBC Urine 0-1/HPF (0-5/HPF); Squamous Epithelial Cell Urine 0-1 /HPF (0-5/HPF); WBC Urine 1-5/HPF (0-5/HPF)
[2022-11-20 13:59] LABS: Culture Indicated Urine Cult Not Indicated
[2022-11-20] MEDS: SODIUM CHLORIDE 0.9% 965 ML IV (14:04)
[2022-11-20] MEDS: PIPERACILLIN/TAZO 4.5 GM in SODIUM CHLORIDE 0.9% 100 ML IV (14:06)
[2022-11-20] MEDS: INSULIN REGULAR 100 UNIT/ML 3 ML VIAL SUBCUT (14:06)
[2022-11-20] MEDS: FUROSEMIDE 40 MG/4 ML VIAL IV (14:09)
[2022-11-20 14:52] LABS: Reflexed Lactate in 2 Hours Y
[2022-11-20 16:08] LABS: Lactate 2HR (Lactic Acid Rflx) 3.4 mmol/L (0.7-2.1)
--- NOTE | 2022-11-20 16:14 | P.HP_ITS ---
History of Present Illness History of Present Illness Date Patient Seen: 11/20/22 Time Patient Seen: 16:14 Chief complaint: SOB/Weakness Narrative: Oscar Schwab is an 87-year-old male nonsmoker with history of atrial fibrillation anticoagulated on Pradaxa, pacemaker, TIA, diabetes type 2 and prostate cancer previously on home O2 who was admitted a few weeks ago with congestive heart failure. According to the patient's family, patient has been fairly sedentary at home, worsening over the past week or so. Patient states he has very little appetite, has difficulty swallowing solid foods chronically so sticks predominantly to liquids, such as mild and ensure. He has not checked his blood glucose at home, but it was previously always high. He reports constant thirst recently, with decreased appetite and needing to urinate every hour or so. He feels mildly short of breath when ambulating to the bathroom, similar to when he left from the hospital last admission. He denies any fever at home, chronically has orthopnea, but denies lower extremity edema recently. In the emergency room, his vital signs were unremarkable. Initial laboratory evaluation showed no significant leukocytosis, chronic stable anemia, pseudo hyponatremia with a sodium of 133 and a glucose of 454. Lactic acid was elevated at 3.6, and improved to 3.4 with mild fluids. Magnesium was also low at 1.3. Troponin was within normal limits and proBNP was mildly elevated at 1050, though improved from his previous admission. Urinalysis showed 2+ glucose but was not indicative of infection. Ketones were within normal limits. COVID, flu, and RSV PCR was negative. Chest x-ray was notable for a new left sided small pleural effusion, previously had a retrocardiac opacity. EKG is v-paced. Patient History Medical History Anticoagulated Asthma Atrial fibrillation, transient Bladder calculi Cancer COPD with acute exacerbation Diabetes GERD (gastroesophageal reflux disease) Hyperlipidemia Hypertension Incomplete bladder emptying Lower urinary tract symptoms (LUTS) Osteoarthritis (arthritis due to wear and tear of joints) Pacemaker Prostate cancer TIA (transient ischemic attack) Type 2 diabetes mellitus with diabetic neuropathy Surgical History H/O vasectomy History of appendectomy Previous back surgery Total knee replacement status Family & Social History Family History Family/Other No problems noted. Mother Brain tumor Father Medical history unknown Social History: household members spouse Safety & Behavioral: Feels Safe in Current Unwilling to Answer Environment Been Physically Hurt or Unwilling to Answer Threatened By a Person Tobacco & Substance use: Smoking Status Never smoker alcohol intake former alcohol intake frequency 0-2 drinks per day Substance Use Type does not use Meds Home Medications and Allergies Home Medications Medication Instructions Recorded Confirmed Type metformin 500 mg tablet,extended 1,000 mg PO BID ##0 10/14/12 11/01/22 History release 24 hr (Glucophage XR) cholecalciferol (vitamin D3) 125 1,000 unit PO DAILY ##0 08/18/16 11/20/22 History mcg (5,000 unit) tablet (Vitamin D3) glipizide 10 mg tablet, extended 5 mg PO QAM 09/24/18 11/20/22 History release 24 hr ibuprofen 200 mg tablet (Advil) 200 mg PO PRN PRN pain 09/24/18 11/01/22 History loperamide 2 mg tablet 2 mg PO PRN PRN Diarrhea 09/24/18 11/01/22 History omeprazole 20 mg capsule,delayed 20 mg PO BID 09/24/18 11/01/22 History release B12 1,000 mcg PO DAILY 07/18/20 11/20/22 History dabigatran etexilate 75 mg capsule 150 mg PO BID 07/18/20 11/20/22 History (Pradaxa) levothyroxine 25 mcg tablet 25 mcg PO DAILY 12/11/21 11/20/22 History (Synthroid) magnesium 400 mg PO DAILY 12/11/21 11/01/22 History alfuzosin 10 mg tablet,extended 10 mg PO DAILY #90 tabs 12/31/21 11/20/22 Rx release 24 hr (Uroxatral) metoprolol succinate 100 mg 50 mg PO BID 04/01/22 11/01/22 History tablet,extended release 24 hr furosemide 80 mg tablet 80 mg PO BID 30 days #60 tabs 11/05/22 11/20/22 Rx Allergies Allergy/AdvReac Type Severity Reaction Status Date / Time No Known Drug Allergies Allergy Verified 11/20/22 12:20 Review of Systems Review of Systems Narrative: All other systems reviewed with the patient and are negative unless otherwise stated. Exam Vital Signs (past 8 hours): - 11/20/22 12:20 11/20/22 12:16 11/20/22 12:16 Temperature 96.8 F L Pulse Rate 78 78 Respiratory Rate 22 22 Blood Pressure 122/68 122/68 Pulse Oximetry 95 95 Oxygen Delivery Method Room Air 11/20/22 12:30 11/20/22 12:30 11/20/22 12:37 Temperature Pulse Rate 63 Respiratory Rate 13 14 Blood Pressure 118/64 Pulse Oximetry 95 96 Oxygen Delivery Method Room Air Oxygen Delivery Method Room Air Narrative Exam Narrative: General:? Lethargic, acutely ill appearing elderly male, no acute distress. HEENT:? Normocephalic, atraumatic, extraocular muscles intact, oral pharynx is clear and mucous membranes are dry. Neck: supple and symmetric, trachea is midline, no cervical adenopathy. Chest:? Normal AP diameter and contour without kyphoscoliosis, no tachypnea, equal chest rise bilaterally. Lungs:? CTA b/l no wheezing rhonchi or rales. Poor respiratory effort. Cardio:?RRR no m/r/g. Abdomen: S NT ND. Musculoskeletal:? Muscle strength and tone are equal within normal limits, no deformity. Extremities: No edema or joint effusions. No cyanosis or clubbing. Skin:? Pale,? Warm to touch,dry and intact without rashes, ulcerations or petechiae.? Neuro:? Alert and orientated to person, place, states that it is october 2022. Sensation to touch intact in all extremities, no gross deficits noted of cranial nerves. Psych:? Patient has a well-kept appearance, appropriate affect, mental status attitude thought context and judgment are appropriate for age. Objective ECG Impression: Ventricularly paced rhythm as interpreted by me Labs Result Diagrams: 11/20/22 12:14 11/20/22 12:30 Labs: Laboratory Results - last 24 hr 11/20/22 11/20/22 11/20/22 12:14 12:30 12:30 WBC 8.3 RBC 3.51 L Hgb 10.4 L Hct 32.0 L MCV 91.2 MCH 29.5 MCHC 32.4 RDW 16.7 H Plt Count 303 Neut % (Auto) 68.8 Lymph % (Auto) 22.1 L [place] % (Auto) 8.2 Eos % (Auto) 0.5 L Baso % (Auto) 0.4 Neut # (Auto) 5700 Lymph # (Auto) 1800 [place] # (Auto) 700 Eos # (Auto) 0 Baso # (Auto) 0 PT INR APTT VBG pH VBG pCO2 VBG pO2 VBG HCO3 VBG Total CO2 VBG O2 Saturation VBG Base Excess Sodium 133 L Potassium 3.7 Chloride 88 L Carbon Dioxide 29 BUN 37 H Creatinine 0.96 Estimated GFR > 60 BUN/Creatinine Ratio 38.5 H Glucose 454 H Lactate Calcium 8.5 Magnesium Total Bilirubin 0.5 AST 37 ALT 40 Alkaline Phosphatase 92 Total Creatine Kinase CK-MB (CK-2) CK-MB (CK-2) Rel Index Troponin I C-Reactive Protein 4.0 H NT-Pro-B Natriuret Pep Total Protein 7.4 Albumin 3.5 Globulin 3.9 Albumin/Globulin Ratio 0.9 L Lipase Urine Color Urine Appearance Urine pH Ur Specific [place] Urine Protein Urine Glucose (UA) Urine Ketones Urine Occult Blood Urine Nitrate Urine Bilirubin Urine Urobilinogen Ur Leukocyte Esterase Urine RBC Urine WBC Ur Squamous Epith Cells Urine Bacteria Urine Yeast Ur Culture Indicated? Ketones 0.09 SARS-CoV-2 (PCR) Influenza A (RT-PCR) Influenza B (RT-PCR) RSV (PCR) 11/20/22 11/20/22 11/20/22 12:30 12:30 12:30 WBC RBC Hgb Hct MCV MCH MCHC RDW Plt Count Neut % (Auto) Lymph % (Auto) [place] % (Auto) Eos % (Auto) Baso % (Auto) Neut # (Auto) Lymph # (Auto) [place] # (Auto) Eos # (Auto) Baso # (Auto) PT 16.1 H INR 1.4 H APTT 34 VBG pH VBG pCO2 VBG pO2 VBG HCO3 VBG Total CO2 VBG O2 Saturation VBG Base Excess Sodium Potassium Chloride Carbon Dioxide BUN Creatinine Estimated GFR BUN/Creatinine Ratio Glucose Lactate 3.6 H Calcium Magnesium 1.3 L Total Bilirubin AST ALT Alkaline Phosphatase Total Creatine Kinase 21 L CK-MB (CK-2) TNP CK-MB (CK-2) Rel Index TNP Troponin I < 0.012 C-Reactive Protein NT-Pro-B Natriuret Pep 1050 H Total Protein Albumin Globulin Albumin/Globulin Ratio Lipase 78 Urine Color Urine Appearance Urine pH Ur Specific [place] Urine Protein Urine Glucose (UA) Urine Ketones Urine Occult Blood Urine Nitrate Urine Bilirubin Urine Urobilinogen Ur Leukocyte Esterase Urine RBC Urine WBC Ur Squamous Epith Cells Urine Bacteria Urine Yeast Ur Culture Indicated? Ketones SARS-CoV-2 (PCR) Influenza A (RT-PCR) Influenza B (RT-PCR) RSV (PCR) 11/20/22 11/20/22 11/20/22 12:32 12:35 13:27 WBC RBC Hgb Hct MCV MCH MCHC RDW Plt Count Neut % (Auto) Lymph % (Auto) [place] % (Auto) Eos % (Auto) Baso % (Auto) Neut # (Auto) Lymph # (Auto) [place] # (Auto) Eos # (Auto) Baso # (Auto) PT INR APTT VBG pH 7.49 H VBG pCO2 43.5 L VBG pO2 41 VBG HCO3 33 H VBG Total CO2 34 H VBG O2 Saturation 79 H VBG Base Excess 33.0 H Sodium Potassium Chloride Carbon Dioxide BUN Creatinine Estimated GFR BUN/Creatinine Ratio Glucose Lactate Calcium Magnesium Total Bilirubin AST ALT Alkaline Phosphatase Total Creatine Kinase CK-MB (CK-2) CK-MB (CK-2) Rel Index Troponin I C-Reactive Protein NT-Pro-B Natriuret Pep Total Protein Albumin Globulin Albumin/Globulin Ratio Lipase Urine Color Yellow Urine Appearance Clear Urine pH 6.0 Ur Specific [place] <=1.005 Urine Protein Negative Urine Glucose (UA) 2+ H Urine Ketones Negative Urine Occult Blood Negative Urine Nitrate Negative Urine Bilirubin Negative Urine Urobilinogen 0.2 Ur Leukocyte Esterase Negative Urine RBC 0-1/hpf Urine WBC 1-5/hpf Ur Squamous Epith Cells 0-1 /hpf Urine Bacteria Occasional (0-1) Urine Yeast 5-10/hpf H Ur Culture Indicated? Cult not indicated Ketones SARS-CoV-2 (PCR) Negative Influenza A (RT-PCR) Flu a negative Influenza B (RT-PCR) Flu b negative RSV (PCR) Negative 11/20/22 15:30 WBC RBC Hgb Hct MCV MCH MCHC RDW Plt Count Neut % (Auto) Lymph % (Auto) [place] % (Auto) Eos % (Auto) Baso % (Auto) Neut # (Auto) Lymph # (Auto) [place] # (Auto) Eos # (Auto) Baso # (Auto) PT INR APTT VBG pH VBG pCO2 VBG pO2 VBG HCO3 VBG Total CO2 VBG O2 Saturation VBG Base Excess Sodium Potassium Chloride Carbon Dioxide BUN Creatinine Estimated GFR BUN/Creatinine Ratio Glucose Lactate 3.4 H Calcium Magnesium Total Bilirubin AST ALT Alkaline Phosphatase Total Creatine Kinase CK-MB (CK-2) CK-MB (CK-2) Rel Index Troponin I C-Reactive Protein NT-Pro-B Natriuret Pep Total Protein Albumin Globulin Albumin/Globulin Ratio Lipase Urine Color Urine Appearance Urine pH Ur Specific [place] Urine Protein Urine Glucose (UA) Urine Ketones Urine Occult Blood Urine Nitrate Urine Bilirubin Urine Urobilinogen Ur Leukocyte Esterase Urine RBC Urine WBC Ur Squamous Epith Cells Urine Bacteria Urine Yeast Ur Culture Indicated? Ketones SARS-CoV-2 (PCR) Influenza A (RT-PCR) Influenza B (RT-PCR) RSV (PCR) Assessment & Plan Assessment & Plan narrative: 1. Type 2 Diabetes with hyperglycemia and possible HHS - suspect his continued lethargy and weakness is secondary to hyperglycemia at this time, with polyuria and polydipsia. Congestive heart failure may be contributing given L pleural effusion on exam as well as his hypomagnesemia. - start with lantus 10 U tonight, add sliding scale and continue to adjust insulin therapies. Risks of insulin infusion outweigh potential benefits if this is a mild HHS. Hold home oral antihyperglycemics at this time. - A1c last admission was 8.8, but glucose near 500 this admission - dietary consultation 2. Hypomagnesia, acute - replete with 2g IV magnesium, continue to follow. 3. Chronic diastolic heart failure with borderline ejection fraction. - clinically appears dry, in the ER he received fluid and lasix. Hold lasix at this time, but likely narrow therapeutic window. - continue light hydration for hyperglycemia at this time, if worsening r espiratory status stop fluids and diurese. - based on symptoms at home, would likely benefit from addition of spironolactone prior to discharge. - recent TTE last admission with EF of 45-50%, reduced from his prior studies. No indication for repeat at this time - resume home furosemide 80 mg BID once appears more euvolemic and blood glucose levels improve. 4. Hypothyroidism - continue home synthroid. 5. Prostate cancer - continue home alfuzosin 6. Chronic atrial fibrillation with PPM placement, on chronic anticoagulation - continue home dabigtran. continue home beta elizabeth. 7. Left pleural effusion - favor heart failure as to the etiology of this fluid collection, other possibilities include parapneumonic effusion with recent pneumonia diagnosis. However he has no leukocytosis or fever. - continue diuresis as discussed above. - will add procalcitonin, if negative will not persue antibiotics but if it is this raises the possibility of a parapneumonic source. Code: Full, surrogate is patient's spouse DVT: on dabigatran Patient is admitted under observation at this time, discharge home likely in the next 1-2 days. Discussed risks and benefits of hospitalization at this time. Patient and family in agreement for observation at this time for medical optimization. Will order PT/OT evaluations as well. His prior hospitalization was reviewed as well. I have utilized all available immediate resources to obtain, update, or review the patient's current medications. Time Spent With Patient Critical Care time: I spent a total of [] minutes of critical care time on this patient's care today; this time is exclusive of procedural time. Quality MIPS - Admit I confirm the patient?s Advance Care Plan is present, Code status is documented, Surrogate decision maker is in patient?s record [If Yes, STOP here]: Yes
[2022-11-20] MEDS: SODIUM CHLORIDE 0.9% 1,000 ML 75 ML IV (17:39)
[2022-11-20] MEDS: INSULIN LISPRO 100 UNIT/ML 3ML VIAL SUBCUT ×2 (17:45→21:22)
[2022-11-20] MEDS: MAGNESIUM SULFATE 2 GM/50 ML PIGGYBACK IV (17:58)
[2022-11-20] MEDS: METOPROLOL ER 50 MG TABLET PO (21:22)
[2022-11-20] MEDS: DABIGATRAN 75 MG CAPSULE 150 MG PO (21:22)
[2022-11-20] MEDS: SENNOSIDES 8.6 MG TABLET 17.2 MG PO (21:22)
[2022-11-20] MEDS: INSULIN GLARGINE 100 UNIT/ML 3ML PEN 10 UNIT SUBCUT (21:24)
[2022-11-21] VITALS (11 sets, daily range): BP systolic 107–134; BP diastolic 54–63; PULSE 60–63; RESP 16–22; TEMP 36.1–36.6; O2SAT 93–96
[2022-11-21 05:39] LABS: Add Manual Diff / Slide Review NO; Basophils Absolute Auto 100 /uL (0-100); Basophils Percent Auto 1.1 % (0-2); Eosinophils Absolute Auto 100 /uL (0-450); Eosinophils Percent Auto 1.2 % (2-4); Hematocrit 30.8 % (41-53); Hemoglobin 10.4 g/dL (13.5-17.5); Lymphocytes Absolute Auto 2100 /uL (1100-4500); Lymphocytes Percent Auto 29.9 % (25-40); Mean Corpuscular HGB Conc 33.7 % (30-36); Mean Corpuscular Hemoglobin 30.4 PG (26-34); Mean Corpuscular Volume 90.4 fL (80-100); Monocytes Absolute Auto 500 /uL (0-900); Monocytes Percent Auto 7.8 % (3-14); Neutrophils Absolute Auto 4200 /uL (1500-7000); Platelet Count 279 X10^3/uL (150-400); Red Blood Cell Count 3.41 X10^6/uL (4.5-5.9); Red Cell Distribution Width 16.8 % (11.6-14.8)
[2022-11-21] MEDS: ASPIRIN 325 MG TABLET PO (05:48)
[2022-11-21 05:50] LABS: BUN Creatinine Ratio 35.4 (6-22); Blood Urea Nitrogen 28 mg/dL (9-20); Calcium 7.9 mg/dL (8.4-10.2); Carbon Dioxide 33 mmol/L (22-32); Chloride 97 mmol/L (98-107); Estimated Glomerular Filt Rate > 60 mL/min (>60); Glucose 176 mg/dL (80-110); HEMOLYSIS < 15 (0-50); Magnesium 1.6 mg/dL (1.6-2.3); Potassium 3.2 mmol/L (3.4-5.1); Sodium 136 mmol/L (137-145)
[2022-11-21 06:01] LABS: Troponin I < 0.012 ng/mL (0.01-0.034)
[2022-11-21] MEDS: SODIUM CHLORIDE 0.9% 1,000 ML 75 ML IV ×2 (06:03→20:25)
--- NOTE | 2022-11-21 08:06 | P.PN_ITS ---
Subjective Subjective Date Patient Seen: 11/21/22 Time Patient Seen: 13:03 Interval history: Patient feels completely drained, tired and weak. He says this has been going on for several weeks. He also has no appetite and has lost almost 20lbs. Exam Vital Signs (past 8 hours): - 11/21/22 02:00 11/21/22 04:00 11/21/22 06:00 Temperature 97.3 F L Pulse Rate 60 Respiratory Rate 18 Blood Pressure 107/63 Pulse Oximetry 94 94 94 Oxygen Delivery Method Room Air Room Air Oxygen Flow Rate 0 Oxygen Delivery Method Room Air Oxygen Flow Rate 0 Narrative Exam Narrative: General:? Lethargic, acutely ill appearing elderly male, no acute distress. HEENT:? Normocephalic, atraumatic, extraocular muscles intact, oral pharynx is clear and mucous membranes are dry. Neck: supple and symmetric, trachea is midline, no cervical adenopathy. Chest:? Normal AP diameter and contour without kyphoscoliosis, no tachypnea, equal chest rise bilaterally. Lungs:? CTA b/l no wheezing rhonchi or rales. Poor respiratory effort. Cardio:?RRR no m/r/g. Abdomen: S NT ND. Musculoskeletal:? Muscle strength and tone are equal within normal limits, no deformity. Extremities: No edema or joint effusions. No cyanosis or clubbing. Skin:? Pale,? Warm to touch,dry and intact without rashes, ulcerations or petechiae.? Neuro:? Alert and orientated x3. Sensation to touch intact in all extremities, no gross deficits noted of cranial nerves. Psych:? Patient has a well-kept appearance, appropriate affect, mental status attitude thought context and judgment are appropriate for age. Objective Labs Result Diagrams: 11/21/22 05:25 11/21/22 05:25 Labs: Laboratory Results - last 24 hr 11/20/22 11/20/22 11/20/22 12:14 12:30 12:30 WBC 8.3 RBC 3.51 L Hgb 10.4 L Hct 32.0 L MCV 91.2 MCH 29.5 MCHC 32.4 RDW 16.7 H Plt Count 303 Neut % (Auto) 68.8 Lymph % (Auto) 22.1 L [place] % (Auto) 8.2 Eos % (Auto) 0.5 L Baso % (Auto) 0.4 Neut # (Auto) 5700 Lymph # (Auto) 1800 [place] # (Auto) 700 Eos # (Auto) 0 Baso # (Auto) 0 PT INR APTT VBG pH VBG pCO2 VBG pO2 VBG HCO3 VBG Total CO2 VBG O2 Saturation VBG Base Excess Sodium 133 L Potassium 3.7 Chloride 88 L Carbon Dioxide 29 BUN 37 H Creatinine 0.96 Estimated GFR > 60 BUN/Creatinine Ratio 38.5 H Glucose 454 H Lactate Calcium 8.5 Magnesium Total Bilirubin 0.5 AST 37 ALT 40 Alkaline Phosphatase 92 Total Creatine Kinase CK-MB (CK-2) CK-MB (CK-2) Rel Index Troponin I C-Reactive Protein 4.0 H NT-Pro-B Natriuret Pep Total Protein 7.4 Albumin 3.5 Globulin 3.9 Albumin/Globulin Ratio 0.9 L Lipase Procalcitonin Urine Color Urine Appearance Urine pH Ur Specific [place] Urine Protein Urine Glucose (UA) Urine Ketones Urine Occult Blood Urine Nitrate Urine Bilirubin Urine Urobilinogen Ur Leukocyte Esterase Urine RBC Urine WBC Ur Squamous Epith Cells Urine Bacteria Urine Yeast Ur Culture Indicated? Ketones 0.09 SARS-CoV-2 (PCR) Influenza A (RT-PCR) Influenza B (RT-PCR) RSV (PCR) 11/20/22 11/20/22 11/20/22 12:30 12:30 12:30 WBC RBC Hgb Hct MCV MCH MCHC RDW Plt Count Neut % (Auto) Lymph % (Auto) [place] % (Auto) Eos % (Auto) Baso % (Auto) Neut # (Auto) Lymph # (Auto) [place] # (Auto) Eos # (Auto) Baso # (Auto) PT 16.1 H INR 1.4 H APTT 34 VBG pH VBG pCO2 VBG pO2 VBG HCO3 VBG Total CO2 VBG O2 Saturation VBG Base Excess Sodium Potassium Chloride Carbon Dioxide BUN Creatinine Estimated GFR BUN/Creatinine Ratio Glucose Lactate 3.6 H Calcium Magnesium 1.3 L Total Bilirubin AST ALT Alkaline Phosphatase Total Creatine Kinase 21 L CK-MB (CK-2) TNP CK-MB (CK-2) Rel Index TNP Troponin I < 0.012 C-Reactive Protein NT-Pro-B Natriuret Pep 1050 H Total Protein Albumin Globulin Albumin/Globulin Ratio Lipase 78 Procalcitonin Urine Color Urine Appearance Urine pH Ur Specific [place] Urine Protein Urine Glucose (UA) Urine Ketones Urine Occult Blood Urine Nitrate Urine Bilirubin Urine Urobilinogen Ur Leukocyte Esterase Urine RBC Urine WBC Ur Squamous Epith Cells Urine Bacteria Urine Yeast Ur Culture Indicated? Ketones SARS-CoV-2 (PCR) Influenza A (RT-PCR) Influenza B (RT-PCR) RSV (PCR) 11/20/22 11/20/22 11/20/22 12:30 12:32 12:35 WBC RBC Hgb Hct MCV MCH MCHC RDW Plt Count Neut % (Auto) Lymph % (Auto) [place] % (Auto) Eos % (Auto) Baso % (Auto) Neut # (Auto) Lymph # (Auto) [place] # (Auto) Eos # (Auto) Baso # (Auto) PT INR APTT VBG pH 7.49 H VBG pCO2 43.5 L VBG pO2 41 VBG HCO3 33 H VBG Total CO2 34 H VBG O2 Saturation 79 H VBG Base Excess 33.0 H Sodium Potassium Chloride Carbon Dioxide BUN Creatinine Estimated GFR BUN/Creatinine Ratio Glucose Lactate Calcium Magnesium Total Bilirubin AST ALT Alkaline Phosphatase Total Creatine Kinase CK-MB (CK-2) CK-MB (CK-2) Rel Index Troponin I C-Reactive Protein NT-Pro-B Natriuret Pep Total Protein Albumin Globulin Albumin/Globulin Ratio Lipase Procalcitonin 0.10 Urine Color Urine Appearance Urine pH Ur Specific [place] Urine Protein Urine Glucose (UA) Urine Ketones Urine Occult Blood Urine Nitrate Urine Bilirubin Urine Urobilinogen Ur Leukocyte Esterase Urine RBC Urine WBC Ur Squamous Epith Cells Urine Bacteria Urine Yeast Ur Culture Indicated? Ketones SARS-CoV-2 (PCR) Negative Influenza A (RT-PCR) Flu a negative Influenza B (RT-PCR) Flu b negative RSV (PCR) Negative 11/20/22 11/20/22 11/21/22 13:27 15:30 05:25 WBC 7.0 RBC 3.41 L Hgb 10.4 L Hct 30.8 L MCV 90.4 MCH 30.4 MCHC 33.7 RDW 16.8 H Plt Count 279 Neut % (Auto) 60.0 Lymph % (Auto) 29.9 [place] % (Auto) 7.8 Eos % (Auto) 1.2 L Baso % (Auto) 1.1 Neut # (Auto) 4200 Lymph # (Auto) 2100 [place] # (Auto) 500 Eos # (Auto) 100 Baso # (Auto) 100 PT INR APTT VBG pH VBG pCO2 VBG pO2 VBG HCO3 VBG Total CO2 VBG O2 Saturation VBG Base Excess Sodium Potassium Chloride Carbon Dioxide BUN Creatinine Estimated GFR BUN/Creatinine Ratio Glucose Lactate 3.4 H Calcium Magnesium Total Bilirubin AST ALT Alkaline Phosphatase Total Creatine Kinase CK-MB (CK-2) CK-MB (CK-2) Rel Index Troponin I C-Reactive Protein NT-Pro-B Natriuret Pep Total Protein Albumin Globulin Albumin/Globulin Ratio Lipase Procalcitonin Urine Color Yellow Urine Appearance Clear Urine pH 6.0 Ur Specific [place] <=1.005 Urine Protein Negative Urine Glucose (UA) 2+ H Urine Ketones Negative Urine Occult Blood Negative Urine Nitrate Negative Urine Bilirubin Negative Urine Urobilinogen 0.2 Ur Leukocyte Esterase Negative Urine RBC 0-1/hpf Urine WBC 1-5/hpf Ur Squamous Epith Cells 0-1 /hpf Urine Bacteria Occasional (0-1) Urine Yeast 5-10/hpf H Ur Culture Indicated? Cult not indicated Ketones SARS-CoV-2 (PCR) Influenza A (RT-PCR) Influenza B (RT-PCR) RSV (PCR) 11/21/22 11/21/22 11/21/22 05:25 05:25 06:18 WBC RBC Hgb Hct MCV MCH MCHC RDW Plt Count Neut % (Auto) Lymph % (Auto) [place] % (Auto) Eos % (Auto) Baso % (Auto) Neut # (Auto) Lymph # (Auto) [place] # (Auto) Eos # (Auto) Baso # (Auto) PT INR APTT VBG pH VBG pCO2 VBG pO2 VBG HCO3 VBG Total CO2 VBG O2 Saturation VBG Base Excess Sodium 136 L Potassium 3.2 L Chloride 97 L Carbon Dioxide 33 H BUN 28 H Creatinine 0.79 Estimated GFR > 60 BUN/Creatinine Ratio 35.4 H Glucose 176 H D Lactate 1.0 Calcium 7.9 L Magnesium 1.6 Total Bilirubin AST ALT Alkaline Phosphatase Total Creatine Kinase CK-MB (CK-2) CK-MB (CK-2) Rel Index Troponin I < 0.012 C-Reactive Protein NT-Pro-B Natriuret Pep Total Protein Albumin Globulin Albumin/Globulin Ratio Lipase Procalcitonin Urine Color Urine Appearance Urine pH Ur Specific [place] Urine Protein Urine Glucose (UA) Urine Ketones Urine Occult Blood Urine Nitrate Urine Bilirubin Urine Urobilinogen Ur Leukocyte Esterase Urine RBC Urine WBC Ur Squamous Epith Cells Urine Bacteria Urine Yeast Ur Culture Indicated? Ketones SARS-CoV-2 (PCR) Influenza A (RT-PCR) Influenza B (RT-PCR) RSV (PCR) PFSH Medical History Anticoagulated Asthma Atrial fibrillation, transient Bladder calculi Cancer COPD with acute exacerbation Diabetes GERD (gastroesophageal reflux disease) Hyperlipidemia Hypertension Incomplete bladder emptying Lower urinary tract symptoms (LUTS) Osteoarthritis (arthritis due to wear and tear of joints) Pacemaker Prostate cancer TIA (transient ischemic attack) Type 2 diabetes mellitus with diabetic neuropathy Surgical History H/O vasectomy History of appendectomy Previous back surgery Total knee replacement status Family History Family/Other No problems noted. Mother Brain tumor Father Medical history unknown Social History marital status: number of children: 3 household members: spouse Smoking Status: Never smoker alcohol intake: former Type(s) of exercise: walking frequency: daily Assessment & Plan Assessment & Plan narrative: 1. Type 2 Diabetes with hyperglycemia and possible HHS - suspect his continued lethargy and weakness is secondary to hyperglycemia at this time, with polyuria and polydipsia. Congestive heart failure may be contributing given L pleural effusion on exam as well as his hypomagnesemia. - start with lantus 10 U tonight, add sliding scale and continue to adjust insulin therapies. Risks of insulin infusion outweigh potential benefits if this is a mild HHS. Hold home oral antihyperglycemics at this time. - A1c last admission was 8.8, but glucose near 500 this admission - dietary consultation 2. Hypomagnesia, acute - repleted with 2g IV magnesium, continue to follow. 3. Chronic diastolic heart failure with borderline ejection fraction. - clinically appears dry, in the ER he received fluid and lasix. Hold lasix at this time, but likely narrow therapeutic window. - continue light hydration for hyperglycemia at this time, if worsening respiratory status stop fluids and diurese. - based on symptoms at home, would likely benefit from addition of sp ironolactone prior to discharge. - recent TTE last admission with EF of 45-50%, reduced from his prior studies. No indication for repeat at this time - resume home furosemide 80 mg BID once appears more euvolemic and blood glucose levels improve. -repeat limited echo ordered due to ongoing weakness, fatigue and dyspnea 4. Hypothyroidism - continue home synthroid. -check TSH 5. Prostate cancer - continue home alfuzosin 6. Chronic atrial fibrillation with PPM placement, on chronic anticoagulation - continue home dabigtran. continue home beta elizabeth. 7. Left pleural effusion - favor heart failure as to the etiology of this fluid collection, other possibilities include parapneumonic effusion with recent pneumonia diagnosis. However he has no leukocytosis or fever. - continue diuresis as discussed above. - procal 0.1 so will not give abx Code: Full, surrogate is patient's spouse DVT: on dabigatran Dispo: Home in 1 day pending PT eval. Time Spent With Patient Critical Care time: I spent a total of [] minutes of critical care time on this patient's care today; this time is exclusive of procedural time.
--- NOTE | 2022-11-21 08:32 | CM.DANOTE ---
Initial DCP Assessment Note Pt is a 87 yo male, resident of [place], Admitted 11.01-11.05 for management of pneumonia and CHF. Returns with a failure of outpatient treatment, continued SOB, fatigue and weakness, admitted observation for continued supportive management, PT/OT evals pending PCP is Dr. Agosto. Primary payor is 1)Medicare 2)[employer]. According to chart review, patient mostly indp at baseline, lives w/spouse who is available to assist as needed. No PT eval done last visit as patient was moving w/nursing. PT/OT evals now pending to assist w/dispo recommendations. Anticipate patient will return home when medically stable, w/family to assist, would likely benefit from HH services d/t readmission from home environment CM team will plan to follow closely as medical POC unfolds, awaiting recs from therapy team JOLENE Hatfield Discharge Planning/Care Management CM Discharge Assessment Start: 11/21/22 08:19 Freq: Status: Active Protocol: Document 11/21/22 08:20 HOWIE (Rec: 11/21/22 08:32 HOWIE [id number]) Discharge Planning Assessment Assigned Work Checker JOLENE Mcleod DPOA/Assigned Designee Name Ele Schwab, spouse Contact Information [phone] Advance Directives? Yes Advance Directives on File Yes History Provided By Medical Record Has Patient been admitted in last 30 Yes days? Comment Here 11.01-11.05 for new dx CHF, pneumonia Prior Living Arrangements House Household Members spouse Type of transporation used prior to Relies on Others admit Independent with ADL's Yes: baseline mod indp spouse assists as needed, spouse drives Is patient alert and oriented? Yes Needs Assistance With Meal Prep,Managing Medications ,Home Chores / Shopping Barriers to Discharge No Comment Pending plan of care and recovery. Likely home w/spouse and HH. Discharge Plan Home Transportation Arrangement Spouse Additional Comment r/o need for HH closer to [place]
[2022-11-21] MEDS: INSULIN LISPRO 100 UNIT/ML 3ML VIAL SUBCUT ×4 (09:02→20:17)
[2022-11-21] MEDS: POTASSIUM CHLORIDE 20 MEQ TAB 40 MEQ PO ×2 (09:03→16:03)
[2022-11-21] MEDS: MAGNESIUM SULFATE 2 GM/50 ML PIGGYBACK IV (09:05)
[2022-11-21] MEDS: ALFUZOSIN 10 MG 1 EACH PO (09:07)
[2022-11-21] MEDS: DABIGATRAN 75 MG CAPSULE 150 MG PO ×2 (09:09→20:17)
[2022-11-21] MEDS: METOPROLOL ER 50 MG TABLET PO ×2 (09:09→20:17)
[2022-11-21 10:06] LABS: Troponin I < 0.012 ng/mL (0.01-0.034)
--- NOTE | 2022-11-21 11:02 | PT.IIE ---
Surgical History (Last Reviewed 11/20/22 @ 16:14 by Mihai Rosas DO) H/O vasectomy History of appendectomy Previous back surgery Total knee replacement status Medical History (Last Reviewed 11/20/22 @ 16:14 by Mihai Rosas DO) Anticoagulated Asthma Atrial fibrillation, transient Bladder calculi Cancer COPD with acute exacerbation Diabetes GERD (gastroesophageal reflux disease) Hyperlipidemia Hypertension Incomplete bladder emptying Lower urinary tract symptoms (LUTS) Osteoarthritis (arthritis due to wear and tear of joints) Pacemaker Prostate cancer TIA (transient ischemic attack) Type 2 diabetes mellitus with diabetic neuropathy Physical Therapy Inpatient Evaluation/Re-Eval M1 PT/OT-IP Prior Functional Status Start: 11/21/22 13:47 Freq: NEEDED Status: Active Protocol: Document 11/21/22 11:02 AB (Rec: 11/21/22 13:59 AB [id number]) Medical Review Prior Functional Status Medical History Reviewed Yes Communication able to make needs known Mobility and Gait pt stated that he started getting weak last Nov 01 and has been using a 4WW since then and spouse assists him with getting out of the bed and standing up; prior to that , pt is modified independent using a 4WW outdoors and without AD indoors Social History Household Members spouse Living Arrangements Mobile home Number of Floors (Floors) One Floor Number of Stairs To Enter/Railing? pt lives in a trailer ramp to enter Home Environment Standard Height Toilet,Tub/ Shower Home Equipment Four Wheel Walker,Straight Cane,Tub Transfer Bench,Grab Bars In Shower M2 PT-IP Current Condition Start: 11/21/22 13:47 Freq: NEEDED Status: Active Protocol: Document 11/21/22 11:02 AB (Rec: 11/21/22 13:59 AB [email or web address]) Physical Therapy Current Condition Current Condition Evaluation Date 11/21/22 Treatment Diagnosis CHF, hyperglycemia; weakness; difficutly in walking Onset Date 11/20/22 M3 PT-IP Subjective Start: 11/21/22 13:47 Freq: NEEDED Status: Active Protocol: Document 11/21/22 11:02 AB (Rec: 11/21/22 13:59 AB [email or web address]) Subjective Physical Therapy Visit Type Type Initial Evaluation Visit Start Time 11:02 Visit Stop Time 11:45 Total Visit Minutes 43 Number of EMERGENCY MAN Visits 0 Physical Therapy Visit Comments Patient Comments agreeable to do PT M4 PT-IP Mobility and Gait Start: 11/21/22 13:47 Freq: NEEDED Status: Active Protocol: Document 11/21/22 11:02 AB (Rec: 11/21/22 13:59 AB [id number]) PT-Bed Mobility Assessment Sit to Supine Sit to Supine Minimal Assistance,1 Person Assistance,Head of Bed Elevated,Bedrails PT-Transfer Assessment Sit to and From Stand Sit to and from Stand Minimal Assistance,Use of Upper Extremities Equipment Transfer Assistive Device Gait Belt,Front Wheeled Walker Orthotic/Prosthetic Devices or Brace: No Transfers Transfer Destination Chair Transfer Technique ambulated Transfer Ability Level of Assist Minimal Assistance,1 Person Assistance,Use of Upper Extremities Comments Mobility Comments pt completed supine to sit min A and cues with HOB elevated and pt used bed rail to assist . pt able to sit on EOB CGA. completed sit to stand min A and agreed to ambulate and completed ~ 5 ft using min A but stated that he need to sit down. instructed to step back mod A using FWW onto the chair and sat down. min A for controlled descent and cues. pt agreed to sit up on the chair. positioned and with call light and table placed within reach. Gait Assessment Gait Gait Assistance Required: Minimum Assistance,Moderate Assistance Distance (Feet) 5 Able to Maintain Weight Bearing Status Yes During Gait Assistive Devices Assistive Device Gait Belt,Front Wheeled Walker Orthotic/Prosthetic Devices or Brace: No Gait Deviations General Gait Pattern Decreased Stride Length, Decreased Feet Clearance,Step- to Gait Factors Limiting Gait Function Factors Limiting Gait Function Decreased Activity Tolerance, Decreased Strength,Difficulty Following Directions,Limited Range of Motion,Pain,Poor Balance,Poor Safety Awareness PT-Balance Assessment Sitting Balance and Reactions Static Sitting Balance Ability Good Dynamic Sitting Balance Ability Fair Standing Balance and Reactions Static Standing Balance Ability Fair Dynamic Standing Balance Ability Poor Device Used FWW M5 PT-IP Objective Assessments Start: 11/21/22 13:47 Freq: NEEDED Status: Active Protocol: Document 11/21/22 11:02 AB (Rec: 11/21/22 13:59 AB [id number]) Orientation Orientation/Cognition Level of Alertness Alert Orientation Name Language Function Ability Hard of Hearing Safety Awareness Decreased Safety Awareness Memory Description No Deficits Noted Gross Range of Motion Lower Extremity ROM Assessment Within Functional Limits Strength Lower Extremity Strength Hip 4-/5 Knee 4-/5 Sensation Assessment Sensation Gross Sensation WNL Muscle Tone Muscle Tone WNL Yes M6 PT-IP Treatment Start: 11/21/22 13:47 Freq: NEEDED Status: Active Protocol: Document 11/21/22 11:02 AB (Rec: 11/21/22 13:59 AB [id number]) Physical Therapy Treatment Education Education Provided Safety M7 PT-IP Assessment and Plan Start: 11/21/22 13:47 Freq: NEEDED Status: Active Protocol: Document 11/21/22 11:02 AB (Rec: 11/21/22 13:59 AB [email or web address]) PT Summary Assessment and Plan Potential Rehabilitation Potential Fair Status of Condition at Evaluation Evolving Summary Impairments Pain,ROM,Strength,Balance, Coordination,Sensation,Tone, Cognition,Bed Mobility, Transfers,Gait,Activity Tolerance Assessment Summary pt requiring min A with ambulation using FWW and unable to tolerate much activity and only able to walk ~ 5 ft using FWW. pt needs to be able to ambulate farther and tolerate more activities to be able to safely go home. will conducte caregiver training when appropriate. will continue to assess progress. Goals Bed Mobility Goal Standby Assistance Transfer Goal Standby Assistance,Front Wheeled Walker Gait Goal Standby Assistance,Front Wheel Walker Gait Distance 100 Other Goals improve bed mobility, transfers and ambulation using 4WW 150 ft SBA Days to Meet Goals 10 Frequency of Treatment Frequency Of Treatment Once a Day Treatment Plan Physical Therapy Treatment Plan Bed Mobility Training,Transfer Training,Gait Training, Therapeutic Exercise,Balance Retraining,Discharge Planning, Hot or Cold Pack,Neuromuscular Re-ed,Coordination Retraining Precautions Other Precautions falls Recommendations To Nursing Amount of Assist Needed 1 Person Assist Discharge Recommendations PT Discharge Recommendations Home with 08/06 Assist Available,Home Health,SNF Rehab,Home vs SNF Equipment Needed for Home Before FWW if not safe with 4WW/SPC Discharge Transportation Needs at Discharge Private Vehicle,Wheelchair/ Cabulance
--- NOTE | 2022-11-21 11:48 | DI.ECHO.S_ITS ---
[facility]---------[facility] +---------+ : : [address] : : : : [id number] : : : : Phone: [phone]---------+ Echocardiogram Report + + :Name: COLLETTE ANDUJAR Study Date: 11/21/2022 Height: 72 in : :[facility] ReadingLocation: Weight: 212 lb : : Gender: Male BSA: 2.2 m2 : :: 1935 Age: 87 yrs BP: 113/54 mmHg: :Reason For Study: WORSENING FATIGUE, DYSPNEA AND WEAKNESS : :Ordering Physician: MARYCRUZ, : :ERWIN Souza D.O Performed By: Kay Daniels : :Referring: ERWIN JOEL D.O : + + Interpretation Summary A two-dimensional transthoracic echocardiogram with color flow and Doppler was performed in limited views only. The left ventricle is normal in size. The ejection fraction is estimated to be 45-50%. There has been no significant change in LVEF since the previous exam. There is a moderate dyssynchronous contraction pattern due to the paced rhythm. There is a pacemaker lead in the right ventricle. There is moderate mitral regurgitation. Compared to the prior echo study, there has been no change in the severity of mitral regurgitation. There is mild to moderate tricuspid regurgitation. Compared to the prior echo exam, there has been no change in TR severity. The right ventricular systolic pressure is estimated to be at least 39 mmHg based on an estimated right atrial pressure of 8 mm Hg. Compared to the prior echo exam, there has been a decrease in the severity of pulmonary hypertension. Procedure: A two-dimensional transthoracic echocardiogram with color flow and Doppler was performed in limited views only. The study quality was technically adequate. Comparison is made with the echocardiogram of 11/03/2022. The heart rate ranged between 60-65 bpm during the study. The patient has a paced rhythm. Left Ventricle: There is mild concentric left ventricular hypertrophy. The left ventricle is normal in size. Proximal septal thickening is noted. There is no thrombus. The ejection fraction is estimated to be 45-50%. There has been no significant change since the previous exam. There is a moderate dyssynchronous contraction pattern due to the paced rhythm. Right Ventricle: There is a pacemaker lead in the right ventricle. Atria: Both atria are severely dilated. Mitral Valve: There is mild mitral annular calcification. The mitral valve leaflets are slightly calcified. There is moderate mitral regurgitation. Compared to the prior echo study, there has been no change in the severity of mitral regurgitation. Tricuspid Valve: The tricuspid annulus is dilated. There is mild to moderate tricuspid regurgitation. The right ventricular systolic pressure is estimated to be at least 39 mmHg based on an estimated right atrial pressure of 8 mm Hg. Compared to the prior echo exam, there has been no change in TR severity. Compared to the prior echo exam, there has been a decrease in the severity of pulmonary hypertension. Pericardium/ Pleura There is no pericardial effusion. MMode/2D Measurements & Calculations LVIDd: 5.0 cm IVC diam: 2.1 cm LVIDs: 4.0 cm FS: 21.5 % EPSS: 1.3 cm IVSd: 1.3 cm LVPWd: 1.2 cm LV . diameter/BSA (cm/m^2): 2.3 LV sys. diameter/BSA (cm/m^2): 1.8 Doppler Measurements & Calculations TR max linnea: 276.0 cm/sec TR max P.5 mmHg Reading Physician:04:17 PM
[2022-11-21] MEDS: CITALOPRAM 10 MG TABLET PO (13:55)
--- NOTE | 2022-11-21 14:31 | DIET.CONS ---
Dietary Consultation Note Admission Date: 11/20/2022 16:17 Assessment: 87 y/o M with admitted with PMH of T2DM, CHF, hypothyroidism, prostate ca, chronic atrial fibrillation. Endorses poor appetite over the last three weeks. States this started with diagnosis of pneumonia at that time. States his has been diligent about helping him eat, waking him to eat snacks through the day/evening. Predicted inadequate PO based on diet recall. Per EMR, has lost 8.3% or -9kg over 2 weeks (severe) Nutrition focused physical exam indicates significant temporal scooping, orbital hollowing, and prominent acromion process (severe). Endorses significant fatigue and can barely keep eyes open and focus during our visit. Not currently appropriate for diabetes education. States his will be here later today. Glucose upon admission 454 mg/dl. HgA1c 11/01/22 was 8.8%. States he thinks meds for pneumonia has increased BG, though reports he was only on antibiotics. Endorses regular BG checks at home, which prior to pneumonia were 190-210 mg/dL (more consistent with recent HgA1c). Admission BG improved but often still >180 mg/dL. Diet recall 745: 1c cheerios with milk and one egg, chicken broth 10a: ONS and 6oz milk 1130a: pudding or jello 430p: few bites or 1/2 bowl noodle soup with 6oz milk HS sn: jello or pudding Ht: 182.88 cm Wt: 96.5 kg BMI: 28.8 UBW: 107-109 kg Last BM: 11/20/22 (11/20/22 18:22) MNA: 10 Mikie Score: 17 Diet: 11/20/22 Dinner Carbohydrate Consistent Diet Diet Modifications: Carbohydrate level: Medium (3 CHO) Nutrition Percent Meal Consumed 75% 11/21/22 14:22 Percent Meal Consumed 75% 11/21/22 11:39 Labs: RBC 3.41 X10^6/uL (4.5-5.9) L 11/21/22 05:25 Hgb 10.4 g/dL (13.5-17.5) L 11/21/22 05:25 Hct 30.8 % (41-53) L 11/21/22 05:25 Creatinine 0.79 mg/dL (0.66-1.25) 11/21/22 05:25 Lactate 1.0 mmol/L (0.7-2.1) 11/21/22 06:18 NT-Pro-B Natriuret Pep 1050 pg/mL (<450) H 11/20/22 12:30 Nutrition Diagnosis: Acute severe protein calorie malnutrition r/t loss of appetite and inadequate PO aeb 8.3% weight loss over 2 weeks, significant muscle and fat wasting per nutrition focused physical exam, and limited intake per diet recall. Interventions: 1. ONS BID 2. Rec BG 140-180mg/dl 3. Provided DM education OP info and will try to connect with prn EER: [id number] kcals (20-23kcal/kg per BMI) 140g PRO (1.5g/kg) Monitoring/Evaluations: ONS tolerance, BG, weight, PO Electronically Signed by: Ena Joseph 11/21/22 14:31 Clinical Dietitian [address] [address]
[2022-11-21 14:36] LABS: TSH w/ Reflex to FT4 1.23 uIU/mL (0.47-4.68)
--- NOTE | 2022-11-21 15:11 | OT.IP.EVAL ---
Past Medical History (Last Reviewed 11/20/22 @ 16:14 by Mihai Rosas DO) Anticoagulated Asthma Atrial fibrillation, transient Bladder calculi Cancer COPD with acute exacerbation Diabetes GERD (gastroesophageal reflux disease) Hyperlipidemia Hypertension Incomplete bladder emptying Lower urinary tract symptoms (LUTS) Osteoarthritis (arthritis due to wear and tear of joints) Pacemaker Prostate cancer TIA (transient ischemic attack) Type 2 diabetes mellitus with diabetic neuropathy Surgical History (Last Reviewed 11/20/22 @ 16:14 by Mihai Rosas DO) H/O vasectomy History of appendectomy Previous back surgery Total knee replacement status Occupational Therapy Inpatient Evaluation/Re-Eval M1 PT/OT-IP Prior Functional Status Start: 11/21/22 13:47 Freq: NEEDED Status: Active Protocol: Document 11/21/22 16:30 [facility] (Rec: 11/21/22 18:07 [facility] [id number]) Medical Review Prior Functional Status Medical History Reviewed Yes Communication able to make needs known Mobility and Gait pt stated that he started getting weak last Nov 01 and has been using a 4WW since then and spouse assists him with getting out of the bed and standing up; prior to that , pt is modified independent using a 4WW outdoors and without AD indoors Activities of Daily Living and IADL's Pt 's has been assisting pt for socks and shoes. Pt states just wears the brief at home due to having to use the toilet every 1-2 hours. Social History Household Members spouse Living Arrangements Mobile home Number of Floors (Floors) One Floor Number of Stairs To Enter/Railing? pt lives in a trailer ramp to enter Home Environment Standard Height Toilet,Tub/ Shower Home Equipment Four Wheel Walker,Straight Cane,Tub Transfer Bench,Grab Bars In Shower M2 OT-IP Current Condition Start: 11/21/22 17:34 Freq: Status: Active Protocol: Document 11/21/22 16:30 [facility] (Rec: 11/21/22 18:07 [facility] [id number]) Occupational Therapy Current Condition Current Condition Evaluation Date 11/21/22 Treatment Diagnosis Left PE, weakness Diagnosis Onset Date 11/20/22 M3 OT- IP Subjective and Pain Start: 11/21/22 17:34 Freq: Status: Active Protocol: Document 11/21/22 16:30 [facility] (Rec: 11/21/22 18:07 [facility] [id number]) OT- Subjective Occupational Therapy Visit Type Type Initial Evaluation Visit Start Time 16:30 Visit Stop Time 17:11 Total Visit Minutes 41 Occupational Therapy Visit Comments Patient Comments Pt's and daughter in the room and able to work with pt for OT eval. Patient/Caregiver Goals To go home. OT Pain Assessment Pain When Pain Assessed At Rest Pain Present Pain Present Denied Pain M4 OT- IP ADL's Start: 11/21/22 17:34 Freq: Status: Active Protocol: Document 11/21/22 16:30 [facility] (Rec: 11/21/22 18:07 [facility] [id number]) OT [id number] Comments OT Self-Feeding Comments Pt not at meal time. OT ADL-Grooming Comments OT Grooming Comments Pt did not perform as too tired. OT ADL-Oral Care Comments Oral Care Comments Not performed. OT ADL-Dressing General Eval Lower Body Dressing Ability Standby Assistance,Moderate Assistance Areas Needing Assistance Retrieving/Set-up of Clothing, Underpants/Brief Comments OT Dressing Comments Pt able to use the perinatal social worker to ujstina/doff the brief. OT ADL-Toileting General Evaluation Toileting Ability Standby Assistance Areas Needing Assistance Empty Catheter or Colostomy Comments OT Toileting Comments Pt able to stand on his own with the FWW in front and able to stand and use the urinal on his own. OT ADL-Bathing Comments OT Bathing Comments Pt too tired to do at this time. Pt's states just got a tub bench for the pt. M5 OT- IP IADL's Start: 11/21/22 17:34 Freq: Status: Active Protocol: Document 11/21/22 16:30 [facility] (Rec: 11/21/22 18:07 [facility] [id number]) OT-Instrumental Activities of Daily Living Home Safety Awareness Awareness of Need for Assistance at Home Good Awareness Medication Management Medication Management Caregiver Provides Supervision Money Management Money Management Caregiver Provides Assistance Meal Preparation Meal Preparation Caregiver Provides Assist Melt House Drag Operator Melt House Drag Operator Caregiver Provides Assist M6 OT- IP Functional Cognition Start: 11/21/22 17:34 Freq: Status: Active Protocol: Document 11/21/22 16:30 [facility] (Rec: 11/21/22 18:07 [facility] [id number]) Cognitive Factors Limiting Selfcare Function Cognitive Ability Level of Alertness Alert Patient Orientation Name,Place,Situation Attention Span Ability Capable of Focused Attention, Capable of Sustained Attention Ability to Follow Commands Able to Follow One Step Commands Cognitive Comments Cognitive Assessment Comments Pt able to follow commands for ADl and mobility needs. Pt wanting to go home and agreed that home health would be beneficial. Pt's requesting to have a bath aid. OT- Vision and Hearing OT- Hearing Assessment OT- Hearing Assessment Use of Hearing Aids OT- Vision Assessment Visual Acuity Glasses For Reading M7 OT- IP Mobility and Balance Start: 11/21/22 17:34 Freq: Status: Active Protocol: Document 11/21/22 16:30 [facility] (Rec: 11/21/22 18:07 [facility] [id number]) OT- Bed Mobility Assessment Supine to Sit Supine to Sit Assist Standby Assistance Sit to Supine Sit to Supine Assist Standby Assistance OT-Transfer Assessment Sit to and From Stand Sit to and from Stand Standby Assistance Transfers Transfer Ability Standby Assistance Technique Transfer Destination Bed,Chair Transfer Technique Stand Step Pivot Devices Transfer Assistive Devices Gait Belt,Front Wheeled Walker Comments Mobility Comments Pt SBA with FWW. OT- Balance Assessment Sitting Balance and Reactions Static Sitting Balance Ability Good Dynamic Sitting Balance Ability Fair Standing Balance and Reactions Static Standing Balance Ability Fair M8 OT- IP Objective Assessments Start: 11/21/22 17:34 Freq: Status: Active Protocol: Document 11/21/22 16:30 [facility] (Rec: 11/21/22 18:07 [facility] [id number]) OT Gross Range of Motion Upper Extremity Range of Motion Assessment Within Functional Limits OT Strength Comments Strength Comments BUE 4+/5 throughout OT- Coordination Assessment Upper Extremity Finger to Nose Test Within Functional Limits OT-Muscle Tone Assessment Muscle Tone WNL Yes M9 OT- IP Assessment and Plan Start: 11/21/22 17:34 Freq: Status: Active Protocol: Document 11/21/22 16:30 [facility] (Rec: 11/21/22 18:07 [facility] [id number]) OT Summary Assessment and Plan Potential Rehabilitation Potential Good Analytic Complexity at Evaluation Moderate Summary OT Impairments Strength,Balance,Functional Mobility,Grooming,Dressing, Toileting,Bathing,Toilet Transfers,Shower Transfers, Activity Tolerance Progress Towards Goals Progressing Toward Goals,Slow Progress due to Activity Tolerance Assessment Summary Pt MOD complexity and here due decreased activity tolerance and just able to walk around the bed and get back into bed. Pt has a supportive family but not able to provide any lifting assist for pt. Pt states has family that lives two houses down to assist. Suggested pt use a urinal at night as pt states gets up every 1-2 hours to urinate. Pt's states they are ordering a lift chair for the pt . Pt will benefit from assist at home and home health OT,PT and bath aid. Goals Grooming Goal Independent Dressing Goal Standby Assistance Toileting Goal Independent Bathing Goal Minimal Assistance Toilet Transfer Goal Independent Shower Transfer Goal Standby Assistance Days to Meet Goals 10 Frequency of Treatment Frequency Of Treatment Once a Day Treatment Plan OT Treatment Plan ADL Training,Functional Mobility,Patient/Family Education,Discharge Planning Discharge Recommendations OT Discharge Recommendations Home with Assistance,Home Health Transportation Needs at Discharge Private Vehicle
--- NOTE | 2022-11-21 15:24 | OT.IPNOTE ---
Pt getting ECHO when Ot checking on pt for Ot eval.
--- NOTE | 2022-11-21 17:11 | OT.IP.EVAL ---
Past Medical History (Last Reviewed 11/20/22 @ 16:14 by Mihai Rosas DO) Anticoagulated Asthma Atrial fibrillation, transient Bladder calculi Cancer COPD with acute exacerbation Diabetes GERD (gastroesophageal reflux disease) Hyperlipidemia Hypertension Incomplete bladder emptying Lower urinary tract symptoms (LUTS) Osteoarthritis (arthritis due to wear and tear of joints) Pacemaker Prostate cancer TIA (transient ischemic attack) Type 2 diabetes mellitus with diabetic neuropathy Surgical History (Last Reviewed 11/20/22 @ 16:14 by Mihai Rosas DO) H/O vasectomy History of appendectomy Previous back surgery Total knee replacement status Occupational Therapy Inpatient Evaluation/Re-Eval M1 PT/OT-IP Prior Functional Status Start: 11/21/22 13:47 Freq: NEEDED Status: Active Protocol: Document 11/21/22 16:30 [facility] (Rec: 11/21/22 18:07 [facility] [id number]) Medical Review Prior Functional Status Medical History Reviewed Yes Communication able to make needs known Mobility and Gait pt stated that he started getting weak last Nov 01 and has been using a 4WW since then and spouse assists him with getting out of the bed and standing up; prior to that , pt is modified independent using a 4WW outdoors and without AD indoors Activities of Daily Living and IADL's Pt 's has been assisting pt for socks and shoes. Pt states just wears the brief at home due to having to use the toilet every 1-2 hours. Social History Household Members spouse Living Arrangements Mobile home Number of Floors (Floors) One Floor Number of Stairs To Enter/Railing? pt lives in a trailer ramp to enter Home Environment Standard Height Toilet,Tub/ Shower Home Equipment Four Wheel Walker,Straight Cane,Tub Transfer Bench,Grab Bars In Shower M2 OT-IP Current Condition Start: 11/21/22 17:34 Freq: Status: Active Protocol: Document 11/21/22 16:30 [facility] (Rec: 11/21/22 18:07 [facility] [id number]) Occupational Therapy Current Condition Current Condition Evaluation Date 11/21/22 Treatment Diagnosis Left PE, weakness Diagnosis Onset Date 11/20/22 M3 OT- IP Subjective and Pain Start: 11/21/22 17:34 Freq: Status: Active Protocol: Document 11/21/22 16:30 [facility] (Rec: 11/21/22 18:07 [facility] [id number]) OT- Subjective Occupational Therapy Visit Type Type Initial Evaluation Visit Start Time 16:30 Visit Stop Time 17:11 Total Visit Minutes 41 Occupational Therapy Visit Comments Patient Comments Pt's and daughter in the room and able to work with pt for OT eval. Patient/Caregiver Goals To go home. OT Pain Assessment Pain When Pain Assessed At Rest Pain Present Pain Present Denied Pain M4 OT- IP ADL's Start: 11/21/22 17:34 Freq: Status: Active Protocol: Document 11/21/22 16:30 [facility] (Rec: 11/21/22 18:07 [facility] [id number]) OT [id number] Comments OT Self-Feeding Comments Pt not at meal time. OT ADL-Grooming Comments OT Grooming Comments Pt did not perform as too tired. OT ADL-Oral Care Comments Oral Care Comments Not performed. OT ADL-Dressing General Eval Lower Body Dressing Ability Standby Assistance,Moderate Assistance Areas Needing Assistance Retrieving/Set-up of Clothing, Underpants/Brief Comments OT Dressing Comments Pt able to use the office agent to justina/doff the brief. OT ADL-Toileting General Evaluation Toileting Ability Standby Assistance Areas Needing Assistance Empty Catheter or Colostomy Comments OT Toileting Comments Pt able to stand on his own with the FWW in front and able to stand and use the urinal on his own. OT ADL-Bathing Comments OT Bathing Comments Pt too tired to do at this time. Pt's states just got a tub bench for the pt. M5 OT- IP IADL's Start: 11/21/22 17:34 Freq: Status: Active Protocol: Document 11/21/22 16:30 [facility] (Rec: 11/21/22 18:07 [facility] [id number]) OT-Instrumental Activities of Daily Living Home Safety Awareness Awareness of Need for Assistance at Home Good Awareness Medication Management Medication Management Caregiver Provides Supervision Money Management Money Management Caregiver Provides Assistance Meal Preparation Meal Preparation Caregiver Provides Assist Ladder Operator Ladder Operator Caregiver Provides Assist M6 OT- IP Functional Cognition Start: 11/21/22 17:34 Freq: Status: Active Protocol: Document 11/21/22 16:30 [facility] (Rec: 11/21/22 18:07 [facility] [id number]) Cognitive Factors Limiting Selfcare Function Cognitive Ability Level of Alertness Alert Patient Orientation Name,Place,Situation Attention Span Ability Capable of Focused Attention, Capable of Sustained Attention Ability to Follow Commands Able to Follow One Step Commands Cognitive Comments Cognitive Assessment Comments Pt able to follow commands for ADl and mobility needs. Pt wanting to go home and agreed that home health would be beneficial. Pt's requesting to have a bath aid. OT- Vision and Hearing OT- Hearing Assessment OT- Hearing Assessment Use of Hearing Aids OT- Vision Assessment Visual Acuity Glasses For Reading M7 OT- IP Mobility and Balance Start: 11/21/22 17:34 Freq: Status: Active Protocol: Document 11/21/22 16:30 [facility] (Rec: 11/21/22 18:07 [facility] [id number]) OT- Bed Mobility Assessment Supine to Sit Supine to Sit Assist Standby Assistance Sit to Supine Sit to Supine Assist Standby Assistance OT-Transfer Assessment Sit to and From Stand Sit to and from Stand Standby Assistance Transfers Transfer Ability Standby Assistance Technique Transfer Destination Bed,Chair Transfer Technique Stand Step Pivot Devices Transfer Assistive Devices Gait Belt,Front Wheeled Walker Comments Mobility Comments Pt SBA with FWW. OT- Balance Assessment Sitting Balance and Reactions Static Sitting Balance Ability Good Dynamic Sitting Balance Ability Fair Standing Balance and Reactions Static Standing Balance Ability Fair M8 OT- IP Objective Assessments Start: 11/21/22 17:34 Freq: Status: Active Protocol: Document 11/21/22 16:30 [facility] (Rec: 11/21/22 18:07 [facility] [id number]) OT Gross Range of Motion Upper Extremity Range of Motion Assessment Within Functional Limits OT Strength Comments Strength Comments BUE 4+/5 throughout OT- Coordination Assessment Upper Extremity Finger to Nose Test Within Functional Limits OT-Muscle Tone Assessment Muscle Tone WNL Yes M9 OT- IP Assessment and Plan Start: 11/21/22 17:34 Freq: Status: Active Protocol: Document 11/21/22 16:30 [facility] (Rec: 11/21/22 18:07 [facility] [id number]) OT Summary Assessment and Plan Potential Rehabilitation Potential Good Analytic Complexity at Evaluation Moderate Summary OT Impairments Strength,Balance,Functional Mobility,Grooming,Dressing, Toileting,Bathing,Toilet Transfers,Shower Transfers, Activity Tolerance Progress Towards Goals Progressing Toward Goals,Slow Progress due to Activity Tolerance Assessment Summary Pt MOD complexity and here due decreased activity tolerance and just able to walk around the bed and get back into bed. Pt has a supportive family but not able to provide any lifting assist for pt. Pt states has family that lives two houses down to assist. Suggested pt use a urinal at night as pt states gets up every 1-2 hours to urinate. Pt's states they are ordering a lift chair for the pt . Pt will benefit from assist at home and home health OT,PT and bath aid. Goals Grooming Goal Independent Dressing Goal Standby Assistance Toileting Goal Independent Bathing Goal Minimal Assistance Toilet Transfer Goal Independent Shower Transfer Goal Standby Assistance Days to Meet Goals 10 Frequency of Treatment Frequency Of Treatment Once a Day Treatment Plan OT Treatment Plan ADL Training,Functional Mobility,Patient/Family Education,Discharge Planning Discharge Recommendations OT Discharge Recommendations Home with Assistance,Home Health Transportation Needs at Discharge Private Vehicle
[2022-11-21] MEDS: SENNOSIDES 8.6 MG TABLET 17.2 MG PO (20:16)
[2022-11-21] MEDS: INSULIN GLARGINE 100 UNIT/ML 3ML PEN 10 UNIT SUBCUT (20:17)
[2022-11-22] VITALS: BP 112/60; PULSE 65; RESP 18; TEMP 36.4; O2SAT 95; O2SAT 96
[2022-11-22 04:00] VITALS: BP 127/67; PULSE 67; RESP 18; TEMP 36.6; O2SAT 96; O2SAT 97
--- NOTE | 2022-11-22 04:35 | PC.NURSE ---
Pt is AxOx4, calm and cooperative. VSS, pt denies pain. Pt is just little weak and needs 1 person assistance. Pt uses his urinal. BG-273 and pt recieved 3 units of Lispro as well as his 10 units of Glargine. Pt slept well. No other changes.
[2022-11-22 06:44] LABS: Add Manual Diff / Slide Review NO; Basophils Absolute Auto 100 /uL (0-100); Basophils Percent Auto 1.4 % (0-2); Eosinophils Absolute Auto 100 /uL (0-450); Eosinophils Percent Auto 0.8 % (2-4); Hematocrit 35.6 % (41-53); Hemoglobin 11.8 g/dL (13.5-17.5); Lymphocytes Absolute Auto 3100 /uL (1100-4500); Lymphocytes Percent Auto 34.4 % (25-40); Mean Corpuscular HGB Conc 33.2 % (30-36); Mean Corpuscular Hemoglobin 30.2 PG (26-34); Mean Corpuscular Volume 91.1 fL (80-100); Monocytes Absolute Auto 600 /uL (0-900); Monocytes Percent Auto 6.9 % (3-14); Neutrophils Absolute Auto 5200 /uL (1500-7000); Neutrophils Percent Auto 56.5 % (50-75); Platelet Count 307 X10^3/uL (150-400); Red Blood Cell Count 3.91 X10^6/uL (4.5-5.9); Red Cell Distribution Width 16.5 % (11.6-14.8); White Blood Cell Count 9.1 X10^3/uL (4.5-11.0)
[2022-11-22 07:03] LABS: BUN Creatinine Ratio 28.8 (6-22); Blood Urea Nitrogen 21 mg/dL (9-20); Calcium 8.4 mg/dL (8.4-10.2); Carbon Dioxide 29 mmol/L (22-32); Chloride 99 mmol/L (98-107); Estimated Glomerular Filt Rate > 60 mL/min (>60); Glucose 197 mg/dL (80-110); HEMOLYSIS < 15 (0-50); Magnesium 2.1 mg/dL (1.6-2.3); Sodium 137 mmol/L (137-145)
[2022-11-22 08:00] VITALS: BP 129/62; PULSE 61; RESP 16; TEMP 36.3; O2SAT 95; O2SAT 96
[2022-11-22] MEDS: INSULIN LISPRO 100 UNIT/ML 3ML VIAL SUBCUT ×3 (08:07→17:23)
[2022-11-22] MEDS: DABIGATRAN 75 MG CAPSULE 150 MG PO (08:11)
[2022-11-22] MEDS: METOPROLOL ER 50 MG TABLET PO (08:11)
[2022-11-22] MEDS: CITALOPRAM 10 MG TABLET PO (08:12)
[2022-11-22] MEDS: ALFUZOSIN 10 MG 1 EACH PO (08:12)
[2022-11-22] MEDS: ACETAMINOPHEN 325 MG TABLET 650 MG PO (09:59)
--- NOTE | 2022-11-22 10:51 | P.DS_ITS ---
History of Present Illness History of Present Illness Chief complaint: SOB/Weakness Narrative: 87-year-old male nonsmoker with history of atrial fibrillation anticoagulated on Pradaxa, pacemaker, TIA, diabetes type 2 and prostate cancer previously on home O2 who was admitted a few weeks ago with congestive heart failure. According to the patient's family, patient has been fairly sedentary at home, worsening over the past week or so. Patient states he has very little appetite, has difficulty swallowing solid foods chronically so sticks predominantly to liquids, such as mild and ensure. He has not checked his blood glucose at home, but it was previously always high. He reports constant thirst recently, with decreased appetite and needing to urinate every hour or so. He feels mildly short of breath when ambulating to the bathroom, similar to when he left from the hospital last admission. He denies any fever at home, chronically has orthopnea, but denies lower extremity edema recently. In the emergency room, his vital signs were unremarkable.? Initial laboratory evaluation showed no significant leukocytosis, chronic stable anemia, pseudo hyponatremia with a sodium of 133 and a glucose of 454.? Lactic acid was elevated at 3.6, and improved to 3.4 with mild fluids.? Magnesium was also low at 1.3.? Troponin was within normal limits and proBNP was mildly elevated at 1050, though improved from his previous admission.? Urinalysis showed 2+ glucose but was not indicative of infection.? Ketones were within normal limits.? COVID, flu, and RSV PCR was negative.? Chest x-ray was notable for a new left sided small pleural effusion, previously had a retrocardiac opacity.? EKG is v-paced. Discharge Providers Provider Date of admission: 11/20/22 16:17 Discharge Date: 11/22/22 Primary care physician: Tan Agosto MD Consults: 11/20/22 17:09 Consult to Dietitian, Adult Routine Comment: Reason For Exam: diabetes counselling, hyperglycemia Consult to Occupational Therapy Evaluate & Treat Comment: Physician Instructions: Evaluate and treat Consult to Physical Therapy Evaluate & Treat Comment: Physician Instructions: Evaluate and Treat 11/20/22 18:25 Consult to Dietitian, Adult Routine Comment: Reason For Exam: unintentional weight loss > 20 lbs Discharge provider: Angelo Silverman MD Summary Hospital Course Discharge Diagnosis: 1. Atypical chest pain, noncardiac 2. Type 2 diabetes with hyperglycemia, poor control 3. Hypomagnesemia 4. Chronic systolic and diastolic heart failure 5. Hypothyroidism 6. Chronic atrial fibrillation 7. Pacemaker 8. Left pleural effusion 9. Acute severe protein calorie malnutrition ECHO: The left ventricle is normal in size. The ejection fraction is estimated to be 45-50%. There has been no significant change in LVEF since the previous exam. There is a moderate dyssynchronous contraction pattern due to the paced rhythm. ? There is a pacemaker lead in the right ventricle. ? There is moderate mitral regurgitation. Compared to the prior echo study, there has been no change in the severity of mitral regurgitation. ? There is mild to moderate tricuspid regurgitation. Compared to the prior echo exam, there has been no change in TR severity. The right ventricular systolic pressure is estimated to be at least 39 mmHg based on an estimated right atrial pressure of 8 mm Hg. Compared to the prior echo exam, there has been a decrease in the severity of pulmonary hypertension. Hospital Course: Patient came in with complaints of increased thirst, decreased appetite and fatigue with recent weight loss. Initial blood sugar of 500. A1c is 8.8%. Overall symptoms were consistent with hyperglycemia causing some degree of volume depletion. Patient's Lasix was held and he was provided insulin to lower blood sugars. At time of discharge his blood sugar is around 200 which is much improved. He is feeling better. He is discharged on bedtime Lantus and will need to follow up with PCP for dose adjustments. Insulin teaching was provided prior to discharge as well as evaluation by dietitian. He had hypomagnesemia which was corrected as well. He has developed a small to moderate left pleural effusion which could be heart failure related or could be parapneumonic from his pneumonia back in October last year. He did not have fever, cough or elevated WBC to suggest active pneumonia. In terms of cardiac status, his echo looked the same from before with EF of 45- 50%, moderate MR and actually some improvement in degree of pulmonary hypertension. He may resume his home furosemide and continue on his other meds. He is complaining of atypical left and right scapular pain which appears musculoskeletal noncardiac pain. He is prescribed Lidoderm patch. Status at Discharge Cognitive/behavioral status at discharge: oriented Functional status at discharge: independent ambulation Overall status at discharge: patient is progressing back to baseline Time Spent with Patient Time spent: Greater than 30 minutes Exam Vital Signs (past 8 hours): - 11/22/22 04:00 11/22/22 04:00 11/22/22 08:00 Temperature 97.8 F 97.4 F L Pulse Rate 67 61 Respiratory Rate 18 16 Blood Pressure 127/67 129/62 Pulse Oximetry 96 97 95 Oxygen Delivery Method Room Air Oxygen Flow Rate 0 0 Oxygen Delivery Method Room Air Oxygen Flow Rate 0 Narrative Exam Narrative: General: Alert and pleasant male in no acute distress Lungs: Clear Heart: Regular rhythm Extremities: No edema Neurological: Normal affect and speech, not confused Objective Labs Result Diagrams: 11/22/22 06:33 11/22/22 06:33 Labs: Laboratory Results - last 24 hr 11/21/22 11/22/22 11/22/22 05:25 06:33 06:33 WBC 9.1 RBC 3.91 L Hgb 11.8 L Hct 35.6 L MCV 91.1 MCH 30.2 MCHC 33.2 RDW 16.5 H Plt Count 307 Neut % (Auto) 56.5 Lymph % (Auto) 34.4 Appling % (Auto) 6.9 Eos % (Auto) 0.8 L Baso % (Auto) 1.4 Neut # (Auto) 5200 Lymph # (Auto) 3100 [place]ling # (Auto) 600 Eos # (Auto) 100 Baso # (Auto) 100 Sodium 137 Potassium 4.0 Chloride 99 Carbon Dioxide 29 BUN 21 H Creatinine 0.73 Estimated GFR > 60 BUN/Creatinine Ratio 28.8 H Glucose 197 H Calcium 8.4 Magnesium 2.1 TSH 1.23 PFSH Medical History Anticoagulated Asthma Atrial fibrillation, transient Bladder calculi Cancer COPD with acute exacerbation Diabetes GERD (gastroesophageal reflux disease) Hyperlipidemia Hypertension Incomplete bladder emptying Lower urinary tract symptoms (LUTS) Osteoarthritis (arthritis due to wear and tear of joints) Pacemaker Prostate cancer TIA (transient ischemic attack) Type 2 diabetes mellitus with diabetic neuropathy Surgical History H/O vasectomy History of appendectomy Previous back surgery Total knee replacement status Family History Family/Other No problems noted. Mother Brain tumor Father Medical history unknown Social History (Reviewed 11/20/22 @ 13:19 by LIOR Stearns marital status: number of children: 3 household members: spouse Smoking Status: Never smoker alcohol intake: former Type(s) of exercise: walking frequency: daily Discharge Plan Discharge Plan Patient Disposition: Home Provider Discharge Comment: We started you on insulin to improve blood sugar control. High blood sugars are making you feel weak and tired. Check blood sugar twice daily and record readings. Follow up with your PCP for insulin dose adjustments. Your ECHO shows no change from before with findings of stable congestive heart failure. Discharge orders & Medications Prescriptions: New insulin glargine [Lantus Solostar U-100 Insulin] 100 unit/mL (3 mL) Insulin Pen 15 unit SUBCUT 2100 Qty: 15 0RF lidocaine [Lidoderm] 5 % adhesive patch,medicated 1 patch topical DAILY PRN (Reason: back pain) Qty: 15 0RF Rx Instructions: leave on most painful area for up to 12 hrs Continued metformin [Glucophage XR] 500 MG tablet extended release 24 hr 1,000 mg PO BID Qty: 0 Label Comments: am and noon cholecalciferol (vitamin D3) [Vitamin D3] 5,000 unit Tablet 1,000 unit PO DAILY Qty: 0 dabigatran etexilate [Pradaxa] 75 mg Capsule 150 mg PO BID Rx Instructions: Unknown dose B12 1,000 mcg PO DAILY metoprolol succinate 100 mg tablet extended release 24 hr 50 mg PO BID furosemide 80 mg tablet 80 mg PO BID 30 Days Qty: 60 0RF omeprazole 20 mg capsule,delayed release(DR/EC) 20 mg PO BID alfuzosin [Uroxatral] 10 mg tablet extended release 24 hr 10 mg PO DAILY Qty: 90 3RF Rx Instructions: administer after the same meal each day levothyroxine [Synthroid] 25 mcg tablet 25 mcg PO DAILY magnesium 400 mg PO DAILY Discontinued glipizide 10 mg tablet extended release 24hr 5 mg PO QAM Follow up/Referrals: Tan Agosto MD [Primary Care Provider] - Diet/Activity/Treatments Diet: Carb-consistent/Diabetic Visit Report/Discharge Packet Stand Alone Forms: Patient Portal/API, Stroke Signs & Symptoms Discharge Data Primary Care Provider: Tan Agosto
[2022-11-22 12:00] VITALS: BP 116/56; PULSE 60; RESP 16; TEMP 35.9; O2SAT 93
--- NOTE | 2022-11-22 15:38 | PT-IP ANOTE ---
Pt involved in DC with nursing. Pt refused.
--- NOTE | 2022-11-22 16:18 | CM.DPC ---
DC Note Patient is discharged home today Spoke w/patient's who is agreeable to this plan. Discussed HH services, spouse has no agency preference and requests RN/PT/[facility]. Patient starting new insulin. Placed call to [facility] per calendar rotation and provided details of this referral to manager operations triage nurse, faxed completed and signed F2F, HH order, H+P and DC Summary Plan: DC home today w/family and [facility] RN/PT/[facility], close outpatient f/u recommended JW
--- NOTE | 2022-11-22 18:43 | PC.NURSE ---
Addendum entered by Jenny Vasquez R.N. 11/22/22 18:44: Discharge note cont. Spouse was able to correctly measure the doseage on the pen and then injected it. Pt given bedtime lantus early and wont need it tonight so the could have actual practice. She understands he needs no more lantus until tomorrow. MD gave d/c information to patient and and PT also saw pt, he will be going home with home PT and an RN to follow up on pt's and and their insulin.Reviewed d/c packet. Questions answered. Pt d/c to home via auto with spouse. Original Note: Discharge: shown how to give insulin. She was able to prime the pen, then was able to correctlt
== END 2022-11-22 17:45 | disposition home or self-care (01) | DRG 637 ==
LOC: ED 12:14 → AC 16:53
PROVIDERS: Internal Medicine; Student in an Organized Health Care Education/Training Program; Admitting Provider Internal Medicine; Emergency Provider Emergency Medicine; Family Provider Internal Medicine Cardiovascular Disease; PCP Family Medicine; Referring Provider Emergency Medicine; Visit Provider Internal Medicine
DX: E11.65 Type 2 diabetes mellitus with hyperglycemia (principal); E43 Unspecified severe protein-calorie malnutrition; I48.20 Chronic atrial fibrillation, unspecified; I50.42 Chronic combined systolic (congestive) and diastolic (congestive) heart failure; I11.0 Hypertensive heart disease with heart failure; E83.42 Hypomagnesemia; E03.9 Hypothyroidism, unspecified; C61 Malignant neoplasm of prostate; F32.A Depression, unspecified; K21.9 Gastro-esophageal reflux disease without esophagitis; Z68.28 Body mass index [BMI] 28.0-28.9, adult; Z95.0 Presence of cardiac pacemaker; Z79.01 Long term (current) use of anticoagulants; Z79.84 Long term (current) use of oral hypoglycemic drugs
CPT/HCPCS: 0241U; 36415; 71045; 80048; 80053; 81001; 81003; 82009; 82550; 82805; 82962; 83605; 83690; 83735; 83880; 84145; 84443; 84484; 85025; 85610; 85730; 86140; 87040; 93005; 93010; 93307; 96365; 96372; 96375; 97166; 97530; 99284; 99285; J1815; J1940; J2543; J3475

== ENCOUNTER → 2022-12-16 10:36 | Outpatient (CLI) | payer MEDICARE, OTHER, SELFPAY ==
[2022-11-20 18:22] VITALS: BMI 28.8
--- NOTE | 2022-12-16 | DI.CT.S_ITS ---
PROCEDURE: CT HEAD/BRAIN WO CON INDICATIONS: headaches TECHNIQUE: Noncontrast 4.5 mm thick angled axial sections acquired from the foramen magnum to the vertex, with coronal and sagittal reformats. For radiation dose reduction, the following was used: automated exposure control, adjustment of mA and/or kV according to patient size. COMPARISON: [facility], CT, CT STROKE, 07/18/2020, 15:38. [facility], CT, HEAD WITHOUT CONTRAST, 10/27/2017, 18:16. [facility], CT, CT HEAD/BRAIN WO CON, 05/13/2021, 22:28. FINDINGS: Image quality: Excellent. CSF spaces: Basal cisterns are patent. No extra-axial fluid collections. The ventricles are symmetric in size and shape. Brain: No intracranial bleeds or masses. There is cerebral volume loss for age, with resultant ventricular and sulcal prominence. There are periventricular and deep white matter chronic small vessel ischemic changes. There is intracranial internal carotid artery atherosclerosis. Skull and face: Calvarium and visualized facial bones appear intact, without suspicious lesions. Sinuses: Visualized sinuses and mastoids are clear. IMPRESSION: Unremarkable intracranial study, without an imaging explanation found for the patient's presenting history of headache. Note is made of age-appropriate brain parenchymal volume loss and chronic small vessel ischemic changes. Dictated by: Torsten De Guzman M.D. on 12/16/2022 at 11:35 Approved by: Torsten De Guzman M.D. on 12/16/2022 at 11:37
--- NOTE | 2022-12-16 | DI.RAD.S_ITS ---
PROCEDURE: XR CHEST 2V INDICATIONS: viral pneumonia TECHNIQUE: 2 views of the chest were acquired. COMPARISON: [facility], CR, XR CHEST 2V, 05/29/2021, 13:12. [facility], CR, XR CHEST 1V, 11/20/2022, 12:52. [facility], CR, XR CHEST 1V, 11/01/2022, 15:29. FINDINGS: Surgical changes and devices: Left chest dual lead pacemaker Lungs and pleura: Small-moderate left pleural effusion, similar to slightly increased. Persistent left basilar opacity, nonspecific. No pneumothorax visualized. Mediastinum: Cardiac silhouette is enlarged as before. Bones and chest wall: No suspicious bony abnormalities. Soft tissues appear unremarkable. IMPRESSION: Small-moderate left pleural effusion, similar to slightly increased. Persistent left basilar opacity, nonspecific. Dictated by: Jj Cuellar M.D. on 12/16/2022 at 16:31 Approved by: Jj Cuellar M.D. on 12/16/2022 at 16:34
== END ==
PROVIDERS: Family Provider Internal Medicine Cardiovascular Disease; PCP Family Medicine; Referring Provider Family Medicine; Visit Provider Family Medicine
DX: J12.9 Viral pneumonia, unspecified (principal); I65.29 Occlusion and stenosis of unspecified carotid artery; R51.9 Headache, unspecified; J90 Pleural effusion, not elsewhere classified; Z95.0 Presence of cardiac pacemaker
CPT/HCPCS: 70450; 71046

== ENCOUNTER → 2022-12-16 10:52 | Outpatient (CLI) | payer MEDICARE, OTHER, SELFPAY ==
[2022-11-20 18:22] VITALS: BMI 28.8
== END ==
PROVIDERS: Family Provider Internal Medicine Cardiovascular Disease; PCP Family Medicine; Referring Provider Specialist; Visit Provider Specialist
DX: C61 Malignant neoplasm of prostate (principal)
CPT/HCPCS: 36415; 84153

== ENCOUNTER → 2023-01-06 14:03 | Outpatient (CLI) | payer MEDICARE, OTHER, SELFPAY ==
[2022-11-20 18:22] VITALS: BMI 28.8
--- NOTE | 2023-01-06 | DI.CT.S_ITS ---
PROCEDURE: CT LUMBAR SPINE WO CON INDICATIONS: low back pain, unspecified TECHNIQUE: Noncontrast 3 mm thick sections acquired from the T12 level to the sacrum. Sagittal and coronal reformats were constructed. For radiation dose reduction, the following was used: automated exposure control. COMPARISON: None. FINDINGS: Image quality: Excellent. Bones: Remote posterior laminectomy and L3-L4. Degenerative anterolisthesis of L3 on L4 measures 8 mm. The other vertebral bodies are normally aligned. No acute vertebral body compression fractures. No suspicious lytic or blastic bony lesions. No pars defects. T12-L1: No canal stenosis or foraminal stenosis. L1-L2: No canal stenosis or foraminal stenosis. L2-L3: Disc bulge. Facet and ligament hypertrophy. Moderate canal stenosis. Moderate bilateral foraminal narrowing. L3-L4: Posterior decompression. Posterior disc post osteophyte. Bilateral facet hypertrophy. Severe right foraminal narrowing and likely moderate to severe left foraminal narrowing with bilateral foraminal L3 nerve root impingement. L4-L5: Posterior decompression. No canal stenosis. There is some degree of foraminal narrowing. L5-S1: Posterior disc plus osteophyte. Mild canal stenosis. At least moderate bilateral foraminal narrowing. Soft tissues: No retroperitoneal masses or hematomas. Visualized aorta is normal in caliber. IMPRESSION: 1. Remote posterior decompression at L3-L4 and L4-L5. 2. Multilevel foraminal narrowing bilaterally, most significantly at L3-L4. 3. Moderate canal stenosis at L2-L3. Dictated by: Shawn Dejesus M.D. on 01/06/2023 at 15:10 Approved by: Shawn Dejesus M.D. on 01/06/2023 at 15:19
[2023-01-06 08:35] VITALS: BMI 28.8
== END ==
PROVIDERS: Family Provider Internal Medicine Cardiovascular Disease; PCP Family Medicine; Referring Provider Family Medicine; Visit Provider Family Medicine
DX: M54.50 Low back pain, unspecified (principal); M48.061 Spinal stenosis, lumbar region without neurogenic claudication
CPT/HCPCS: 72131

== ENCOUNTER 2023-01-12 06:37 | Day surgery (SDC) | payer MEDICARE, OTHER, SELFPAY ==
[2022-11-20 18:22] VITALS: BMI 28.8
[2023-01-06 08:35] VITALS: BMI 28.8
[2023-01-08 10:28] VITALS: BMI 28.7
[2023-01-12 07:14] VITALS: BP 103/60; PULSE 60; RESP 16; TEMP 36.5; O2SAT 96; BMI 28.7
[2023-01-12] MEDS: LACTATED RINGERS 1,000 ML 21 ML IV ×2 (07:26→08:51)
--- NOTE | 2023-01-12 07:34 | PM.PREOP ---
Pre-operative Note COVID-19 Criteria for continued procedure: Expected advancement of disease process, Possibility delay results in more complex future surgery or treatment, Deterioration of the patient's condition or overall health and Delay expected to result in less-positive ultimate med/surg outcome Interval Note History & Physical reviewed/Exam performed by Physician: Yes Changes to H&P: No
[2023-01-12] MEDS: CEFAZOLIN 2 GM/100 ML PREMIX 100 ML IV (07:50)
--- NOTE | 2023-01-12 08:15 | SUR.OPER ---
Supine on padded OR bed, head on pillow, arms secured on padded arm boards at <90 degrees abduction, legs uncrossed, safety belt at thigh, tape over blanket over lower legs.
[2023-01-12] MEDS: BUPIVACAINE 0.25% (PF) VIAL 30 ML INJ (08:21)
[2023-01-12] MEDS: BACITRACIN 28 GM OINT 1 APPLIC TOP (08:23)
[2023-01-12 08:55] VITALS: BP 149/83; PULSE 75; RESP 13; TEMP 36.3; O2SAT 94
--- NOTE | 2023-01-12 08:56 | PM.OP.1 ---
Operative Date/Time/Diagnoses Date of procedure: 01/12/23 Time of procedure: 08:45 Pre-op diagnosis: 1. Phimosis 2. Balanitis Post-op diagnosis: same Procedure & Clinicians Procedure: 1. Dorsal slit circumcision. Same procedure as scheduled: Yes Indications: 1. Phimosis. 2. Balanitis. Surgeon: Meryl Ordaz Click Yes if Unassisted: Yes Anesthesia Type: General and Local (0.25% plain Marcaine.) Operative Notes Findings: 1. Redundant prepuce. 2. Phimosis. 3. Balanitis with retained and adherent smegma. Closure Type: primary Specimen(s): none sent Estimated Blood Loss (mL): 2 Blood products transfused: none Procedure in detail: The patient was positioned in supine and was administered general anesthesia. The lower abdomen, genitalia, and groin were then prepped and draped in sterile fashion. Access to the inner preputial space was limited for initial prep. Hemostatic clamps were applied opposing each other at either side of the midline of the dorsal and distal purpose and engaged. Gentle traction was then applied and local anesthetic was used to infiltrate the skin and subcutaneous tissue in the midline and extending proximally. A straight hemostatic clamp was then applied at the 12 o'clock position of the prepuce and engaged for crush hemostasis. The tissue was then divided sharply. These steps were repeated 2 additional times until the prepuce was divided in the dorsal midline to a distance 2-3 mm distal to the reflection of the inner prepuce. Cautery pen was used for hemostasis along the incision lines as needed. A running vertical mattress chromic was then applied beginning at the apex of the dorsal slit incision and extending to the distal aspect in 2 separate runs. The inner prepuce and glans and coronal groove were then cleaned with Betadine ointment and dried. Bacitracin antibiotic ointment was then applied to the incision line. Dry sterile fluffs were then applied loosely to the addressed incision lines and the patient was fitted with an elasta- sized net underwear. The patient was then awakened, transferred to [facility], and transported recovery in stable condition. Complications: none Post-operative Condition: stable Disposition: PACU Plan for aftercare: Discharge home.
[2023-01-12 09:00] VITALS: BP 151/71; PULSE 61; RESP 17; O2SAT 97
[2023-01-12 09:05] VITALS: BP 141/70; PULSE 60; RESP 16; TEMP 36.4; O2SAT 97
[2023-01-12 09:24] VITALS: BP 121/63; PULSE 60; RESP 16; TEMP 36.4; O2SAT 96
== END 2023-01-12 09:41 | disposition home or self-care (01) ==
PROVIDERS: Family Provider Internal Medicine Cardiovascular Disease; PCP Family Medicine; Referring Provider Specialist; Visit Provider Specialist
PROC: (CPT 54161; principal; 2023-01-12 07:45)
DX: N47.1 Phimosis (principal); N48.1 Balanitis
CPT/HCPCS: 54161; J0690; J1100; J2405; J2704; J3010; J3490

== ENCOUNTER → 2023-02-03 09:35 | Outpatient (CLI) | payer MEDICARE, OTHER, SELFPAY ==
[2023-01-06 08:35] VITALS: BMI 28.8
--- NOTE | 2023-02-04 05:43 | DI.NM.S_ITS ---
DATE OF SERVICE: 02/03/2023 PROCEDURE: Intravenous Lexiscan perfusion study. INDICATION: Ventricular tachycardia with permanent Afib, permanent pacemaker, diabetes mellitus, hypertension. RADIOPHARMACEUTICAL: 25.7 millicurie technetium-99m Myoview IV was injected at stress and 11.5 millicurie technetium-99m Myoview IV was injected at rest. CARDIAC STRESS: The patient underwent IV Lexiscan perfusion study under the supervision of an attending staff using standard Lexiscan protocol. The patient had minimal dyspnea. No chest discomfort. Baseline rhythm was underlying Afib with ventricular pacing. The patient remained having ventricular pacing. No new EKG changes. No new significant arrhythmias. RAW DATA: There is increased subdiaphragmatic activity. The patient's weight is 214 pounds. GATED STUDY: Resting LV ejection fraction 63 and stress LV ejection fraction 66% without any obvious wall motion abnormalities. Resting end-diastolic volume 156 mL. TID ratio 0.84, which is within normal limits. Lung/heart ratio 0.27, which is within normal limits. MYOCARDIAL PERFUSION SCAN: Please note this patient does not have any stress prone images. Resting supine and stress supine images were compared to each other. Resting supine images revealed moderate-size, severely decreased perfusion of distal inferolateral wall extending into the inferoapex. Stress supine images revealed moderate size, mildly decreased perfusion of inferoapex and distal inferolateral wall. No significant reversible ischemia. Summed stress score 1, and summed rest score 4.. CONCLUSION: 1. No obvious reversible ischemia. 2. Predominantly fixed inferoapical and distal inferolateral defect which was worse in resting study than stress supine images. This could be due to ventricular pacing. There are no stress prone images, hence, cannot distinguish between true TX versus an artifact. Inferoapical and distal inferolateral infarction cannot be ruled out. Overall, left LV function is preserved. No transient ischemic dilatation. Lung/heart ratio normal. In absence of ischemia with preserved LV, overall low-risk myocardial perfusion scan. Correlate clinically. Oscar Schwab - AQUILES/jono/marjorie doc#: [id number]/job#: [id number] dd: 02/03/2023 17:50:00 dt: 02/04/2023 02:28:00 DICTATING MD/COPIES TO: Paarg Cole MD COPIES MNE: BELIA;
== END ==
PROVIDERS: Family Provider Internal Medicine Cardiovascular Disease; PCP Family Medicine; Referring Provider Nurse Practitioner; Visit Provider Nurse Practitioner
DX: I25.10 Atherosclerotic heart disease of native coronary artery without angina pectoris (principal); I47.20 Ventricular tachycardia, unspecified; I48.21 Permanent atrial fibrillation; E11.9 Type 2 diabetes mellitus without complications; I10 Essential (primary) hypertension; Z95.0 Presence of cardiac pacemaker
CPT/HCPCS: 78452; 93017; A9502; J2785

== ENCOUNTER → 2023-03-25 14:16 | Outpatient (CLI) | payer MEDICARE, OTHER, SELFPAY ==
[2023-01-06 08:35] VITALS: BMI 28.8
[2023-03-25 15:52] LABS: Prostate Specific Antigen 0.589 ng/mL (0.10-4.00)
== END ==
PROVIDERS: Family Provider Internal Medicine Cardiovascular Disease; PCP Family Medicine; Referring Provider Specialist; Visit Provider Specialist
DX: C61 Malignant neoplasm of prostate (principal)
CPT/HCPCS: 36415; 84153

== ENCOUNTER → 2023-05-05 09:55 | Outpatient (CLI) | payer MEDICARE, OTHER, SELFPAY ==
[2023-01-06 08:35] VITALS: BMI 28.8
[2023-05-05 11:52] LABS: Add Manual Diff / Slide Review NO; Basophils Absolute Auto 0 /uL (0-100); Basophils Percent Auto 0.4 % (0-2); Eosinophils Absolute Auto 100 /uL (0-450); Eosinophils Percent Auto 0.9 % (2-4); Hematocrit 38.5 % (41-53); Hemoglobin 13.1 g/dL (13.5-17.5); Lymphocytes Absolute Auto 2600 /uL (1100-4500); Lymphocytes Percent Auto 35.5 % (25-40); Mean Corpuscular HGB Conc 34.1 % (30-36); Mean Corpuscular Hemoglobin 29.6 PG (26-34); Mean Corpuscular Volume 86.8 fL (80-100); Monocytes Absolute Auto 500 /uL (0-900); Monocytes Percent Auto 7.1 % (3-14); Neutrophils Absolute Auto 4200 /uL (1500-7000); Neutrophils Percent Auto 56.1 % (50-75); Platelet Count 152 X10^3/uL (150-400); Red Blood Cell Count 4.44 X10^6/uL (4.5-5.9); White Blood Cell Count 7.4 X10^3/uL (4.5-11.0)
[2023-05-05 12:06] LABS: Alanine Aminotransferase 20 IU/L (<50); Albumin 3.9 g/dL (3.5-5.0); Albumin Globulin Ratio 1.3 (1.0-2.8); Alkaline Phosphatase 82 U/L (38-126); Aspartate Aminotransferase 19 IU/L (17-59); BUN Creatinine Ratio 27.5 (6-22); Bilirubin Total 0.5 mg/dL (0.2-1.3); Blood Urea Nitrogen 25 mg/dL (9-20); Calcium 9.1 mg/dL (8.4-10.2); Carbon Dioxide 27 mmol/L (22-32); Chloride 101 mmol/L (98-107); Cholesterol 192 mg/dL (140-199); Estimated Glomerular Filt Rate > 60 mL/min (>60); Glucose 150 mg/dL (80-110); HDL Cholesterol 31 mg/dL (40-60); HEMOLYSIS < 15 (0-50); LDL Cholesterol Calculated 113 mg/dL (<100); Potassium 4.7 mmol/L (3.4-5.1); Sodium 138 mmol/L (137-145); Total Protein 6.9 g/dL (6.3-8.2); Triglycerides 242 mg/dL (35-150)
[2023-05-05 12:34] LABS: Thyroid Stimulating Hormone 1.94 uIU/mL (0.47-4.68)
[2023-05-06 11:16] LABS: Labcorp Hemoglobin (Hb) A1c 9.8 % (4.8-5.6)
== END ==
PROVIDERS: Family Provider Internal Medicine Cardiovascular Disease; PCP Family Medicine; Referring Provider Family Medicine; Visit Provider Family Medicine
DX: D50.9 Iron deficiency anemia, unspecified (principal); E03.9 Hypothyroidism, unspecified; Z79.899 Other long term (current) drug therapy; E55.9 Vitamin D deficiency, unspecified; E78.2 Mixed hyperlipidemia; E11.9 Type 2 diabetes mellitus without complications; I10 Essential (primary) hypertension; R42 Dizziness and giddiness
CPT/HCPCS: 36415; 80053; 80061; 83036; 84443; 85025

== ENCOUNTER 2023-06-09 18:03 | Emergency (ER) | payer MEDICARE, OTHER, SELFPAY ==
[2023-01-06 08:35] VITALS: BMI 28.8
[2023-06-09] VITALS (8 sets, daily range): BP systolic 110–124; BP diastolic 65–71; PULSE 59–82; RESP 15–20; TEMP 36.4; O2SAT 97–99; BMI 29.0
--- NOTE | 2023-06-09 18:04 | ED.GENADULT ---
HPI - General Adult General Chief complaint: Shortness of Breath/Dyspnea Stated complaint: sent by andrea padlila/denny pérez Time Seen by Provider: 06/09/23 18:04 History of Present Illness HPI narrative: 87-year-old male not feeling well today sent from the walk-in clinic in [place] for crackles in the lung and concern for pneumonia. Patient has extensive medical history including AFib, TIA, CHF, COPD, diabetes. He states he went to bed in his normal state of health and woke up feeling just a bit weak. He states that this does not happen infrequently but usually goes away after the morning and because it persisted he went to the walk-in clinic and was sent here for further evaluation. He denies any fever or chills. He denies chest pain or shortness of breath. He is had no cough and denies nausea, vomiting or diarrhea. He denies any dysuria, frequency or urgency. He denies any change in his medications. He is had no increased swelling in his legs, no weight gain and denies any change in his medications. Related Data Home Medications Medication Instructions Recorded Confirmed metformin 500 mg tablet,extended 1,000 mg PO BID ##0 10/14/12 01/12/23 release 24 hr (Glucophage XR) cholecalciferol (vitamin D3) 125 1,000 unit PO DAILY ##0 08/18/16 01/12/23 mcg (5,000 unit) tablet (Vitamin D3) omeprazole 20 mg capsule,delayed 20 mg PO BID 09/24/18 12/31/22 release B12 1,000 mcg PO DAILY 07/18/20 01/12/23 dabigatran etexilate 75 mg capsule 150 mg PO BID 07/18/20 01/12/23 (Pradaxa) levothyroxine 25 mcg tablet 25 mcg PO DAILY 12/11/21 01/12/23 (Synthroid) magnesium 400 mg PO DAILY 12/11/21 12/31/22 metoprolol succinate 100 mg 50 mg PO BID 04/01/22 01/12/23 tablet,extended release 24 hr ascorbate calcium (vitamin C) 500 500 mg PO DAILY 12/31/22 01/12/23 mg tablet ferric citrate 210 mg iron tablet 210 mg PO DAILY 12/31/22 01/12/23 Previous Rx's Medication Instructions Recorded insulin glargine 100 unit/mL (3 15 unit (0.15 mL) SUBCUT 2100 #15 11/22/22 mL) subcutaneous pen (Lantus mL Solostar U-100 Insulin) oxycodone 5 mg tablet 5 mg PO Q4H PRN pain #14 tabs 01/12/23 alfuzosin 10 mg tablet,extended 10 mg PO DAILY #90 tabs 04/09/23 release 24 hr (Uroxatral) amoxicillin 500 mg capsule 1,000 mg PO Q8H 5 days #30 caps 06/09/23 Allergies Allergy/AdvReac Type Severity Reaction Status Date / Time No Known Drug Allergies Allergy Verified 02/19/23 13:39 Review of Systems Review of Systems Narrative: GENERAL: See HPI HEENT: Denies sinus pain, ear pain, sore throat, difficulty swallowing, dizziness. RESPIRATORY: See HPI CARDIOVASCULAR: Denies chest pain, palpitations, orthopnea, edema, GASTROINTESTINAL: Denies nausea, vomiting, abdominal pain, diarrhea, constipation, melena. : Denies dysuria, frequency, incontinence, hematuria, urinary retention. MUSCULOSKELETAL: denies weakness, joint pain, or bony pain SKIN: Denies rash, skin lesions, or other NEUROLOGIC: Denies weakness, headache, numbness, change in speech, confusion, seizures, incoordination. PSYCHIATRIC: No concerning psychosocial issues. 12 point review of systems is negative except for those stated above Patient History Medical History Anticoagulated Asthma Atrial fibrillation, transient Bladder calculi Cancer COPD with acute exacerbation Diabetes GERD (gastroesophageal reflux disease) Hyperlipidemia Hypertension Incomplete bladder emptying Lower urinary tract symptoms (LUTS) Osteoarthritis (arthritis due to wear and tear of joints) Pacemaker Phimosis Prostate cancer Pulmonary hypertension TIA (transient ischemic attack) Type 2 diabetes mellitus with diabetic neuropathy Surgical History H/O vasectomy History of appendectomy Previous back surgery Total knee replacement status Family History Family/Other No problems noted. Mother Brain tumor Father Medical history unknown Social History marital status: number of children: 3 household members: spouse Smoking Status: Never smoker alcohol intake: former Type(s) of exercise: walking frequency: daily Smoking Status: Never smoker alcohol intake frequency: 0-2 drinks per day Substance Use Type: does not use Exam Narrative Exam Narrative: GENERAL: [87] year old patient appears stated age. Well-developed patient, in mild distress. HEAD: Atraumatic. Normocephalic. EYES: Pupils equal round and reactive. Extraocular motions intact. No scleral icterus. No injection or drainage. ENT: Nose without bleeding, purulent drainage. Throat without erythema, tonsillar hypertrophy or exudate. Airway patent. NECK: Trachea midline. Non tender CARDIOVASCULAR: Regular rate and rhythm without murmurs, gallops, or rubs. RESPIRATORY: No signs of respiratory distress, no use of accessory muscles, no hypoxemia. Crackles in bilateral bases, right greater than left and slightly decreased breath sounds in left base. GASTROINTESTINAL: Abdomen soft, non-tender, nondistended. EXTREMITIES: No edema or joint tenderness. BACK: Nontender without deformity or crepitance. No flank tenderness. NEURO: AOx3. SKIN: No rash or erythema of visible areas Initial Vital Signs Initial Vital Signs: Vital Signs Temperature 97.5 F L 06/09/23 18:06 Pulse Rate 82 06/09/23 18:06 Respiratory Rate 20 06/09/23 18:06 Blood Pressure 110/67 06/09/23 18:06 Pulse Oximetry 98 06/09/23 18:06 Oxygen Delivery Method Room Air 06/09/23 18:06 Course Orders Ordered: ED Orders 06/09/23 18:15 XR chest 1V Stat EKG-12 Lead Stat Measure peak expiratory flow ONCE RT Consult Eval and Treat NOW 06/09/23 18:24 Complete Blood Count AUTO DIFF Stat Comprehensive Metabolic Panel Stat Lactate (Lactic Acid) Stat NT-proBNP (BNP-Adult 18+) Stat Prothrombin Time INR Stat Troponin I Stat Vital Signs Vital signs: Vital Signs - 8 hr 06/09/23 20:30 06/09/23 20:31 06/09/23 20:31 Pulse Rate 59 L 60 Respiratory Rate 19 15 Blood Pressure 114/71 Pulse Oximetry 99 98 06/09/23 21:00 06/09/23 21:00 06/09/23 21:30 Pulse Rate 60 Respiratory Rate 15 Blood Pressure 122/65 124/68 Pulse Oximetry 98 06/09/23 21:30 Pulse Rate 59 L Respiratory Rate 18 Blood Pressure Pulse Oximetry 98 Medical Decision Making Lab Data 06/09/23 18:24 06/09/23 18:24 Labs: Lab Results 06/09/23 06/09/23 06/09/23 Range/Units 18:24 18:24 18:24 WBC 7.3 (4.5-11.0) X10^3/uL RBC 4.24 L (4.5-5.9) X10^6/uL Hgb 13.2 L (13.5-17.5) g/dL Hct 38.7 L (41-53) % MCV 91.2 (80-100) fL MCH 31.1 (26-34) PG MCHC 34.1 (30-36) % RDW 16.9 H (11.6-14.8) % Plt Count 154 (150-400) X10^3/uL Neut % (Auto) 50.1 (50-75) % Lymph % (Auto) 40.2 H (25-40) % Moffat % (Auto) 7.7 (3-14) % Eos % (Auto) 1.4 L (2-4) % Baso % (Auto) 0.6 (0-2) % Neut # (Auto) 3600 (9135-7634) /uL Lymph # (Auto) 2900 (4927-1608) /uL Moffat # (Auto) 600 (0-900) /uL Eos # (Auto) 100 (0-450) /uL Baso # (Auto) 0 (0-100) /uL PT 14.1 H (10.1-12.7) SECONDS INR 1.2 (0.9-1.3) Sodium 137 (137-145) mmol/L Potassium 4.5 (3.4-5.1) mmol/L Chloride 103 (98-107) mmol/L Carbon Dioxide 22 (22-32) mmol/L BUN 20 (9-20) mg/dL Creatinine 0.90 (0.66-1.25) mg/dL Estimated GFR > 60 (>60) mL/min BUN/Creatinine Ratio 22.2 H (6-22) Glucose 103 (80-110) mg/dL Lactate (0.7-2.1) mmol/L Calcium 8.6 (8.4-10.2) mg/dL Total Bilirubin 0.6 (0.2-1.3) mg/dL AST 20 (17-59) IU/L ALT 23 (<50) IU/L Alkaline Phosphatase 62 (38-126) U/L Troponin I < 0.012 (0.01-0.034) ng/mL NT-Pro-B Natriuret Pep 1430 H (<450) pg/mL Total Protein 7.5 (6.3-8.2) g/dL Albumin 4.2 (3.5-5.0) g/dL Globulin 3.3 (1.7-4.1) g/dL Albumin/Globulin Ratio 1.3 (1.0-2.8) Procalcitonin (<0.5) ng/mL 06/09/23 06/09/23 Range/Units 18:24 18:24 WBC (4.5-11.0) X10^3/uL RBC (4.5-5.9) X10^6/uL Hgb (13.5-17.5) g/dL Hct (41-53) % MCV (80-100) fL MCH (26-34) PG MCHC (30-36) % RDW (11.6-14.8) % Plt Count (150-400) X10^3/uL Neut % (Auto) (50-75) % Lymph % (Auto) (25-40) % Moffat % (Auto) (3-14) % Eos % (Auto) (2-4) % Baso % (Auto) (0-2) % Neut # (Auto) (0274-3367) /uL Lymph # (Auto) (2639-4750) /uL Moffat # (Auto) (0-900) /uL Eos # (Auto) (0-450) /uL Baso # (Auto) (0-100) /uL PT (10.1-12.7) SECONDS INR (0.9-1.3) Sodium (137-145) mmol/L Potassium (3.4-5.1) mmol/L Chloride (98-107) mmol/L Carbon Dioxide (22-32) mmol/L BUN (9-20) mg/dL Creatinine (0.66-1.25) mg/dL Estimated GFR (>60) mL/min BUN/Creatinine Ratio (6-22) Glucose (80-110) mg/dL Lactate 1.8 (0.7-2.1) mmol/L Calcium (8.4-10.2) mg/dL Total Bilirubin (0.2-1.3) mg/dL AST (17-59) IU/L ALT (<50) IU/L Alkaline Phosphatase (38-126) U/L Troponin I (0.01-0.034) ng/mL NT-Pro-B Natriuret Pep (<450) pg/mL Total Protein (6.3-8.2) g/dL Albumin (3.5-5.0) g/dL Globulin (1.7-4.1) g/dL Albumin/Globulin Ratio (1.0-2.8) Procalcitonin < 0.03 (<0.5) ng/mL MDM Narrative Medical decision making narrative: [87] year old patient presents with concern for possible pneumonia Multiple etiologies for patient's symptoms considered including, but not limited to: [CHF 1st pneumonia versus other] Prior Charts reviewed in our EMR Primary Historian: patient Labs reviewed and interpreted by myself: No leukocytosis or left shift, no signs of anemia, electrolytes within normal, BNP elevated at 1430., procalcitonin negative Imaging reviewed: Chest x-ray demonstrates left lower lobe infiltrate Patient with reassuring history and physical exam, he did mention some chills earlier today but denies any significant work of breathing, productive cough. Imaging suggestive of possible left lower lobe infiltrate. He is not in any respiratory distress, no use of accessory muscles or demonstration of hypoxemia. This is likely combination of fluid overload and likely early pneumonia. Antibiotics sent to his pharmacy of choice and he is encouraged to increase his Lasix for each of the next few days. He and family have had questions answered to their apparent satisfaction, they understand and agree with the diagnosis and plan. Findings and discharge diagnosis discussed with patient/family followed by verbalization of understanding Return precautions discussed with patient/family whom verbalize understanding of diagnosis and plan Discharge Plan Departure Patient Disposition: Home Clinical Impression: Acute exacerbation of CHF (congestive heart failure), Left lower lobe pneumonia Instructions: DI for Heart Failure, DI for Pneumonia -- Adult Activity Restrictions/Additional Instructions: *You have been diagnosed with [left lower lobe pneumonia and mild acute CHF (fluid in lungs from heart failure)] *What to do: *As we discussed please take an extra Lasix (Furosemide) daily for each of the next 3-4 days and then return to your normal Thursday/Thursday/Thursday regimen. Otherwise, please continue to take your regular medications as directed. [ x] New medication prescriptions sent to your pharmacy: [ [facility] in [place]] [ ] New medication written as a paper prescription [ ] No new medications given *Please follow up with your primary care provider in 2-3 days, call for an appointment. Let them know you were seen in the Emergency Department and that we ask that you be seen in follow up. We will electronically transmit a record of today's note if your PCP is in our system *Return to Emergency Department if you should have any new, worsening or concerning symptoms, such as [fever greater than 101 F, shaking chills, worsening pain, persistent vomiting or other bothersome symptoms] Prescriptions: New amoxicillin 500 mg capsule 1,000 mg PO Q8H 5 Days Qty: 30 0RF No Action metformin [Glucophage XR] 500 MG tablet extended release 24 hr 1,000 mg PO BID Qty: 0 Patient Comments: am and noon cholecalciferol (vitamin D3) [Vitamin D3] 5,000 unit Tablet 1,000 unit PO DAILY Qty: 0 alfuzosin [Uroxatral] 10 mg tablet extended release 24 hr 10 mg PO DAILY Qty: 90 3RF Rx Instructions: administer after the same meal each day dabigatran etexilate [Pradaxa] 75 mg Capsule 150 mg PO BID Rx Instructions: Unknown dose B12 1,000 mcg PO DAILY metoprolol succinate 100 mg tablet extended release 24 hr 50 mg PO BID insulin glargine [Lantus Solostar U-100 Insulin] 100 unit/mL (3 mL) Insulin Pen 15 unit SUBCUT 2100 Qty: 15 0RF omeprazole 20 mg capsule,delayed release(DR/EC) 20 mg PO BID oxycodone 5 mg tablet 5 mg PO Q4H PRN (Reason: pain) Qty: 14 0RF ascorbate calcium (vitamin C) 500 mg tablet 500 mg PO DAILY ferric citrate 210 mg iron tablet 210 mg PO DAILY Rx Instructions: administer with a meal levothyroxine [Synthroid] 25 mcg tablet 25 mcg PO DAILY magnesium 400 mg PO DAILY Referrals: Tan Agosto MD [Primary Care Provider] - Stand Alone Forms: Patient Portal/API
--- NOTE | 2023-06-09 18:15 | DI.RAD.S_ITS ---
PROCEDURE: XR CHEST 1V INDICATIONS: Shortness of breath TECHNIQUE: One view of the chest was acquired. COMPARISON: [facility], CR, XR CHEST 2V, 12/16/2022, 10:38. [facility], CR, XR CHEST 1V, 11/20/2022, 12:52. FINDINGS: Surgical changes and devices: Left chest dual lead pacemaker Lungs and pleura: Nonspecific streaky left basilar opacities. No large pleural effusion or pneumothorax Mediastinum: Cardiac silhouette is enlarged as before Bones and chest wall: No suspicious bony lesions. Overlying soft tissues appear unremarkable. IMPRESSION: 1. Nonspecific left basilar opacities, could represent atelectasis, aspiration, or pneumonia. 2. Enlargement of the cardiac silhouette as before without definite evidence of pulmonary vascular congestion at this time Dictated by: Jj Cuellar M.D. on 06/09/2023 at 20:47 Approved by: Jj Cuellar M.D. on 06/09/2023 at 20:48
[2023-06-09 18:35] LABS: Add Manual Diff / Slide Review NO; Basophils Absolute Auto 0 /uL (0-100); Basophils Percent Auto 0.6 % (0-2); Eosinophils Absolute Auto 100 /uL (0-450); Eosinophils Percent Auto 1.4 % (2-4); Hematocrit 38.7 % (41-53); Hemoglobin 13.2 g/dL (13.5-17.5); Lymphocytes Absolute Auto 2900 /uL (1100-4500); Lymphocytes Percent Auto 40.2 % (25-40); Mean Corpuscular HGB Conc 34.1 % (30-36); Mean Corpuscular Hemoglobin 31.1 PG (26-34); Mean Corpuscular Volume 91.2 fL (80-100); Monocytes Absolute Auto 600 /uL (0-900); Monocytes Percent Auto 7.7 % (3-14); Neutrophils Absolute Auto 3600 /uL (1500-7000); Neutrophils Percent Auto 50.1 % (50-75); Platelet Count 154 X10^3/uL (150-400); Red Blood Cell Count 4.24 X10^6/uL (4.5-5.9); Red Cell Distribution Width 16.9 % (11.6-14.8); White Blood Cell Count 7.3 X10^3/uL (4.5-11.0)
[2023-06-09 18:42] LABS: INR 1.2 (0.9-1.3); Prothrombin Time 14.1 SECONDS (10.1-12.7)
[2023-06-09 18:47] LABS: Lactate (Lactic Acid) 1.8 mmol/L (0.7-2.1)
[2023-06-09 18:48] LABS: Alanine Aminotransferase 23 IU/L (<50); Albumin 4.2 g/dL (3.5-5.0); Albumin Globulin Ratio 1.3 (1.0-2.8); Alkaline Phosphatase 62 U/L (38-126); Aspartate Aminotransferase 20 IU/L (17-59); BUN Creatinine Ratio 22.2 (6-22); Bilirubin Total 0.6 mg/dL (0.2-1.3); Blood Urea Nitrogen 20 mg/dL (9-20); Calcium 8.6 mg/dL (8.4-10.2); Carbon Dioxide 22 mmol/L (22-32); Chloride 103 mmol/L (98-107); Estimated Glomerular Filt Rate > 60 mL/min (>60); Globulin 3.3 g/dL (1.7-4.1); Glucose 103 mg/dL (80-110); HEMOLYSIS < 15 (0-50); Potassium 4.5 mmol/L (3.4-5.1); Sodium 137 mmol/L (137-145); Total Protein 7.5 g/dL (6.3-8.2)
[2023-06-09 19:00] LABS: NT-proBNP (BNP-Adult 18+) 1430 pg/mL (<450); Troponin I < 0.012 ng/mL (0.01-0.034)
--- NOTE | 2023-06-09 20:00 | PC.NURSE ---
sent from clinic for possible pneumonia
[2023-06-09 22:05] LABS: Procalcitonin < 0.03 ng/mL (<0.5)
== END 2023-06-09 21:57 | disposition home or self-care (01) ==
PROVIDERS: Emergency Provider Emergency Medicine; Family Provider Internal Medicine Cardiovascular Disease; PCP Family Medicine
DX: I50.9 Heart failure, unspecified (principal); J18.9 Pneumonia, unspecified organism; R06.02 Shortness of breath
CPT/HCPCS: 71045; 80053; 83605; 83880; 84145; 84484; 85025; 85610; 93005; 99281; 99284

== ENCOUNTER → 2023-06-17 13:08 | Outpatient (CLI) | payer MEDICARE, OTHER, SELFPAY ==
[2023-01-06 08:35] VITALS: BMI 28.8
--- NOTE | 2023-06-17 | DI.RAD.S_ITS ---
PROCEDURE: XR CHEST 2V INDICATIONS: SHORTNESS OF BREATH TECHNIQUE: 2 views of the chest were acquired. COMPARISON: [facility], CR, XR CHEST 1V, 06/09/2023, 18:30. [facility], CR, XR CHEST 2V, 12/16/2022, 10:38. FINDINGS: Surgical changes and devices: Left chest wall dual lead pacemaker in stable position. Lungs and pleura: Persistent left basilar opacity, atelectasis versus effusion or infection. Mediastinum: Mediastinal contours are normal. Heart size is enlarged. Bones and chest wall: No suspicious bony abnormalities. Soft tissues appear unremarkable. IMPRESSION: Persistent left basilar opacity, may represent small effusion versus atelectasis or infection. Dictated by: Jayme Bowen M.D. on 06/17/2023 at 16:19 Approved by: Jayme Bowen M.D. on 06/17/2023 at 16:24
== END ==
PROVIDERS: Family Provider Internal Medicine Cardiovascular Disease; PCP Family Medicine; Referring Provider Family Medicine; Visit Provider Family Medicine
DX: R06.02 Shortness of breath (principal)
CPT/HCPCS: 71046

== ENCOUNTER → 2023-06-24 12:47 | Outpatient (CLI) | payer MEDICARE, OTHER, SELFPAY ==
[2023-01-06 08:35] VITALS: BMI 28.8
[2023-06-24 14:10] LABS: Prostate Specific Antigen 0.407 ng/mL (0.10-4.00)
== END ==
PROVIDERS: Family Provider Internal Medicine Cardiovascular Disease; PCP Family Medicine; Referring Provider Specialist; Visit Provider Specialist
DX: R39.9 Unspecified symptoms and signs involving the genitourinary system (principal)
CPT/HCPCS: 36415; 84153

== ENCOUNTER → 2023-07-01 10:56 | Outpatient (CLI) | payer MEDICARE, OTHER, SELFPAY ==
[2023-01-06 08:35] VITALS: BMI 28.8
--- NOTE | 2023-07-01 | DI.RAD.S_ITS ---
PROCEDURE: XR CHEST 2V INDICATIONS: Pneumonia, unspecified organism TECHNIQUE: 2 views of the chest were acquired. COMPARISON: [facility], CR, XR CHEST 2V, 06/17/2023, 13:03. FINDINGS: Surgical changes and devices: None. Lungs and pleura: There is blunting the left costophrenic angle with associated left basilar atelectasis and or infiltrate. Right lung and pleural space clear Mediastinum: Heart size enlarged. Left-sided dual-chamber pacemaker good position. No pneumothorax. Bones and chest wall: No suspicious bony abnormalities. Soft tissues appear unremarkable. IMPRESSION: Small left pleural effusion associated atelectasis and or infiltrate Cardiomegaly and pacemaker Approved by: Vito Cabrera M.D. on 07/01/2023 at 16:36
== END ==
PROVIDERS: Family Provider Internal Medicine Cardiovascular Disease; PCP Family Medicine; Referring Provider Family Medicine; Visit Provider Family Medicine
DX: C61 Malignant neoplasm of prostate (principal); J18.9 Pneumonia, unspecified organism; J90 Pleural effusion, not elsewhere classified; I51.7 Cardiomegaly; N21.0 Calculus in bladder; Z95.0 Presence of cardiac pacemaker
CPT/HCPCS: 51798; 71046; 81002; 96372; 96402; 99214; J0897; J9217

== ENCOUNTER → 2023-07-08 11:44 | Outpatient (CLI) | payer MEDICARE, OTHER, SELFPAY ==
[2023-01-06 08:35] VITALS: BMI 28.8
--- NOTE | 2023-07-08 | DI.CT.S_ITS ---
PROCEDURE: CT CHEST W CON INDICATIONS: PNEUMONIA TECHNIQUE: After the administration of intravenous contrast, 5 mm thick sections acquired from the pulmonary apices to the posterior costophrenic angles. 1 mm axial lung, 5 mm thick coronal and sagittal reformats and 7 mm axial MIP were acquired. For radiation dose reduction, the following was used: automated exposure control, adjustment of mA and/or kV according to patient size. COMPARISON: [facility], CT, CT CHEST WO CON, 11/01/2022, 16:49. CT 11/21/2020 FINDINGS: Image quality: Excellent. Lungs and pleura: Trace left pleural effusion, decreased from prior. Left basilar atelectasis. No residual consolidation. Mediastinum: Heart size is enlarged. No pericardial effusion. No mediastinal or hilar adenopathy by size criteria. Thoracic aorta and central pulmonary arteries are normal in size. Esophagus is normal in caliber. No hiatal hernia. Decreased anterior mediastinal nodularity measuring 0.8 cm short axis, probably a resolving lymph node (series 2, image 27). Bones and chest wall: No suspicious bony lesions. No vertebral body compression fractures. No axillary or supraclavicular adenopathy by size criteria. Thyroid gland is unremarkable . Left chest wall pacemaker generator with intravenous leads Abdomen: Stable left adrenal adenoma since 2020. IMPRESSION: Resolved left lower lobe pneumonia. Smaller left pleural effusion. Left basilar atelectasis. Dictated by: Kenyon Mcdonough M.D. on 07/08/2023 at 16:11 Approved by: Kenyon Mcdonough M.D. on 07/08/2023 at 16:15
== END ==
PROVIDERS: Family Provider Internal Medicine Cardiovascular Disease; PCP Family Medicine; Referring Provider Family Medicine; Visit Provider Family Medicine
DX: J12.89 Other viral pneumonia (principal); J90 Pleural effusion, not elsewhere classified; J98.11 Atelectasis
CPT/HCPCS: 71260; Q9967

== ENCOUNTER → 2023-07-30 10:14 | Outpatient (CLI) | payer MEDICARE, OTHER, SELFPAY ==
[2023-01-06 08:35] VITALS: BMI 28.8
--- NOTE | 2023-07-30 | DI.ECHO.S_ITS ---
[facility]---------+ [facility] +---------+ : : [address] : [address] : : : : [id number] : : : : Phone: [phone]+ Echocardiogram Report + + :Name: COLLETTE ANDUJAR Study Date: 07/30/2023 Height: 72 in : :[facility] ReadingLocation: Weight: 212 lb : : Gender: Male BSA: 2.2 m2 : :: 1935 Age: 87 yrs BP: 127/80 mmHg: :Reason For Study: Acute Ischemic Heart Disease : :Ordering Physician: VANDANA, : :MICKIE Rodriguez Performed By: Tashia Ortez : :Referring: MICKIE ROSS : + + Interpretation Summary The left ventricle is normal in size. The ejection fraction is estimated to be 45-50%. There has been no significant change since the previous exam. The right ventricle is moderately dilated. The right ventricular systolic function is normal. The left atrium is moderately dilated. The right atrium is severely dilated. There is mild mitral regurgitation. There is no other significant valvular heart disease. The ascending aorta is mildly enlarged. Procedure: A two-dimensional transthoracic echocardiogram with color flow and Doppler was performed. The study quality was technically difficult. Comparison is made with the echocardiogram of 11/21/2022. The patient has a paced rhythm. Left Ventricle: The left ventricle is normal in size. The ejection fraction is estimated to be 45-50%. There has been no significant change since the previous exam. There is a moderate dyssynchronous contraction pattern due to the paced rhythm. Diastolic function could not be accurately assessed due to paced rhythm. Right Ventricle: The right ventricle is moderately dilated. The right ventricular systolic function is normal. Atria: The left atrium is moderately dilated. The right atrium is severely dilated. A patent foramen ovale is suspected. Mitral Valve: The mitral valve is normal. There is no mitral valve stenosis. There is mild mitral regurgitation. Aortic Valve: The aortic valve is trileaflet. The aortic valve opens well. There is no aortic valve stenosis. There is trace aortic regurgitation. Tricuspid Valve: The tricuspid valve is not well visualized. There is no tricuspid stenosis. There is mild tricuspid regurgitation. Pulmonic Valve: The pulmonic valve leaflets are thin and pliable; valve motion is normal. There is no pulmonic valvular stenosis. There is trace pulmonic regurgitation. There is no other significant valvular heart disease. Great Vessels: The aortic root is normal size. The ascending aorta is mildly enlarged. The pulmonary artery is normal size. The IVC is of normal diameter and collapses greater than 50% with a sniff. This suggests a low right atrial pressure of 3 mm Hg. Pericardium/ Pleura There is a trivial pericardial effusion noted. There is a small left-sided pleural effusion. MMode/2D Measurements & Calculations LVIDd: 4.6 cm LVOT diam: 2.1 cm LVIDs: 3.9 cm Ao root diam: 3.8 cm FS: 15.2 % asc Aorta Diam: 3.8 cm EPSS: 0.70 cm IVSd: 1.2 cm LVPWd: 1.0 cm LV . diameter/BSA (cm/m^2): 2.1 LV sys. diameter/BSA (cm/m^2): 1.8 LA A4 area: 21.3 cm2 RA long axis: 8.1 cm RA area: 40.4 cm2 RA vol: 172.5 ml RA : 79.0 ml/m2 RVD1 (basal): 4.6 cm LVLs ap4: 6.2 cm LVLd ap2: 6.7 cm TAPSE_phl: 2.9 cm LVLs ap2: 6.7 cm Doppler Measurements & Calculations Ao V2 max: 99.4 cm/sec LVOT Max Magdy: 81.8 cm/sec Ao V2 mean: 69.4 cm/sec LV V1 max P.7 mmHg Ao max P.0 mmHg LV V1 VTI: 16.7 cm Ao mean P.0 mmHg NATY(I,D): 2.5 cm2 Ao V2 VTI: 23.5 cm NATY(V,D): 2.9 cm2 sev ratio: 0.71 NATY indexed to BSA (cm^2/m^2): 1.1 TR max magdy: 222.3 cm/sec SV(LVOT): 57.8 ml TR max P.8 mmHg AV VR_phl: 0.82 NATY(VTI)/BSA_phl: 1.1 Reading Physician:[id number] PM
== END ==
PROVIDERS: Family Provider Internal Medicine Cardiovascular Disease; PCP Family Medicine; Referring Provider Family Medicine; Visit Provider Family Medicine
DX: I24.8 Other forms of acute ischemic heart disease (principal); I08.1 Rheumatic disorders of both mitral and tricuspid valves; J18.9 Pneumonia, unspecified organism; J90 Pleural effusion, not elsewhere classified; I77.89 Other specified disorders of arteries and arterioles
CPT/HCPCS: 93306

== ENCOUNTER 2023-09-23 09:29 | Emergency (ER) | payer MEDICARE, OTHER, SELFPAY ==
[2023-01-06 08:35] VITALS: BMI 28.8
[2023-09-23] VITALS (8 sets, daily range): BP systolic 113–123; BP diastolic 57–68; PULSE 60–87; RESP 12–24; TEMP 36.8; O2SAT 96–99; BMI 28.2
--- NOTE | 2023-09-23 09:33 | DI.RAD.S_ITS ---
PROCEDURE: XR CHEST 1V INDICATIONS: chest pain TECHNIQUE: One view of the chest was acquired. COMPARISON: [facility], CR, XR CHEST 2V, 07/01/2023, 10:59. FINDINGS: Surgical changes and devices: Pacemaker. Lungs and pleura: Lungs are clear. No pleural effusions or pneumothorax. Mediastinum: Mediastinal contours appear normal. Heart size is enlarged. Bones and chest wall: No suspicious bony lesions. Overlying soft tissues appear unremarkable. IMPRESSION: Portable chest within normal limits for age. Dictated by: Debbie Garcia M.D. on 09/23/2023 at 9:58 Approved by: Debbie Garcia M.D. on 09/23/2023 at 9:59
[2023-09-23 09:41] LABS: Add Manual Diff / Slide Review NO; Basophils Absolute Auto 100 /uL (0-100); Basophils Percent Auto 0.7 % (0-2); Eosinophils Absolute Auto 100 /uL (0-450); Eosinophils Percent Auto 1.4 % (2-4); Hematocrit 37.1 % (41-53); Hemoglobin 12.7 g/dL (13.5-17.5); Lymphocytes Absolute Auto 1500 /uL (1100-4500); Mean Corpuscular HGB Conc 34.2 % (30-36); Mean Corpuscular Hemoglobin 31.5 PG (26-34); Mean Corpuscular Volume 92.1 fL (80-100); Monocytes Absolute Auto 700 /uL (0-900); Monocytes Percent Auto 8.6 % (3-14); Neutrophils Absolute Auto 5800 /uL (1500-7000); Neutrophils Percent Auto 71.3 % (50-75); Platelet Count 149 X10^3/uL (150-400); Red Blood Cell Count 4.02 X10^6/uL (4.5-5.9); Red Cell Distribution Width 14.9 % (11.6-14.8); White Blood Cell Count 8.2 X10^3/uL (4.5-11.0)
--- NOTE | 2023-09-23 09:53 | PC.NURSE ---
Had 324 mg at home.
[2023-09-23 09:54] LABS: INR 1.2 (0.9-1.3); Prothrombin Time 13.8 SECONDS (10.1-12.7)
[2023-09-23 09:56] LABS: PTT Partial Thromboplastin Tim 36 SECONDS (26-36)
[2023-09-23 09:58] LABS: Alanine Aminotransferase 13 IU/L (<50); Albumin Globulin Ratio 1.3 (1.0-2.8); Alkaline Phosphatase 53 U/L (38-126); Aspartate Aminotransferase 17 IU/L (17-59); BUN Creatinine Ratio 21.3 (6-22); Bilirubin Total 0.8 mg/dL (0.2-1.3); Blood Urea Nitrogen 17 mg/dL (9-20); Calcium 9.2 mg/dL (8.4-10.2); Carbon Dioxide 25 mmol/L (22-32); Chloride 102 mmol/L (98-107); Creatine Kinase 47 U/L (55-170); Estimated Glomerular Filt Rate > 60 mL/min (>60); Glucose 91 mg/dL (80-110); HEMOLYSIS < 15 (0-50); Lipase 40 U/L (23-300); Magnesium 1.3 mg/dL (1.6-2.3); Potassium 4.1 mmol/L (3.4-5.1); Sodium 136 mmol/L (137-145)
[2023-09-23 10:09] LABS: Troponin I < 0.012 ng/mL (0.01-0.034)
--- NOTE | 2023-09-23 10:11 | ED.CHESTPAIN ---
HPI - Chest Pain General Chief Complaint: Chest Pain Stated Complaint: Chest Pain Time Seen by Provider: 09/23/23 09:35 Source: patient, family and EMS Mode of arrival: EMS Limitations: no limitations History of Present Illness HPI narrative: Patient is an 87-year-old male. Does have a pacemaker in place. Has been there for the past 4-5 years. Here for evaluation of chest discomfort. He states that it woke him up this morning. Difficult for him to say whether or not it has been consistent since when he woke up. He was having it at the time of my evaluation. He thinks that it does get worse when he takes a deep breath. It is not worse with palpation. Has never had a heart attack before. 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 He is not on blood thinners. No fevers. No sinus congestion. No sore throat. No lower extremity swelling. Related Data Home Medications Medication Instructions Recorded Confirmed metformin 500 mg tablet,extended 1,000 mg PO BID ##0 10/14/12 07/01/23 release 24 hr (Glucophage XR) cholecalciferol (vitamin D3) 125 1,000 unit PO DAILY ##0 08/18/16 07/01/23 mcg (5,000 unit) tablet (Vitamin D3) omeprazole 20 mg capsule,delayed 20 mg PO BID 09/24/18 07/01/23 release B12 1,000 mcg PO DAILY 07/18/20 07/01/23 dabigatran etexilate 75 mg capsule 150 mg PO BID 07/18/20 07/01/23 (Pradaxa) levothyroxine 25 mcg tablet 25 mcg PO DAILY 12/11/21 07/01/23 (Synthroid) magnesium 400 mg PO DAILY 12/11/21 07/01/23 metoprolol succinate 100 mg 50 mg PO BID 04/01/22 07/01/23 tablet,extended release 24 hr ascorbate calcium (vitamin C) 500 500 mg PO DAILY 12/31/22 07/01/23 mg tablet ferric citrate 210 mg iron tablet 210 mg PO DAILY 12/31/22 07/01/23 Previous Rx's Medication Instructions Recorded insulin glargine 100 unit/mL (3 15 unit (0.15 mL) SUBCUT 2100 #15 11/22/22 mL) subcutaneous pen (Lantus mL Solostar U-100 Insulin) oxycodone 5 mg tablet 5 mg PO Q4H PRN pain #14 tabs 01/12/23 alfuzosin 10 mg tablet,extended 10 mg PO DAILY #90 tabs 04/09/23 release 24 hr (Uroxatral) Allergies Allergy/AdvReac Type Severity Reaction Status Date / Time No Known Drug Allergies Allergy Verified 02/19/23 13:39 Review of Systems Cardiovascular Cardiovascular: Reports system reviewed and no additional complaints, except as documented Respiratory Respiratory: Reports system reviewed and no additional complaints, except as documented Gastrointestinal Gastrointestinal: Reports system reviewed and no additional complaints, except as documented Integumentary/Breasts Skin/Breast: Reports system reviewed and no additional complaints, except as documented Neurologic Neurologic: Reports system reviewed and no additional complaints, except as documented Hematologic/Lymphatic On Anticoagulants: No Patient History Medical History Pulmonary hypertension Phimosis COPD with acute exacerbation Anticoagulated Lower urinary tract symptoms (LUTS) Incomplete bladder emptying Bladder calculi Prostate cancer Pacemaker Cancer Diabetes Asthma TIA (transient ischemic attack) GERD (gastroesophageal reflux disease) Osteoarthritis (arthritis due to wear and tear of joints) Type 2 diabetes mellitus with diabetic neuropathy Hyperlipidemia Hypertension Atrial fibrillation, transient Surgical History H/O vasectomy History of appendectomy Previous back surgery Total knee replacement status Family History Family/Other No problems noted. Mother Brain tumor Father Medical history unknown Social History marital status: number of children: 3 household members: spouse Smoking Status: Never smoker alcohol intake: former Type(s) of exercise: walking frequency: daily Smoking Status: Never smoker alcohol intake frequency: 0-2 drinks per day Substance Use Type: does not use Exam Initial Vital Signs Initial Vital Signs: Vital Signs Pulse Rate 87 09/23/23 09:33 Respiratory Rate 24 09/23/23 09:33 Pulse Oximetry 97 09/23/23 09:33 Const General: cooperative and comfortable HENMT Head: normal to inspection Resp Effort & Inspection: normal respiratory effort Auscultation: clear to auscultation bilaterally Cardio Rate: regular rate Rhythm: regular rhythm GI Inspection: normal to inspection and non-distended Skin Other: Rash to left side of neck Neuro General: patient alert, patient awake and moves all extremities Extrem General: normal to inspection and capillary refill normal Course Orders Ordered: ED Orders 09/23/23 09:33 XR chest 1V Stat EKG-12 Lead Stat 09/23/23 09:34 Complete Blood Count AUTO DIFF Stat Comprehensive Metabolic Panel Stat Lipase Stat Magnesium Stat PTT Partial Thromboplastin Casimiro Stat Prothrombin Time INR Stat Troponin & CK Cardiac Panel Stat 09/23/23 12:30 Troponin & CK Cardiac Panel Stat Discontinued Medications Aspirin (Aspirin 81 Mg Chew Tab) 324 mg PO NOW ONE Stop: 09/23/23 09:34 Last Admin: 09/23/23 09:52 Dose: Not Given Documented By: ZAHEER Vital Signs Vital signs: Vital Signs - 8 hr 09/23/23 09:33 09/23/23 09:42 09/23/23 10:00 Temperature 98.2 F Pulse Rate 87 70 60 Respiratory Rate 24 14 17 Blood Pressure 123/68 Pulse Oximetry 97 97 97 Oxygen Delivery Method Room Air 09/23/23 10:00 09/23/23 10:30 09/23/23 10:30 Temperature Pulse Rate 60 Respiratory Rate 17 Blood Pressure 115/60 113/61 Pulse Oximetry 97 Oxygen Delivery Method 09/23/23 11:00 09/23/23 11:00 09/23/23 11:30 Temperature Pulse Rate 60 Respiratory Rate 15 Blood Pressure 117/60 113/59 L Pulse Oximetry 97 Oxygen Delivery Method 09/23/23 11:30 09/23/23 12:00 09/23/23 12:00 Temperature Pulse Rate 60 60 Respiratory Rate 16 17 Blood Pressure 115/57 L Pulse Oximetry 97 96 Oxygen Delivery Method MDM - Chest Pain Lab Data Attestation: I reviewed the patient's lab results. 09/23/23 09:34 09/23/23 09:34 Labs: Lab Results 09/23/23 09/23/23 Range/Units 09:34 12:30 WBC 8.2 (4.5-11.0) X10^3/uL RBC 4.02 L (4.5-5.9) X10^6/uL Hgb 12.7 L (13.5-17.5) g/dL Hct 37.1 L (41-53) % MCV 92.1 (80-100) fL MCH 31.5 (26-34) PG MCHC 34.2 (30-36) % RDW 14.9 H (11.6-14.8) % Plt Count 149 L (150-400) X10^3/uL Neut % (Auto) 71.3 (50-75) % Lymph % (Auto) 18.0 L (25-40) % [place] % (Auto) 8.6 (3-14) % Eos % (Auto) 1.4 L (2-4) % Baso % (Auto) 0.7 (0-2) % Neut # (Auto) 5800 (6309-6222) /uL Lymph # (Auto) 1500 (9672-0345) /uL [place] # (Auto) 700 (0-900) /uL Eos # (Auto) 100 (0-450) /uL Baso # (Auto) 100 (0-100) /uL PT 13.8 H (10.1-12.7) SECONDS INR 1.2 (0.9-1.3) APTT 36 (26-36) SECONDS Sodium 136 L (137-145) mmol/L Potassium 4.1 (3.4-5.1) mmol/L Chloride 102 (98-107) mmol/L Carbon Dioxide 25 (22-32) mmol/L BUN 17 (9-20) mg/dL Creatinine 0.80 (0.66-1.25) mg/dL Estimated GFR > 60 (>60) mL/min BUN/Creatinine Ratio 21.3 (6-22) Glucose 91 (80-110) mg/dL Calcium 9.2 (8.4-10.2) mg/dL Magnesium 1.3 L (1.6-2.3) mg/dL Total Bilirubin 0.8 (0.2-1.3) mg/dL AST 17 (17-59) IU/L ALT 13 (<50) IU/L Alkaline Phosphatase 53 (38-126) U/L Total Creatine Kinase 47 L 39 L (55-170) U/L Troponin I < 0.012 < 0.012 (0.01-0.034) ng/mL Total Protein 7.0 (6.3-8.2) g/dL Albumin 4.0 (3.5-5.0) g/dL Globulin 3.0 (1.7-4.1) g/dL Albumin/Globulin Ratio 1.3 (1.0-2.8) Lipase 40 (23-300) U/L Imaging Data Chest x-ray: Radiologist's Impression: PROCEDURE: XR CHEST 1V INDICATIONS: chest pain TECHNIQUE: One view of the chest was acquired. COMPARISON: [facility], CR, XR CHEST 2V, 07/01/2023, 10:59. FINDINGS: Surgical changes and devices: Pacemaker. Lungs and pleura: Lungs are clear. No pleural effusions or pneumothorax. Mediastinum: Mediastinal contours appear normal. Heart size is enlarged. Bones and chest wall: No suspicious bony lesions. Overlying soft tissues appear unremarkable. IMPRESSION: Portable chest within normal limits for age. ECG Data Attestation: I personally reviewed and interpreted this ECG as follows: Interpretation: Ventricularly paced Rate is 72 No changes consistent with ST-elevation NM MDM Narrative Medical decision making narrative: Troponins negative x2. The 2nd being greater than 6 hours after the onset of his discomfort. Chest x-ray is unremarkable. He is ventricularly paced on his EKG without signs of ST elevation NM. I did discuss this with the patient. There was no signs of pneumonia. He is an appointment with his beer cooler already scheduled for Thursday of next week. Will discharge patient home with instructions to keep that appointment. He was given return precautions. He expressed understanding and agreement. Discharge Plan Departure Patient Disposition: Home Clinical Impression: Atypical chest pain Instructions: DI for Atypical Chest Pain Activity Restrictions/Additional Instructions: Recommend that you continue to take all of your medications as directed and keep your appointment that you have scheduled with your beer cooler on Thursday. Return to the emergency department for new or worsening symptoms. Prescriptions: No Action metformin [Glucophage XR] 500 MG tablet extended release 24 hr 1,000 mg PO BID Qty: 0 Patient Comments: am and noon cholecalciferol (vitamin D3) [Vitamin D3] 5,000 unit Tablet 1,000 unit PO DAILY Qty: 0 alfuzosin [Uroxatral] 10 mg tablet extended release 24 hr 10 mg PO DAILY Qty: 90 3RF Rx Instructions: administer after the same meal each day dabigatran etexilate [Pradaxa] 75 mg Capsule 150 mg PO BID Rx Instructions: Unknown dose B12 1,000 mcg PO DAILY metoprolol succinate 100 mg tablet extended release 24 hr 50 mg PO BID insulin glargine [Lantus Solostar U-100 Insulin] 100 unit/mL (3 mL) Insulin Pen 15 unit SUBCUT 2100 Qty: 15 0RF omeprazole 20 mg capsule,delayed release(DR/EC) 20 mg PO BID oxycodone 5 mg tablet 5 mg PO Q4H PRN (Reason: pain) Qty: 14 0RF ascorbate calcium (vitamin C) 500 mg tablet 500 mg PO DAILY ferric citrate 210 mg iron tablet 210 mg PO DAILY Rx Instructions: administer with a meal levothyroxine [Synthroid] 25 mcg tablet 25 mcg PO DAILY magnesium 400 mg PO DAILY Referrals: Tan Agosto MD [Primary Care Provider] - Stand Alone Forms: Patient Portal/API
--- NOTE | 2023-09-23 10:27 | PC.NURSE ---
patient states his pain is coming down to a 4/10 and is present with inspiration.
[2023-09-23 12:54] LABS: Creatine Kinase 39 U/L (55-170)
[2023-09-23 13:05] LABS: Troponin I < 0.012 ng/mL (0.01-0.034)
== END 2023-09-23 13:28 | disposition home or self-care (01) ==
PROVIDERS: Emergency Provider Emergency Medicine; Family Provider Internal Medicine Cardiovascular Disease; PCP Family Medicine
DX: R07.89 Other chest pain (principal); Z95.0 Presence of cardiac pacemaker
CPT/HCPCS: 71045; 80053; 82550; 83690; 83735; 84484; 85025; 85610; 85730; 93005; 99283; 99284

== ENCOUNTER 2023-12-08 17:39 | Emergency (ER) | payer MEDICARE, OTHER, SELFPAY ==
[2023-01-06 08:35] VITALS: BMI 28.8
[2023-12-08] VITALS (10 sets, daily range): BP systolic 118–137; BP diastolic 55–72; PULSE 60–79; RESP 13–26; TEMP 36.4; O2SAT 96–98; BMI 28.0
--- NOTE | 2023-12-08 18:02 | DI.RAD.S_ITS ---
PROCEDURE: XR CHEST 1V INDICATIONS: chest pain TECHNIQUE: One view of the chest was acquired. COMPARISON: [facility], CR, XR CHEST 1V, 09/23/2023, 9:38. FINDINGS: Surgical changes and devices: Left chest wall pacemaker leads are in the region of right atrium and right ventricle. Lungs and pleura: Small left pleural effusion is seen with left basilar atelectasis. No pneumothorax. Right lung is clear. Mediastinum: Mediastinal contours appear normal. Heart size is enlarged. Bones and chest wall: No suspicious bony lesions. Overlying soft tissues appear unremarkable. IMPRESSION: Cardiomegaly and small left pleural effusion. No definite focal infiltrate. No pneumothorax. Dictated by: Tito Mayen M.D. on 12/08/2023 at 18:48 Approved by: Tito Mayen M.D. on 12/08/2023 at 18:48
[2023-12-08 18:10] LABS: Add Manual Diff / Slide Review NO; Basophils Absolute Auto 100 /uL (0-100); Basophils Percent Auto 1.2 % (0-2); Eosinophils Absolute Auto 100 /uL (0-450); Eosinophils Percent Auto 1.4 % (2-4); Hematocrit 37.2 % (41-53); Hemoglobin 12.5 g/dL (13.5-17.5); Lymphocytes Absolute Auto 2800 /uL (1100-4500); Lymphocytes Percent Auto 39.3 % (25-40); Mean Corpuscular HGB Conc 33.6 % (30-36); Mean Corpuscular Hemoglobin 30.3 PG (26-34); Mean Corpuscular Volume 90.2 fL (80-100); Monocytes Absolute Auto 600 /uL (0-900); Monocytes Percent Auto 8.2 % (3-14); Neutrophils Absolute Auto 3500 /uL (1500-7000); Neutrophils Percent Auto 49.9 % (50-75); Platelet Count 154 X10^3/uL (150-400); Red Blood Cell Count 4.13 X10^6/uL (4.5-5.9); Red Cell Distribution Width 15.5 % (11.6-14.8); White Blood Cell Count 7.1 X10^3/uL (4.5-11.0)
[2023-12-08 18:13] LABS: INR 1.1 (0.9-1.3); Prothrombin Time 13.1 SECONDS (9.4-12.5)
[2023-12-08 18:16] LABS: PTT Partial Thromboplastin Tim 38 SECONDS (25.1-36.5)
[2023-12-08 18:18] LABS: Alanine Aminotransferase 14 IU/L (<50); Albumin Globulin Ratio 1.3 (1.0-2.8); Alkaline Phosphatase 58 U/L (38-126); Aspartate Aminotransferase 20 IU/L (17-59); BUN Creatinine Ratio 22.5 (6-22); Bilirubin Total 0.5 mg/dL (0.2-1.3); Blood Urea Nitrogen 18 mg/dL (9-20); Calcium 9.1 mg/dL (8.4-10.2); Carbon Dioxide 25 mmol/L (22-32); Chloride 100 mmol/L (98-107); Creatine Kinase 40 U/L (55-170); Estimated Glomerular Filt Rate > 60 mL/min (>60); Globulin 3.1 g/dL (1.7-4.1); Glucose 106 mg/dL (80-110); HEMOLYSIS 18 (0-50); Lipase 55 U/L (23-300); Magnesium 1.5 mg/dL (1.6-2.3); Potassium 4.7 mmol/L (3.4-5.1); Sodium 134 mmol/L (137-145); Total Protein 7.1 g/dL (6.3-8.2)
[2023-12-08 18:30] LABS: Troponin I < 0.012 ng/mL (0.01-0.034)
--- NOTE | 2023-12-08 19:22 | ED.CHESTPAIN ---
HPI - Chest Pain General Chief Complaint: Chest Pain Stated Complaint: Chest pain Time Seen by Provider: 12/08/23 18:02 Source: patient and EMS Mode of arrival: EMS Limitations: no limitations History of Present Illness HPI narrative: Patient is an 88-year-old male. 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 Is on Pradaxa. Has a history of AFib. Is also an insulin-dependent diabetic. Is here for evaluation of chest discomfort. He states he woke up from a nap earlier this afternoon. Shortly afterwards developed some pressure on his chest. He took an aspirin. He also took some medicine to help with indigestion/heartburn because he initially thought that is what was going on. This did not improve his symptoms. His contacted EMS. She was told to give him another dose of aspirin so he has had a total of 650 mg. When EMS arrived he did receive nitro. He thought that his symptoms did improve with nitro. He states he does have a prescription for nitro at home but did not take this medication prior to contacting EMS. At the time of my exam he was asymptomatic. He can not say whether or not the symptoms were worse with palpation or movement or breathing as he did not specifically check during the time that he was having pain. No lower extremity swelling. Related Data Home Medications Medication Instructions Recorded Confirmed metformin 500 mg tablet,extended 1,000 mg PO BID ##0 10/14/12 07/01/23 release 24 hr (Glucophage XR) cholecalciferol (vitamin D3) 125 1,000 unit PO DAILY ##0 08/18/16 07/01/23 mcg (5,000 unit) tablet (Vitamin D3) omeprazole 20 mg capsule,delayed 20 mg PO BID 09/24/18 07/01/23 release B12 1,000 mcg PO DAILY 07/18/20 07/01/23 dabigatran etexilate 75 mg capsule 150 mg PO BID 07/18/20 07/01/23 (Pradaxa) levothyroxine 25 mcg tablet 25 mcg PO DAILY 12/11/21 07/01/23 (Synthroid) magnesium 400 mg PO DAILY 12/11/21 07/01/23 metoprolol succinate 100 mg 50 mg PO BID 04/01/22 07/01/23 tablet,extended release 24 hr ascorbate calcium (vitamin C) 500 500 mg PO DAILY 12/31/22 07/01/23 mg tablet ferric citrate 210 mg iron tablet 210 mg PO DAILY 12/31/22 07/01/23 Previous Rx's Medication Instructions Recorded insulin glargine 100 unit/mL (3 15 unit (0.15 mL) SUBCUT 2100 #15 11/22/22 mL) subcutaneous pen (Lantus mL Solostar U-100 Insulin) oxycodone 5 mg tablet 5 mg PO Q4H PRN pain #14 tabs 01/12/23 alfuzosin 10 mg tablet,extended 10 mg PO DAILY #90 tabs 04/09/23 release 24 hr (Uroxatral) Allergies Allergy/AdvReac Type Severity Reaction Status Date / Time No Known Drug Allergies Allergy Verified 12/08/23 18:01 Review of Systems Constitutional Constitutional: Reports system reviewed and no additional complaints, except as documented Cardiovascular Cardiovascular: Reports system reviewed and no additional complaints, except as documented Respiratory Respiratory: Reports system reviewed and no additional complaints, except as documented Gastrointestinal Gastrointestinal: Reports system reviewed and no additional complaints, except as documented Integumentary/Breasts Skin/Breast: Reports system reviewed and no additional complaints, except as documented Neurologic Neurologic: Reports system reviewed and no additional complaints, except as documented Hematologic/Lymphatic On Anticoagulants: Yes Patient History Medical History Pulmonary hypertension Phimosis COPD with acute exacerbation Anticoagulated Lower urinary tract symptoms (LUTS) Incomplete bladder emptying Bladder calculi Prostate cancer Pacemaker Cancer Diabetes Asthma TIA (transient ischemic attack) GERD (gastroesophageal reflux disease) Osteoarthritis (arthritis due to wear and tear of joints) Type 2 diabetes mellitus with diabetic neuropathy Hyperlipidemia Hypertension Atrial fibrillation, transient Surgical History H/O vasectomy History of appendectomy Previous back surgery Total knee replacement status Family History Family/Other No problems noted. Mother Brain tumor Father Medical history unknown Social History marital status: number of children: 3 household members: spouse Smoking Status: Never smoker alcohol intake: former Type(s) of exercise: walking frequency: daily Smoking Status: Never smoker alcohol intake frequency: 0-2 drinks per day Substance Use Type: does not use Exam Initial Vital Signs Initial Vital Signs: Vital Signs Temperature 97.6 F 12/08/23 17:45 Pulse Rate 79 12/08/23 17:45 Respiratory Rate 26 H 12/08/23 17:45 Blood Pressure 125/55 L 12/08/23 17:45 Pulse Oximetry 97 12/08/23 17:45 Oxygen Delivery Method Room Air 12/08/23 17:45 HENMT Head: normal to inspection and normocephalic Resp Effort & Inspection: normal respiratory effort Auscultation: clear to auscultation bilaterally Cardio Rate: regular rate Rhythm: regular rhythm GI Inspection: normal to inspection and non-distended Palpation: soft and No tender Skin General: no rashes or lesions noted Neuro General: patient alert, patient awake, patient oriented x3 and moves all extremities Extrem General: normal to inspection and capillary refill normal Course Orders Ordered: ED Orders 12/08/23 17:52 Complete Blood Count AUTO DIFF Stat Comprehensive Metabolic Panel Stat Lipase Stat Magnesium Stat PTT Partial Thromboplastin Casimiro Stat Prothrombin Time INR Stat Troponin & CK Cardiac Panel Stat 12/08/23 18:02 XR chest 1V Stat EKG-12 Lead Stat 12/08/23 20:00 Troponin & CK Cardiac Panel Stat Discontinued Medications Aspirin (Aspirin 81 Mg Chew Tab) 324 mg PO NOW ONE Stop: 12/08/23 18:03 Last Admin: 12/08/23 18:04 Dose: Not Given Documented By: BIJAN Vital Signs Vital signs: Vital Signs - 8 hr 12/08/23 17:45 12/08/23 18:00 12/08/23 18:30 Temperature 97.6 F Pulse Rate 79 60 60 Respiratory Rate 26 H 17 15 Blood Pressure 125/55 L 118/69 123/65 Pulse Oximetry 97 97 97 Oxygen Delivery Method Room Air 12/08/23 19:00 12/08/23 19:19 12/08/23 19:30 Temperature Pulse Rate 61 60 60 Respiratory Rate 15 14 15 Blood Pressure 133/72 Pulse Oximetry 96 97 97 Oxygen Delivery Method Room Air 12/08/23 19:30 12/08/23 20:00 12/08/23 20:00 Temperature Pulse Rate 60 Respiratory Rate 17 Blood Pressure 137/72 135/68 Pulse Oximetry 98 Oxygen Delivery Method 12/08/23 20:30 12/08/23 20:30 12/08/23 21:00 Temperature Pulse Rate 60 Respiratory Rate 13 Blood Pressure 127/69 134/65 Pulse Oximetry 97 Oxygen Delivery Method 12/08/23 21:00 12/08/23 21:30 12/08/23 21:30 Temperature Pulse Rate 60 60 Respiratory Rate 17 13 Blood Pressure 126/66 Pulse Oximetry 97 98 Oxygen Delivery Method MDM - Chest Pain Lab Data Attestation: I reviewed the patient's lab results. 12/08/23 17:52 12/08/23 17:52 Labs: Lab Results 12/08/23 12/08/23 Range/Units 17:52 20:00 WBC 7.1 (4.5-11.0) X10^3/uL RBC 4.13 L (4.5-5.9) X10^6/uL Hgb 12.5 L (13.5-17.5) g/dL Hct 37.2 L (41-53) % MCV 90.2 (80-100) fL MCH 30.3 (26-34) PG MCHC 33.6 (30-36) % RDW 15.5 H (11.6-14.8) % Plt Count 154 (150-400) X10^3/uL Neut % (Auto) 49.9 L (50-75) % Lymph % (Auto) 39.3 (25-40) % Petroleum % (Auto) 8.2 (3-14) % Eos % (Auto) 1.4 L (2-4) % Baso % (Auto) 1.2 (0-2) % Neut # (Auto) 3500 (1545-5460) /uL Lymph # (Auto) 2800 (8932-9043) /uL Petroleum # (Auto) 600 (0-900) /uL Eos # (Auto) 100 (0-450) /uL Baso # (Auto) 100 (0-100) /uL PT 13.1 H (9.4-12.5) SECONDS INR 1.1 (0.9-1.3) APTT 38 H (25.1-36.5) SECONDS Sodium 134 L (137-145) mmol/L Potassium 4.7 (3.4-5.1) mmol/L Chloride 100 (98-107) mmol/L Carbon Dioxide 25 (22-32) mmol/L BUN 18 (9-20) mg/dL Creatinine 0.80 (0.66-1.25) mg/dL Estimated GFR > 60 (>60) mL/min BUN/Creatinine Ratio 22.5 H (6-22) Glucose 106 (80-110) mg/dL Calcium 9.1 (8.4-10.2) mg/dL Magnesium 1.5 L (1.6-2.3) mg/dL Total Bilirubin 0.5 (0.2-1.3) mg/dL AST 20 (17-59) IU/L ALT 14 (<50) IU/L Alkaline Phosphatase 58 (38-126) U/L Total Creatine Kinase 40 L 35 L (55-170) U/L Troponin I < 0.012 < 0.012 (0.01-0.034) ng/mL Total Protein 7.1 (6.3-8.2) g/dL Albumin 4.0 (3.5-5.0) g/dL Globulin 3.1 (1.7-4.1) g/dL Albumin/Globulin Ratio 1.3 (1.0-2.8) Lipase 55 (23-300) U/L Imaging Data Chest x-ray: Radiologist's Impression: PROCEDURE: XR CHEST 1V INDICATIONS: chest pain TECHNIQUE: One view of the chest was acquired. COMPARISON: [facility], , XR CHEST 1V, 09/23/2023, 9:38. FINDINGS: Surgical changes and devices: Left chest wall pacemaker leads are in the region of right atrium and right ventricle. Lungs and pleura: Small left pleural effusion is seen with left basilar atelectasis. No pneumothorax. Right lung is clear. Mediastinum: Mediastinal contours appear normal. Heart size is enlarged. Bones and chest wall: No suspicious bony lesions. Overlying soft tissues appear unremarkable. IMPRESSION: Cardiomegaly and small left pleural effusion. No definite focal infiltrate. No pneumothorax. ECG Data Attestation: I personally reviewed and interpreted this ECG as follows: Interpretation: Ventricularly paced Rate is 73 MDM Narrative Medical decision making narrative: Patient has been asymptomatic since arrival here to the ER. Chest x-ray is unremarkable. Ventricularly paced on his EKG. 2- troponins. He has a history of ACS. He has had discomfort like this in the past. He states that his primary doctor thinks that it maybe his heart which is why he has the nitroglycerin. Does have a cardiology clinical nurse specialist that he is scheduled to see in approximately 1 month. He is on Pradaxa. He has on a beta-elizabeth so he is relatively medically managed. Plan will be is to discharge patient home to take his nitro as needed and to contact his cardiology clinical nurse specialist for follow-up to discuss further evaluation. Patient expressed understanding and agreement with plan. Discharge Plan Departure Patient Disposition: Home Clinical Impression: Chest pressure Instructions: DI for Chest Pain Activity Restrictions/Additional Instructions: Continue to take all of your medications as directed. If your symptoms return take the nitroglycerin that you have at home as directed. If your symptoms persist despite this return to the emergency department. Contact your cardiology clinical nurse specialist for follow-up as well. Prescriptions: No Action metformin [Glucophage XR] 500 MG tablet extended release 24 hr 1,000 mg PO BID Qty: 0 Patient Comments: am and noon cholecalciferol (vitamin D3) [Vitamin D3] 5,000 unit Tablet 1,000 unit PO DAILY Qty: 0 alfuzosin [Uroxatral] 10 mg tablet extended release 24 hr 10 mg PO DAILY Qty: 90 3RF Rx Instructions: administer after the same meal each day dabigatran etexilate [Pradaxa] 75 mg Capsule 150 mg PO BID Rx Instructions: Unknown dose B12 1,000 mcg PO DAILY metoprolol succinate 100 mg tablet extended release 24 hr 50 mg PO BID insulin glargine [Lantus Solostar U-100 Insulin] 100 unit/mL (3 mL) Insulin Pen 15 unit SUBCUT 2100 Qty: 15 0RF omeprazole 20 mg capsule,delayed release(DR/EC) 20 mg PO BID oxycodone 5 mg tablet 5 mg PO Q4H PRN (Reason: pain) Qty: 14 0RF ascorbate calcium (vitamin C) 500 mg tablet 500 mg PO DAILY ferric citrate 210 mg iron tablet 210 mg PO DAILY Rx Instructions: administer with a meal levothyroxine [Synthroid] 25 mcg tablet 25 mcg PO DAILY magnesium 400 mg PO DAILY Referrals: Tan Agosto MD [Primary Care Provider] - Stand Alone Forms: Patient Portal/API
[2023-12-08 20:59] LABS: Creatine Kinase 35 U/L (55-170)
[2023-12-08 21:12] LABS: Troponin I < 0.012 ng/mL (0.01-0.034)
== END 2023-12-08 21:49 | disposition home or self-care (01) ==
PROVIDERS: Emergency Medicine; Emergency Provider Emergency Medicine; Family Provider Internal Medicine Cardiovascular Disease; PCP Family Medicine
DX: R07.9 Chest pain, unspecified (principal); Z95.0 Presence of cardiac pacemaker; Z79.01 Long term (current) use of anticoagulants
CPT/HCPCS: 36415; 71045; 80053; 82550; 83690; 83735; 84484; 85025; 85610; 85730; 93005; 99283; 99284

== ENCOUNTER → 2023-12-23 12:22 | Outpatient (CLI) | payer MEDICARE, OTHER, SELFPAY ==
[2023-01-06 08:35] VITALS: BMI 28.8
[2023-12-23 13:53] LABS: Prostate Specific Antigen 0.526 ng/mL (0.10-4.00)
== END ==
PROVIDERS: Family Provider Internal Medicine Cardiovascular Disease; PCP Family Medicine; Referring Provider Specialist; Visit Provider Specialist
DX: C61 Malignant neoplasm of prostate (principal)
CPT/HCPCS: 36415; 84153

== ENCOUNTER → 2024-04-27 11:29 | Outpatient (CLI) | payer MEDICARE, OTHER, SELFPAY ==
[2023-01-06 08:35] VITALS: BMI 28.8
[2024-04-27 12:16] LABS: Add Manual Diff / Slide Review NO; Basophils Absolute Auto 100 /uL (0-100); Basophils Percent Auto 0.9 % (0-2); Eosinophils Absolute Auto 100 /uL (0-450); Eosinophils Percent Auto 1.2 % (2-4); Hematocrit 38.7 % (41-53); Hemoglobin 13.2 g/dL (13.5-17.5); Lymphocytes Absolute Auto 2300 /uL (1100-4500); Lymphocytes Percent Auto 27.8 % (25-40); Mean Corpuscular Hemoglobin 31.3 PG (26-34); Monocytes Absolute Auto 600 /uL (0-900); Monocytes Percent Auto 7.1 % (3-14); Neutrophils Absolute Auto 5200 /uL (1500-7000); Platelet Count 185 X10^3/uL (150-400); Red Blood Cell Count 4.21 X10^6/uL (4.5-5.9); Red Cell Distribution Width 15.5 % (11.6-14.8); White Blood Cell Count 8.3 X10^3/uL (4.5-11.0)
[2024-04-27 12:24] LABS: Hemoglobin A1C% w Est Avg Glu 6.5 % (4.0-6.0)
[2024-04-27 12:42] LABS: Cholesterol 167 mg/dL (140-199); HDL Cholesterol 35 mg/dL (40-60); LDL Cholesterol Calculated 87 mg/dL (<100); Magnesium 1.8 mg/dL (1.6-2.3); Triglycerides 223 mg/dL (35-150)
[2024-04-27 13:23] LABS: Vitamin B12 938 pg/mL (239-931)
[2024-04-27 15:58] LABS: Thyroid Stimulating Hormone 1.22 uIU/mL (0.47-4.68)
[2024-04-27 17:12] LABS: Vitamin D 25 Hydroxy (D3) 36.4 ng/mL (30.0-100.0)
[2024-04-27 20:24] LABS: Free T4, Direct Thyroxine 1.22 ng/dL (0.78-2.19)
[2024-04-28 06:44] LABS: Alanine Aminotransferase 11 IU/L (<50); Albumin 4.1 g/dL (3.5-5.0); Albumin Globulin Ratio 1.5 (1.0-2.8); Alkaline Phosphatase 62 U/L (38-126); Aspartate Aminotransferase 19 IU/L (17-59); BUN Creatinine Ratio 18.7 (6-22); Bilirubin Total 0.6 mg/dL (0.2-1.3); Blood Urea Nitrogen 17 mg/dL (9-20); Carbon Dioxide 25 mmol/L (22-32); Chloride 102 mmol/L (98-107); Estimated Glomerular Filt Rate > 60 mL/min (>60); Globulin 2.8 g/dL (1.7-4.1); Glucose 134 mg/dL (80-110); HEMOLYSIS < 15 (0-50); Potassium 4.8 mmol/L (3.4-5.1); Sodium 137 mmol/L (137-145); Total Protein 6.9 g/dL (6.3-8.2)
== END ==
PROVIDERS: Family Provider Internal Medicine Cardiovascular Disease; PCP Family Medicine; Referring Provider Family Medicine; Visit Provider Family Medicine
DX: Z13.228 Encounter for screening for other metabolic disorders (principal); D50.9 Iron deficiency anemia, unspecified; E11.9 Type 2 diabetes mellitus without complications; I25.10 Atherosclerotic heart disease of native coronary artery without angina pectoris; E55.9 Vitamin D deficiency, unspecified; Z13.0 Encounter for screening for diseases of the blood and blood-forming organs and certain disorders involving the immune mechanism; Z13.220 Encounter for screening for lipoid disorders; Z12.5 Encounter for screening for malignant neoplasm of prostate; K21.9 Gastro-esophageal reflux disease without esophagitis; I48.0 Paroxysmal atrial fibrillation; D51.9 Vitamin B12 deficiency anemia, unspecified; E61.2 Magnesium deficiency; I10 Essential (primary) hypertension
CPT/HCPCS: 36415; 80053; 80061; 82306; 82607; 83036; 83735; 84439; 84443; 84481; 85025

== ENCOUNTER 2024-06-06 00:16 | Emergency (ER) | payer MEDICARE, OTHER, SELFPAY ==
[2023-01-06 08:35] VITALS: BMI 28.8
[2024-06-06 00:25] VITALS: BP 163/80; PULSE 65; RESP 18; TEMP 36.3; O2SAT 98
[2024-06-06 00:29] VITALS: PULSE 65; O2SAT 98
[2024-06-06 00:30] VITALS: BP 144/70; PULSE 64; O2SAT 98
--- NOTE | 2024-06-06 00:44 | ED_ITS ---
HPI - Fall General Chief Complaint: Fall Stated Complaint: GLF on thinners Time Seen by Provider: 06/06/24 00:39 Source: patient and EMS Mode of arrival: EMS History of Present Illness HPI Narrative: 88-year-old male with history of atrial fibrillation and chronic Pradaxa anticoagulation, had ground level fall tonight at home, tripped over purse of his . Struck left periorbital face on something, can not recall what he hit, can not recall if he lost consciousness, no nausea or vomiting, he denies neck pain, he denies weakness to face arm or leg. He has been taking his Pradaxa medications. No nosebleed or nasal swelling. No visual disturbance. He also has small abrasions to his right upper anterior arm, right dorsal 1st webspace hand, left elbow. He denies neck pain. He denies posterior head injury pain he denies ear pain. He also denies pain to his chest, upper back, lower back, abdomen and pelvis. No pain to lower extremities. No other areas of discomfort upper extremities. Related Data Home Medications Medication Instructions Recorded Confirmed metformin 500 mg tablet,extended 1,000 mg PO BID ##0 10/14/12 12/29/23 release 24 hr (Glucophage XR) cholecalciferol (vitamin D3) 125 1,000 unit PO DAILY ##0 08/18/16 12/29/23 mcg (5,000 unit) tablet (Vitamin D3) omeprazole 20 mg capsule,delayed 20 mg PO BID 09/24/18 12/29/23 release B12 1,000 mcg PO DAILY 07/18/20 12/29/23 dabigatran etexilate 75 mg capsule 150 mg PO BID 07/18/20 12/29/23 (Pradaxa) levothyroxine 25 mcg tablet 25 mcg PO DAILY 12/11/21 12/29/23 (Synthroid) magnesium 400 mg PO DAILY 12/11/21 12/29/23 metoprolol succinate 100 mg 50 mg PO BID 04/01/22 12/29/23 tablet,extended release 24 hr ascorbate calcium (vitamin C) 500 500 mg PO DAILY 12/31/22 12/29/23 mg tablet ferric citrate 210 mg iron tablet 210 mg PO DAILY 12/31/22 12/29/23 Previous Rx's Medication Instructions Recorded insulin glargine 100 unit/mL (3 15 unit (0.15 mL) SUBCUT 2100 #15 11/22/22 mL) subcutaneous pen (Lantus mL Solostar U-100 Insulin) oxycodone 5 mg tablet 5 mg PO Q4H PRN pain #14 tabs 01/12/23 alfuzosin 10 mg tablet,extended 10 mg PO DAILY #90 tabs 04/09/23 release 24 hr (Uroxatral) Allergies Allergy/AdvReac Type Severity Reaction Status Date / Time No Known Drug Allergies Allergy Verified 12/08/23 18:01 Review of Systems Review of Systems Narrative: see HPI Patient History Medical History Pulmonary hypertension Phimosis COPD with acute exacerbation Anticoagulated Lower urinary tract symptoms (LUTS) Incomplete bladder emptying Bladder calculi Prostate cancer Pacemaker Cancer Diabetes Asthma TIA (transient ischemic attack) GERD (gastroesophageal reflux disease) Osteoarthritis (arthritis due to wear and tear of joints) Type 2 diabetes mellitus with diabetic neuropathy Hyperlipidemia Hypertension Atrial fibrillation, transient Surgical History H/O vasectomy Total knee replacement status Previous back surgery History of appendectomy Family History Family/Other No problems noted. Mother Brain tumor Father Medical history unknown Social History marital status: number of children: 3 household members: spouse Smoking Status: Never smoker alcohol intake: former Type(s) of exercise: walking frequency: daily Smoking Status: Never smoker alcohol intake frequency: 0-2 drinks per day Substance Use Type: does not use Exam Narrative Exam Narrative: GENERAL: Well-developed patient, in mild distress. HEAD: Small abrasions to the superior and lateral left periorbital skin, slight swelling. EYES: Pupils equal round and reactive. Extraocular motions intact. No scleral icterus. No injection or drainage. No pain with lateral gaze testing, conjugate eye movements, no diplopia ENT: Nose without bleeding, purulent drainage. Throat without erythema, tonsillar hypertrophy or exudate. Airway patent. NECK: Trachea midline. Non tender CARDIOVASCULAR: Regular rate and rhythm without murmurs, gallops, or rubs. RESPIRATORY: Clear to auscultation. Breath sounds equal bilaterally. No wheezes, rales, or rhonchi. GASTROINTESTINAL: Abdomen soft, non-tender, nondistended. EXTREMITIES: No edema or joint tenderness. Small abrasion anterior right upper mid arm 2 cm, small abrasion right 1st webspace dorsal aspect hand, without swelling or deformity, left elbow small abrasion, full range of motion left elbow without gross deformity. No tenderness right leg or left leg, including at hips. Straight leg raise easily both lower extremities. BACK: Nontender without deformity or crepitance. No flank tenderness. NEURO: AOx3. SKIN: No rash or erythema of visible areas Initial Vital Signs Initial Vital Signs: Vital Signs Temperature 97.4 F L 06/06/24 00:25 Pulse Rate 65 06/06/24 00:25 Respiratory Rate 18 06/06/24 00:25 Blood Pressure 163/80 H 06/06/24 00:25 Pulse Oximetry 98 06/06/24 00:25 Oxygen Delivery Method Room Air 06/06/24 00:25 Course Orders Ordered: ED Orders 06/06/24 00:49 CT head/brain wo con Stat 06/06/24 00:50 CT facial bones wo con Stat Discontinued Medications Bacitracin (Bacitracin Oint 0.9 Gm Pckt) 3 applic TOP NOW ONE Stop: 06/06/24 00:59 Last Admin: 06/06/24 02:35 Dose: 3 applic Documented By: AB Vital Signs Vital signs: Vital Signs - 8 hr 06/06/24 00:25 06/06/24 00:29 06/06/24 00:30 Temperature 97.4 F L Pulse Rate 65 65 64 Respiratory Rate 18 Blood Pressure 163/80 H Pulse Oximetry 98 98 98 Oxygen Delivery Method Room Air Room Air 06/06/24 00:30 06/06/24 02:33 Temperature Pulse Rate 60 Respiratory Rate 18 Blood Pressure 144/70 H Pulse Oximetry 99 Oxygen Delivery Method MDM - Fall Imaging Data CT scan - head: Radiologist's Impression: [address] [address] [address] Scan Report Signed Patient: Oscar Schwab MR#: [id number] : 1935 Acct:[id number] Age/Sex: 88 / M Date of Service: 06/06/24 Loc: ED Accession Number: [id number] Procedure: CT head/brain wo con Ordering Provider: Hitesh Mccain MD PROCEDURE: CT HEAD/BRAIN WO CON INDICATIONS: GLF, takes pradaxa, head/face trauma TECHNIQUE: Noncontrast 4.5 mm thick angled axial sections acquired from the foramen magnum to the vertex, with coronal and sagittal reformats. For radiation dose reduction, the following was used: automated exposure control, adjustment of mA and/or kV according to patient size. COMPARISON: [facility], CT, CT HEAD/BRAIN WO CON, 12/16/2022, 10:43. [facility], CT, CT HEAD/BRAIN WO CON, 05/13/2021, 22:28. FINDINGS: Image quality: Diagnostic. CSF spaces: Basal cisterns are patent. No extra-axial fluid collections. The ventricles are symmetric in size and shape. Brain: No intracranial bleeds or masses. There is cerebral volume loss for age, with resultant ventricular and sulcal prominence. There are periventricular and deep white matter chronic small vessel ischemic changes. There is intracranial internal carotid artery atherosclerosis. Skull and face: Calvarium and visualized facial bones appear intact, without suspicious lesions. Sinuses: Visualized sinuses and mastoids are clear. IMPRESSION: 1. CT head without acute intracranial abnormalities or acute calvarial fractures. 2. Age-related senescent changes and sequela of chronic small vessel ischemic disease. Dictated by: Breezy Bay M.D. on 06/06/2024 at 2:11 Approved by: Breezy [place] M.D. on 06/06/2024 at 2:13 CT Face: Radiologist's Impression: [place] [address] CT Scan Report Signed Patient: Oscar Schwab MR#: [id number] : 1935 Acct:[id number] Age/Sex: 88 / M Date of Service: 06/06/24 Loc: ED Accession Number: [id number] Procedure: CT facial bones wo con Ordering Provider: Hitesh Mccain MD PROCEDURE: CT FACIAL BONES WO CON INDICATIONS: face trauma, left periorbital/zygo abrasions TECHNIQUE: Noncontrast 2.5 mm thick axial images acquired from the mandible through the frontal sinuses, with coronal and sagittal reformatting. For radiation dose reduction, the following was used: automated exposure control, adjustment of mA and/or kV according to patient size. COMPARISON: [facility], CT, CT FACIAL BONES WO CON, 05/13/2021, 22:28. FINDINGS: Image quality: Diagnostic Bones and teeth: Orbital cartagena are intact. Sinus cartagena show no fracture or deformity. Nasal bones and septum are intact. Visualized portions of the mandible demonstrate no fractures or subluxation. Zygomatic arches are intact. Pterygoid plates are intact. Visualized portions of the skull base and auditory canals are intact. Sinuses: Paranasal sinuses are aerated, without fluid levels, mucosal thickening, or mucoceles. Mastoid air cells are aerated. Soft tissues: There is left periorbital/zygomatic region soft tissue swelling/contusion. No enlarged lymph nodes. No soft tissue lacerations or debris. Globes appear intact bilaterally. Vascular: Visualized vascular structures appear normal in the absence of contrast. Bony vascular foramina and canals are intact. IMPRESSION: Left periorbital/zygomatic region soft tissue swelling without underlying facial fractures. No acute facial bone fractures identified elsewhere. Dictated by: Breezy [place] M.D. on 06/06/2024 at 2:13 Approved by: B[place]zy [place] M.D. on 06/06/2024 at 2:16 MDM Narrative Medical decision making narrative: Elderly male with history of AFib on chronic anticoagulation, had a mechanical ground level fall. Abrasions left periorbital and zygomatic, minor abrasions extremities the done not require x-rays. CT head noncontrast study were ordered. CT face noncontrast study ordered. Keep NPO. CT head showed no acute bony injuries, see radiologist's report. CT face showed soft tissue changes left periorbital space, otherwise negative, see radiologist's report. Antibiotic ointment applied to abrasions. Patient improved, ambulatory. Recheck in next couple of days with PCP advised. Return precautions discussed. Home with . Discharge Plan Departure Patient Disposition: Home Clinical Impression: Fall from ground level, Chronic anticoagulation, Abrasion of face, Contusion of face, Abrasion of right hand, Abrasion of right arm, Abrasion of left elbow Activity Restrictions/Additional Instructions: Mechanical ground level fall, tripping over purse, taking chronic Pradaxa anticoagulation. Injuries to left periorbital and zygomatic areas of the face, CT scan head and brain studies without acute traumatic injuries to the skull or bony structures, no brain bleeding or brain swelling. CT face showed no fractures of the facial bones, did show some soft tissue swelling around the left periorbital region of the eye, and zygoma of the cheek bone. Minor abrasions on exam to right arm, right hand, left elbow. Apply antibiotic ointment twice daily to abrasions to face and extremities. Wound check advised in next couple of days. Continue taking your Pradaxa medications. Return earlier than wound check time for any change worsening symptoms or any concerns prior Prescriptions: No Action metformin [Glucophage XR] 500 MG tablet extended release 24 hr 1,000 mg PO BID Qty: 0 Patient Comments: am and noon cholecalciferol (vitamin D3) [Vitamin D3] 5,000 unit Tablet 1,000 unit PO DAILY Qty: 0 alfuzosin [Uroxatral] 10 mg tablet extended release 24 hr 10 mg PO DAILY Qty: 90 3RF Rx Instructions: administer after the same meal each day dabigatran etexilate [Pradaxa] 75 mg Capsule 150 mg PO BID Rx Instructions: Unknown dose B12 1,000 mcg PO DAILY metoprolol succinate 100 mg tablet extended release 24 hr 50 mg PO BID insulin glargine [Lantus Solostar U-100 Insulin] 100 unit/mL (3 mL) Insulin Pen 15 unit SUBCUT 2100 Qty: 15 0RF omeprazole 20 mg capsule,delayed release(DR/EC) 20 mg PO BID oxycodone 5 mg tablet 5 mg PO Q4H PRN (Reason: pain) Qty: 14 0RF ascorbate calcium (vitamin C) 500 mg tablet 500 mg PO DAILY ferric citrate 210 mg iron tablet 210 mg PO DAILY Rx Instructions: administer with a meal levothyroxine [Synthroid] 25 mcg tablet 25 mcg PO DAILY magnesium 400 mg PO DAILY Referrals: Tan Agosto MD [Primary Care Provider] - Stand Alone Forms: Patient Portal/API
--- NOTE | 2024-06-06 00:49 | DI.CT.S_ITS ---
PROCEDURE: CT HEAD/BRAIN WO CON INDICATIONS: GLF, takes pradaxa, head/face trauma TECHNIQUE: Noncontrast 4.5 mm thick angled axial sections acquired from the foramen magnum to the vertex, with coronal and sagittal reformats. For radiation dose reduction, the following was used: automated exposure control, adjustment of mA and/or kV according to patient size. COMPARISON: [facility], CT, CT HEAD/BRAIN WO CON, 12/16/2022, 10:43. [facility], CT, CT HEAD/BRAIN WO CON, 05/13/2021, 22:28. FINDINGS: Image quality: Diagnostic. CSF spaces: Basal cisterns are patent. No extra-axial fluid collections. The ventricles are symmetric in size and shape. Brain: No intracranial bleeds or masses. There is cerebral volume loss for age, with resultant ventricular and sulcal prominence. There are periventricular and deep white matter chronic small vessel ischemic changes. There is intracranial internal carotid artery atherosclerosis. Skull and face: Calvarium and visualized facial bones appear intact, without suspicious lesions. Sinuses: Visualized sinuses and mastoids are clear. IMPRESSION: 1. CT head without acute intracranial abnormalities or acute calvarial fractures. 2. Age-related senescent changes and sequela of chronic small vessel ischemic disease. Dictated by: Breezy Bay M.D. on 06/06/2024 at 2:11 Approved by: Breezy Bay M.D. on 06/06/2024 at 2:13
--- NOTE | 2024-06-06 00:50 | DI.CT.S_ITS ---
PROCEDURE: CT FACIAL BONES WO [facility] INDICATIONS: face trauma, left periorbital/zygo abrasions TECHNIQUE: Noncontrast 2.5 mm thick axial images acquired from the mandible through the frontal sinuses, with coronal and sagittal reformatting. For radiation dose reduction, the following was used: automated exposure control, adjustment of mA and/or kV according to patient size. COMPARISON: [facility], CT, CT FACIAL BONES WO [facility], 05/13/2021, 22:28. FINDINGS: Image quality: Diagnostic Bones and teeth: Orbital cartagena are intact. Sinus cartagena show no fracture or deformity. Nasal bones and septum are intact. Visualized portions of the mandible demonstrate no fractures or subluxation. Zygomatic arches are intact. Pterygoid plates are intact. Visualized portions of the skull base and auditory canals are intact. Sinuses: Paranasal sinuses are aerated, without fluid levels, mucosal thickening, or mucoceles. Mastoid air cells are aerated. Soft tissues: There is left periorbital/zygomatic region soft tissue swelling/contusion. No enlarged lymph nodes. No soft tissue lacerations or debris. Globes appear intact bilaterally. Vascular: Visualized vascular structures appear normal in the absence of contrast. Bony vascular foramina and canals are intact. IMPRESSION: Left periorbital/zygomatic region soft tissue swelling without underlying facial fractures. No acute facial bone fractures identified elsewhere. Dictated by: Breezy Bay M.D. on 06/06/2024 at 2:13 Approved by: Breezy Bay M.D. on 06/06/2024 at 2:16
[2024-06-06 02:33] VITALS: PULSE 60; RESP 18; O2SAT 99
[2024-06-06] MEDS: BACITRACIN OINT 0.9 GM PCKT 3 APPLIC TOP (02:35)
== END 2024-06-06 02:49 | disposition home or self-care (01) ==
PROVIDERS: Emergency Provider Emergency Medicine; Family Provider Internal Medicine Cardiovascular Disease; PCP Family Medicine
DX: S00.212A Abrasion of left eyelid and periocular area, initial encounter (principal); S60.511A Abrasion of right hand, initial encounter; S40.811A Abrasion of right upper arm, initial encounter; S50.312A Abrasion of left elbow, initial encounter; W01.10XA Fall on same level from slipping, tripping and stumbling with subsequent striking against unspecified object, initial encounter; Z79.01 Long term (current) use of anticoagulants; I73.9 Peripheral vascular disease, unspecified; G45.9 Transient cerebral ischemic attack, unspecified; I10 Essential (primary) hypertension; I25.10 Atherosclerotic heart disease of native coronary artery without angina pectoris; M79.606 Pain in leg, unspecified; R60.0 Localized edema
CPT/HCPCS: 70450; 70486; 76706; 93925; 99282; 99284

== ENCOUNTER → 2024-06-06 15:21 | Outpatient (CLI) | payer MEDICARE, OTHER, SELFPAY ==
[2023-01-06 08:35] VITALS: BMI 28.8
--- NOTE | 2024-06-06 15:23 | DI.US.S_ITS ---
PROCEDURE: US ARTERIAL DUPLEX LE BI INDICATIONS: Peripheral vascular disease, unspecified TECHNIQUE: Color and pulse Doppler interrogation was performed of both lower extremity arterial systems, with image documentation. COMPARISON: None. FINDINGS: Evaluation below the knee is limited bilaterally secondary to subcutaneous edema/habitus. Right lower extremity: Common femoral artery: 50 cm/sec, with triphasic flow. Deep femoral artery: 42 cm/sec, with triphasic flow. Proximal superficial femoral artery: 65 cm/sec, with triphasic flow. Mid superficial femoral artery: 58 cm/sec, with triphasic flow. Distal superficial femoral artery: 54 cm/sec, with triphasic flow. Popliteal artery: 33/20 cm/sec, with triphasic/triphasic flow. Posterior tibial artery: 77/not visualized cm/sec, with triphasic/not visualized flow. Anterior tibial artery/dorsalis pedis: 39/not well visualized cm/sec, with triphasic/not visualized flow. Rosenthal-scale imaging description: Scattered atherosclerotic plaque. Left lower extremity: Common femoral artery: 48 cm/sec, with triphasic flow. Deep femoral artery: 36 cm/sec, with triphasic flow. Proximal superficial femoral artery: 42 cm/sec, with triphasic flow. Mid superficial femoral artery: 60 cm/sec, with triphasic flow. Distal superficial femoral artery: 43 cm/sec, with triphasic flow. Popliteal artery: 35/34 cm/sec, with triphasic/triphasic flow. Posterior tibial artery: 33/not visualized cm/sec, with triphasic/not visualized flow. Anterior tibial artery/dorsalis pedis: 94/not visualized cm/sec, with triphasic/not visualized flow. Rosenthal-scale imaging description: Scattered atherosclerotic plaque. IMPRESSION: Evaluation below the knee is limited bilaterally secondary to subcutaneous edema/habitus. 1. Right lower extremity above the knee vasculature demonstrates multiphasic waveforms with no velocity shift to suggest hemodynamically significant stenosis. DPA and distal [employer] are not well visualized. 2. Left lower extremity above the knee vasculature demonstrates multiphasic waveforms with no velocity shift to suggest hemodynamically significant stenosis. DPA and distal [employer] are not well visualized. Dictated by: Sapna Bridges M.D. on 06/06/2024 at 16:54 Approved by: Sapna Bridges M.D. on 06/06/2024 at 17:04
--- NOTE | 2024-06-06 15:23 | DI.US.S_ITS ---
PROCEDURE: US ABD AORTA ANEURYSM SCREEN INDICATIONS: Peripheral vascular disease, unspecified TECHNIQUE: Real time scanning was performed of the aorta and iliac arteries, with image documentation. COMPARISON: None. FINDINGS: Aorta: Proximal aortic diameter measures 2.4 x 2.4 cm. Mid-aorta measures 2.5 x 2.6 cm. Distal aortic diameter is 1.8 x 1.2 cm. Iliac arteries: Right common iliac artery measures 1.1 x 1.3 cm. Left common iliac artery measures 1.3 x 1.5 cm. IMPRESSION: 1. No abdominal aortic aneurysm. 2. Bilateral common iliac arteries are normal in caliber, where visualized. Dictated by: Sapna Bridges M.D. on 06/06/2024 at 16:54 Approved by: Sapna Bridges M.D. on 06/06/2024 at 16:54
== END ==
PROVIDERS: Family Provider Internal Medicine Cardiovascular Disease; PCP Family Medicine; Referring Provider Family Medicine; Visit Provider Family Medicine
DX: G45.9 Transient cerebral ischemic attack, unspecified (principal); I10 Essential (primary) hypertension; I25.10 Atherosclerotic heart disease of native coronary artery without angina pectoris; I73.9 Peripheral vascular disease, unspecified; M79.606 Pain in leg, unspecified; R60.0 Localized edema
CPT/HCPCS: 76706; 93925

== ENCOUNTER → 2024-06-20 11:44 | Outpatient (CLI) | payer MEDICARE, OTHER, SELFPAY ==
[2023-01-06 08:35] VITALS: BMI 28.8
[2024-06-20 21:53] LABS: Prostate Specific Antigen 0.338 ng/mL (0.10-4.00)
== END ==
PROVIDERS: Family Provider Internal Medicine Cardiovascular Disease; PCP Family Medicine; Referring Provider Specialist; Visit Provider Specialist
DX: C61 Malignant neoplasm of prostate (principal); R39.9 Unspecified symptoms and signs involving the genitourinary system
CPT/HCPCS: 36415; 84153

== ENCOUNTER → 2024-08-17 10:19 | Outpatient (CLI) | payer MEDICARE, OTHER, SELFPAY ==
[2023-01-06 08:35] VITALS: BMI 28.8
[2024-08-17 12:26] LABS: Add Manual Diff / Slide Review NO; Basophils Absolute Auto 0 /uL (0-100); Basophils Percent Auto 0.6 % (0-2); Eosinophils Absolute Auto 100 /uL (0-450); Hematocrit 36.7 % (41-53); Hemoglobin 12.6 g/dL (13.5-17.5); Lymphocytes Absolute Auto 2300 /uL (1100-4500); Lymphocytes Percent Auto 33.1 % (25-40); Mean Corpuscular HGB Conc 34.3 % (30-36); Mean Corpuscular Hemoglobin 31.4 PG (26-34); Mean Corpuscular Volume 91.7 fL (80-100); Monocytes Absolute Auto 600 /uL (0-900); Monocytes Percent Auto 8.9 % (3-14); Neutrophils Absolute Auto 3900 /uL (1500-7000); Neutrophils Percent Auto 55.4 % (50-75); Platelet Count 161 X10^3/uL (150-400); Red Cell Distribution Width 15.7 % (11.6-14.8)
[2024-08-17 12:51] LABS: Alanine Aminotransferase 11 IU/L (<50); Albumin 3.9 g/dL (3.5-5.0); Albumin Globulin Ratio 1.4 (1.0-2.8); Alkaline Phosphatase 60 U/L (38-126); Aspartate Aminotransferase 19 IU/L (17-59); BUN Creatinine Ratio 17.1 (6-22); Bilirubin Total 0.5 mg/dL (0.2-1.3); Blood Urea Nitrogen 20 mg/dL (9-20); Calcium 9.2 mg/dL (8.4-10.2); Carbon Dioxide 26 mmol/L (22-32); Chloride 98 mmol/L (98-107); Cholesterol 155 mg/dL (140-199); Estimated Glomerular Filt Rate > 60 mL/min (>60); Globulin 2.8 g/dL (1.7-4.1); Glucose 92 mg/dL (80-110); HDL Cholesterol 35 mg/dL (40-60); HEMOLYSIS < 15 (0-50); LDL Cholesterol Calculated 87 mg/dL (<100); Magnesium 1.7 mg/dL (1.6-2.3); Potassium 4.7 mmol/L (3.4-5.1); Sodium 131 mmol/L (137-145); Total Protein 6.7 g/dL (6.3-8.2); Triglycerides 163 mg/dL (35-150)
== END ==
PROVIDERS: Family Provider Internal Medicine Cardiovascular Disease; PCP Family Medicine; Referring Provider Family Medicine; Visit Provider Family Medicine
DX: D50.9 Iron deficiency anemia, unspecified (principal); I10 Essential (primary) hypertension; E03.9 Hypothyroidism, unspecified; E55.9 Vitamin D deficiency, unspecified
CPT/HCPCS: 36415; 80053; 80061; 82306; 83735; 85025

== ENCOUNTER → 2024-11-22 12:04 | Outpatient (CLI) | payer MEDICARE, OTHER, SELFPAY ==
[2023-01-06 08:35] VITALS: BMI 28.8
[2024-11-22 12:42] LABS: Add Manual Diff / Slide Review NO; Basophils Absolute Auto 100 /uL (0-100); Basophils Percent Auto 1.1 % (0-2); Eosinophils Absolute Auto 100 /uL (0-450); Eosinophils Percent Auto 0.9 % (2-4); Hematocrit 38.3 % (41-53); Lymphocytes Absolute Auto 1700 /uL (1100-4500); Lymphocytes Percent Auto 20.3 % (25-40); Mean Corpuscular HGB Conc 33.8 % (30-36); Mean Corpuscular Hemoglobin 31.1 PG (26-34); Monocytes Absolute Auto 500 /uL (0-900); Monocytes Percent Auto 6.3 % (3-14); Neutrophils Absolute Auto 6000 /uL (1500-7000); Neutrophils Percent Auto 71.4 % (50-75); Platelet Count 172 X10^3/uL (150-400); Red Blood Cell Count 4.16 X10^6/uL (4.5-5.9); White Blood Cell Count 8.4 X10^3/uL (4.5-11.0)
[2024-11-22 13:41] LABS: Alanine Aminotransferase 15 IU/L (<50); Albumin 4.4 g/dL (3.5-5.0); Albumin Globulin Ratio 1.5 (1.0-2.8); Alkaline Phosphatase 62 U/L (38-126); Aspartate Aminotransferase 21 IU/L (17-59); BUN Creatinine Ratio 15.3 (6-22); Bilirubin Total 0.7 mg/dL (0.2-1.3); Blood Urea Nitrogen 15 mg/dL (9-20); Calcium 9.2 mg/dL (8.4-10.2); Carbon Dioxide 26 mmol/L (22-32); Chloride 102 mmol/L (98-107); Estimated Glomerular Filt Rate > 60 mL/min (>60); Globulin 2.9 g/dL (1.7-4.1); Glucose 118 mg/dL (80-110); HEMOLYSIS < 15 (0-50); Magnesium 1.5 mg/dL (1.6-2.3); Potassium 4.9 mmol/L (3.4-5.1); Sodium 136 mmol/L (137-145); Total Protein 7.3 g/dL (6.3-8.2)
[2024-11-22 14:09] LABS: Prostate Specific Antigen 0.441 ng/mL (0.10-4.00)
[2024-11-22 14:12] LABS: Thyroid Stimulating Hormone 1.39 uIU/mL (0.47-4.68)
[2024-11-22 14:31] LABS: Vitamin B12 796 pg/mL (239-931)
[2024-11-22 14:51] LABS: Vitamin D 25 Hydroxy (D3) 42.8 ng/mL (30.0-100.0)
== END ==
PROVIDERS: Urology; Family Provider Internal Medicine Cardiovascular Disease; PCP Family Medicine; Referring Provider Family Medicine; Visit Provider Family Medicine
DX: Z13.0 Encounter for screening for diseases of the blood and blood-forming organs and certain disorders involving the immune mechanism (principal); Z13.228 Encounter for screening for other metabolic disorders; C61 Malignant neoplasm of prostate; E03.9 Hypothyroidism, unspecified; E11.9 Type 2 diabetes mellitus without complications; I48.0 Paroxysmal atrial fibrillation; D51.9 Vitamin B12 deficiency anemia, unspecified; E55.9 Vitamin D deficiency, unspecified; N40.1 Benign prostatic hyperplasia with lower urinary tract symptoms; Z79.899 Other long term (current) drug therapy
CPT/HCPCS: 36415; 80053; 82306; 82607; 83735; 84153; 84443; 85025

== ENCOUNTER → 2024-12-12 12:01 | Outpatient (CLI) | payer MEDICARE, OTHER, SELFPAY ==
[2023-01-06 08:35] VITALS: BMI 28.8
--- NOTE | 2024-12-12 12:08 | DI.RAD.S_ITS ---
PROCEDURE: XR CHEST 2V INDICATIONS: CHEST PRESSURE TECHNIQUE: 2 views of the chest were acquired. COMPARISON: [facility], CR, XR CHEST 1V, 12/08/2023, 18:17. [facility], CR, XR CHEST 1V, 09/23/2023, 9:38. [facility], CR, XR CHEST 2V, 07/01/2023, 10:59. [facility], , CHEST 1 VIEW, 09/10/2014, 19:24. FINDINGS: Surgical changes and devices: Left pacemaker with the distal leads in the projection of the right atrium and right ventricle. Lungs and pleura: Lungs are clear. Trace left pleural effusion. No pneumothorax or right pleural effusion. Mediastinum: Mediastinal contours are normal. Cardiomegaly. Bones and chest wall: No suspicious bony abnormalities. Soft tissues appear unremarkable. IMPRESSION: Cardiomegaly with trace left pleural effusion. Otherwise, no acute cardiothoracic process. Dictated by: Aidan Mcclure M.D. on 12/12/2024 at 15:29 Approved by: Aidan Mcclure M.D. on 12/12/2024 at 15:30
== END ==
PROVIDERS: Family Provider Internal Medicine Cardiovascular Disease; PCP Family Medicine; Referring Provider Family Medicine; Visit Provider Family Medicine
DX: I24.81 Acute coronary microvascular dysfunction (principal); I51.7 Cardiomegaly; Z95.0 Presence of cardiac pacemaker
CPT/HCPCS: 71046

== ENCOUNTER → 2024-12-23 11:32 | Outpatient (CLI) | payer MEDICARE, OTHER, SELFPAY ==
[2023-01-06 08:35] VITALS: BMI 28.8
[2024-12-23 12:28] LABS: Add Manual Diff / Slide Review NO; Basophils Absolute Auto 0 /uL (0-100); Basophils Percent Auto 0.4 % (0-2); Eosinophils Absolute Auto 100 /uL (0-450); Eosinophils Percent Auto 1.7 % (2-4); Hematocrit 38.8 % (41-53); Hemoglobin 13.2 g/dL (13.5-17.5); Lymphocytes Absolute Auto 2500 /uL (1100-4500); Lymphocytes Percent Auto 29.9 % (25-40); Mean Corpuscular HGB Conc 34.1 % (30-36); Mean Corpuscular Hemoglobin 31.5 PG (26-34); Mean Corpuscular Volume 92.2 fL (80-100); Monocytes Absolute Auto 600 /uL (0-900); Monocytes Percent Auto 7.3 % (3-14); Neutrophils Absolute Auto 5000 /uL (1500-7000); Neutrophils Percent Auto 60.7 % (50-75); Platelet Count 189 X10^3/uL (150-400); Red Blood Cell Count 4.21 X10^6/uL (4.5-5.9); Red Cell Distribution Width 15.4 % (11.6-14.8); White Blood Cell Count 8.2 X10^3/uL (4.5-11.0)
[2024-12-23 12:53] LABS: Alanine Aminotransferase 18 IU/L (<50); Albumin 4.5 g/dL (3.5-5.0); Albumin Globulin Ratio 1.6 (1.0-2.8); Alkaline Phosphatase 59 U/L (38-126); Aspartate Aminotransferase 23 IU/L (17-59); BUN Creatinine Ratio 17.3 (6-22); Bilirubin Total 0.7 mg/dL (0.2-1.3); Blood Urea Nitrogen 18 mg/dL (9-20); Calcium 9.4 mg/dL (8.4-10.2); Carbon Dioxide 25 mmol/L (22-32); Chloride 98 mmol/L (98-107); Cholesterol 189 mg/dL (140-199); Estimated Glomerular Filt Rate > 60 mL/min (>60); Globulin 2.8 g/dL (1.7-4.1); Glucose 105 mg/dL (80-110); HDL Cholesterol 35 mg/dL (40-60); HEMOLYSIS < 15 (0-50); LDL Cholesterol Calculated 108 mg/dL (<100); Magnesium 1.4 mg/dL (1.6-2.3); Potassium 4.8 mmol/L (3.4-5.1); Sodium 134 mmol/L (137-145); Total Protein 7.3 g/dL (6.3-8.2); Triglycerides 231 mg/dL (35-150)
[2024-12-23 12:59] LABS: Hemoglobin A1C% w Est Avg Glu 6.5 % (4.0-6.0)
[2024-12-23 13:16] LABS: Thyroid Stimulating Hormone 2.07 uIU/mL (0.47-4.68)
[2024-12-23 13:18] LABS: Prostate Specific Antigen 0.412 ng/mL (0.10-4.00)
[2024-12-23 13:35] LABS: Vitamin B12 648 pg/mL (239-931)
[2024-12-23 14:40] LABS: Vitamin D 25 Hydroxy (D3) 37.5 ng/mL (30.0-100.0)
== END ==
LOC: LAB 11:36
PROVIDERS: Family Provider Internal Medicine Cardiovascular Disease; PCP Family Medicine; Referring Provider Urology; Visit Provider Urology
DX: I24.89 Other forms of acute ischemic heart disease (principal); E11.9 Type 2 diabetes mellitus without complications; E55.9 Vitamin D deficiency, unspecified; Z79.899 Other long term (current) drug therapy; E78.5 Hyperlipidemia, unspecified; E03.9 Hypothyroidism, unspecified; I50.9 Heart failure, unspecified; Z13.228 Encounter for screening for other metabolic disorders; Z13.220 Encounter for screening for lipoid disorders; Z13.0 Encounter for screening for diseases of the blood and blood-forming organs and certain disorders involving the immune mechanism; Z13.29 Encounter for screening for other suspected endocrine disorder; N40.1 Benign prostatic hyperplasia with lower urinary tract symptoms; R39.9 Unspecified symptoms and signs involving the genitourinary system; R33.9 Retention of urine, unspecified; C61 Malignant neoplasm of prostate
CPT/HCPCS: 36415; 80053; 80061; 82306; 82607; 83036; 83735; 84153; 84443; 85025

== ENCOUNTER → 2025-01-04 10:19 | Outpatient (CLI) | payer MEDICARE, OTHER, SELFPAY ==
[2023-01-06 08:35] VITALS: BMI 28.8
--- NOTE | 2025-01-04 10:20 | DI.RAD.S_ITS ---
PROCEDURE: XR DEXA AXIAL SKELETON INDICATIONS: 89 y/o M w/ prostate cancer on ADT, eval for osteopenia COMPARISON: [facility], CR, XR DEXA AXIAL SKELETON, 03/12/2022, 9:46. FINDINGS: Lumbar Spine: Bone mineral density 1.750 (previously 1.671) g/cm2, T score 5.9 (previously 5.2). Left Femoral Neck: Bone mineral density 1.289 (previously 1.252) g/cm2, T score 4.0 (previously 3.6) Left Hip: Bone mineral density 1.470 (previously 1.423) g/cm2, T score 4.3 (previously 3.9). Fracture Risk Calculation (when applicable): 10-year fracture risk of a major osteoporotic fracture 2.0 percent and of a hip fracture 0.3 percent. (T score greater or equal to -1.0 to: NORMAL) (T score from -1.1 to -2.4: OSTEOPENIA) (T score less than or equal to -2.5: OSTEOPOROSIS) IMPRESSION: Normal---recommend repeat DEXA as clinically indicated. Follow-up guidelines as follows: Osteoporosis: Consider a repeat DEXA and Vertebral Fracture Assessment (VFA) exam in 2 years or sooner if medically necessary, to reassess this patient's status. Osteopenia: Consider a repeat DEXA in 2-3 years to reassess this patient's status, or if there is a new clinical indication. Normal: Consider a repeat DEXA in 5 years or sooner, or if there is a new clinical indication. All treatment decisions require clinical judgment and consideration of individual patient factors, including patient preferences, comorbidities, previous drug use, risk factors not captured in the FRAX model (e.g., frailty, falls, vitamin D deficiency, increased bone turnover, interval significant decline in bone density ) and possible under- or over-estimation of fracture risk by FRAX. In addition, the NOF Guide recommends that FDA-approved medical therapies be considered in postmenopausal women and men age >= 50 years with a: * Hip or vertebral (clinical or morphometric) fracture * T-score of <=-2.5 at the spine or hip * Ten-year fracture probability by FRAX of >= 3% for hip fracture or >=20% for major osteoporotic fracture. Dictated by: Aidan Baugh M.D. on 01/04/2025 at 21:53 Approved by: Aidan Baugh M.D. on 01/04/2025 at 21:54
== END ==
PROVIDERS: Family Provider Internal Medicine Cardiovascular Disease; PCP Family Medicine; Referring Provider Urology; Visit Provider Urology
DX: M81.8 Other osteoporosis without current pathological fracture (principal); Z79.818 Long term (current) use of other agents affecting estrogen receptors and estrogen levels
CPT/HCPCS: 77080

== ENCOUNTER → 2025-01-06 07:48 | Outpatient (CLI) | payer MEDICARE, OTHER, SELFPAY ==
[2023-01-06 08:35] VITALS: BMI 28.8
--- NOTE | 2025-01-06 07:49 | DI.ECHO.S_ITS ---
[place] +---------+ Hospital : : [address] : : [place] : : [id number] : : Phone: [phone] Echocardiogram Report + + :Name: COLLETTE ANDUJAR Study Date: 01/06/2025 Height: 72 in : :Hospital ReadingLocation: Weight: 219 lb : : Gender: Male BSA: 2.2 m2 : :: 1935 Age: 89 yrs BP: 106/70 mmHg: :Reason For Study: ATHEROSCLEROSIS OF AORTA : :Ordering Physician: VANDAAN, : :MICKIE Rodriguez Performed By: Kashif Locke : :Referring: MICKIE ROSS : + + Interpretation Summary The left ventricle is normal in size. The ejection fraction is estimated to be 40-45%. Mild global LV hypokinesis with LV dyssynchrony due to paced rhythm. Previously LVEF 45 to 50%. The right ventricle is mild to moderately dilated. The right ventricular systolic function is normal. There is a pacemaker lead in the right ventricle. There is mild to moderate mitral regurgitation. Compared to the prior echo study, there has been an increase in the severity of mitral regurgitation. Previously mild MR. There is mild tricuspid regurgitation. The right ventricular systolic pressure is estimated to be at least 30 mmHg based on an estimated right atrial pressure of 3 mm Hg. The ascending aorta is mildly enlarged. 4.0 cm in diameter. Previously 3.8 cm in diameter. Procedure: A two-dimensional transthoracic echocardiogram with color flow and Doppler was performed. The study quality was technically good. Comparison is made with the echocardiogram of 07/30/2023. The patient has a paced rhythm. Left Ventricle: The left ventricle is normal in size. Left ventricular wall thickness is mildly increased. There is no ventricular septal defect visualized. The ejection fraction is estimated to be 40-45%. Mild global LV hypokinesis with LV dyssynchrony due to paced rhythm. Previously LVEF 45 to 50%. Diastolic function could not be accurately assessed due to paced rhythm. Right Ventricle: The right ventricle is mild to moderately dilated. There is a pacemaker lead in the right ventricle. The right ventricular systolic function is normal. Atria: The left atrium is severely dilated. The left atrium has mildly increased in size since the prior echo exam. The right atrium is severely dilated. There is a catheter/pacemaker lead seen in the right atrium. There is no Doppler evidence for an atrial septal defect. Mitral Valve: There is mild mitral annular calcification. The mitral valve leaflets appear borderline thickened, but open well. The mitral valve leaflets are slightly calcified. There is mild to moderate mitral regurgitation. Compared to the prior echo study, there has been an increase in the severity of mitral regurgitation. Aortic Valve: The aortic valve is trileaflet. The aortic valve opens well. The aortic valve is slightly calcified. There is no aortic valve stenosis. No aortic regurgitation is present. Tricuspid Valve: The tricuspid valve leaflets are thin and pliable. There is mild tricuspid regurgitation. The right ventricular systolic pressure is estimated to be at least 30 mmHg based on an estimated right atrial pressure of 3 mm Hg. Compared to the prior echo exam, there has been an increase in TR severity. Pulmonic Valve: The pulmonic valve leaflets are thin and pliable; valve motion is normal. There is mild pulmonic regurgitation. Great Vessels: The aortic root is normal size. The ascending aorta is mildly enlarged. The pulmonary artery is normal size. The IVC is of normal diameter and collapses greater than 50% with a sniff. This suggests a low right atrial pressure of 3 mm Hg. Pericardium/ Pleura There is no pericardial effusion. There is no pleural effusion. MMode/2D Measurements & Calculations LVIDd: 4.7 cm LVOT diam: 2.3 cm LVIDs: 3.8 cm Ao root diam: 4.0 cm FS: 19.1 % asc Aorta Diam: 4.0 cm EPSS: 0.89 cm IVSd: 1.3 cm LVPWd: 1.0 cm LV . diameter/BSA (cm/m^2): 2.1 LV sys. diameter/BSA (cm/m^2): 1.7 LA A2 area: 30.3 cm2 RA long axis: 6.6 cm LA A4 area: 28.9 cm2 RA area: 29.6 cm2 LA length (vol): 6.7 cm RA vol: 112.1 ml LA vol: 111.5 ml RA : 50.6 ml/m2 LA vol index: 50.4 ml/m2 IVC diam: 1.6 cm RVD1 (basal): 4.7 cm RVD2 (mid): 3.5 cm TAPSE: 2.2 cm Doppler Measurements & Calculations Ao V2 max: 98.4 cm/sec LVOT Max Magdy: 67.6 cm/sec Ao V2 mean: 71.1 cm/sec LV V1 max P.8 mmHg Ao max P.9 mmHg LV V1 VTI: 14.3 cm Ao mean P.2 mmHg NATY(I,D): 2.8 cm2 Ao V2 VTI: 20.3 cm NATY(V,D): 2.8 cm2 sev ratio: 0.71 NATY indexed to BSA (cm^2/m^2): 1.3 MV E max magdy: 64.0 cm/sec TR max magdy: 260.5 cm/sec MV A max magdy: 37.4 cm/sec TR max P.2 mmHg MV E/A: 1.7 PA V2 max: 44.3 cm/sec Med Peak E' Magdy: 5.8 cm/sec PA V2 mean: 31.3 cm/sec E/E' med: 11.1 PA mean P.43 mmHg Lat Peak E' Magdy: 10.7 cm/sec PA pr(Accel): 37.9 mmHg E/E' lat: 6.0 E/e' average: 8.5 MV dec time: 0.12 sec MR ERO: 0.11 cm2 MR PISA: 1.5 cm2 SV(LVOT): 57.5 ml MR flow rate: 54.0 cm3/sec MR PISA radius: 0.48 cm Reading Physician:10:24 AM
== END ==
PROVIDERS: Family Provider Internal Medicine Cardiovascular Disease; PCP Family Medicine; Referring Provider Family Medicine; Visit Provider Family Medicine
DX: I08.1 Rheumatic disorders of both mitral and tricuspid valves (principal); I77.89 Other specified disorders of arteries and arterioles; I70.0 Atherosclerosis of aorta; I24.81 Acute coronary microvascular dysfunction; E11.9 Type 2 diabetes mellitus without complications; Z95.0 Presence of cardiac pacemaker
CPT/HCPCS: 93306

== ENCOUNTER → 2025-03-13 12:15 | Outpatient (CLI) | payer MEDICARE, OTHER, SELFPAY ==
[2023-01-06 08:35] VITALS: BMI 28.8
--- NOTE | 2025-03-13 12:21 | DI.RAD.S_ITS ---
PROCEDURE: XR CHEST 2V INDICATIONS: CHEST PAIN TECHNIQUE: 2 views of the chest were acquired. COMPARISON: [facility], , XR CHEST 2V, 12/12/2024, 12:07. FINDINGS: Surgical changes and devices: Dual-chamber pacemaker Lungs and pleura: Lungs are clear. No pleural effusions or pneumothorax. Mediastinum: Mediastinal contours are normal. Heart size is normal. Bones and chest wall: No suspicious bony abnormalities. Soft tissues appear unremarkable. IMPRESSION: No acute cardiopulmonary abnormality is seen. Approved by: Vito Cabrera M.D. on 03/13/2025 at 20:09
[2025-03-13 12:59] LABS: Add Manual Diff / Slide Review NO; Basophils Absolute Auto 0 /uL (0-100); Basophils Percent Auto 0.5 % (0-2); Eosinophils Absolute Auto 100 /uL (0-450); Eosinophils Percent Auto 1.8 % (2-4); Hematocrit 38.4 % (41-53); Hemoglobin 13.1 g/dL (13.5-17.5); Lymphocytes Absolute Auto 2100 /uL (1100-4500); Lymphocytes Percent Auto 31.2 % (25-40); Mean Corpuscular HGB Conc 34.1 % (30-36); Mean Corpuscular Hemoglobin 31.4 PG (26-34); Mean Corpuscular Volume 91.9 fL (80-100); Monocytes Absolute Auto 500 /uL (0-900); Monocytes Percent Auto 7.1 % (3-14); Neutrophils Absolute Auto 3900 /uL (1500-7000); Neutrophils Percent Auto 59.4 % (50-75); Platelet Count 163 X10^3/uL (150-400); Red Blood Cell Count 4.17 X10^6/uL (4.5-5.9); Red Cell Distribution Width 15.6 % (11.6-14.8); White Blood Cell Count 6.6 X10^3/uL (4.5-11.0)
[2025-03-13 13:09] LABS: Hemoglobin A1C% w Est Avg Glu 6.4 % (4.0-6.0)
[2025-03-13 13:29] LABS: Alanine Aminotransferase 17 IU/L (<50); Albumin 4.5 g/dL (3.5-5.0); Albumin Globulin Ratio 1.7 (1.0-2.8); Alkaline Phosphatase 66 U/L (38-126); Aspartate Aminotransferase 22 IU/L (17-59); BUN Creatinine Ratio 17.1 (6-22); Bilirubin Total 0.7 mg/dL (0.2-1.3); Blood Urea Nitrogen 14 mg/dL (9-20); Calcium 8.8 mg/dL (8.4-10.2); Carbon Dioxide 25 mmol/L (22-32); Chloride 98 mmol/L (98-107); Cholesterol 176 mg/dL (140-199); Estimated Glomerular Filt Rate > 60 mL/min (>60); Globulin 2.6 g/dL (1.7-4.1); Glucose 119 mg/dL (70-99); HDL Cholesterol 37 mg/dL (40-60); HEMOLYSIS < 15 (0-50); LDL Cholesterol Calculated 101 mg/dL (<100); Potassium 4.7 mmol/L (3.4-5.1); Sodium 135 mmol/L (137-145); Total Protein 7.1 g/dL (6.3-8.2); Triglycerides 190 mg/dL (35-150)
[2025-03-13 13:59] LABS: Prostate Specific Antigen 0.323 ng/mL (0.10-4.00)
[2025-03-13 15:17] LABS: Vitamin D 25 Hydroxy (D3) 39.3 ng/mL (30.0-100.0)
[2025-03-13 18:45] LABS: Thyroid Stimulating Hormone 1.83 uIU/mL (0.47-4.68)
[2025-03-13 19:04] LABS: Vitamin B12 515 pg/mL (239-931)
== END ==
PROVIDERS: Family Provider Internal Medicine Cardiovascular Disease; PCP Family Medicine; Referring Provider Family Medicine; Visit Provider Family Medicine
DX: R07.1 Chest pain on breathing (principal); E11.9 Type 2 diabetes mellitus without complications; E55.9 Vitamin D deficiency, unspecified; I25.10 Atherosclerotic heart disease of native coronary artery without angina pectoris; E78.5 Hyperlipidemia, unspecified; I70.0 Atherosclerosis of aorta; D51.9 Vitamin B12 deficiency anemia, unspecified; Z13.29 Encounter for screening for other suspected endocrine disorder; I50.9 Heart failure, unspecified
CPT/HCPCS: 36415; 71046; 80053; 80061; 82306; 82607; 83036; 84153; 84443; 85025

== ENCOUNTER → 2025-04-28 10:52 | Outpatient (CLI) | payer MEDICARE, OTHER, SELFPAY ==
[2023-01-06 08:35] VITALS: BMI 28.8
--- NOTE | 2025-04-28 10:53 | DI.CT.S_ITS ---
PROCEDURE: CT CHEST WO CON INDICATIONS: Chest pain on breathing TECHNIQUE: Noncontrast 5 mm thick sections acquired from the pulmonary apices to the posterior costophrenic angles. 1 mm lung window, 5 mm thick coronal and sagittal and 7 mm axial MIP reformats were then acquired. For radiation dose reduction, the following was used: automated exposure control, adjustment of mA and/or kV according to patient size. COMPARISON: [facility], CT, CT CHEST WO CON, 11/01/2022, 16:49. FINDINGS: Image quality: Diagnostic. Lower Neck: No enlarged lymph nodes. Thyroid: No thyroid nodules which require sonographic follow up, per consensus guidelines. Axillae: No enlarged lymph nodes. Chest Wall: Left chest wall generator with cardiac leads. Bones: Unremarkable. Lungs and Pleura: Trace left pleural effusion . Left basilar atelectasis. Heart: Heart size is enlarged with three-vessel coronary calcifications. No pericardial effusion. Thoracic Vessels: Dilated main pulmonary artery at 4.2 cm. Mediastinum and [place]: No enlarged lymph nodes. Decreased prevascular node measuring 6 mm short axis, previously 1.1 cm. Esophagus: No wall thickening. No hiatal hernia. Upper Abdomen: Benign 2 cm left adrenal adenoma based on Hounsfield units criteria (2 Hounsfield unit). IMPRESSION: Decreased left-sided pleural effusion, now trace, with rounded atelectasis in the left lung base. Decreased prevascular lymph node, now normal in size. Three-vessel coronary calcifications. Dilated main pulmonary artery at 4.2 cm, consistent with pulmonary hypertension. Dictated by: Kenyon Mcdonough M.D. on 04/28/2025 at 16:19 Approved by: Kenyon Mcdonough M.D. on 04/28/2025 at 16:22
== END ==
LOC: CT 10:53
PROVIDERS: Family Provider Internal Medicine Cardiovascular Disease; PCP Family Medicine; Referring Provider Family Medicine; Visit Provider Family Medicine
DX: I28.8 Other diseases of pulmonary vessels (principal); J98.11 Atelectasis; D35.02 Benign neoplasm of left adrenal gland; R07.1 Chest pain on breathing; I25.10 Atherosclerotic heart disease of native coronary artery without angina pectoris
CPT/HCPCS: 71250

== ENCOUNTER → 2025-06-14 10:21 | Outpatient (CLI) | payer MEDICARE, OTHER, SELFPAY ==
[2023-01-06 08:35] VITALS: BMI 28.8
--- NOTE | 2025-06-14 10:22 | DI.CT.S_ITS ---
PROCEDURE: CT CHEST WO CON INDICATIONS: Pleural effusion, not elsewhere classified TECHNIQUE: Noncontrast 5 mm thick sections acquired from the pulmonary apices to the posterior costophrenic angles. 1 mm lung window, 5 mm thick coronal and sagittal and 7 mm axial MIP reformats were then acquired. For radiation dose reduction, the following was used: automated exposure control, adjustment of mA and/or kV according to patient size. COMPARISON: [facility], CT, CT CHEST WO CON, 11/01/2022, 16:49. [facility], CT, CT CHEST WO CON, 04/28/2025, 11:08. FINDINGS: Image quality: Diagnostic. Lower Neck: No enlarged lymph nodes. Thyroid: No thyroid nodules which require sonographic follow up, per consensus guidelines. Axillae: No enlarged lymph nodes. Chest Wall: Left chest wall generator with cardiac leads. Bones: Unremarkable. Lungs and Pleura: Trace left pleural effusion with left basilar atelectasis. New 3 mm pulmonary nodule in the central right upper lobe (series 3, image 131). Heart: Heart size is enlarged. No pericardial effusion. Three-vessel coronary artery calcifications. Thoracic Vessels: The aorta and pulmonary arteries demonstrate normal size. Mediastinum and [place]: No enlarged lymph nodes. Esophagus: No wall thickening. No hiatal hernia. Upper Abdomen: Stable left adrenal adenoma measuring 2.5 cm. IMPRESSION: Small left pleural effusion with left basilar atelectasis, decreased from prior. Etiology remains uncertain. New 3 mm solid nodule in the central right upper lobe. Consider six-month follow-up. Dictated by: Kenyon Mcdonough M.D. on 06/14/2025 at 13:00 Approved by: Kenyon Mcdonough M.D. on 06/14/2025 at 13:38
[2025-06-14 11:56] LABS: Prostate Specific Antigen 0.370 ng/mL (0.10-4.00)
== END ==
LOC: CT 10:22
PROVIDERS: Urology; Family Provider Internal Medicine Cardiovascular Disease; PCP Family Medicine; Referring Provider Family Medicine; Visit Provider Family Medicine
DX: C61 Malignant neoplasm of prostate (principal); J90 Pleural effusion, not elsewhere classified; J98.11 Atelectasis; R91.1 Solitary pulmonary nodule
CPT/HCPCS: 36415; 71250; 84153